=== PATIENT | male | born 1930 | race African-American/Black ===

== ENCOUNTER 2016-12-15 17:30 | Observation (INO) | payer OTHER ==
[~2016-12-15] VITALS: Ht 185.4 cm; Wt 105.0 kg
[~2016-12-15 17:30] MED LIST: ALLO100T PO; AMLO10 PO; BUFF325T PO; FURO1TAB93 PO; INDO50CA PO; LORTA5 PO; POTA20IN3 PO
[2016-12-15 17:34] VITALS: BP 139/83; PULSE 122; RESP 24; TEMP 98; O2SAT 95
--- NOTE | 2016-12-15 18:16 | PD ---
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 Worsened by rising from a sitting position. Lasting approximately 10-15 seconds before resolving spontaneously. He denies headache , fevers, chills, chest pain, palpitations, diaphoresis, nausea, vomiting, changes in bowel habits, melena, hematochezia, dysuria, back pain. Also complains of swelling of the right hand, which he attributes to a gout flare. PCP Dr. Worrell, seed collector Dr. Sibley. [facility] Past Medical History Arthritis: Yes Cardiovascular Problems: Yes High Cholesterol: Yes Congestive Heart Failure: Yes COPD: Yes Diminished Hearing: Yes ([place]) Gout: Yes Hypertension: Yes Respiratory: Yes Immunizations Current: Yes Past Surgical History Cardiac Surgery: Yes (PACEMAKER) 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) Social History Alcohol Use: Yes (2-3 BEERS DAILY) Tobacco Use: No (quit 5 years) Substance Use: No Allergies-Medications (Allergen,Severity, Reaction): Coded Allergies: No Known Allergies (Verified , 12/15/16) Reported Meds & Prescriptions Reported Meds & Active Scripts Active [place] 5-325 mg (Hydrocodone-Acetaminophen 5-325 mg) 1 Tab 1 Tab PO Q6H PRN Potassium Chloride ER 20 meq 20 Meq Tab 1 Tab PO DAILY 30 Days Lasix (Furosemide) 40 Mg Tab 40 Mg PO DAILY 30 Days Indomethacin 50 Mg Cap 50 Mg PO TID 10 Days Reported Allopurinol 100 Mg Tab 100 Mg PO DAILY@0600 Bufferin (Aspirin Buffered) 325 Mg Tab 325 Mg PO DAILY Norvasc (Amlodipine Besylate) 10 Mg Tab 10 Mg PO DAILY Review of Systems Except as stated in HPI: all other systems reviewed are Neg Physical Exam Narrative GENERAL: Well-nourished, well-developed hard of hearing white male in no acute distress. SKIN: Warm and dry. The entire right hand is edematous, warm. There is faint erythema on the dorsal aspect over the MP joints. Services Mgr strength is somewhat diminished secondary to pain. HEAD: Normocephalic. EYES: No scleral icterus. No injection or drainage. Arcus senilis bilaterally. NECK: Supple, trachea midline. No JVD or lymphadenopathy. CARDIOVASCULAR: Regular rate and rhythm without murmurs, gallops, or rubs. 2+ DP and radial pulses bilaterally. RESPIRATORY: Breath sounds clear and equal bilaterally. No accessory muscle use. GASTROINTESTINAL: Abdomen soft, non-tender, nondistended. Active bowel sounds. MUSCULOSKELETAL: No cyanosis, or edema. NEUROLOGICAL: Awake and alert. Cranial nerves II through XII intact. Motor and sensory grossly within normal limits. No pronator drift. 5/5 biceps, triceps, dorsiflexion, plantar flexion, knee and hip flexion strength bilaterally. Normal speech. BACK: Nontender without obvious deformity. No CVA tenderness. Data Data Last Documented VS Vital Signs Date Time Temp Pulse Resp B/P Pulse Ox O2 Delivery O2 Flow Rate FiO2 12/15/16 17:34 98.0 122 24 139/83 95 Room Air Orders Electrocardiogram (12/15/16 18:16) Complete Blood Count With Diff (12/15/16 18:16) Comprehensive Metabolic Panel (12/15/16 18:16) Magnesium (Mg) (12/15/16 18:16) B-Type Natriuretic Peptide (12/15/16 18:16) Ckmb (Isoenzyme) Profile (12/15/16 18:16) Troponin I (12/15/16 18:16) Act Partial Throm Time (Ptt) (12/15/16 18:16) Prothrombin Time / Inr (Pt) (12/15/16 18:16) Urinalysis - C+S If Indicated (12/15/16 18:16) Chest, Single Ap (12/15/16 18:16) Ct Brain W/O Iv Contrast(Rout) (12/15/16 18:16) Iv Access Insert/Monitor (12/15/16 18:16) Sodium Chloride 0.9% Flush (Ns Flush) (12/15/16 18:30) Orthostatic Blood Pressure (12/15/16 18:32) C-Reactive Protein (Crp) (12/15/16 19:41) W[place]gren Sedimentation Rate (12/15/16 19:41) Blood Culture (12/15/16 19:41) Hand, Complete (Ayf3ibn) (12/15/16 19:47) CKMB (12/15/16 18:54) CKMB% (12/15/16 18:54) Sodium Chlorid 0.9% 500 Ml Inj (Ns 500 M (12/15/16 20:45) Orthostatic Blood Pressure (12/15/16 20:33) Labs Laboratory Tests Test 12/15/16 18:54 White Blood Count 12.0 TH/MM3 Red Blood Count 4.10 MIL/MM3 Hemoglobin 12.8 GM/DL Hematocrit 38.7 % Mean Corpuscular Volume 94.5 FL Mean Corpuscular Hemoglobin 31.3 PG Mean Corpuscular Hemoglobin 33.1 % Concent Red Cell Distribution Width 14.4 % Platelet Count 71 TH/MM3 Mean Platelet Volume 12.7 FL Neutrophils (%) (Auto) 55.6 % Lymphocytes (%) (Auto) 7.7 % Monocytes (%) (Auto) 36.5 % Eosinophils (%) (Auto) 0.0 % Basophils (%) (Auto) 0.2 % Neutrophils # (Auto) 6.7 TH/MM3 Lymphocytes # (Auto) 0.9 TH/MM3 Monocytes # (Auto) 4.4 TH/MM3 Eosinophils # (Auto) 0.0 TH/MM3 Basophils # (Auto) 0.0 TH/MM3 CBC Comment AUTO DIFF Prothrombin Time 12.2 SEC Prothromb Time International 1.1 RATIO Ratio Activated Partial 24.1 SEC Thromboplast Time Sodium Level 133 MEQ/L Potassium Level 4.1 MEQ/L Chloride Level 98 MEQ/L Carbon Dioxide Level 22.4 MEQ/L Anion Gap 13 MEQ/L Blood Urea Nitrogen 33 MG/DL Creatinine 2.81 MG/DL Estimat Glomerular Filtration 26 ML/MIN Rate Random Glucose 109 MG/DL Calcium Level 9.1 MG/DL Magnesium Level 2.3 MG/DL Total Bilirubin 1.1 MG/DL Aspartate Amino Transf 16 U/L (AST/SGOT) Alanine Aminotransferase 13 U/L (ALT/SGPT) Alkaline Phosphatase 73 U/L Total Creatine Kinase 128 U/L Creatine Kinase MB 1.4 NG/ML Troponin I 0.03 NG/ML Total Protein 8.4 GM/DL Albumin 3.1 GM/DL MDM Medical Decision Making Medical Screen Exam Complete: Yes Emergency Medical Condition: Yes Medical Record Reviewed: Yes Differential Diagnosis Orthostatic hypertension versus UTI versus septic arthritis versus electrolyte abnormality versus dehydration versus hypoglycemia versus ACS versus ICH versus other Narrative Course 86-year-old yyhy-bkhj-zgadrgqf male with PMH of HTN, HLD, CHF, COPD, gout, implanted AICD presents to the ED for evaluation of 3 day history of intermittent dizziness. Worsened by rising from a sitting position. Lasting approximately 10-15 seconds before resolving spontaneously. He denies headache , fevers, chills, chest pain, palpitations, diaphoresis, nausea, vomiting, changes in bowel habits, melena, hematochezia, dysuria, back pain. Also complains of swelling of the right hand, which he attributes to a gout flare. PCP Dr. Worrell, seed collector Dr. Sibley. Vitals reviewed. Patient is tachypneic-rate 24, tachycardic rate- 122 on presentation. Pulse 69 after settling into the exam room. Physical exam reveals a nontoxic-appearing black male in no acute distress. No focal neural deficits. No pertain or drift. Entire right hand is edematous, warm, erythematous over the MP dorsal surface of the joints. Strength diminished secondary to pain and swelling. Chest clear to auscultation bilaterally. Abdomen soft, nontender. No lower extremity edema. Orthostatic vitals, Lab work, blood cultures, CT, x-rays, EKG ordered. Patient only moved to the medical pods. Please see oncoming provider note for disposition. Megan Ladd Dec 15, 2016 18:15
[2016-12-15] MEDS ORDERED: SODIUM CHLORIDE 0.9% FLUSH 5 ML FLUSH IVF PRN (18:30)
--- NOTE | 2016-12-15 18:52 | RADRPT ---
EXAM DATE/TIME: 12/15/2016 18:32 [facility] COMPARISON: No previous studies available for comparison. INDICATIONS : Dizziness and altered mental status. RADIATION DOSE: 56.35 CTDIvol (mGy) MEDICAL HISTORY : Cardiovascular disease. Hypertension. Chronic obstructive pulmonary disease. SURGICAL HISTORY : Pacemaker. ENCOUNTER: Initial ACUITY: 4 - 6 days PAIN SCALE: 0/10 LOCATION: cranial TECHNIQUE: Multiple contiguous axial images were obtained of the head. Using automated exposure control and adj ustment of the mA and/or kV according to patient size, radiation dose was kept as low as reasonably a chievable to obtain optimal diagnostic quality images. FINDINGS: There is no evidence for intracranial hemorrhage, mass effect, mass lesions, or edema. The visualize d bony structures appear intact. Moderate degree of brain atrophy is seen. Moderate periventricular white matter changes are seen nonspecific mostly consistent with chronic small vessel ischemic change s. There are no signs of acute infarction for technique. CONCLUSION: Chronic and small vessel ischemic changes without any evidence for acute hemorrhage o r mass effect. Reta Houhg MD on December 15, 2016 at 18:49 Board Certified Radiologist. This report was verified electronically.
--- NOTE | 2016-12-15 18:59 | RADRPT ---
EXAM DATE/TIME: 12/15/2016 18:35 [facility] COMPARISON: CHEST SINGLE AP, June 09, 2015, 15:31. INDICATIONS : Patient complains of shortness of breath, cough, and dizziness. MEDICAL HISTORY : None. SURGICAL HISTORY : Pacemaker. ENCOUNTER: Initial ACUITY: 1 day PAIN SCORE: 0/10 LOCATION: chest FINDINGS: The lungs are clear without infiltrate, nodule, or mass. There is no appreciable pleural effusion fo r technique. Heart and mediastinum are unremarkable. Left subclavian transvenous pacer wires are pre sent with tips in the right atrium and right ventricle. CONCLUSION: No acute cardiopulmonary disease. Reta Hough MD on December 15, 2016 at 18:57 Board Certified Radiologist. This report was verified electronically.
[2016-12-15 19:44] LABS: AUTOMATED NEUTROPHIL # 6.7 TH/MM3 (1.8-7.7); BASOPHIL % 0.2 % (0.0-2.0); HEMATOCRIT 38.7 % (39.0-51.0); LYMPH % 7.7 % (9.0-44.0); LYMPHOCYTE # 0.9 TH/MM3 (1.0-4.8); MEAN CELL VOLUME 94.5 FL (80.0-100.0); MEAN CORPUSCULAR HEMOGLOBIN 31.3 PG (27.0-34.0); MEAN CORPUSCULAR HGB CONC 33.1 % (32.0-36.0); MONO % 36.5 % (0.0-8.0); NEUT % 55.6 % (16.0-70.0); PLATELET COUNT 71 TH/MM3 (150-450); RED CELL DISTRIBUTION WIDTH 14.4 % (11.6-17.2)
[2016-12-15 19:50] LABS: HEMO FLAGS AUTO DIFF
[2016-12-15 19:56] LABS: APTT (PATIENT) 24.1 SEC (24.3-30.1); INTERNATIONAL NORMALIZED RATIO 1.1 RATIO; PROTHROMBIN TIME - PATIENT 12.2 SEC (9.8-11.6)
[2016-12-15 20:07] LABS: ANION GAP 13 MEQ/L (5-15); AST (GOT) 16 U/L (15-37); BICARBONATE 22.4 MEQ/L (21.0-32.0); BLOOD UREA NITROGEN 33 MG/DL (7-18); CHLORIDE 98 MEQ/L (98-107); GLOMERULAR FILTRATION RATE 26 ML/MIN (>89); MAGNESIUM 2.3 MG/DL (1.5-2.5); POTASSIUM 4.1 MEQ/L (3.5-5.1); SODIUM (NA) 133 MEQ/L (136-145)
[2016-12-15 20:12] LABS: ALKALINE PHOSPHATASE 73 U/L (45-117); ALT (GPT) 13 U/L (12-78); CREATINE KINASE 128 U/L (39-308); TOTAL BILIRUBIN ADULT 1.1 MG/DL (0.2-1.0)
[2016-12-15 20:24] LABS: CKMB 1.4 NG/ML (0.5-3.6)
[2016-12-15] MEDS ORDERED: SODIUM CHLORID 0.9% 500 ML INJ 500 ML IV ONE (20:45)
--- NOTE | 2016-12-15 20:51 | RADRPT ---
EXAM DATE/TIME: 12/15/2016 20:19 [facility] COMPARISON: No previous studies available for comparison. INDICATIONS : Swelling. MEDICAL HISTORY : Gout. SURGICAL HISTORY : None. ENCOUNTER: Initial ACUITY: 3 days PAIN SCORE: 0/10 LOCATION: Right hand. 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 There is slight deformity of the fifth PIP joint chronic in nature. A cute fracture is not seen. CONCLUSION: Chronic changes and no evidence for acute fracture. Reta Hough MD on December 15, 2016 at 20:48 Board Certified Radiologist. This report was verified electronically.
[2016-12-15 20:52] LABS: PLATELET ESTIMATE SMEAR LOW (NORMAL); PLATELET MORPHOLOGY ENLARGED (NORMAL); SCAN/DIFF AUTO DIFF CONFIRMED
[2016-12-15 20:59] LABS: BACTERIA, URINE OCC /hpf; BLOOD, URINE SMALL (NEG); COMMENT (UR) CULTURE INDICATED; CULTURE IF INDICATED CULTURE INDICATED; GLUCOSE,URINE NEG (NEG); GRANULAR CAST, URINE 13 /lpf; HYALINE CAST, URINE 4 /lpf (RARE); KETONE, URINE NEG (NEG); MUCUS URINE MOD /lpf (OCC); NITRITE,URINE NEG (NEG); PH, URINE 5.5 (5.0-8.5); SQUAMOUS EPITHELIAL CELL URINE 7 /hpf (0-5); URINE COLOR DARK-YELLOW (YELLW/STRAW)
[2016-12-15 21:10] VITALS: BP_SYST 122; BP_SYST 96; BP_SYST 99; BP_DIAS 64; RESP 16; RESP 20
[2016-12-15 21:25] VITALS: BP 141/86; PULSE 108; RESP 18; O2SAT 97
[2016-12-15] MEDS ORDERED: VANCOMYCIN INJ 1,000 MG in SODIUM CHLOR 0.9% 250 ML INJ 250 ML IV ONE (21:45)
--- NOTE | 2016-12-15 21:58 | HHI.HP ---
[facility] Service [place] [facility] Primary Care Physician Saud Worrell MD Admission Diagnosis orthostatic hypotension, dehydration, cellulitis, renal failure Diagnoses: (1) Orthostatic hypotension Diagnosis: Principal (2) Gout Diagnosis: Principal (3) Cellulitis Diagnosis: Principal (4) Renal insufficiency Diagnosis: Principal (col) Travel History International Travel<30 Days: No Contact w/Intl Traveler <30 Da: No Traveled to Known Affected Are: No History of Present Illness This is an 86-year-old male with PMH of HTN, Hyperlipidemia, CHF (Echo 02/28/12 w / EF 20-25%), s/p AICD, COPD and Gout who was brought to the ER by family secondary to dizziness and SOB x1 wk. Per pt symptoms occur when going from sitting to standing position, no dizziness or SOB at rest. Has had near syncopal episodes but no LOC. Denies chest pain, fever or cough. Of note, pt w / right hand swelling x3 days which he attributes to Gout. Per Daughter, flares usually occur in the knee and underwent steroid injection in knee recently. On arrival, BP 39/83, HR 122, O2 sat 95% on RA, Afebrile. Orthostatic Vital Signs positive, supine 122/64, HR 66, sitting 96/64, HR 123, standing 99/64, HR 138. On exam, significant swelling to right hand w/ erythema. WBC 12.0. Platelets 71, previously 99 on 06/09/15. Creatinine 2.81, previously 1.71 on 06/09/15. CRP 24. INR 1.1. UA with mild bacteriuria. S/p Blood Cultures and Vanc in ER. Review of Systems Other ROS: 14 point review of systems otherwise negative. Past Family Social History Past Medical History PMH: HTN, Hyperlipidemia, CHF (Echo 02/28/12 w/ EF 20-25%), s/p AICD, COPD and Gout Past Surgical History PAST SURGICAL HISTORY: AICD Allergies: Coded Allergies: No Known Allergies (Verified , 12/15/16) Family History PAST FAMILY HISTORY: Reviewed. No h/o DM or CAD Social History PAST SOCIAL HISTORY: Drinks 2 beers daily. Negative for tobacco or drugs. Physical Exam Vital Signs Vital Signs Date Time Temp Pulse Resp B/P Pulse Ox O2 Delivery O2 Flow Rate FiO2 12/15/16 21:10 66 16 122/64 123 20 96/64 138 20 99/64 12/15/16 17:34 98.0 122 24 139/83 95 Room Air Physical Exam PE: GENERAL: Very pleasant elderly black male in no acute distress. Family at bedside. HEENT: PERRLA, EOMI. No scleral icterus or conjunctival pallor. No lid lag or facial droop. CARDIOVASCULAR: Regular rate and rhythm. No obvious murmurs to auscultation. No chest tenderness to palpation. RESPIRATORY: No obvious rhonchi or wheezing. Clear to auscultation. Breath sounds equal bilaterally. GASTROINTESTINAL: Abdomen soft, non-tender, nondistended. BS normal. MUSCULOSKELETAL: Significant edema of right hand w/ some erythema. Pulses intact. NEUROLOGICAL: Awake, alert and oriented x4. No focal neurologic deficits. Moving both upper and lower extremities spontaneously. Laboratory Laboratory Tests Test 12/15/16 12/15/16 18:54 20:15 White Blood Count 12.0 Red Blood Count 4.10 Hemoglobin 12.8 Hematocrit 38.7 Mean Corpuscular Volume 94.5 Mean Corpuscular Hemoglobin 31.3 Mean Corpuscular Hemoglobin 33.1 Concent Red Cell Distribution Width 14.4 Platelet Count 71 Mean Platelet Volume 12.7 Neutrophils (%) (Auto) 55.6 Lymphocytes (%) (Auto) 7.7 Monocytes (%) (Auto) 36.5 Eosinophils (%) (Auto) 0.0 Basophils (%) (Auto) 0.2 Neutrophils # (Auto) 6.7 Lymphocytes # (Auto) 0.9 Monocytes # (Auto) 4.4 Eosinophils # (Auto) 0.0 Basophils # (Auto) 0.0 CBC Comment AUTO DIFF Differential Comment AUTO DIFF CONFIRMED Platelet Estimate LOW Platelet Morphology Comment ENLARGED Prothrombin Time 12.2 Prothromb Time International 1.1 Ratio Activated Partial 24.1 Thromboplast Time Sodium Level 133 Potassium Level 4.1 Chloride Level 98 Carbon Dioxide Level 22.4 Anion Gap 13 Blood Urea Nitrogen 33 Creatinine 2.81 Estimat Glomerular Filtration 26 Rate Random Glucose 109 Calcium Level 9.1 Magnesium Level 2.3 Total Bilirubin 1.1 Aspartate Amino Transf 16 (AST/SGOT) Alanine Aminotransferase 13 (ALT/SGPT) Alkaline Phosphatase 73 Total Creatine Kinase 128 Creatine Kinase MB 1.4 Troponin I 0.03 C-Reactive Protein 24.00 B-Type Natriuretic Peptide 237 Total Protein 8.4 Albumin 3.1 Urine Color DARK-YELLOW Urine Turbidity CLOUDY Urine pH 5.5 Urine Specific [place] 1.019 Urine Protein 300 Urine Glucose (UA) NEG Urine Ketones NEG Urine Occult Blood SMALL Urine Nitrite NEG Urine Bilirubin SMALL Urine Urobilinogen 2.0 Urine Leukocyte Esterase NEG Urine RBC 2 Urine WBC 11 Urine Squamous Epithelial 7 Cells Urine Bacteria OCC Urine Hyaline Casts 4 Urine Granular Casts 13 Urine Mucus MOD Microscopic Urinalysis Comment CULTURE INDICATED Date/Time Procedure Status Source Growth 12/15/16 20:15 Urine Culture Received Urine Clean Catch Pending 12/15/16 20:00 Aerobic Blood Culture Received Blood Line Pending 12/15/16 20:00 Anaerobic Blood Culture Received Blood Line Pending Result Diagram: 12/15/16 18512/15/164 Assessment and Plan Problem List: (1) Orthostatic hypotension ICD Code: I95.1 Status: Acute (2) Dehydration ICD Code: E86.0 Status: Acute (3) Renal insufficiency ICD Code: N28.9 Status: Acute (4) Cellulitis ICD Code: L03.90 Status: Acute (5) Gout ICD Code: M10.9 Status: Acute Assessment and Plan A/P: 1. Orthostatic Hypotension: ongoing dizziness/SOB and near syncope x1 wk, Orthostatic Vital Signs positive w/ significant tachycardia w/ sitting/ standing. S/p IVF in ER, will continue w/ IVF-caution w/ CHF as EF 20-25%, but no acute fluid overload. 2. Dehydration: Likely secondary to diuresis w/ Lasix and acute infection/ cellulitis. Hold Lasix for now, IVF for hydration, resume Lasix once hypovolemia corrected. 3. Renal Insufficiency: Secondary to above. Acute on Chronic. Creatinine 2.81, previously 1.71 on 06/09/15. U/a w/ mild bacteriuria, pending urine culture. IVF, repeat labs in am. 4. Cellulitis: Right Hand Cellulitis w/ swelling which pt attributes to Gout. WBC 12. S/p Blood Cultures and Vanc in ER. Follow up cultures, continue IV Vanc, add Cefepime. Repeat labs in am. 5. Gout: CRP 24, right hand swelling/erythema typical of his Gout attacks. Check Uric Acid. Colchicine x2 doses. Resume home Allopurinol once acute flare resolved. 6. DVT Prophylaxis: SCD/Teds. 7. Social work for d/c planning as needed. 8. Case discussed w/ ER physician at length. Problem Qualifiers (1) Cellulitis: Qualified Code: L03.113 - Cellulitis of right upper extremity Ester Voss MD Dec 15, 2016 21:58
--- NOTE | 2016-12-15 21:59 | PD ---
HPI Chief Complaint: Dizziness Time Seen by Provider: 20:12 Travel History International Travel<30 days: No Contact w/Intl Traveler<30days: No Traveled to known affect area: No History of Present Illness HPI 86-year-old male came to the emergency room with history of lightheadedness, dizziness and shortness of breath for past 3-4 days. He is here with his daughter and son. Patient denies any syncopal episode or following. Says that the symptoms are getting worse. He also showed his right hand which is swollen and red and has some pain. Patient has history of gout and he is getting treated for gout. He is on colchicine for that. Patient was seen earlier by the provider in triage and workup was started. By the time he came to the room the workup was back which included the CBC, CMP, CAT scan of his head and chest x-ray. This was initiated at the Triage by the Provider in Triage. I was discussing with his daughter who happens to be a nurse herself that the patient' s renal functions looked extremely suboptimal to the point where it seems like he is in acute renal failure. Trending back the results of his renal functions it seems like he has had renal insufficiency in the past but his BUN/creatinine today is worse than before. Patient is on few medications that could worsen his renal function including furosemide, colchicine and valsartan. I discussed this with the daughter as well. Also his white count was somewhat elevated. Patient denied any cough, fever or chills. PFSH Past Medical History Narrative Medical List of his past medical history as reviewed from the nursing note. Arthritis: Yes Cardiovascular Problems: Yes High Cholesterol: Yes Congestive Heart Failure: Yes COPD: Yes Diminished Hearing: Yes ([place]) Gout: Yes Hypertension: Yes Respiratory: Yes Immunizations Current: Yes Past Surgical History Cardiac Surgery: Yes (PACEMAKER) 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) Social History Alcohol Use: No Tobacco Use: No Substance Use: No Allergies-Medications (Allergen,Severity, Reaction): Coded Allergies: No Known Allergies (Verified , 12/15/16) Comments No known drug allergies. Reported Meds & Prescriptions Reported Meds & Active Scripts Active [place] 5-325 mg (Hydrocodone-Acetaminophen 5-325 mg) 1 Tab 1 Tab PO Q6H PRN Potassium Chloride inj (Potassium Chloride) 20 Meq Tab 1 Tab PO DAILY 30 Days Lasix (Furosemide) 40 Mg Tab 40 Mg PO DAILY 30 Days Indomethacin 50 Mg Cap 50 Mg PO TID 10 Days Reported Allopurinol 100 Mg Tab 100 Mg PO DAILY@0600 [id number] Mg 325 Mg Tab 325 Mg PO DAILY Norvasc (Amlodipine Besylate) 10 Mg Tab 10 Mg PO DAILY Narrative Medication List of his home medications reviewed from the nursing note. Review of Systems Except as stated in HPI: all other systems reviewed are Neg Physical Exam Narrative GENERAL: Awake, alert, elderly, no obvious distress SKIN: Warm and dry. Right hand dorsum is swollen, erythematous and some streaking proximally. HEAD: Atraumatic. Normocephalic. EYES: Pupils equal and round. No scleral icterus. No injection or drainage. Arcus senilis. ENT: No nasal bleeding or discharge. Mucous membranes pink and moist. NECK: Trachea midline. No JVD. CARDIOVASCULAR: Regular rate and rhythm. No murmur appreciated. RESPIRATORY: No accessory muscle use. Clear to auscultation. Breath sounds equal bilaterally. GASTROINTESTINAL: Abdomen soft, non-tender, nondistended. Hepatic and splenic margins not palpable. MUSCULOSKELETAL: Multiple large joint arthritis and deformity from it. 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 No clubbing. No cyanosis. No edema. NEUROLOGICAL: Awake and alert. No obvious cranial nerve deficits. Motor grossly within normal limits. Normal speech. PSYCHIATRIC: Appropriate mood and affect; insight and judgment normal. Data Data Last Documented VS Vital Signs Date Time Temp Pulse Resp B/P Pulse Ox O2 Delivery O2 Flow Rate FiO2 12/15/16 21:25 108 18 141/86 97 Room Air 12/15/16 17:34 98.0 Orders Electrocardiogram (12/15/16 18:16) Complete Blood Count With Diff (12/15/16 18:16) Comprehensive Metabolic Panel (12/15/16 18:16) Magnesium (Mg) (12/15/16 18:16) B-Type Natriuretic Peptide (12/15/16 18:16) Ckmb (Isoenzyme) Profile (12/15/16 18:16) Troponin I (12/15/16 18:16) Act Partial Throm Time (Ptt) (12/15/16 18:16) Prothrombin Time / Inr (Pt) (12/15/16 18:16) Urinalysis - C+S If Indicated (12/15/16 18:16) Chest, Single Ap (12/15/16 18:16) Ct Brain W/O Iv Contrast(Rout) (12/15/16 18:16) Iv Access Insert/Monitor (12/15/16 18:16) Sodium Chloride 0.9% Flush (Ns Flush) (12/15/16 18:30) Orthostatic Blood Pressure (12/15/16 18:32) C-Reactive Protein (Crp) (12/15/16 19:41) Westergren Sedimentation Rate (12/15/16 19:41) Blood Culture (12/15/16 19:41) Hand, Complete ([id number]) (12/15/16 19:47) CKMB (12/15/16 18:54) CKMB% (12/15/16 18:54) Sodium Chlorid 0.9% 500 Ml Inj (Ns 500 M (12/15/16 20:45) Orthostatic Blood Pressure (12/15/16 20:33) Urine Culture (12/15/16 20:15) Vancomycin Inj (Vancomycin Inj) (12/15/16 21:45) Blood Culture (12/15/16 21:40) Lactic Acid (12/15/16 21:40) Admit Order (Ed Use Only) (12/15/16 21:48) Labs Laboratory Tests Test 12/15/16 12/15/16 12/15/16 18:54 20:15 21:30 White Blood Count 12.0 TH/MM3 Red Blood Count 4.10 MIL/MM3 Hemoglobin 12.8 GM/DL Hematocrit 38.7 % Mean Corpuscular Volume 94.5 FL Mean Corpuscular Hemoglobin 31.3 PG Mean Corpuscular Hemoglobin 33.1 % Concent Red Cell Distribution Width 14.4 % Platelet Count 71 TH/MM3 Mean Platelet Volume 12.7 FL Neutrophils (%) (Auto) 55.6 % Lymphocytes (%) (Auto) 7.7 % Monocytes (%) (Auto) 36.5 % Eosinophils (%) (Auto) 0.0 % Basophils (%) (Auto) 0.2 % Neutrophils # (Auto) 6.7 TH/MM3 Lymphocytes # (Auto) 0.9 TH/MM3 Monocytes # (Auto) 4.4 TH/MM3 Eosinophils # (Auto) 0.0 TH/MM3 Basophils # (Auto) 0.0 TH/MM3 CBC Comment AUTO DIFF Differential Comment AUTO DIFF CONFIRMED Platelet Estimate LOW Platelet Morphology Comment ENLARGED Prothrombin Time 12.2 SEC Prothromb Time International 1.1 RATIO Ratio Activated Partial 24.1 SEC Thromboplast Time Sodium Level 133 MEQ/L Potassium Level 4.1 MEQ/L Chloride Level 98 MEQ/L Carbon Dioxide Level 22.4 MEQ/L Anion Gap 13 MEQ/L Blood Urea Nitrogen 33 MG/DL Creatinine 2.81 MG/DL Estimat Glomerular Filtration 26 ML/MIN Rate Random Glucose 109 MG/DL Uric Acid 8.2 MG/DL Calcium Level 9.1 MG/DL Magnesium Level 2.3 MG/DL Total Bilirubin 1.1 MG/DL Aspartate Amino Transf 16 U/L (AST/SGOT) Alanine Aminotransferase 13 U/L (ALT/SGPT) Alkaline Phosphatase 73 U/L Total Creatine Kinase 128 U/L Creatine Kinase MB 1.4 NG/ML Troponin I 0.03 NG/ML C-Reactive Protein 24.00 MG/DL B-Type Natriuretic Peptide 237 PG/ML Total Protein 8.4 GM/DL Albumin 3.1 GM/DL Urine Color DARK-YELLOW Urine Turbidity CLOUDY Urine pH 5.5 Urine Specific [place] 1.019 Urine Protein 300 mg/dL Urine Glucose (UA) NEG mg/dL Urine Ketones NEG mg/dL Urine Occult Blood SMALL Urine Nitrite NEG Urine Bilirubin SMALL Urine Urobilinogen 2.0 MG/DL Urine Leukocyte Esterase NEG Urine RBC 2 /hpf Urine WBC 11 /hpf Urine Squamous Epithelial 7 /hpf Cells Urine Bacteria OCC /hpf Urine Hyaline Casts 4 /lpf Urine Granular Casts 13 /lpf Urine Mucus MOD /lpf Microscopic Urinalysis Comment CULTURE INDICATED Erythrocyte Sedimentation Rate 67 mm/hr [facility] Medical Decision Making Medical Screen Exam Complete: Yes Emergency Medical Condition: Yes Medical Record Reviewed: Yes Interpretation(s) Twelve-lead EKG was reviewed by me. Paced rhythm, heart rate of 104 bpm. Differential Diagnosis Dehydration, cellulitis, electrolyte abnormalities, renal failure Narrative Course 9:55 PM his WBC, CRP and sedimentation rate are significantly elevated. Nurse had done the orthostatic vital signs which was remarkably positive. Please look at those values at the nursing note. Patient is getting IV fluid bolus. I have ordered IV vancomycin since the redness of the hand which is quite possibly cellulitis and the source of infection. I would prefer to admit this patient at this point. I discussed this with the patient and his son. His daughter was not in the room when I went back to discuss the plan and the rest of the results. They understand and are agreeable with that plan. The hospitalist has accepted the case. As far as the renal failure is concerned definitely his Lasix, Colchicine and valsartan should be stopped. Procedures EKG Prior to Arrival: Yes Diagnosis Primary Impression: Orthostatic hypotension Additional Impressions: Cellulitis Qualified Code: L03.113 - Cellulitis of right upper extremity Renal failure Dehydration Admitting Information Admitting Physician Requests: Observation Lual Mora MD Dec 15, 2016 21:59
[2016-12-15] MEDS ORDERED: SODIUM CHLORIDE 0.9% FLUSH 5 ML FLUSH FLUSH PRN (22:00)
[2016-12-15] MEDS ORDERED: ACETAMINOPHEN/HYDROcodone 325 MG/10 MG TAB PO PRN (22:00)
[2016-12-15] MEDS ORDERED: Vancomycin Consult Pharmacy 1 EA OTHER SCH (22:00)
[2016-12-15] MEDS ORDERED: ACETAMINOPHEN 325 MG TAB PO PRN (22:00)
[2016-12-15] MEDS ORDERED: BISACODYL 10 MG SUPP PR PRN (22:00)
[2016-12-15] MEDS ORDERED: ONDANSETRON HCL 4 MG/2 ML VIAL IVP PRN (22:00)
[2016-12-15] MEDS ORDERED: COLCHICINE 0.6 MG TAB PO ONE (22:30)
[2016-12-15 23:00] VITALS: BP 137/78; PULSE 94; RESP 18; O2SAT 96
[2016-12-15] MEDS: SODIUM CHLOR 0.9% 1000 ML INJ 1,000 ML IV SCH (23:35)
[2016-12-15] MEDS: CEFEPIME INJ 1,000 MG in SODIUM CHLORIDE 0.9% INJ 100 ML IV SCH (23:36)
[2016-12-16] VITALS (11 sets, daily range): BP systolic 113–148; BP diastolic 66–94; PULSE 77–112; RESP 18–20; TEMP 97.5–98.8; O2SAT 93–97
[2016-12-16] MEDS ORDERED: COLCHICINE 0.6 MG TAB PO ONE (00:30)
[2016-12-16 05:41] LABS: AUTOMATED NEUTROPHIL # 5.3 TH/MM3 (1.8-7.7); BASOPHIL % 0.4 % (0.0-2.0); EOSINOPHIL % 0.1 % (0.0-4.0); HEMATOCRIT 34.4 % (39.0-51.0); LYMPH % 13.7 % (9.0-44.0); LYMPHOCYTE # 1.3 TH/MM3 (1.0-4.8); MEAN CELL VOLUME 93.8 FL (80.0-100.0); MEAN CORPUSCULAR HEMOGLOBIN 31.4 PG (27.0-34.0); MEAN CORPUSCULAR HGB CONC 33.5 % (32.0-36.0); NEUT % 55.8 % (16.0-70.0); PLATELET COUNT 59 TH/MM3 (150-450); RED BLOOD COUNT 3.67 MIL/MM3 (4.50-5.90); RED CELL DISTRIBUTION WIDTH 14.5 % (11.6-17.2); WHITE BLOOD COUNT 9.5 TH/MM3 (4.0-11.0)
[2016-12-16 05:45] LABS: HEMO FLAGS AUTO DIFF
[2016-12-16 06:11] LABS: ANION GAP 10 MEQ/L (5-15); AST (GOT) 15 U/L (15-37); BLOOD UREA NITROGEN 35 MG/DL (7-18); CHLORIDE 101 MEQ/L (98-107); GLOMERULAR FILTRATION RATE 32 ML/MIN (>89); POTASSIUM 4.3 MEQ/L (3.5-5.1); SODIUM (NA) 133 MEQ/L (136-145)
[2016-12-16 06:16] LABS: ALKALINE PHOSPHATASE 57 U/L (45-117); ALT (GPT) 11 U/L (12-78)
[2016-12-16] MEDS ORDERED: VANCOMYCIN 1,000 MG/NS 250 ML IV ONE ×2 (08:30)
[2016-12-16] MEDS: SODIUM CHLORIDE 0.9% FLUSH 5 ML FLUSH FLUSH SCH ×2 (08:33→21:24)
[2016-12-16] MEDS: ACETAMINOPHEN/HYDROcodone 325 MG/5 MG TAB PO PRN ×3 (08:33→18:16)
[2016-12-16] MEDS: SODIUM CHLOR 0.9% 1000 ML INJ 1,000 ML IV SCH ×2 (08:34→23:28)
--- NOTE | 2016-12-16 08:57 | HHI.PR ---
Subjective Remarks Follow-up for right hand infection. The patient continues to report swelling of his right hand. States it's difficult to move his fingers. He states the swelling comes and goes. No pain currently. He states that since his hand is been bothering him, he hasn't been feeling well for the past week or so, hasn't been eating or drinking much. He denies any nausea, vomiting. He had one episode of loose stools this morning. He denies any fevers or chills. He states she's been able to ambulate today with no difficulties. Denies any dizziness. Objective Vitals Vital Signs Date Time Temp Pulse Resp B/P Pulse Ox O2 Delivery O2 Flow Rate FiO2 12/16/16 08:38 97.6 112 20 130/94 95 12/16/16 05:09 81 12/16/16 04:11 97.8 99 20 133/66 97 12/16/16 01:00 95 18 139/81 95 Room Air 12/15/16 23:00 94 18 137/78 96 Room Air 12/15/16 21:25 108 18 141/86 97 Room Air 12/15/16 21:10 66 16 122/64 123 20 96/64 138 20 99/64 12/15/16 17:34 98.0 122 24 139/83 95 Room Air I/O 12/15/16 12/15/16 12/15/16 12/16/16 12/16/16 12/16/16 07:00 15:00 23:00 07:00 15:00 23:00 Intake Total 760 ml Balance 760 ml Intake Oral 360 ml IV Total 400 ml Result Diagram: 12/16/16 0506 12/16/16 0506 Imaging Last Impressions Hand X-Ray 12/15/161946 Signed Impressions: Service Date/Time: Thursday, December 15, 2016 20:19 - CONCLUSION: Chronic changes and no evidence for acute fracture. Reta Hough MD Head CT 12/15/161815 Signed Impressions: Service Date/Time: Thursday, December 15, 2016 18:32 - CONCLUSION: Chronic and small vessel ischemic changes without any evidence for acute hemorrhage or mass effect. Reta Hough MD Chest X-Ray 12/15/161815 Signed Impressions: Service Date/Time: Thursday, December 15, 2016 18:35 - CONCLUSION: No acute cardiopulmonary disease. Reta Hough MD Objective Remarks GENERAL: Well-developed well-nourished. In no acute distress. SKIN: Warm and dry. Right hand with swelling, warmth, minimal erythema. HEENT: Normocephalic. Pupils equal and round. Mucous membranes pink and moist. CARDIOVASCULAR: Regular rate and rhythm. No murmur appreciated. RESPIRATORY: No accessory muscle use. Clear to auscultation. Breath sounds equal bilaterally. GASTROINTESTINAL: Abdomen soft, non-tender, nondistended. Bowel sounds x4. MUSCULOSKELETAL: Right hand as above. Unable to actively flex and extend fingers of right hand. No clubbing or cyanosis. No edema. NEUROLOGICAL: Awake and alert. No focal neurological deficits. Moves upper and lower extremities spontaneously. Normal speech. PSYCHIATRIC: Appropriate mood and affect; insight and judgment normal. A/P Problem List: (1) Orthostatic hypotension ICD Code: I95.1 Status: Acute (2) Dehydration ICD Code: E86.0 Status: Acute (3) Renal insufficiency ICD Code: N28.9 Status: Acute (4) Cellulitis ICD Code: L03.90 Status: Acute (5) Gout ICD Code: M10.9 Status: Acute Assessment and Plan 86-year-old male with PMH of HTN, Hyperlipidemia, CHF (Echo 02/28/12 w/ EF 20-25% ), s/p AICD, COPD and Gout who was brought to the ED by family secondary to dizziness Orthostatic Hypotension: ongoing dizziness/SOB and near syncope x1 wk, Orthostatic Vital Signs positive w/ significant tachycardia w/ sitting/ standing. Likely secondary to dehydration and infection as below. Improving with IVF. Monitor orthostatics. PT eval. Acute kidney injury on chronic kidney disease: Creatinine 2.81, previously 1.71 on 06/09/15. Likely secondary to dehydration from diuresis w/ Lasix and acute infection/cellulitis. Hold Lasix for now, IVF for hydration, resume Lasix once hypovolemia corrected. Monitor BMP. Cautious volume resuscitation with CHF. Cellulitis: Right Hand Cellulitis w/ swelling which pt attributes to Gout. Hand x-ray with chronic changes and no acute fracture. Continue antibiotics( with Lactinex) and monitor for improvement. Sepsis: Secondary to right hand cellulitis as above. Presented with WBC 12k, tachycardia. Blood cultures pending. Received IV vancomycin in the ED. Continue on IV cefepime. Gout: Right hand swelling/erythema typical of his Gout attacks. Elevated ESR, CRP, uric acid. Colchicine x2 doses. Resume home Allopurinol once acute flare resolved. Abnormal UA: UA with evidence of contaminant versus UTI. Continue antibiotics as above. Follow-up urine culture. Reconcile and resume home medications, discussed with RN. DVT Prophylaxis: SCD/Teds. Plan of care discussed with Dr. Colón. Discharge Planning Disposition pending clinical course. Problem Qualifiers (1) Cellulitis: Qualified Code: L03.113 - Cellulitis of right upper extremity Tani Henderson Dec 16, 2016 08:57 Srinivasa Castañeda MD Dec 17, 2016 10:37
[2016-12-16 10:03] LABS: PLATELET ESTIMATE SMEAR LOW (NORMAL); PLATELET MORPHOLOGY ENLARGED (NORMAL); SCAN/DIFF AUTO DIFF CONFIRMED
[2016-12-16] MEDS: LACTOBACILLUS ACIDOPHILUS TAB PO SCH ×2 (11:25→21:24)
[2016-12-16] MEDS ORDERED: AMLO10TA2 PO (13:28)
[2016-12-16] MEDS ORDERED: TRAM50TA PO (13:44)
[2016-12-16] MEDS ORDERED: ATEN50TA PO (13:45)
[2016-12-16] MEDS ORDERED: POTA-163 PO (13:45)
[2016-12-16] MEDS ORDERED: VITA400T14 PO (13:48)
[2016-12-16] MEDS: CEFEPIME INJ 1,000 MG in SODIUM CHLORIDE 0.9% INJ 100 ML IV SCH (23:27)
[2016-12-17] MEDS: ACETAMINOPHEN/HYDROcodone 325 MG/5 MG TAB PO PRN ×3 (03:58→16:50)
[2016-12-17 06:28] VITALS: BP 126/75; PULSE 80; RESP 18; TEMP 97.5; O2SAT 95
[2016-12-17] MEDS: LACTOBACILLUS ACIDOPHILUS TAB PO SCH ×2 (08:45→20:51)
[2016-12-17] MEDS: SODIUM CHLORIDE 0.9% FLUSH 5 ML FLUSH FLUSH SCH ×2 (08:45→20:50)
[2016-12-17] MEDS: ATENOLOL 25 MG TAB PO SCH (08:45)
[2016-12-17] MEDS ORDERED: VANCOMYCIN 1,500 MG/NS 500 ML IV ONE ×2 (11:00)
[2016-12-17 11:54] VITALS: BP 117/76; PULSE 71; RESP 20; TEMP 98.2; O2SAT 97
--- NOTE | 2016-12-17 11:57 | HHI.PR ---
Subjective Remarks Follow-up for right hand swelling and orthostasis. Patient is reported that his hand swelling comes and goes. He states that he's been ambulating, denies any dizziness or lightheadedness. Objective Vitals Vital Signs Date Time Temp Pulse Resp B/P Pulse Ox O2 Delivery O2 Flow Rate FiO2 12/17/16 06:28 97.5 80 18 126/75 95 12/16/16 23:28 97.5 93 18 127/84 96 129/92 132/87 12/16/16 20:41 98.4 94 20 132/81 96 12/16/16 20:30 88 12/16/16 20:00 20 12/16/16 15:52 98.8 77 20 113/71 96 12/16/16 11:56 97.7 100 20 115/79 94 Result Diagram: 12/16/16 0506 12/16/16 0506 Imaging Last Impressions Hand X-Ray 12/15/161946 Signed Impressions: Service Date/Time: Thursday, December 15, 2016 20:19 - CONCLUSION: Chronic changes and no evidence for acute fracture. Reta Hough MD Head CT 12/15/161815 Signed Impressions: Service Date/Time: Thursday, December 15, 2016 18:32 - CONCLUSION: Chronic and small vessel ischemic changes without any evidence for acute hemorrhage or mass effect. Reta Hough MD Chest X-Ray 12/15/161815 Signed Impressions: Service Date/Time: Thursday, December 15, 2016 18:35 - CONCLUSION: No acute cardiopulmonary disease. Reta Hough MD Objective Remarks GENERAL: Well-developed well-nourished. In no acute distress. SKIN: Warm and dry. Right hand with swelling, and slight TTP, improving erythema. HEENT: Normocephalic. Pupils equal and round. Mucous membranes pink and moist. CARDIOVASCULAR: Regular rate and rhythm. No murmur appreciated. RESPIRATORY: No accessory muscle use. Clear to auscultation. Breath sounds equal bilaterally. GASTROINTESTINAL: Abdomen soft, non-tender, nondistended. Bowel sounds x4. MUSCULOSKELETAL: Right hand as above. Able to better flex and extend fingers of right hand today, but still limited. No clubbing or cyanosis. No edema. NEUROLOGICAL: Awake and alert. No focal neurological deficits. Moves upper and lower extremities spontaneously. Normal speech. PSYCHIATRIC: Appropriate mood and affect; insight and judgment normal. A/P Problem List: (1) Orthostatic hypotension ICD Code: I95.1 Status: Acute (2) Dehydration ICD Code: E86.0 Status: Acute (3) Renal insufficiency ICD Code: N28.9 Status: Acute (4) Cellulitis ICD Code: L03.90 Status: Acute (5) Gout ICD Code: M10.9 Status: Acute Assessment and Plan 86-year-old male with PMH of HTN, Hyperlipidemia, CHF (Echo 02/28/12 w/ EF 20-25% ), s/p AICD, COPD and Gout who was brought to the ED by family secondary to dizziness Orthostatic Hypotension: ongoing dizziness/SOB and near syncope x1 wk, Orthostatic Vital Signs positive w/ significant tachycardia w/ sitting/ standing. Likely secondary to dehydration and infection as below. Improved with IVF. Monitor orthostatics. PT eval. Acute kidney injury on chronic kidney disease: Creatinine 2.81, previously 1.71 on 06/09/15. Likely secondary to dehydration from diuresis w/ Lasix and acute infection/cellulitis. Hold Lasix for now. S/P IVF for hydration. Resume Lasix once hypovolemia corrected. Monitor BMP. Cautious volume resuscitation with CHF. Cellulitis: Right Hand Cellulitis w/ swelling which pt attributes to Gout. Hand x-ray with chronic changes and no acute fracture. Continue antibiotics( with Lactinex) and monitor for continued improvement. Sepsis: Secondary to right hand cellulitis vs UTI. Presented with WBC 12k, tachycardia. Blood cultures with NGTD. Received IV vancomycin and cefepime. Clinically improved and leukocytosis resolved. Afebrile. Stop vancomycin and continue cefepime for now. Gout: Right hand swelling/erythema typical of his Gout attacks. Elevated ESR, CRP, uric acid. Colchicine x2 doses. Resume home Allopurinol once acute flare resolved. Abnormal UA: UA with evidence of contaminant versus UTI. Continue antibiotics as above. Urine culture pending. HTN/CHF: Chronic. BP soft. Holding Lasix and amlodipine. Decrease atenolol dose with hold parameters with borderline BP. DVT Prophylaxis: SCD/Teds. Written by Tani Henderson, acting as scribe for Dr. Colón on 12/17/16 at 11:55. Discharge Planning Possible discharge home with home health care on oral antibiotics later today versus tomorrow a.m. if cultures remain negative. Attending Statement The documentation accurately reflects the work performed [id number] by me on at 11:55. Problem Qualifiers (1) Cellulitis: Qualified Code: L03.113 - Cellulitis of right upper extremity Tani Henderson Dec 17, 2016 11:57 Srinivasa Castañeda MD Dec 24, 2016 09:04
--- NOTE | 2016-12-17 12:33 | HHI.FF ---
Face to Face Verification Diagnosis: (1) Orthostatic hypotension (2) Gout (3) Cellulitis (4) Renal failure (5) Dehydration Physical Therapy Order: Evaluate and Treat, Improve ambulation, Strength and gait training Home Health Nursing Order: Medical education Signs/symptoms of disease process Medication education-adverse effect Nursing assessment with vital signs I have seen patient Dom Abrams on 12/17/16. My clinical findings support the need for the requested home health care services because: Ltd mobility - disease progression Deconditioned w/ increased weakness High risk of falls Infection w/ risk of complications I certify that my clinical findings support that this patient is homebound because: Unsteady gait/balance Poor cardiac reserve Tani Henderson Dec 17, 2016 12:33
[2016-12-17 12:50] LABS: AUTOMATED NEUTROPHIL # 3.1 TH/MM3 (1.8-7.7); BASOPHIL % 0.4 % (0.0-2.0); EOSINOPHIL % 0.1 % (0.0-4.0); HEMATOCRIT 32.3 % (39.0-51.0); LYMPH % 20.2 % (9.0-44.0); LYMPHOCYTE # 1.2 TH/MM3 (1.0-4.8); MEAN CELL VOLUME 94.2 FL (80.0-100.0); MEAN CORPUSCULAR HEMOGLOBIN 30.9 PG (27.0-34.0); MEAN CORPUSCULAR HGB CONC 32.8 % (32.0-36.0); MONO % 25.6 % (0.0-8.0); NEUT % 53.7 % (16.0-70.0); PLATELET COUNT 91 TH/MM3 (150-450); RED BLOOD COUNT 3.43 MIL/MM3 (4.50-5.90); RED CELL DISTRIBUTION WIDTH 14.4 % (11.6-17.2); WHITE BLOOD COUNT 5.9 TH/MM3 (4.0-11.0)
[2016-12-17 12:56] LABS: HEMO FLAGS AUTO DIFF
[2016-12-17 13:08] LABS: BICARBONATE 23.7 MEQ/L (21.0-32.0); POTASSIUM 3.6 MEQ/L (3.5-5.1)
[2016-12-17 13:38] LABS: PLATELET ESTIMATE SMEAR LOW (NORMAL); PLATELET MORPHOLOGY NORMAL (NORMAL); SCAN/DIFF AUTO DIFF CONFIRMED
--- NOTE | 2016-12-17 15:05 | EKG ---
Date Performed: 12/15/2016 Time Performed: 19:08:16 PTAGE: 86 years EKG: ELECTRONIC VENTRICULAR PACEMAKER When compared to previous tracing, there is now evedence o f Increased heart rate, with significant atrial synchronous and Ventricular pacing. There are also ne gative beats noted witch are appropriately Senced. There is also evidence of some psudofussion. ABNOR MAL RHYTHM ECG PREVIOUS TRACING : 06/09/2015 15.16 DOCTOR: Berenice Ojeda Interpretating Date/Time 12/17/2016 15:03:05
[2016-12-17 15:58] VITALS: BP 116/77; PULSE 71; RESP 20; TEMP 97.8; O2SAT 97
[2016-12-17 20:00] VITALS: PULSE 74
[2016-12-17 21:01] VITALS: BP_SYST 154; BP_SYST 157; BP_SYST 172; BP_DIAS 91; BP_DIAS 94; BP_DIAS 96; PULSE 84; RESP 20; TEMP 98.4; O2SAT 95
[2016-12-17] MEDS: CEFEPIME INJ 1,000 MG in SODIUM CHLORIDE 0.9% INJ 100 ML IV SCH (22:56)
[2016-12-18] VITALS (7 sets, daily range): BP systolic 124–166; BP diastolic 76–101; PULSE 65–81; RESP 18; TEMP 96.8–98.2; O2SAT 92–99
[2016-12-18] MEDS: ATENOLOL 25 MG TAB PO SCH (08:16)
[2016-12-18] MEDS: LACTOBACILLUS ACIDOPHILUS TAB PO SCH ×2 (08:16→21:56)
[2016-12-18] MEDS: SODIUM CHLORIDE 0.9% FLUSH 5 ML FLUSH FLUSH SCH ×2 (08:17→21:00)
[2016-12-18] MEDS: ACETAMINOPHEN/HYDROcodone 325 MG/5 MG TAB PO PRN (08:20)
--- NOTE | 2016-12-18 09:31 | HHI.PR ---
Subjective Remarks Follow up for right hand cellulitis/gout, dizziness, with orthostatic hypotension. The patient reports feeling better today. His right hand swelling has improved however still unable to fully extend the right wrist. Last night he had a 10 beat run of NSVT. He denies any chest pain or shortness of breath but does get lightheaded at times, he is not sure if it was associated with the episode of NSVT. He does have an AICD. His russian teacher is Dr. Sibley. Objective Vitals Vital Signs Date Time Temp Pulse Resp B/P Pulse Ox O2 Delivery O2 Flow Rate FiO2 12/18/16 05:54 98.2 74 18 138/86 92 12/18/16 01:33 98.2 72 18 166/87 93 12/17/16 21:01 98.4 84 20 172/94 95 157/96 154/91 12/17/16 20:00 74 12/17/16 15:58 97.8 71 20 116/77 97 12/17/16 11:54 98.2 71 20 117/76 97 I/O 12/17/16 12/17/16 12/17/16 12/18/16 12/18/16 12/18/16 07:00 15:00 23:00 07:00 15:00 23:00 Intake Total 1350 ml Output Total 1200 ml Balance 150 ml Intake Oral 750 ml IV Total 600 ml Output Urine Total 1200 ml Result Diagram: 12/17/16 1217 12/17/16 1217 Imaging Last Impressions Hand X-Ray 12/15/161946 Signed Impressions: Service Date/Time: Thursday, December 15, 2016 20:19 - CONCLUSION: Chronic changes and no evidence for acute fracture. Reta Hough MD Head CT 12/15/161815 Signed Impressions: Service Date/Time: Thursday, December 15, 2016 18:32 - CONCLUSION: Chronic and small vessel ischemic changes without any evidence for acute hemorrhage or mass effect. Reta Hough MD Chest X-Ray 12/15/161815 Signed Impressions: Service Date/Time: Thursday, December 15, 2016 18:35 - CONCLUSION: No acute cardiopulmonary disease. Reta Hough MD Objective Remarks GENERAL: Well-nourished, well-developed pleasant elderly male patient in [place]. SKIN: Warm and dry. No rash. HEAD: Normocephalic. Atraumatic. NECK: Supple. Trachea midline. CARDIOVASCULAR: Regular rate and rhythm. S1, S2 noted. No murmur appreciated. RESPIRATORY: No accessory muscle use. Clear to auscultation. Breath sounds equal bilaterally. GASTROINTESTINAL: Abdomen soft, non-tender, nondistended. Normoactive bowel sounds x4. MUSCULOSKELETAL: No obvious deformities. Right dorsal hand with edema, minimal erythema, mild TTP, able to flex/extend fingers however difficulty with extension of the right wrist. NEUROLOGICAL: Awake and alert. No obvious cranial nerve deficits. Motor grossly within normal limits. Normal speech. PSYCHIATRIC: Appropriate mood and affect; insight and judgment normal. Medications and IVs Current Medications Medications (Trade) Dose Ordered Sig/Moses Route Start Time Stop Time Status Last Admin (NS Flush) 2 ml UNSCH PRN FLUSH 12/15/16 22:00 (NS Flush) 2 ml BID FLUSH 12/16/16 09:00 12/18/16 08:17 (Zofran Inj) 4 mg Q6H PRN IVP 12/15/16 22:00 (Dulcolax Supp) 10 mg DAILY PRN [place] 12/15/16 22:00 (Tylenol) 650 mg Q6H PRN PO 12/15/16 22:00 ([place] 5-325 Mg) 1 tab Q4H PRN PO 12/15/16 22:00 12/18/16 08:20 ([place] 10-325 Mg) 1 tab Q4H PRN PO 12/15/16 22:00 (Lactinex) 1 tab Q12HR PO 12/16/16 09:00 12/18/16 08:16 Atenolol 25 mg 25 mg DAILY PO 12/17/16 09:00 12/18/16 08:16 (Maxipime Inj/NS Inj) 100 ml @ 200 mls/hr Q24H IV 12/18/16 23:00 (Deltasone) 20 mg BID PO 12/18/16 21:00 Urinary Catheter: No Vascular Central Line Catheter: No A/P Problem List: (1) Orthostatic hypotension ICD Code: I95.1 Status: Acute (2) Dehydration ICD Code: E86.0 Status: Acute (3) Renal insufficiency ICD Code: N28.9 Status: Acute (4) Cellulitis ICD Code: L03.90 Status: Acute (5) Gout ICD Code: M10.9 Status: Acute Assessment and Plan 86-year-old male with PMH of HTN, Hyperlipidemia, CHF (Echo 02/28/12 w/ EF 20-25% ), s/p AICD, COPD and Gout who was brought to the ED by family secondary to dizziness Orthostatic Hypotension: ongoing dizziness/SOB and near syncope x1 wk, Orthostatic Vital Signs positive w/ significant tachycardia w/ sitting/ standing. Likely secondary to dehydration and infection as below. Improved with IVF. Monitor orthostatics. PT eval. NSVT: patient with 10beat run of NSVT last night 12/17. Has AICD. On atenolol. With lightheadedness and near syncope as above, Consult patient's russian teacher Dr. Sibley. Acute kidney injury on chronic kidney disease: Creatinine 2.81, previously 1.71 on 06/09/15. Likely secondary to dehydration from diuresis w/ Lasix and acute infection/cellulitis. Hold Lasix for now. S/P IVF for hydration. Resume Lasix once hypovolemia corrected. Monitor BMP. Cautious volume resuscitation with CHF. Slowly improving, Cr 2.06 today. Cellulitis and Gout Flare: Right Hand Cellulitis w/ swelling, typical of gout flares, does have elevated uric acid, ESR, CRP. S/p colchicine x2. Hand x-ray with chronic changes and no acute fracture. Continue IV Cefepime (with Lactinex ), also added prednisone 20mg bid. Monitor for continued improvement. Resume home Allopurinol once acute flare resolved. Sepsis: Secondary to right hand cellulitis vs UTI. Presented with WBC 12k, tachycardia. Blood cultures with NGTD. Received IV vancomycin and cefepime. Clinically improved and leukocytosis resolved. Afebrile. Stop vancomycin and continue cefepime for now. Abnormal UA: UA with evidence of contaminant versus UTI. On antibiotics for cellulitis as above however urine culture with mixed gram positive, likely contaminants. HTN/CHF: Chronic. BP soft. Holding Lasix and amlodipine. Decrease atenolol dose with hold parameters with borderline BP. DVT Prophylaxis: SCD/Teds. Written by Jolene Sánchez, acting as scribe for Dr. Mendez on 2/6/17 at 09:30. The documentation accurately reflects the work performed [id number] by me Dr. Mendez on 12/18/16 at 09:30. Problem Qualifiers (1) Cellulitis: Qualified Code: L03.113 - Cellulitis of right upper extremity Jolene Sánchez PA-C Dec 18, 2016 09:31 Rochelle Mendez MD Dec 18, 2016 18:46
[2016-12-18] MEDS ORDERED: predniSONE 20 MG TAB PO ONE (09:45)
[2016-12-18] MEDS ORDERED: predniSONE 20 MG TAB PO SCH (09:45)
--- NOTE | 2016-12-18 11:50 | MB ---
cc: NATA CHAPMAN MD DATE OF CONSULTATION 12/18/2016 REASON FOR CONSULTATION NSVT. HISTORY OF PRESENT ILLNESS Mr. Abrams is a pleasant 86-year-old patient of mine. He does have a known history of a nonischemic dilated cardiomyopathy with normal coronaries by catheterization in 2011. His EF initially was 20% and has increased to 35% by echo in July of 2015. The patient remains asymptomatic from a cardiovascular perspective. He was admitted for right upper extremity cellulitis and during his hospitalization has had some NSVT. Cardiology was subsequently consulted. PAST MEDICAL HISTORY: Significant for - 1. Hypertension. 2. Hyperlipidemia. 3. Nonischemic cardiomyopathy with a Biotronik ICD. 4. CHF. 5. Gout. 6. Obesity. 7. Chronic renal insufficiency. REVIEW OF SYSTEMS Except as mentioned in the HPI, all 12 systems are negative. FAMILY HISTORY Noncontributory. ALLERGIES No known drug allergies. CURRENT MEDICATIONS: As per the record include - 1. Atenolol 25 mg a day. 2. Prednisone. 3. Cefepime. PHYSICAL EXAMINATION VITAL SIGNS: 96.8, 81, 18, 135/101. GENERAL: He is an overweight man who is in no apparent distress. NECK: Free from JVD. LUNGS: Clear auscultation. CARDIOVASCULAR EXAMINATION: He has a normal S1 and S2. I do not appreciate any murmurs, rubs or gallops. ABDOMEN: Soft. EXTREMITIES: Free from edema. TELEMETRY - Does show multiple runs of NSVT. ASSESSMENT AND PLAN NSVT - This patient does have a history of nonischemic cardiomyopathy and NSVT. His device does appear to be functioning normally and would not expect any intervention for these short runs. He does have a history of the same. Thus at this point I would simply continue him on his atenolol and observe. Cardiomyopathy - The patient does have moderate LV impaired. He is on a beta-bartolome. SANNA inhibitors felt relatively contraindicated with his renal insufficiency and a creatinine of over 2. History of CHF - The patient is a bit dehydrated on this admission thus holding his diuretics is reasonable at this point. The primary team can continue to monitor and manage his fluid balance. I would, however, likely restart his Lasix once he is euvolemic and prior to discharge. History of ICD - The patient notes he is due for recheck this week. We can simply put this off until after his discharge. Sincerely, Mando Milian/LAYO /10:27 AM /11:38 AM
[2016-12-18] MEDS: predniSONE 20 MG TAB PO SCH (21:56)
[2016-12-18] MEDS ORDERED: CEFEPIME 2000 MG/NS 100 ML IV SCH ×2 (23:00)
[2016-12-19] VITALS (7 sets, daily range): BP systolic 127–142; BP diastolic 73–88; PULSE 59–75; RESP 18–20; TEMP 97.6–98.2; O2SAT 60–97
[2016-12-19] MEDS: LACTOBACILLUS ACIDOPHILUS TAB PO SCH (08:41)
[2016-12-19] MEDS: ATENOLOL 25 MG TAB PO SCH (08:41)
[2016-12-19] MEDS: SODIUM CHLORIDE 0.9% FLUSH 5 ML FLUSH FLUSH SCH (08:42)
[2016-12-19] MEDS: predniSONE 20 MG TAB PO SCH (08:42)
--- NOTE | 2016-12-19 14:11 | HHI.PR ---
Subjective Remarks Follow up for gout exacerbation/cellulitis. He reports much improvement of the edema/erythema of the right hand. He is able to flex/extend the right wrist. He denies any fevers or chills. He has no other medical complaints. No further runs of NSVT. He wants to go home. Objective Vitals Vital Signs Date Time Temp Pulse Resp B/P Pulse Ox O2 Delivery O2 Flow Rate FiO2 12/19/16 11:38 97.6 68 20 127/81 97 12/19/16 10:55 75 12/19/16 08:43 72 12/19/16 07:32 97.6 59 20 142/73 94 12/19/16 06:09 98.2 66 18 139/81 60 12/19/16 00:24 98.2 62 20 136/88 93 12/18/16 21:48 98.1 72 18 132/78 94 12/18/16 20:00 65 12/18/16 16:00 96.9 69 18 129/76 99 I/O 12/18/16 12/18/16 12/18/16 12/19/16 12/19/16 12/19/16 07:00 15:00 23:00 07:00 15:00 23:00 Intake Total 900 ml Balance 900 ml Intake Oral 800 ml IV Total 100 ml # Voids 3 Result Diagram: 12/17/16 1217 12/17/16 1217 Imaging Last Impressions Hand X-Ray 12/15/161946 Signed Impressions: Service Date/Time: Thursday, December 15, 2016 20:19 - CONCLUSION: Chronic changes and no evidence for acute fracture. Reta Hough MD Head CT 12/15/161815 Signed Impressions: Service Date/Time: Thursday, December 15, 2016 18:32 - CONCLUSION: Chronic and small vessel ischemic changes without any evidence for acute hemorrhage or mass effect. Reta Hough MD Chest X-Ray 12/15/161815 Signed Impressions: Service Date/Time: Thursday, December 15, 2016 18:35 - CONCLUSION: No acute cardiopulmonary disease. Reta Hough MD Objective Remarks GENERAL: Well-nourished, well-developed pleasant elderly male patient in [facility]. SKIN: Warm and dry. No rash. HEAD: Normocephalic. Atraumatic. NECK: Supple. Trachea midline. CARDIOVASCULAR: Regular rate and rhythm. S1, S2 noted. No murmur appreciated. RESPIRATORY: No accessory muscle use. Clear to auscultation. Breath sounds equal bilaterally. GASTROINTESTINAL: Abdomen soft, non-tender, nondistended. Normoactive bowel sounds x4. MUSCULOSKELETAL: No obvious deformities. Right dorsal hand with minimal edema , no erythema, nontender, able to flex/extend fingers/wrist of right hand, much improved. NEUROLOGICAL: Awake and alert. No obvious cranial nerve deficits. Motor grossly within normal limits. Normal speech. PSYCHIATRIC: Appropriate mood and affect; insight and judgment normal. Medications and IVs Current Medications Medications (Trade) Dose Ordered Sig/Moses Route Start Time Stop Time Status Last Admin (NS Flush) 2 ml UNSCH PRN FLUSH 12/15/16 22:00 (NS Flush) 2 ml BID FLUSH 12/16/16 09:00 12/19/16 08:42 (Zofran Inj) 4 mg Q6H PRN IVP 12/15/16 22:00 (Dulcolax Supp) 10 mg DAILY PRN [place] 12/15/16 22:00 (Tylenol) 650 mg Q6H PRN PO 12/15/16 22:00 ([place] 5-325 Mg) 1 tab Q4H PRN PO 12/15/16 22:00 12/18/16 08:20 ([place] 10-325 Mg) 1 tab Q4H PRN PO 12/15/16 22:00 12/18/16 21:56 (Lactinex) 1 tab Q12HR PO 12/16/16 09:00 12/19/16 08:41 Atenolol 25 mg 25 mg DAILY PO 12/17/16 09:00 12/19/16 08:41 (Maxipime Inj/NS Inj) 100 ml @ 200 mls/hr Q24H IV 12/18/16 23:00 12/18/16 21:56 (Deltasone) 20 mg BID PO 12/18/16 21:00 12/19/16 08:42 Urinary Catheter: No Vascular Central Line Catheter: No A/P Problem List: (1) Orthostatic hypotension ICD Code: I95.1 Status: Acute (2) Dehydration ICD Code: E86.0 Status: Acute (3) Renal insufficiency ICD Code: N28.9 Status: Acute (4) Cellulitis ICD Code: L03.90 Status: Acute (5) Gout ICD Code: M10.9 Status: Acute Assessment and Plan 86-year-old male with PMH of HTN, Hyperlipidemia, CHF (Echo 02/28/12 w/ EF 20-25% ), s/p AICD, COPD and Gout who was brought to the ED by family secondary to dizziness Orthostatic Hypotension: ongoing dizziness/SOB and near syncope x1 wk, Orthostatic Vital Signs positive w/ significant tachycardia w/ sitting/ standing. Likely secondary to dehydration and infection as below. Improved with IVF. Monitor orthostatics. PT eval, recommends HHC, case management arranged. NSVT: patient with 10beat run of NSVT on 12/17. Has AICD. On atenolol. With lightheadedness and near syncope as above, Consult patient's educational technology specialist Dr. Sibley who recommended continuing medical management, plan for AICD check as scheduled next week, and cleared for discharge. Acute kidney injury on chronic kidney disease: Creatinine 2.81, previously 1.71 on 06/09/15. Likely secondary to dehydration from diuresis w/ Lasix and acute infection/cellulitis. Hold Lasix for now. S/P IVF for hydration. Monitor BMP. Cautious volume resuscitation with CHF. Slowly improving, Cr 2.06 today. Continued to hold lasix at discharge, f/up as outpatient. Cellulitis and Gout Flare: Right Hand Cellulitis w/ swelling, typical of gout flares, does have elevated uric acid, ESR, CRP. S/p colchicine x2. Hand x-ray with chronic changes and no acute fracture. Continue IV Cefepime (with Lactinex ), also added prednisone 20mg bid. Monitor for continued improvement. Resume home Allopurinol once acute flare resolved. Much improved today. Will discharge on po Keflex, prednisone. Unable to prescribe NSAIDs with renal function. Sepsis: Secondary to right hand cellulitis vs UTI. Presented with WBC 12k, tachycardia. Blood cultures with NGTD. Received IV vancomycin and cefepime. Clinically improved and leukocytosis resolved. Afebrile. Stop vancomycin, given IV Cefepime, transition to po Keflex at discharge. Abnormal Blood Cultures: contaminant, only 1/4 positive for pleomorphic gram positive rods on day 4. Leukocytosis resolved. No fevers. Patient overall appears clinically well. Abnormal UA: UA with evidence of contaminant versus UTI. On antibiotics for cellulitis as above however urine culture with mixed gram positive, likely contaminants. HTN/CHF: Chronic. BP soft. Holding Lasix and amlodipine. Decreased atenolol dose with hold parameters with borderline BP. Much improved. DVT Prophylaxis: SCD/Teds. Written by Jolene Sánchez, acting as scribe for Dr. Mendez on 12/19/16 at 14:08. The documentation accurately reflects the work performed [id number] by md Dr. Mendez on 12/19/16 at 14:08. Discharge Planning See discharge summary. Problem Qualifiers (1) Cellulitis: Qualified Code: L03.113 - Cellulitis of right upper extremity Jolene Sánchez PA-C Dec 19, 2016 14:11 Rochelle Mendez MD Dec 19, 2016 17:11
[2016-12-19] MEDS ORDERED: PRED20 PO (15:30)
[2016-12-19] MEDS ORDERED: CEPH-460 PO (15:30)
[2016-12-19] MEDS ORDERED: ATEN25TA PO (15:30)
[2016-12-19] MEDS ORDERED: NORC5TAB PO (15:51)
--- NOTE | 2016-12-19 16:42 | HHI.DS ---
Discharge Summary Admission Date Dec 17, 2016 at 11:44 Discharge Date: Dec 19, 2016 Admitting Diagnosis orthostatic hypotension, dehydration, cellulitis, renal failure (1) Orthostatic hypotension ICD Code: I95.1 Diagnosis: Principal (2) Dehydration ICD Code: E86.0 Diagnosis: Secondary (3) Renal insufficiency ICD Code: N28.9 Diagnosis: Secondary (4) Cellulitis ICD Code: L03.90 Diagnosis: Principal (5) Gout ICD Code: M10.9 Diagnosis: Principal Procedures None. Brief History - From Admission This is an 86-year-old male with PMH of HTN, Hyperlipidemia, CHF (Echo 02/28/12 w / EF 20-25%), s/p AICD, COPD and Gout who was brought to the ER by family secondary to dizziness and SOB x1 wk. Per pt symptoms occur when going from sitting to standing position, no dizziness or SOB at rest. Has had near syncopal episodes but no LOC. Denies chest pain, fever or cough. Of note, pt w / right hand swelling x3 days which he attributes to Gout. Per Daughter, flares usually occur in the knee and underwent steroid injection in knee recently. On arrival, BP 39/83, HR 122, O2 sat 95% on RA, Afebrile. Orthostatic Vital Signs positive, supine 122/64, HR 66, sitting 96/64, HR 123, standing 99/64, HR 138. On exam, significant swelling to right hand w/ erythema. WBC 12.0. Platelets 71, previously 99 on 06/09/15. Creatinine 2.81, previously 1.71 on 06/09/15. CRP 24. INR 1.1. UA with mild bacteriuria. S/p Blood Cultures and Vanc in ER. CBC/BMP: 12/17/16 1217 12/17/16 1217 Significant Findings Laboratory Tests Test 12/17/16 12:17 Red Blood Count 3.43 MIL/MM3 (4.50-5.90) Hemoglobin 10.6 GM/DL (13.0-17.0) Hematocrit 32.3 % (39.0-51.0) Platelet Count 91 TH/MM3 (150-450) Monocytes (%) (Auto) 25.6 % (0.0-8.0) Monocytes # (Auto) 1.5 TH/MM3 (0-0.9) Platelet Estimate LOW (NORMAL) Sodium Level 135 MEQ/L (136-145) Blood Urea Nitrogen 40 MG/DL (7-18) Creatinine 2.06 MG/DL (0.60-1.30) Estimat Glomerular Filtration 37 ML/MIN (>89) Rate Calcium Level 7.9 MG/DL (8.5-10.1) Imaging Last Impressions Hand X-Ray 12/15/161946 Signed Impressions: Service Date/Time: Thursday, December 15, 2016 20:19 - CONCLUSION: Chronic changes and no evidence for acute fracture. Reta Hough MD Head CT 12/15/161815 Signed Impressions: Service Date/Time: Thursday, December 15, 2016 18:32 - CONCLUSION: Chronic and small vessel ischemic changes without any evidence for acute hemorrhage or mass effect. Reta Hough MD Chest X-Ray 12/15/161815 Signed Impressions: Service Date/Time: Thursday, December 15, 2016 18:35 - CONCLUSION: No acute cardiopulmonary disease. Reta Hough MD PE at Discharge GENERAL: Well-nourished, well-developed pleasant elderly male patient in [facility]. SKIN: Warm and dry. No rash. HEAD: Normocephalic. Atraumatic. NECK: Supple. Trachea midline. CARDIOVASCULAR: Regular rate and rhythm. S1, S2 noted. No murmur appreciated. RESPIRATORY: No accessory muscle use. Clear to auscultation. Breath sounds equal bilaterally. GASTROINTESTINAL: Abdomen soft, non-tender, nondistended. Normoactive bowel sounds x4. MUSCULOSKELETAL: No obvious deformities. Right dorsal hand with minimal edema , no erythema, nontender, able to flex/extend fingers/wrist of right hand, much improved. NEUROLOGICAL: Awake and alert. No obvious cranial nerve deficits. Motor grossly within normal limits. Normal speech. PSYCHIATRIC: Appropriate mood and affect; insight and judgment normal. Hospital Course 86-year-old male with PMH of HTN, Hyperlipidemia, CHF (Echo 02/28/12 w/ EF 20-25% ), s/p AICD, COPD and Gout who was brought to the ED by family secondary to dizziness Orthostatic Hypotension: ongoing dizziness/SOB and near syncope x1 wk, Orthostatic Vital Signs positive w/ significant tachycardia w/ sitting/ standing. Likely secondary to dehydration and infection as below. Improved with IVF. Monitor orthostatics. PT eval, recommends HHC, case management arranged. NSVT: patient with 10beat run of NSVT on 12/17. Has AICD. On atenolol. With lightheadedness and near syncope as above, Consult patient's tripper Dr. Sibley who recommended continuing medical management, plan for AICD check as scheduled next week, and cleared for discharge. Acute kidney injury on chronic kidney disease: Creatinine 2.81, previously 1.71 on 06/09/15. Likely secondary to dehydration from diuresis w/ Lasix and acute infection/cellulitis. Hold Lasix for now. S/P IVF for hydration. Monitor BMP. Cautious volume resuscitation with CHF. Slowly improving, Cr 2.06 today. Continued to hold lasix at discharge, f/up as outpatient. Cellulitis and Gout Flare: Right Hand Cellulitis w/ swelling, typical of gout flares, does have elevated uric acid, ESR, CRP. S/p colchicine x2. Hand x-ray with chronic changes and no acute fracture. Continue IV Cefepime (with Lactinex ), also added prednisone 20mg bid. Monitor for continued improvement. Resume home Allopurinol once acute flare resolved. Much improved today. Will discharge on po Keflex, prednisone. Unable to prescribe NSAIDs with renal function. Sepsis: Secondary to right hand cellulitis vs UTI. Presented with WBC 12k, tachycardia. Blood cultures with NGTD. Received IV vancomycin and cefepime. Clinically improved and leukocytosis resolved. Afebrile. Stop vancomycin, given IV Cefepime, transition to po Keflex at discharge. Abnormal Blood Cultures: contaminant, only 1/4 positive for pleomorphic gram positive rods on day 4. Leukocytosis resolved. No fevers. Patient overall appears clinically well. Abnormal UA: UA with evidence of contaminant versus UTI. On antibiotics for cellulitis as above however urine culture with mixed gram positive, likely contaminants. HTN/CHF: Chronic. BP soft. Holding Lasix and amlodipine. Decreased atenolol dose with hold parameters with borderline BP. Much improved. DVT Prophylaxis: SCD/Teds. Written by Jolene Sánchez, acting as scribe for Dr. Mendez on 12/19/16 at 14:08. The documentation accurately reflects the work performed [id number] by me Dr. Mendez on 12/19/16 at 14:08. Pt Condition on Discharge: Stable Discharge Disposition: Disch w/ Home Health Serv Discharge Time: > 30 minutes Discharge Instructions DIET: Follow Instructions for: Heart Healthy Diet Activities you can perform: Regular-No Restrictions Follow up Referrals: PCP Follow-up - 2-3 Days with Saud Worrell MD Rheumatology - 1 Week with Christoph Rosario MD New Medications: Cephalexin (Keflex) 500 Mg Cap 500 MG PO Q8H Infection #21 Ref 0 CAP Hydrocodone-Acetaminophen (Acc[place]) 5-325 mg Tab 1 TAB PO Q4H PRN PAIN #20 Ref 0 TAB Atenolol (Atenolol) 25 Mg Tab 25 MG PO DAILY Regulate Heart Beat #30 TAB Prednisone (Prednisone) 20 Mg Tab 20 MG PO BID Inflammation #6 TAB Continued Medications: Allopurinol (Allopurinol) 100 Mg Tab 100 MG PO DAILY@0600 () 325 Mg Tab 325 MG PO DAILY Ref 0 Ergocalciferol (Vitamin D2) 400 Unit Tab 86838 UNITS PO DAILY Nutritional Supplement Ref 0 TAB Hydrocodone-Acetaminophen 5-325 mg (Accident 5-325 mg) 1 Tab 1 TAB PO Q6H PRN PAIN SCALE 1 TO 10 #20 Ref 0 TAB Discontinued Medications: Amlodipine (Amlodipine) 10 Mg Tab 10 MG PO DAILY Blood Pressure Management #30 Ref 0 TAB Amlodipine Besylate (Norvasc) 10 Mg Tab 10 MG PO DAILY Ref 0 Atenolol (Atenolol) 50 Mg Tab 50 MG PO DAILY Blood Pressure Management #30 Ref 0 TAB Furosemide (Lasix) 40 Mg Tab 40 MG PO DAILY Days 30 TAB Indomethacin (Indomethacin) 50 Mg Cap 50 MG PO TID Days 10 Potassium Chloride ER (Potassium Chloride ER) 20 Meq Tab 20 MEQ PO DAILY Electrolyte Replacement #30 Ref 0 TAB Potassium Chloride inj (Potassium Chloride inj) 20 Meq Tab 1 TAB PO DAILY Days 30 TAB Tramadol (Tramadol) 50 Mg Tab 50 MG PO DAILY PRN PAIN Ref 0 TAB Jolene Sánchez PA-C Dec 19, 2016 16:42 Rochelle Mendez MD Dec 19, 2016 17:12
== END 2016-12-19 17:13 | disposition home health service (06) ==
LOC: NEPC 17:30 → NEDA 21:49 → UNDOADMOB 21:54 → NEDH 12-16 01:33 → NEDA 12-16 01:33 → NEDH 12-16 02:58 → NEPGCP 12-16 02:58 → INTOOBSV 12-17 11:44 → OBSVTOIN 12-17 11:44 → UNDODISOB 12-19 17:13
PROVIDERS: ADMIT Hospitalist; ATTEND Hospitalist
DX: I47.2 Ventricular tachycardia (principal); N17.9 Acute kidney failure, unspecified; I42.0 Dilated cardiomyopathy; L03.113 Cellulitis of right upper limb; I95.1 Orthostatic hypotension; I50.9 Heart failure, unspecified; J44.9 Chronic obstructive pulmonary disease, unspecified; E86.0 Dehydration; M10.9 Gout, unspecified; H91.90 Unspecified hearing loss, unspecified ear; E78.00 Pure hypercholesterolemia, unspecified; M19.90 Unspecified osteoarthritis, unspecified site; I12.9 Hypertensive chronic kidney disease with stage 1 through stage 4 chronic kidney disease, or unspecified chronic kidney disease; N18.9 Chronic kidney disease, unspecified; Z95.810 Presence of automatic (implantable) cardiac defibrillator; Z87.891 Personal history of nicotine dependence; E78.5 Hyperlipidemia, unspecified; E66.9 Obesity, unspecified
CPT/HCPCS: 70450; 71010; 73130; 80048; 80053; 80202; 81001; 82550; 82552; 83605; 83735; 83880; 84484; 84550; 85025; 85610; 85652; 85730; 86140; 87040; 87077; 87086; 87205; 93005; 96360; 97110; 97116; 97162; 99285; G0378; G8987; G8988; J0692; J3370; J7030; J7040; J7050; J7512

== ENCOUNTER 2016-12-27 06:19 | Emergency (ER) | payer OTHER ==
[~2016-12-27] VITALS: Ht 185.4 cm; Wt 104.0 kg
[~2016-12-27 06:19] MED LIST changes: -AMLO10 PO; +ATEN25TA PO; +CEPH-460 PO; -FURO1TAB93 PO; -INDO50CA PO; +NORC5TAB PO; -POTA20IN3 PO; +PRED20 PO; +VITA400T14 PO
[2016-12-27 06:23] VITALS: BP 183/102; PULSE 81; RESP 20; TEMP 97.6; O2SAT 94
[2016-12-27 12:43] VITALS: BP 185/103; PULSE 70; RESP 20; O2SAT 96
[2016-12-27 12:59] VITALS: O2SAT 97
[2016-12-27] MEDS ORDERED: SODIUM CHLORIDE 0.9% FLUSH 5 ML FLUSH IVF PRN (13:00)
[2016-12-27] MEDS ORDERED: TRAM50TA PO (13:01)
[2016-12-27] MEDS ORDERED: ATEN50TA PO (13:01)
[2016-12-27] MEDS ORDERED: ALLO100T PO (13:01)
--- NOTE | 2016-12-27 13:01 | PD ---
HPI Chief Complaint: Respiratory Symptoms Time Seen by Provider: 12:47 Travel History International Travel<30 days: No Contact w/Intl Traveler<30days: No Traveled to known affect area: No History of Present Illness HPI This is an 86-year-old male who presents to the emergency department reporting that he had an episode of shortness of breath that started last evening and has persisted through this morning, constant, moderate severity described as difficulty breathing. His visits so going on. He denies any chest pain. Patient reports this is very similar to his symptoms when he presented 2 weeks ago to the emergency department. At that time he was having some shortness of breath and dizziness. He was found to have orthostatic hypotension, acute kidney injury and some over diuresis in the setting of his Lasix. He also was septic at that time. He says he's been doing well since discharge until yesterday. He also during a hospital admission had a episode of nonsustained ventricular tachycardia. The patient has an AICD. Dr. Sibley recommended rechecking the AICD as an outpatient. PFSH Past Medical History Arthritis: Yes Blood Disorders: No Heart Rhythm Problems: Yes Cancer: No Cardiovascular Problems: Yes (PACEMAKER, CHF) High Cholesterol: No Chest Pain: Yes Congestive Heart Failure: Yes COPD: Yes Diminished Hearing: Yes ([place]) Endocrine: No Gout: Yes Genitourinary: No Hypertension: Yes Immune Disorder: No Implanted Vascular Access Dvce: Yes Musculoskeletal: Yes (Left knee, Gout) Neurologic: No Psychiatric: No Respiratory: Yes Immunizations Current: Yes Past Surgical History Body Medical Devices: Pacemaker, Left knee - pins Cardiac Surgery: Yes (PACEMAKER) 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) Social History Alcohol Use: No (ON WEEKENDS) Tobacco Use: No Substance Use: No Allergies-Medications (Allergen,Severity, Reaction): Coded Allergies: No Known Allergies (Verified , 12/27/16) Reported Meds & Prescriptions Reported Meds & Active Scripts Active Nebo (Hydrocodone-Acetaminophen) 5-325 mg Tab 1 Tab PO Q4H PRN Keflex (Cephalexin) 500 Mg Cap 500 Mg PO Q8H Prednisone 20 Mg Tab 20 Mg PO BID Reported Atenolol 50 Mg Tab 50 Mg PO DAILY Allopurinol 100 Mg Tab 100 Mg PO DAILY Tramadol (Tramadol HCl) 50 Mg Tab 50 Mg PO Q8H PRN Vitamin D2 (Ergocalciferol) 400 Unit Tab 50,000 Units PO DAILY Review of Systems Except as stated in HPI: all other systems reviewed are Neg Physical Exam Narrative GENERAL:Well appearing, no acute distress SKIN: Warm and dry. HEAD: Atraumatic. Normocephalic. EYES: Pupils equal and round. No injection or drainage. ENT: Moist mucous membranes NECK: Trachea midline. CARDIOVASCULAR: Regular rate and rhythm. No murmur appreciated. RESPIRATORY: Clear to auscultation. Breath sounds equal bilaterally. GASTROINTESTINAL: Abdomen soft, non-tender, nondistended. MUSCULOSKELETAL: No obvious deformities. NEUROLOGICAL: Awake and alert. No obvious cranial nerve deficits. Moving all extremities. PSYCHIATRIC: Appropriate mood and affect; insight and judgment normal. Data Data Last Documented VS Vital Signs Date Time Temp Pulse Resp B/P Pulse Ox O2 Delivery O2 Flow Rate FiO2 12/27/16 14:20 64 18 176/89 93 Room Air 12/27/16 06:23 97.6 Orders Electrocardiogram (12/27/16 ) Complete Blood Count With Diff (12/27/16 12:51) Comprehensive Metabolic Panel (12/27/16 12:51) B-Type Natriuretic Peptide (12/27/16 12:51) Act Partial Throm Time (Ptt) (12/27/16 12:51) Prothrombin Time / Inr (Pt) (12/27/16 12:51) Troponin I (12/27/16 12:51) Urinalysis - C+S If Indicated (12/27/16 12:51) Iv Access Insert/Monitor (12/27/16 12:51) Ecg Monitoring (12/27/16 12:51) Oximetry (12/27/16 12:51) Oxygen Administration (12/27/16 12:51) Chest, Single Ap (12/27/16 12:51) Sodium Chloride 0.9% Flush (Ns Flush) (12/27/16 13:00) Labetalol Inj (Trandate Inj) (12/27/16 13:15) Labs Laboratory Tests Test 12/27/16 12/27/16 13:00 13:09 White Blood Count 13.5 TH/MM3 Red Blood Count 3.58 MIL/MM3 Hemoglobin 11.0 GM/DL Hematocrit 33.7 % Mean Corpuscular Volume 94.0 FL Mean Corpuscular Hemoglobin 30.6 PG Mean Corpuscular Hemoglobin 32.6 % Concent Red Cell Distribution Width 15.0 % Platelet Count 194 TH/MM3 Mean Platelet Volume 9.9 FL Neutrophils (%) (Auto) 66.0 % Lymphocytes (%) (Auto) 7.7 % Monocytes (%) (Auto) 25.5 % Eosinophils (%) (Auto) 0.4 % Basophils (%) (Auto) 0.4 % Neutrophils # (Auto) 8.9 TH/MM3 Lymphocytes # (Auto) 1.0 TH/MM3 Monocytes # (Auto) 3.4 TH/MM3 Eosinophils # (Auto) 0.1 TH/MM3 Basophils # (Auto) 0.1 TH/MM3 CBC Comment AUTO DIFF Differential Total Cells 100 Counted Neutrophils % (Manual) 63 % Band Neutrophils % 2 % Lymphocytes % 16 % Monocytes % 16 % Neutrophils # (Manual) 9.2 TH/MM3 Myelocytes 3 % Differential Comment FINAL DIFF MANUAL Platelet Estimate NORMAL Platelet Morphology Comment NORMAL Prothrombin Time 11.2 SEC Prothromb Time International 1.0 RATIO Ratio Activated Partial 27.3 SEC Thromboplast Time Sodium Level 133 MEQ/L Potassium Level 4.3 MEQ/L Chloride Level 100 MEQ/L Carbon Dioxide Level 23.2 MEQ/L Anion Gap 10 MEQ/L Blood Urea Nitrogen 15 MG/DL Creatinine 1.64 MG/DL Estimat Glomerular Filtration 49 ML/MIN Rate Random Glucose 91 MG/DL Calcium Level 8.2 MG/DL Total Bilirubin 0.9 MG/DL Aspartate Amino Transf 30 U/L (AST/SGOT) Alanine Aminotransferase 23 U/L (ALT/SGPT) Alkaline Phosphatase 72 U/L Troponin I 0.04 NG/ML B-Type Natriuretic Peptide 1775 PG/ML Total Protein 7.8 GM/DL Albumin 3.2 GM/DL Urine Color LIGHT-YELLOW Urine Turbidity CLEAR Urine pH 7.5 Urine Specific [place] 1.009 Urine Protein 30 mg/dL Urine Glucose (UA) NEG mg/dL Urine Ketones NEG mg/dL Urine Occult Blood NEG Urine Nitrite NEG Urine Bilirubin NEG Urine Urobilinogen LESS THAN 2.0 MG/DL Urine Leukocyte Esterase NEG Urine RBC LESS THAN 1 /hpf Urine Squamous Epithelial <1 /hpf Cells Urine Hyaline Casts 1 /lpf Microscopic Urinalysis Comment CULT NOT INDICATED MDM Medical Decision Making Medical Screen Exam Complete: Yes Emergency Medical Condition: Yes Interpretation(s) Afebrile, hypertensive, 94% on room air Leukocytosis with monocytic shift BNP is 1775 increased from prior Creatinine is 1.6 at baseline Chest x-ray: No acute process EKG: Ventricular paced Differential Diagnosis Acute coronary syndrome, congestive heart failure, pulmonary embolism, pneumonia , COPD exacerbation Narrative Course This is an 86-year-old male who has a history of congestive heart failure who was recently admitted in the setting of acute kidney injury and over diuresis. His Lasix was stopped at that time and he was never restarted when he was discharged. He also had an episode of nonsustained ventricular tachycardia at that time. He is supposed to follow up with cardiology and have his AICD interrogated as an outpatient. He was placed in a monitor and an IV was established. Chest x-rays reassuring. BNP is higher than normal. I suspect he has congestive heart failure which is causing his symptoms. His defibrillator was interrogated and he's had no events. I think it's reasonable to restart him on 20 mg a day of Lasix until he follows up with Dr. Sibley. Diagnosis Primary Impression: Congestive heart failure Qualified Code: I50.9 - Acute congestive heart failure, unspecified congestive heart failure type Patient Instructions: General Instructions Additional Instructions: If you develop severe chest pain, shortness of breath, sweating, lightheadedness , dizziness or difficulty breathing return to the emergency department immediately. Followup with your primary care physician in 2-3 days if your symptoms are not resolved. Med/Other Pt SpecificInfo: Prescription(s) given Scripts Furosemide (Lasix)20 Mg Tab20 Mg PO DAILY #30 TAB Ref 0 Prov:Elvie Adam MD 12/27/16 Disposition: 01 DISCHARGE HOME Condition: Stable Elvie Adam MD Dec 27, 2016 13:01
[2016-12-27 13:10] VITALS: BP 163/94; PULSE 86; RESP 18; O2SAT 97
[2016-12-27] MEDS ORDERED: LABETALOL HCL 100 MG/20 ML VIAL IV PUSH ONE (13:15)
[2016-12-27 13:25] LABS: AUTOMATED NEUTROPHIL # 8.9 TH/MM3 (1.8-7.7); BASOPHIL # 0.1 TH/MM3 (0-0.2); BASOPHIL % 0.4 % (0.0-2.0); EOSINOPHIL # 0.1 TH/MM3 (0-0.4); EOSINOPHIL % 0.4 % (0.0-4.0); HEMATOCRIT 33.7 % (39.0-51.0); LYMPH % 7.7 % (9.0-44.0); MEAN CORPUSCULAR HEMOGLOBIN 30.6 PG (27.0-34.0); MEAN CORPUSCULAR HGB CONC 32.6 % (32.0-36.0); MONO % 25.5 % (0.0-8.0); PLATELET COUNT 194 TH/MM3 (150-450); RED BLOOD COUNT 3.58 MIL/MM3 (4.50-5.90); WHITE BLOOD COUNT 13.5 TH/MM3 (4.0-11.0)
[2016-12-27 13:28] LABS: BLOOD, URINE NEG (NEG); GLUCOSE,URINE NEG (NEG); HYALINE CAST, URINE 1 /lpf (RARE); KETONE, URINE NEG (NEG); NITRITE,URINE NEG (NEG); PH, URINE 7.5 (5.0-8.5); SQUAMOUS EPITHELIAL CELL URINE <1 /hpf (0-5); URINE COLOR LIGHT-YELLOW (YELLW/STRAW)
[2016-12-27 13:29] LABS: COMMENT (UR) CULT NOT INDICATED; CULTURE IF INDICATED CULT NOT INDICATED
[2016-12-27 13:29] LABS: HEMO FLAGS AUTO DIFF
[2016-12-27 13:33] LABS: APTT (PATIENT) 27.3 SEC (24.3-30.1); PROTHROMBIN TIME - PATIENT 11.2 SEC (9.8-11.6)
--- NOTE | 2016-12-27 13:33 | RADRPT ---
EXAM DATE/TIME: 12/27/2016 12:49 [facility] COMPARISON: HAND RIGHT COMPLETE ([id number]), December 15, 2016, 20:19. INDICATIONS : Short of breath. MEDICAL HISTORY : None. SURGICAL HISTORY : Pacemaker. ENCOUNTER: Initial ACUITY: 1 day PAIN SCORE: 0/10 LOCATION: Bilateral chest FINDINGS: The heart is at the upper limits of normal in size. There is a transvenous pacer in place. The lungs are clear. The bony structures are intact. CONCLUSION: 1. No acute cardiopulmonary findings. Luis Prasad MD on December 27, 2016 at 13:31 Board Certified Radiologist. This report was verified electronically.
[2016-12-27 13:42] LABS: ANION GAP 10 MEQ/L (5-15); AST (GOT) 30 U/L (15-37); BICARBONATE 23.2 MEQ/L (21.0-32.0); BLOOD UREA NITROGEN 15 MG/DL (7-18); CHLORIDE 100 MEQ/L (98-107); GLOMERULAR FILTRATION RATE 49 ML/MIN (>89); POTASSIUM 4.3 MEQ/L (3.5-5.1); SODIUM (NA) 133 MEQ/L (136-145)
[2016-12-27 13:48] LABS: ALKALINE PHOSPHATASE 72 U/L (45-117); ALT (GPT) 23 U/L (12-78); TOTAL BILIRUBIN ADULT 0.9 MG/DL (0.2-1.0)
[2016-12-27 14:07] LABS: BANDS 2 % (0-6); MYELOCYTES 3 % (0-0); NEUTROPHIL # MANUAL DIFF 9.2 TH/MM3 (1.8-7.7); POLYS (SEG NEUTROPHILS) 63 % (16-70); WBC DIFF SAMPLE 100
[2016-12-27 14:08] LABS: PLATELET ESTIMATE SMEAR NORMAL (NORMAL); PLATELET MORPHOLOGY NORMAL (NORMAL); SCAN/DIFF FINAL DIFF MANUAL
[2016-12-27 14:20] VITALS: BP 176/89; PULSE 64; RESP 18; O2SAT 93
[2016-12-27] MEDS ORDERED: FURO1TAB62 PO (14:53)
[2016-12-27] MEDS ORDERED: FUROSEMIDE 20 MG/2 ML VIAL IV PUSH ONE (15:00)
--- NOTE | 2016-12-28 11:23 | EKG ---
Date Performed: 12/27/2016 Time Performed: 12:41:50 PTAGE: 86 years EKG: ELECTRONIC VENTRICULAR PACEMAKER ABNORMAL RHYTHM ECG PREVIOUS TRACING : 12/15/2016 19.08 DOCTOR: Oumar Lieberman Interpretating Date/Time 12/28/2016 11:22:36
== END 2016-12-27 15:37 | disposition home or self-care (01) ==
LOC: NEPE 06:19
DX: I50.9 Heart failure, unspecified (principal); I10 Essential (primary) hypertension; J44.9 Chronic obstructive pulmonary disease, unspecified; M10.9 Gout, unspecified
CPT/HCPCS: 71010; 80053; 81001; 83880; 84484; 85007; 85027; 85610; 85730; 93005; 96374; 99285; J1940

== ENCOUNTER 2017-01-15 00:22 | Observation (INO) | payer OTHER ==
[2017-01-15] VITALS (9 sets, daily range): BP systolic 126–191; BP diastolic 78–106; PULSE 70–87; RESP 18–22; TEMP 98–98.7; O2SAT 93–98
[~2017-01-15] VITALS: Ht 185.4 cm; Wt 100.0 kg
[~2017-01-15 00:22] MED LIST changes: -ATEN25TA PO; +ATEN50TA PO; -BUFF325T PO; +FURO1TAB62 PO; -LORTA5 PO; +TRAM50TA PO
[2017-01-15] MEDS ORDERED: SODIUM CHLORIDE 0.9% FLUSH 5 ML FLUSH IVF PRN (00:30)
--- NOTE | 2017-01-15 00:31 | PD ---
HPI Chief Complaint: shortness of breath. Time Seen by Provider: 00:27 Travel History International Travel<30 days: No Contact w/Intl Traveler<30days: No Traveled to known affect area: No History of Present Illness HPI This is an 86-year-old gentleman with history of CHF, renal insufficiency/ failure, gouty arthritis, who presents today with complaints of shortness of breath and dyspnea on exertion. The patient states that's been present for the last few days. The patient reports that the last time he was in the hospital, they took him off all of his medications. The patient denies any productive cough. He denies any fevers, chills. The patient denies any chest pain or chest pressure. There are no other complaints time my examination. PFSH Past Medical History Arthritis: Yes Blood Disorders: No Heart Rhythm Problems: Yes Cancer: No Cardiovascular Problems: Yes (PACEMAKER, CHF) High Cholesterol: No Chest Pain: Yes Congestive Heart Failure: Yes COPD: Yes Diminished Hearing: Yes ([place]) Endocrine: No Gout: Yes Genitourinary: No Hypertension: Yes Immune Disorder: No Implanted Vascular Access Dvce: Yes Musculoskeletal: Yes (Left knee, Gout) Neurologic: No Psychiatric: No Respiratory: Yes Immunizations Current: Yes Past Surgical History Body Medical Devices: Pacemaker, Left knee - pins Cardiac Surgery: Yes (PACEMAKER) 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) Social History Alcohol Use: No (ON WEEKENDS) Tobacco Use: No Substance Use: No Allergies-Medications (Allergen,Severity, Reaction): Coded Allergies: No Known Allergies (Verified , 01/15/17) Reported Meds & Prescriptions Reported Meds & Active Scripts Active Reported Atenolol 50 Mg Tab 50 Mg PO DAILY Allopurinol 100 Mg Tab 100 Mg PO DAILY Tramadol (Tramadol HCl) 50 Mg Tab 50 Mg PO Q8H PRN Review of Systems Except as stated in HPI: all other systems reviewed are Neg General / Constitutional: No: Fever, Chills HENT: No: Headaches, Lightheadedness Cardiovascular: No: Chest Pain or Discomfort, Palpitations Respiratory: Positive: Shortness of Breath, No: Cough, Wheezing Gastrointestinal: No: Nausea, Vomiting Genitourinary: No: Dysuria, Decreased Urinary Output Musculoskeletal: Positive: Weakness Neurologic: Positive: Weakness (generalized), No: Change in Mentation Physical Exam Narrative GENERAL: Well-developed well-nourished gentleman in mild respiratory discomfort. SKIN: Warm and dry. HEAD: Atraumatic. Normocephalic. EYES: No scleral icterus. No injection or drainage. ENT: No nasal bleeding or discharge. Mucous membranes pink and moist. NECK: Trachea midline. No JVD. Supple CARDIOVASCULAR: Regular rate and rhythm. No murmur appreciated. RESPIRATORY: No accessory muscle use. Decreased respiratory effort. There appeared to be fine Rales heard at the bilateral bases. GASTROINTESTINAL: Abdomen soft, non-tender, nondistended. MUSCULOSKELETAL: Chronic deformities of his hands which is consistent with his gout history. Trace edema pretibial bilaterally. NEUROLOGICAL: Awake and alert. No obvious cranial nerve deficits. Motor grossly within normal limits. Normal speech. Data Data Last Documented VS Vital Signs Date Time Temp Pulse Resp B/P Pulse Ox O2 Delivery O2 Flow Rate FiO2 01/15/17 00:37 Nasal Cannula 2 01/15/17 00:27 80 22 191/106 93 Orders Complete Blood Count With Diff (01/15/17:) Comprehensive Metabolic Panel (01/15/17:) B-Type Natriuretic Peptide (01/15/17:27) Magnesium (Mg) (01/15/17 00:27) Ckmb (Isoenzyme) Profile (01/15/17:27) Troponin I (01/15/17:) Urinalysis - C+S If Indicated (01/15/17:27) Iv Access Insert/Monitor (01/15/17 00:27) Electrocardiogram (01/15/17:27) Ecg Monitoring (01/15/17:) Oximetry (01/15/17:27) Oxygen Administration (01/15/17:27) Chest, Single Ap (01/15/17:27) Sodium Chloride 0.9% Flush (Ns Flush) (01/15/17 00:30) CKMB (01/15/17 00:45) CKMB% (01/15/17 00:45) Furosemide Inj (Lasix Inj) (01/15/17 01:45) Furosemide (Lasix) (01/15/17 09:00) Place In Observation (01/15/17 ) Vital Signs (Adult) Q4H (01/15/17 01:44) Activity Oob With Assistance (01/15/17 01:44) Heating Equipment Installer / Telemetry .CONTINUOUS (01/15/17 01:44) Intake + Output LEANDRO.QSHIFT (01/15/17 01:44) Diet Heart Healthy (01/15/17 Breakfast) Sodium Chloride 0.9% Flush (Ns Flush) (01/15/17 01:45) Sodium Chloride 0.9% Flush (Ns Flush) (01/15/17 09:00) Ondansetron Inj (Zofran Inj) (01/15/17 01:45) Bisacodyl Supp (Dulcolax Supp) (01/15/17 01:45) Comprehensive Metabolic Panel (01/16/17 06:00) Complete Blood Count With Diff (01/16/17 06:00) Troponin I (01/15/17 07:00) Troponin I (01/15/17 13:00) Scd Bilateral/Knee High LEANDRO.BID (01/15/17 01:44) Francis Bilateral/Knee High LEANDRO.QSHIFT (01/15/17 01:44) Acetaminophen (Tylenol) (01/15/17 01:45) Acetamin-Hydrocod 325-5 Mg ([place] 5-325 (01/15/17 01:45) Acetamin-Hydrocod 325-10 Mg ([place] 10-32 (01/15/17 01:45) Admit Order (Ed Use Only) (01/15/17 01:46) Labs Laboratory Tests Test 01/15/17 00:45 White Blood Count 7.1 TH/MM3 Red Blood Count 2.90 MIL/MM3 Hemoglobin 9.1 GM/DL Hematocrit 27.3 % Mean Corpuscular Volume 94.3 FL Mean Corpuscular Hemoglobin 31.3 PG Mean Corpuscular Hemoglobin 33.2 % Concent Red Cell Distribution Width 16.4 % Platelet Count 82 TH/MM3 Mean Platelet Volume 10.3 FL Neutrophils (%) (Auto) % Lymphocytes (%) (Auto) % Monocytes (%) (Auto) % Eosinophils (%) (Auto) % Basophils (%) (Auto) % Neutrophils # (Auto) TH/MM3 Lymphocytes # (Auto) TH/MM3 Monocytes # (Auto) TH/MM3 Eosinophils # (Auto) TH/MM3 Basophils # (Auto) TH/MM3 CBC Comment AUTO DIFF Differential Total Cells 100 Counted Neutrophils % (Manual) 53 % Lymphocytes % 17 % Monocytes % 30 % Neutrophils # (Manual) 3.8 TH/MM3 Differential Comment FINAL DIFF MANUAL Platelet Estimate LOW Platelet Morphology Comment NORMAL Red Cell Morphology Comment NORMAL Sodium Level 137 MEQ/L Potassium Level 3.6 MEQ/L Chloride Level 101 MEQ/L Carbon Dioxide Level 24.5 MEQ/L Anion Gap 12 MEQ/L Blood Urea Nitrogen 25 MG/DL Creatinine 1.64 MG/DL Estimat Glomerular Filtration 49 ML/MIN Rate Random Glucose 103 MG/DL Calcium Level 8.2 MG/DL Magnesium Level 2.1 MG/DL Total Bilirubin 0.8 MG/DL Aspartate Amino Transf 27 U/L (AST/SGOT) Alanine Aminotransferase 24 U/L (ALT/SGPT) Alkaline Phosphatase 67 U/L Total Creatine Kinase 128 U/L Creatine Kinase MB 1.0 NG/ML Troponin I 0.08 NG/ML B-Type Natriuretic Peptide 2462 PG/ML Total Protein 7.2 GM/DL Albumin 2.9 GM/DL [facility] Medical Decision Making Medical Screen Exam Complete: Yes Emergency Medical Condition: Yes Medical Record Reviewed: Yes Differential Diagnosis CHF versus acute coronary syndrome versus pneumonia Narrative Course 46-year-old gentleman with a history of CHF, chronic kidney disease, who presents today with complaints of shortness of breath. Patient states it's worse when he lies flat and when he exerts himself. He denies any chest pain, chest pressure. EKG does not show any acute ST elevation or depression. His BNP is greater than 2500. Chest x-ray shows mild to moderate failure. Troponin is elevated at 0.08 which is indeterminate at this point. The patient recently had several of his medications discontinued on his last admission. This included his Lasix. He's been given 40 mg of Lasix I V times one dose. I discussed the case with Dr. Ester Watson, hospitalist, who agreed to place him on her service. Diagnosis Primary Impression: Acute exacerbation of CHF (congestive heart failure) Additional Impressions: Elevated troponin Chronic kidney disease Keegan Olmos MD Jan 15, 2017 00:31 Chronic kidney disease Keegan Olmos MD Jan 15, 2017 00:31
--- NOTE | 2017-01-15 00:49 | RADRPT ---
EXAM DATE/TIME: 01/15/2017 00:41 [facility] COMPARISON: CHEST SINGLE AP, December 27, 2016, 12:49. INDICATIONS : Shortness of breath. MEDICAL HISTORY : None. SURGICAL HISTORY : Pacemaker. ENCOUNTER: Initial ACUITY: 1 day PAIN SCORE: 0/10 LOCATION: Bilateral chest FINDINGS: A single view of the chest demonstrates interval development of bibasilar areas of consolidation with possible associated effusions. Heart size is upper limits of normal. Left subclavian bipolar pacer r emains radiographically intact. Degenerative spurring of the dorsal spine. CONCLUSION: Interval development of bibasilar airspace disease with possible associated small effusions. Maynor Sutton MD on January 15, 2017 at 0:45 Board Certified Radiologist. This report was verified electronically.
[2017-01-15 00:58] LABS: HEMATOCRIT 27.3 % (39.0-51.0); MEAN CELL VOLUME 94.3 FL (80.0-100.0); MEAN CORPUSCULAR HEMOGLOBIN 31.3 PG (27.0-34.0); MEAN CORPUSCULAR HGB CONC 33.2 % (32.0-36.0); PLATELET COUNT 82 TH/MM3 (150-450); RED CELL DISTRIBUTION WIDTH 16.4 % (11.6-17.2); WHITE BLOOD COUNT 7.1 TH/MM3 (4.0-11.0)
[2017-01-15 01:06] LABS: HEMO FLAGS AUTO DIFF
[2017-01-15 01:14] LABS: ALT (GPT) 24 U/L (12-78); ANION GAP 12 MEQ/L (5-15); AST (GOT) 27 U/L (15-37); BICARBONATE 24.5 MEQ/L (21.0-32.0); BLOOD UREA NITROGEN 25 MG/DL (7-18); CHLORIDE 101 MEQ/L (98-107); GLOMERULAR FILTRATION RATE 49 ML/MIN (>89); MAGNESIUM 2.1 MG/DL (1.5-2.5); POTASSIUM 3.6 MEQ/L (3.5-5.1); SODIUM (NA) 137 MEQ/L (136-145)
[2017-01-15 01:18] LABS: ALKALINE PHOSPHATASE 67 U/L (45-117); CREATINE KINASE 128 U/L (39-308); TOTAL BILIRUBIN ADULT 0.8 MG/DL (0.2-1.0)
[2017-01-15 01:37] LABS: NEUTROPHIL # MANUAL DIFF 3.8 TH/MM3 (1.8-7.7); POLYS (SEG NEUTROPHILS) 53 % (16-70); WBC DIFF SAMPLE 100
[2017-01-15 01:38] LABS: PLATELET ESTIMATE SMEAR LOW (NORMAL); PLATELET MORPHOLOGY NORMAL (NORMAL); SCAN/DIFF FINAL DIFF MANUAL
[2017-01-15] MEDS ORDERED: FUROSEMIDE 40 MG/4 ML VIAL IV PUSH ONE (01:45)
[2017-01-15] MEDS ORDERED: ACETAMINOPHEN/HYDROcodone 325 MG/5 MG TAB PO PRN (01:45)
[2017-01-15] MEDS ORDERED: ACETAMINOPHEN/HYDROcodone 325 MG/10 MG TAB PO PRN (01:45)
[2017-01-15] MEDS ORDERED: SODIUM CHLORIDE 0.9% FLUSH 5 ML FLUSH FLUSH PRN (01:45)
[2017-01-15] MEDS ORDERED: BISACODYL 10 MG SUPP PR PRN (01:45)
[2017-01-15] MEDS ORDERED: ACETAMINOPHEN 325 MG TAB PO PRN (01:45)
[2017-01-15] MEDS ORDERED: ONDANSETRON HCL 4 MG/2 ML VIAL IVP PRN (01:45)
[2017-01-15 02:23] LABS: BLOOD, URINE TRACE (NEG); GLUCOSE,URINE NEG (NEG); KETONE, URINE NEG (NEG); NITRITE,URINE NEG (NEG); PH, URINE 7.5 (5.0-8.5); SQUAMOUS EPITHELIAL CELL URINE <1 /hpf (0-5); URINE COLOR YELLOW (YELLW/STRAW)
[2017-01-15 02:29] LABS: COMMENT (UR) CULT NOT INDICATED; CULTURE IF INDICATED CULT NOT INDICATED
--- NOTE | 2017-01-15 03:16 | HHI.HP ---
[facility] Saud Worrell MD Admission Diagnosis Chf exacerbation, elevated troponin, chronic kidney disease, Diagnoses: (1) CHF (congestive heart failure) Diagnosis: Principal (2) Elevated troponin Diagnosis: Principal (3) Renal insufficiency Diagnosis: Principal Travel History International Travel<30 Days: No Contact w/Intl Traveler <30 Da: No Traveled to Known Affected Are: No History of Present Illness This is an 86-year-old male with PMH of HTN, Hyperlipidemia, CHF (Echo 02/28/12 w / EF 20-25%), s/p AICD, COPD and Gout who presented to the ER with complaints of SOB with exertion x2-3 days. Denies fever, chills, cough or chest pain. Recent admit 12/17-12/19/16 secondary to Sepsis from UTI, PATRICE, Orthostatic Hypotension and Cellulitis, Lasix d/c'd at time of discharge. Reports compliance w/ home medications. On arrival, BP 191/106, HR 80, O2 sat 93% on RA , Afebrile. Hgb 9.1, previously 11.0 on 12/17/16. Platelets 82, previously 91 on 12/17/16, 59 on 12/16/16. BNP 2462. Troponin 0.08. EKG with no acute ischemia. UA negative. CXR with bibasilar airspace disease and likely small effusions. S/p Lasix 40mg IV in ER. Follows w/ Dr. Sibley as outpatient. Review of Systems Except as stated in HPI: all other systems reviewed are Neg ROS: 14 point review of systems otherwise negative. Past Family Social History Past Medical History PMH: HTN, Hyperlipidemia, CHF (Echo 02/28/12 w/ EF 20-25%), s/p AICD, COPD and Gout Past Surgical History PAST SURGICAL HISTORY: AICD Allergies: Coded Allergies: No Known Allergies (Verified , 01/15/17) Family History PAST FAMILY HISTORY: Reviewed. No h/o DM or CAD Social History PAST SOCIAL HISTORY: Drinks 2 beers daily. Negative for tobacco or drugs. Physical Exam Vital Signs Vital Signs Date Time Temp Pulse Resp B/P Pulse Ox O2 Delivery O2 Flow Rate FiO2 01/15/17 00:37 Nasal Cannula 2 01/15/17 00:27 80 22 191/106 93 Physical Exam PE: GENERAL: Pleasant elderly black male in no acute distress. HEENT: PERRLA, EOMI. No scleral icterus or conjunctival pallor. No lid lag or facial droop. CARDIOVASCULAR: Regular rate and rhythm. No obvious murmurs to auscultation. No chest tenderness to palpation. RESPIRATORY: No obvious rhonchi or wheezing. Clear to auscultation. Breath sounds equal bilaterally. GASTROINTESTINAL: Abdomen soft, non-tender, nondistended. BS normal. MUSCULOSKELETAL: Extremities without clubbing, cyanosis, or edema. No obvious deformities. +gouty arthritis NEUROLOGICAL: Awake, alert and oriented x4. No focal neurologic deficits. Moving both upper and lower extremities spontaneously. Laboratory Laboratory Tests Test 01/15/17 01/15/17 00:45 02:00 White Blood Count 7.1 Red Blood Count 2.90 Hemoglobin 9.1 Hematocrit 27.3 Mean Corpuscular Volume 94.3 Mean Corpuscular Hemoglobin 31.3 Mean Corpuscular Hemoglobin 33.2 Concent Red Cell Distribution Width 16.4 Platelet Count 82 Mean Platelet Volume 10.3 Neutrophils (%) (Auto) Lymphocytes (%) (Auto) Monocytes (%) (Auto) Eosinophils (%) (Auto) Basophils (%) (Auto) Neutrophils # (Auto) Lymphocytes # (Auto) Monocytes # (Auto) Eosinophils # (Auto) Basophils # (Auto) CBC Comment AUTO DIFF Differential Total Cells 100 Counted Neutrophils % (Manual) 53 Lymphocytes % 17 Monocytes % 30 Neutrophils # (Manual) 3.8 Differential Comment FINAL DIFF MANUAL Platelet Estimate LOW Platelet Morphology Comment NORMAL Red Cell Morphology Comment NORMAL Sodium Level 137 Potassium Level 3.6 Chloride Level 101 Carbon Dioxide Level 24.5 Anion Gap 12 Blood Urea Nitrogen 25 Creatinine 1.64 Estimat Glomerular Filtration 49 Rate Random Glucose 103 Calcium Level 8.2 Magnesium Level 2.1 Total Bilirubin 0.8 Aspartate Amino Transf 27 (AST/SGOT) Alanine Aminotransferase 24 (ALT/SGPT) Alkaline Phosphatase 67 Total Creatine Kinase 128 Creatine Kinase MB 1.0 Troponin I 0.08 B-Type Natriuretic Peptide 2462 Total Protein 7.2 Albumin 2.9 Urine Color YELLOW Urine Turbidity CLEAR Urine pH 7.5 Urine Specific [place] 1.013 Urine Protein 100 Urine Glucose (UA) NEG Urine Ketones NEG Urine Occult Blood TRACE Urine Nitrite NEG Urine Bilirubin NEG Urine Urobilinogen 2.0 Urine Leukocyte Esterase NEG Urine WBC 1 Urine Squamous Epithelial <1 Cells Microscopic Urinalysis Comment CULT NOT INDICATED Result Diagram: 01/15/174401/15/1744 Assessment and Plan Problem List: (1) CHF (congestive heart failure) ICD Code: I50.9 Status: Acute (2) Elevated troponin ICD Code: R74.8 Status: Acute (3) Renal insufficiency ICD Code: N28.9 Status: Acute Assessment and Plan A/P: 1. CHF: Acute on Chronic. Systolic. Echo 02/28/12 w/ EF 20-25% s/p AICD, recent admit 12/17-12/19/16 for Sepsis and PATRICE, Lasix discontinued during admission secondary to renal insufficiency, now w/ CHF Exacerbation. BNP 2462, CXR w/ mild pleural effusions, images reviewed by me. S/p Lasix 40mg IV in ER, will resume prior Lasix 40mg po qd, monitor renal function. Follows w/ Dr. Sibley as outpatient, will consult as needed. 2. Elevated Trop: Trop 0.08, EKG w/ no acute ischemia, likely related to CHF/ Uncontrolled HTN. Telemetry, check serial cardiac enzymes, resume home medications. No c/o chest pain. 3. Renal Insufficiency: Creatinine 1.64, previously 1.64 on 12/27/16, will repeat labs in am, caution w/ diuresis. 4. HTN: BP 190's on arrival, resume home Atenolol, monitor BP. 5. DVT Prophylaxis: SCD/Teds. 6. Social work for d/c planning as needed. 7. Case discussed w/ ER physician at length. Ester Voss MD Jan 15, 2017 03:16
[2017-01-15] MEDS: FUROSEMIDE 20 MG TAB PO SCH ×2 (07:50→17:41)
[2017-01-15] MEDS: ALLOPURINOL 100 MG TAB PO SCH (07:50)
[2017-01-15] MEDS: ATENOLOL 50 MG TAB PO SCH (07:51)
[2017-01-15] MEDS: SODIUM CHLORIDE 0.9% FLUSH 5 ML FLUSH FLUSH SCH ×2 (07:51→21:00)
[2017-01-15] MEDS ORDERED: FUROSEMIDE 40 MG TAB PO SCH (09:00)
--- NOTE | 2017-01-15 10:22 | EKG ---
Date Performed: 01/15/2017 Time Performed: 00:28:24 PTAGE: 86 years EKG: ELECTRONIC VENTRICULAR PACEMAKER ABNORMAL RHYTHM ECG Compared to prior tracing no significa nt change PREVIOUS TRACING : 12/27/2016 12.41 DOCTOR: Dayron Owen Interpretating Date/Time 01/15/2017 10:19:50
--- NOTE | 2017-01-15 11:13 | HHI.PR ---
Subjective Remarks Follow-up for CHF exacerbation. The patient was taken off of Lasix due to PATIRCE during hospitalization last month. It was recommended by his senior materials analyst, Dr. Sibley, and a previous admission that after he stabilized, he would need to be restarted on Lasix. The patient has a prescription with him from an ED visit 2 weeks ago, for Lasix 20 mg daily, which he did not fill. He did not understand fully what the prescription was for. He tried to get up to walk here today, felt a little dizzy, and sat back down. No shortness of breath at rest. He states normally he walks with a cane about a block when he's at home. No lower extremity swelling. Objective Vitals Vital Signs Date Time Temp Pulse Resp B/P Pulse Ox O2 Delivery O2 Flow Rate FiO2 01/15/17 07:15 70 01/15/17 07:10 98.7 78 19 177/99 98 01/15/17 07:06 82 01/15/17 04:44 98.3 86 21 166/95 97 01/15/17 04:34 76 18 139/93 96 Nasal Cannula 2 01/15/17 00:37 Nasal Cannula 2 01/15/17 00:27 80 22 191/106 93 I/O 01/14/17 01/14/17 01/14/17 01/15/17 01/15/17 01/15/17 07:00 15:00 23:00 07:00 15:00 23:00 Intake Total 250 ml Output Total 1000 ml Balance -1000 ml 250 ml Intake Oral 250 ml Output Urine Total 1000 ml # Voids 3 Result Diagram: 01/15/17 0045 01/15/17 0045 Imaging Last Impressions Chest X-Ray 01/15/17 0027 Signed Impressions: Service Date/Time: Sunday, January 15, 2017 00:41 - CONCLUSION: Interval development of bibasilar airspace disease with possible associated small effusions. Maynor Sutton MD Objective Remarks GENERAL: Well-developed well-nourished. In no acute distress. SKIN: Warm and dry. No lesions noted. HEENT: Normocephalic. Pupils equal and round. Mucous membranes pink and moist. CARDIOVASCULAR: Regular rate and rhythm. No murmur appreciated. RESPIRATORY: No accessory muscle use. Clear to auscultation. Breath sounds equal bilaterally. Occasional crackles. GASTROINTESTINAL: Abdomen soft, non-tender, nondistended. Bowel sounds x4. MUSCULOSKELETAL: No obvious deformities. No clubbing or cyanosis. No edema. NEUROLOGICAL: Awake and alert. No focal neurological deficits. Moves upper and lower extremities spontaneously. Normal speech. PSYCHIATRIC: Appropriate mood and affect; insight and judgment normal. A/P Problem List: (1) CHF (congestive heart failure) ICD Code: I50.9 Status: Acute (2) Elevated troponin ICD Code: R74.8 Status: Chronic (3) Renal insufficiency ICD Code: N28.9 Status: Chronic Assessment and Plan 86-year-old male with PMH of HTN, Hyperlipidemia, CHF (Echo 02/28/12 w/ EF 20-25% ), s/p AICD, COPD and Gout who presented with complaints of SOB with exertion x2 -3 days Acute exacerbation of chronic systolic CHF: Lasix 40 mg recently held due to PATRICE , was to resume Lasix, however the patient was confused with prescriptions. Echo 02/28/12 w/ EF 20-25% s/p AICD. BNP 2462, 1775 on 12/27, and 237 on 12/15. CXR w/ mild pleural effusions. S/p Lasix 40mg IV in ER, will continue diuresis with oral Lasix 20 mg twice daily. Monitor renal function and I's and O's. Elevated Trop: Trop 0.08 x2, likely secondary to volume overload from CHF as above +/-uncontrolled hypertension. EKG w/ no acute ischemic changes. Telemetry, check serial cardiac enzymes, resume home medications. No c/o chest pain. CKD stage III: Chronic, stable. Creatinine 1.64, previously 1.64 on 12/27/16, will repeat labs in am, caution w/ diuresis. HTN: Accelerated. Resume home Atenolol, monitor BP. PT eval. Chronic pain: Continue tramadol as needed DVT Prophylaxis: SCD/Teds. Discharge Planning Continue cautious diuresis with CHF and renal disease. Hopefully discharge in 1 2 days if patient continues to improve. Problem Qualifiers (1) CHF (congestive heart failure): Qualified Code: I50.23 - Acute on chronic systolic congestive heart failure Tani Henderson Jan 15, 2017 11:13
[2017-01-15] MEDS: traMADol HCL 50 MG TAB PO PRN ×2 (12:25→23:52)
[2017-01-16] VITALS (10 sets, daily range): BP systolic 119–166; BP diastolic 74–94; PULSE 70–84; RESP 17–18; TEMP 97.7–98.5; O2SAT 97–100
[2017-01-16 05:42] LABS: AUTOMATED NEUTROPHIL # 4.6 TH/MM3 (1.8-7.7); BASOPHIL % 0.3 % (0.0-2.0); EOSINOPHIL % 0.1 % (0.0-4.0); HEMATOCRIT 26.9 % (39.0-51.0); LYMPHOCYTE # 0.6 TH/MM3 (1.0-4.8); MEAN CELL VOLUME 93.6 FL (80.0-100.0); MEAN CORPUSCULAR HEMOGLOBIN 30.5 PG (27.0-34.0); MEAN CORPUSCULAR HGB CONC 32.6 % (32.0-36.0); MONO % 36.1 % (0.0-8.0); NEUT % 56.5 % (16.0-70.0); PLATELET COUNT 101 TH/MM3 (150-450); RED BLOOD COUNT 2.88 MIL/MM3 (4.50-5.90); RED CELL DISTRIBUTION WIDTH 16.5 % (11.6-17.2); WHITE BLOOD COUNT 8.1 TH/MM3 (4.0-11.0)
[2017-01-16 05:50] LABS: HEMO FLAGS AUTO DIFF
[2017-01-16] MEDS ORDERED: MORPHINE SULFATE 4 MG/ML INJ IV PUSH PRN (06:00)
[2017-01-16] MEDS ORDERED: predniSONE 50 MG TAB PO ONE (06:00)
[2017-01-16 06:19] LABS: ALKALINE PHOSPHATASE 64 U/L (45-117); ALT (GPT) 20 U/L (12-78); ANION GAP 10 MEQ/L (5-15); AST (GOT) 21 U/L (15-37); BICARBONATE 28.9 MEQ/L (21.0-32.0); BLOOD UREA NITROGEN 26 MG/DL (7-18); CHLORIDE 96 MEQ/L (98-107); GLOMERULAR FILTRATION RATE 46 ML/MIN (>89); MAGNESIUM 2.2 MG/DL (1.5-2.5); POTASSIUM 3.8 MEQ/L (3.5-5.1); SODIUM (NA) 135 MEQ/L (136-145); TOTAL BILIRUBIN ADULT 0.9 MG/DL (0.2-1.0)
[2017-01-16 07:17] LABS: PLATELET ESTIMATE SMEAR LOW (NORMAL); PLATELET MORPHOLOGY ENLARGED (NORMAL); SCAN/DIFF AUTO DIFF CONFIRMED
[2017-01-16] MEDS ORDERED: COLCHICINE 0.6 MG TAB PO ONE (08:45)
--- NOTE | 2017-01-16 08:49 | HHI.PR ---
Subjective Remarks Follow up for CHF exacerbation, dyspnea. The patient believes his breathing has slightly improved, however still requiring 2L NC O2. He complains of left hand/ wrist pain/swelling/redness consistent with previous gout flare ups. He states he's had the swelling for awhile now however started noticing symptoms worsening 2 days ago. Denies fevers/chills. Discussed with patient's family member who works at [employer]. Patient lives alone, likely needs C. Objective Vitals Vital Signs Date Time Temp Pulse Resp B/P Pulse Ox O2 Delivery O2 Flow Rate FiO2 01/16/17 07:32 97.7 82 18 152/94 99 01/16/17 05:44 70 01/16/17 04:25 98.1 76 18 166/89 100 01/16/17 00:13 98.0 79 18 140/87 98 01/15/17 19:32 98.1 79 18 126/78 95 01/15/17 15:22 98.0 87 18 146/88 98 01/15/17 13:25 16 01/15/17 12:10 98.6 76 18 143/85 98 I/O 01/15/17 01/15/17 01/15/17 01/16/17 01/16/17 01/16/17 07:00 15:00 23:00 07:00 15:00 23:00 Intake Total 250 ml Output Total 1000 ml Balance -1000 ml 250 ml Intake Oral 250 ml Output Urine Total 1000 ml # Voids 3 Result Diagram: 01/16/17 0519 01/16/17 0519 Imaging Last Impressions Chest X-Ray 01/15/17 0027 Signed Impressions: Service Date/Time: Sunday, January 15, 2017 00:41 - CONCLUSION: Interval development of bibasilar airspace disease with possible associated small effusions. Maynor Sutton MD Objective Remarks GENERAL: Well-developed, well-nourished male patient in [facility]. SKIN: Warm and dry. HEENT: Atraumatic. Normocephalic. Pupils equal and round. No scleral icterus. No injection or drainage. Mucous membranes pink and moist. NECK: Trachea midline. CARDIOVASCULAR: Regular rate and rhythm. No murmur appreciated. RESPIRATORY: No accessory muscle use. Clear to auscultation. Breath sounds equal bilaterally. GASTROINTESTINAL: Abdomen soft, non-tender, nondistended. Hepatic and splenic margins not palpable. MUSCULOSKELETAL: Extremities without clubbing, cyanosis, or edema. Left hand and wrist with diffuse edema, warmth, mild erythema, TTP, with limited ROM of wrist. Entire LUE larger than the RUE however pain only limited to the wrist. NEUROLOGICAL: Awake and alert. No obvious cranial nerve deficits. Motor grossly within normal limits. Normal speech. PSYCHIATRIC: Appropriate mood and affect; insight and judgment normal. Medications and IVs Current Medications Medications (Trade) Dose Ordered Sig/Moses Route Start Time Stop Time Status Last Admin (NS Flush) 2 ml UNSCH PRN FLUSH 01/15/17 01:45 01/15/17 01:54 (NS Flush) 2 ml BID FLUSH 01/15/17 09:00 01/15/17 21:00 (Zofran Inj) 4 mg Q6H PRN IVP 01/15/17 01:45 (Dulcolax Supp) 10 mg DAILY PRN [place] 01/15/17 01:45 (Tylenol) 650 mg Q6H PRN PO 01/15/17 01:45 (Zyloprim) 100 mg DAILY PO 01/15/17 09:00 01/15/17 07:50 (Tenormin) 50 mg DAILY PO 01/15/17 09:00 01/15/17 07:51 (Lasix) 20 mg BID@09,18 PO 01/15/17 09:00 01/15/17 17:41 (Ultram) 50 mg Q8H PRN PO 01/15/17 11:15 01/15/17 23:52 (Morphine Inj) 2 mg Q6HR PRN IV PUSH 01/16/17 06:00 01/16/17 06:03 (Protonix) 40 mg DAILY PO 01/16/17 09:00 A/P Problem List: (1) CHF (congestive heart failure) ICD Code: I50.9 Status: Acute (2) Elevated troponin ICD Code: R74.8 Status: Chronic (3) Renal insufficiency ICD Code: N28.9 Status: Chronic Assessment and Plan 86-year-old male with PMH of HTN, Hyperlipidemia, CHF (Echo 02/28/12 w/ EF 20-25% ), s/p AICD, COPD and Gout who presented with complaints of SOB with exertion x2 -3 days Acute exacerbation of chronic systolic CHF: Lasix 40 mg recently held due to PATRICE , was to resume Lasix, however the patient was confused with prescriptions. Echo 02/28/12 w/ EF 20-25% s/p AICD. BNP 2462, 1775 on 12/27, and 237 on 12/15. CXR w/ mild pleural effusions. S/p Lasix 40mg IV in ER, will continue diuresis with oral Lasix 20 mg bid. Monitor renal function and I's and O's. Patient failed home O2 walk test, 88% with exertion, consult case management for home oxygen arrangements. Elevated Trop: Trop 0.08 x2, likely secondary to volume overload from CHF as above +/-uncontrolled hypertension. EKG w/ no acute ischemic changes. Telemetry, check serial cardiac enzymes, resume home medications. No c/o chest pain. Gout Exacerbation: Left hand/wrist. Check xrays of left hand and wrist. Give Colchicine 1.2mg x1 now and start 0.6mg bid. Start on prednisone 40mg daily. Elevate LUE. Tramadol prn pain. CKD stage III: Chronic, stable. Creatinine 1.64, previously 1.64 on 12/27/16, will repeat labs today stable, caution w/ diuresis. HTN: Accelerated. Resume home Atenolol, monitor BP. PT eval, will arrange HHC PT. Chronic pain: Continue tramadol as needed DVT Prophylaxis: SCD/Teds. Written by Jolene Sánchez, acting as scribe for Dr. Cotto on 01/16/17 at 08:48. All or portions of this note were transcribed by scribe []. I, Dr. Andreas Cotto personally performed the history, physical exam, and medical decision making; and confirmed the accuracy of the information in the transcribed note. Authenticated by Dr. Andreas Cotto on 01/16/17 at 18:34. Discharge Planning Possible discharge tomorrow. Discussed with patient's family. Case management consult to arrange HHC and home O2. Problem Qualifiers (1) CHF (congestive heart failure): Qualified Code: I50.23 - Acute on chronic systolic congestive heart failure Jolene Sánchez PA-C Jan 16, 2017 08:49 Andreas Cotto MD Jan 16, 2017 18:35
[2017-01-16] MEDS: PANTOPRAZOLE SOD 40 MG DELAYED RELEASE TAB PO SCH (09:15)
[2017-01-16] MEDS: ALLOPURINOL 100 MG TAB PO SCH (09:16)
[2017-01-16] MEDS: ATENOLOL 50 MG TAB PO SCH (09:16)
[2017-01-16] MEDS: SODIUM CHLORIDE 0.9% FLUSH 5 ML FLUSH FLUSH SCH ×2 (09:16→20:46)
[2017-01-16] MEDS: FUROSEMIDE 20 MG TAB PO SCH ×2 (09:16→18:12)
--- NOTE | 2017-01-16 10:26 | RADRPT ---
EXAM DATE/TIME: 01/16/2017 09:29 [facility] COMPARISON: No previous studies available for comparison. INDICATIONS : Inflamamtion. Painful and swelling. MEDICAL HISTORY : None. SURGICAL HISTORY : Pacemaker. ENCOUNTER: Initial ACUITY: 2 days PAIN SCORE: 5/10 LOCATION: Left Hand. FINDINGS: Three view examination of the left hand demonstrates diffuse soft tissue swelling. Extensive arthriti c changes along the interphalangeal joints and first carpometacarpal joint and first metacarpal phala ngeal joint. Arthritic changes throughout the carpus. There may be subluxation of the second metacarp al phalangeal joint and there appears to be an old fracture. No acute fracture seen. CONCLUSION: 1. Old fracture at the second metacarpal phalangeal joint where there appears to be partial subluxati on. 2. Scattered prominent arthritic changes. 3. Diffuse soft tissue swelling without acute bony abnormality. Brooks Quijano MD on January 16, 2017 at 10:21 Board Certified Radiologist. This report was verified electronically.
--- NOTE | 2017-01-16 10:27 | RADRPT ---
EXAM DATE/TIME: 01/16/2017 09:34 [facility] COMPARISON: No previous studies available for comparison. INDICATIONS : Inflamation. MEDICAL HISTORY : None. SURGICAL HISTORY : Pacemaker. ENCOUNTER: Initial ACUITY: 2 days PAIN SCORE: 5/10 LOCATION: Left Wrist. FINDINGS: Two view examination of the left wrist demonstrates soft tissue swelling without acute fracture. Arth ritic changes are seen throughout the carpus. No periosteal reaction. CONCLUSION: Soft tissue swelling with diffuse arthritic changes. Brooks Quijano MD on January 16, 2017 at 10:25 Board Certified Radiologist. This report was verified electronically.
[2017-01-16] MEDS ORDERED: OXYGENTANK NAS.CANULA (11:28)
--- NOTE | 2017-01-16 11:30 | HHI.FF ---
Face to Face Verification Diagnosis: (1) Congestive heart failure (2) Gout (3) Arthritis (4) Renal insufficiency (5) Chronic kidney disease Physical Therapy Order: Evaluate and Treat, Improve ambulation, Strength and gait training Home Health Nursing Order: Medical education Signs/symptoms of disease process CHF education Oxygen administration education Nursing assessment with vital signs I have seen patient Dom Abrams on 01/16/17. My clinical findings support the need for the requested home health care services because: Ltd mobility - disease progression Patient has SOB Deconditioned w/ increased weakness Med compliance is questionable Limited ability to care for self Impaired cognition/judgement I certify that my clinical findings support that this patient is homebound because: Impaired cognitive ability/safety Unsteady gait/balance Unsafe to leave home unassisted Jolene Sánchez PA-C Jan 16, 2017 11:29 Andreas Cotto MD Jan 16, 2017 17:55
[2017-01-16] MEDS: traMADol HCL 50 MG TAB PO PRN (18:18)
[2017-01-16] MEDS: COLCHICINE 0.6 MG TAB PO SCH (20:45)
[2017-01-17 00:11] VITALS: BP 117/75; PULSE 72; RESP 18; TEMP 98.1; O2SAT 95
[2017-01-17 06:04] VITALS: BP 125/85; PULSE 71; RESP 18; TEMP 98.1; O2SAT 99
[2017-01-17 08:06] VITALS: BP 127/79; PULSE 72; RESP 20; TEMP 98.2; O2SAT 99
--- NOTE | 2017-01-17 08:39 | HHI.PR ---
Subjective Remarks Follow up for CHF and Gout exacerbation. The patient reports his breathing is much improved, denies any shortness of breath or cough. He also believes his left hand swelling has improved overnight however still warm and edematous. No fevers/chills. He feels ready to go home. Awaiting arrangements of home oxygen. Objective Vitals Vital Signs Date Time Temp Pulse Resp B/P Pulse Ox O2 Delivery O2 Flow Rate FiO2 01/17/17 08:06 98.2 72 20 127/79 99 01/17/17 06:04 98.1 71 18 125/85 99 01/17/17 00:11 98.1 72 18 117/75 95 01/16/17 19:55 98.1 74 18 119/74 98 01/16/17 19:26 16 01/16/17 19:20 77 01/16/17 15:29 98.1 79 17 134/80 99 01/16/17 12:05 98.5 77 17 141/91 98 01/16/17 08:52 97 01/16/17 08:50 2.00 01/16/17 08:45 84 Result Diagram: 01/16/17 0519 01/16/17 0519 Imaging Last Impressions Wrist X-Ray 01/16/17 0000 Signed Impressions: Service Date/Time: Monday, January 16, 2017 09:34 - CONCLUSION: Soft tissue swelling with diffuse arthritic changes. Brooks Quijano MD Hand X-Ray 01/16/17 0000 Signed Impressions: Service Date/Time: Monday, January 16, 2017 09:29 - CONCLUSION: 1. Old fracture at the second metacarpal phalangeal joint where there appears to be partial subluxation. 2. Scattered prominent arthritic changes. 3. Diffuse soft tissue swelling without acute bony abnormality. Brooks Quijano MD Chest X-Ray 01/15/17 0027 Signed Impressions: Service Date/Time: Sunday, January 15, 2017 00:41 - CONCLUSION: Interval development of bibasilar airspace disease with possible associated small effusions. Maynor Sutton MD Objective Remarks GENERAL: Well-developed, well-nourished pleasant elderly male male patient in [facility]. SKIN: Warm and dry. HEENT: Atraumatic. Normocephalic. Pupils equal and round. No scleral icterus. No injection or drainage. Mucous membranes pink and moist. NECK: Trachea midline. CARDIOVASCULAR: Regular rate and rhythm. No murmur appreciated. RESPIRATORY: No accessory muscle use. Clear to auscultation. Breath sounds equal bilaterally. GASTROINTESTINAL: Abdomen soft, non-tender, nondistended. Hepatic and splenic margins not palpable. MUSCULOSKELETAL: Extremities without clubbing, cyanosis, or edema. Left hand and wrist with diffuse edema, warmth, mild erythema, TTP, with limited ROM of wrist, overall improved today. Entire LUE larger than the RUE however pain only limited to the hand/wrist. NEUROLOGICAL: Awake and alert. No obvious cranial nerve deficits. Motor grossly within normal limits. Normal speech. PSYCHIATRIC: Appropriate mood and affect; insight and judgment normal. Medications and IVs Current Medications Medications (Trade) Dose Ordered Sig/Moses Route Start Time Stop Time Status Last Admin (NS Flush) 2 ml UNSCH PRN FLUSH 01/15/17 01:45 01/15/17 01:54 (NS Flush) 2 ml BID FLUSH 01/15/17 09:00 01/17/17 10:16 (Zofran Inj) 4 mg Q6H PRN IVP 01/15/17 01:45 (Dulcolax Supp) 10 mg DAILY PRN [place] 01/15/17 01:45 (Tylenol) 650 mg Q6H PRN PO 01/15/17 01:45 (Zyloprim) 100 mg DAILY PO 01/15/17 09:00 01/17/17 10:16 (Tenormin) 50 mg DAILY PO 01/15/17 09:00 01/17/17 10:16 (Lasix) 20 mg BID@,18 PO 01/15/17 09:00 01/17/17 10:16 (Ultram) 50 mg Q8H PRN PO 01/15/17 11:15 01/16/17 18:18 (Morphine Inj) 2 mg Q6HR PRN IV PUSH 01/16/17 06:00 01/16/17 06:03 (Protonix) 40 mg DAILY PO 01/16/17 09:00 01/17/17 10:16 (Colchicine) 0.6 mg BID PO 01/16/17 21:00 01/17/17 10:15 (Deltasone) 40 mg DAILY PO 01/17/17 09:00 01/17/17 10:15 Urinary Catheter: No Vascular Central Line Catheter: No A/P Problem List: (1) CHF (congestive heart failure) ICD Code: I50.9 Status: Acute (2) Elevated troponin ICD Code: R74.8 Status: Chronic (3) Renal insufficiency ICD Code: N28.9 Status: Chronic Assessment and Plan 86-year-old male with PMH of HTN, Hyperlipidemia, CHF (Echo 02/28/12 w/ EF 20-25% ), s/p AICD, COPD and Gout who presented with complaints of SOB with exertion x2 -3 days Acute exacerbation of chronic systolic CHF: Lasix 40 mg recently held due to PATRICE , was to resume Lasix, however the patient was confused with prescriptions. Echo 02/28/12 w/ EF 20-25% s/p AICD. BNP 2462, 1775 on 12/27, and 237 on 12/15. CXR w/ mild pleural effusions. S/p Lasix 40mg IV in ER, will continue diuresis with oral Lasix 20 mg bid. Monitor renal function, I's & O's. Patient failed home O2 walk test, 88% with exertion, consult case management, home oxygen arranged Elevated Trop: Trop 0.08, 0.08, 0.07, secondary to volume overload from CHF as above. EKGs w/ no acute ischemic changes. Telemetry unremarkable. Resume home medications. No c/o chest pain. Gout Exacerbation: Xrays of left hand and wrist shows diffuse soft tissue swelling. Given Colchicine 1.2mg x1 and started 0.6mg bid. Start on prednisone 40mg daily. Elevate LUE. Tramadol prn pain. Improving. CKD stage III: Chronic, stable. Creatinine 1.64, previously 1.64 on 12/27/16, repeat labs stable. Caution w/ diuresis. HTN: Accelerated. Resumed home Atenolol, monitor BP. Much improved. Generalized weakness: PT eval, arranged [facility] PT. Chronic pain: Continue tramadol as needed DVT Prophylaxis: SCD/Teds. Written by Jolene Sánchez, acting as scribe for Dr. Cotto on 01/17/17 at 08:38. All or portions of this note were transcribed by scribe []. I, Dr. Andreas Cotto personally performed the history, physical exam, and medical decision making; and confirmed the accuracy of the information in the transcribed note. Authenticated by Dr. Andreas Cotto on 01/17/17 at 16:19. Discharge Planning See discharge summary. Problem Qualifiers (1) CHF (congestive heart failure): Qualified Code: I50.23 - Acute on chronic systolic congestive heart failure Jolene Sánchez PA-C Jan 17, 2017 08:39 Andreas Cotto MD Jan 17, 2017 16:19
[2017-01-17] MEDS ORDERED: predniSONE 20 MG TAB PO SCH (09:00)
[2017-01-17] MEDS: COLCHICINE 0.6 MG TAB PO SCH (10:15)
[2017-01-17] MEDS: PANTOPRAZOLE SOD 40 MG DELAYED RELEASE TAB PO SCH (10:16)
[2017-01-17] MEDS: SODIUM CHLORIDE 0.9% FLUSH 5 ML FLUSH FLUSH SCH (10:16)
[2017-01-17] MEDS: ALLOPURINOL 100 MG TAB PO SCH (10:16)
[2017-01-17] MEDS: FUROSEMIDE 20 MG TAB PO SCH (10:16)
[2017-01-17] MEDS: ATENOLOL 50 MG TAB PO SCH (10:16)
[2017-01-17] MEDS ORDERED: PRED20 PO (10:53)
[2017-01-17] MEDS ORDERED: PANT40TA3 PO (10:53)
[2017-01-17] MEDS ORDERED: FURO20TA PO (10:53)
--- NOTE | 2017-01-17 10:55 | HHI.DCPOC ---
Discharge Care Plan Diagnosis: (1) Acute exacerbation of CHF (congestive heart failure) (2) Gout (3) Chronic kidney disease (4) Arthritis Goals to Promote Your Health * To prevent worsening of your condition and complications * To maintain your health at the optimal level Directions to Meet Your Goals Take your medications as prescribed Follow your dietary instruction Follow activity as directed Keep your appointments as scheduled Take your immunizations and boosters as scheduled If your symptoms worsen call your PCP, if no PCP go to Urgent Care Center or Emergency Room Smoking is Dangerous to Your Health. Avoid second hand smoke Call the 24-hour hour crisis hotline for domestic abuse at Jolene Sánchez PA-C Jan 17, 2017 10:55 am
--- NOTE | 2017-01-17 10:59 | HHI.DS ---
Discharge Summary Admission Date Jan 15, 2017 at 1:49 am Discharge Date: Jan 17, 2017 Admitting Diagnosis Chf exacerbation, elevated troponin, chronic kidney disease, (1) Acute exacerbation of CHF (congestive heart failure) ICD Code: I50.9 Diagnosis: Principal (2) Elevated troponin ICD Code: R74.8 Diagnosis: Secondary (3) Gout ICD Code: M10.9 Diagnosis: Principal (4) Chronic kidney disease ICD Code: N18.9 Diagnosis: Secondary Procedures None. Brief History - From Admission This is an 86-year-old male with PMH of HTN, Hyperlipidemia, CHF (Echo 02/28/12 w / EF 20-25%), s/p AICD, COPD and Gout who presented to the ER with complaints of SOB with exertion x2-3 days. Denies fever, chills, cough or chest pain. Recent admit 12/17-12/19/16 secondary to Sepsis from UTI, PATRICE, Orthostatic Hypotension and Cellulitis, Lasix d/c'd at time of discharge. Reports compliance w/ home medications. On arrival, BP 191/106, HR 80, O2 sat 93% on RA , Afebrile. Hgb 9.1, previously 11.0 on 12/17/16. Platelets 82, previously 91 on 12/17/16, 59 on 12/16/16. BNP 2462. Troponin 0.08. EKG with no acute ischemia. UA negative. CXR with bibasilar airspace disease and likely small effusions. S/p Lasix 40mg IV in ER. Follows w/ Dr. Sibley as outpatient. CBC/BMP: 01/16/17 0519 01/16/17 0519 Significant Findings Laboratory Tests Test 01/15/17 01/15/17 01/15/17 01/15/17 00:45 02:00 06:36 14:53 Red Blood Count 2.90 MIL/MM3 (4.50-5.90) Hemoglobin 9.1 GM/DL (13.0-17.0) Hematocrit 27.3 % (39.0-51.0) Platelet Count 82 TH/MM3 (150-450) Monocytes % 30 % (0-8) Platelet Estimate LOW (NORMAL) Blood Urea Nitrogen 25 MG/DL (7-18) Creatinine 1.64 MG/DL (0.60-1.30) Estimat Glomerular Filtration 49 ML/MIN (>89) Rate Calcium Level 8.2 MG/DL (8.5-10.1) Troponin I 0.08 NG/ML 0.08 NG/ML 0.07 NG/ML (0.02-0.05) (0.02-0.05) (0.02-0.05) B-Type Natriuretic Peptide 2462 PG/ML (0-100) Albumin 2.9 GM/DL (3.4-5.0) Urine Protein 100 mg/dL (NEG-TRACE) Urine Occult Blood TRACE (NEG) Test 01/16/17 01/16/17 05:19 11:19 Red Blood Count 2.88 MIL/MM3 (4.50-5.90) Hemoglobin 8.8 GM/DL (13.0-17.0) Hematocrit 26.9 % (39.0-51.0) Platelet Count 101 TH/MM3 (150-450) Lymphocytes (%) (Auto) 7.0 % (9.0-44.0) Monocytes (%) (Auto) 36.1 % (0.0-8.0) Lymphocytes # (Auto) 0.6 TH/MM3 (1.0-4.8) Monocytes # (Auto) 2.9 TH/MM3 (0-0.9) Platelet Estimate LOW (NORMAL) Platelet Morphology Comment ENLARGED (NORMAL) Sodium Level 135 MEQ/L (136-145) Chloride Level 96 MEQ/L (98-107) Blood Urea Nitrogen 26 MG/DL (7-18) Creatinine 1.74 MG/DL (0.60-1.30) Estimat Glomerular Filtration 46 ML/MIN (>89) Rate Calcium Level 8.0 MG/DL (8.5-10.1) Albumin 2.6 GM/DL (3.4-5.0) B-Type Natriuretic Peptide 1887 PG/ML (0-100) Imaging Last Impressions Wrist X-Ray 01/16/17 0000 Signed Impressions: Service Date/Time: Monday, January 16, 2017 09:34 - CONCLUSION: Soft tissue swelling with diffuse arthritic changes. Brooks Quijano MD Hand X-Ray 01/16/17 0000 Signed Impressions: Service Date/Time: Monday, January 16, 2017 09:29 - CONCLUSION: 1. Old fracture at the second metacarpal phalangeal joint where there appears to be partial subluxation. 2. Scattered prominent arthritic changes. 3. Diffuse soft tissue swelling without acute bony abnormality. Brooks Quijano MD Chest X-Ray 01/15/17 0027 Signed Impressions: Service Date/Time: Sunday, January 15, 2017 00:41 - CONCLUSION: Interval development of bibasilar airspace disease with possible associated small effusions. Maynor Sutton MD PE at Discharge GENERAL: Well-developed, well-nourished pleasant elderly male male patient in [facility]. SKIN: Warm and dry. HEENT: Atraumatic. Normocephalic. Pupils equal and round. No scleral icterus. No injection or drainage. Mucous membranes pink and moist. NECK: Trachea midline. CARDIOVASCULAR: Regular rate and rhythm. No murmur appreciated. RESPIRATORY: No accessory muscle use. Clear to auscultation. Breath sounds equal bilaterally. GASTROINTESTINAL: Abdomen soft, non-tender, nondistended. Hepatic and splenic margins not palpable. MUSCULOSKELETAL: Extremities without clubbing, cyanosis, or edema. Left hand and wrist with diffuse edema, warmth, mild erythema, TTP, with limited ROM of wrist, overall improved today. Entire LUE larger than the RUE however pain only limited to the hand/wrist. NEUROLOGICAL: Awake and alert. No obvious cranial nerve deficits. Motor grossly within normal limits. Normal speech. PSYCHIATRIC: Appropriate mood and affect; insight and judgment normal. Hospital Course 86-year-old male with PMH of HTN, Hyperlipidemia, CHF (Echo 02/28/12 w/ EF 20-25% ), s/p AICD, COPD and Gout who presented with complaints of SOB with exertion x2 -3 days Acute exacerbation of chronic systolic CHF: Lasix 40 mg recently held due to PATRICE , was to resume Lasix, however the patient was confused with prescriptions. Echo 02/28/12 w/ EF 20-25% s/p AICD. BNP 2462, 1775 on 12/27, and 237 on 12/15. CXR w/ mild pleural effusions. S/p Lasix 40mg IV in ER, will continue diuresis with oral Lasix 20 mg bid. Monitor renal function, I's & O's. Patient initally failed home O2 walk test, 88% with exertion, however repeat home O2 walk test done on the day of discharge and patient's O2 sat only dropped to 94% with exertion. Elevated Trop: Trop 0.08, 0.08, 0.07, secondary to volume overload from CHF as above. EKGs w/ no acute ischemic changes. Telemetry unremarkable. Resume home medications. No c/o chest pain. Gout Exacerbation: Xrays of left hand and wrist shows diffuse soft tissue swelling. Given Colchicine 1.2mg x1 and started 0.6mg bid (total 3 doses of colchicine). Start on prednisone 40mg daily. Elevate LUE with sling. Tramadol prn pain. Improving. CKD stage III: Chronic, stable. Creatinine 1.64, previously 1.64 on 12/27/16, repeat labs stable. Caution w/ diuresis. HTN: Accelerated. Resumed home Atenolol, monitor BP. Much improved. Generalized weakness: PT eval, arranged [facility] PT. Chronic pain: Continue tramadol as needed DVT Prophylaxis: SCD/Teds. Written by Jolene Sánchez, acting as scribe for Dr. Cotto on 01/17/17 at 08:38. All or portions of this note were transcribed by scribe []. I, Dr. Andreas Cotto personally performed the history, physical exam, and medical decision making; and confirmed the accuracy of the information in the transcribed note. Authenticated by Dr. Andreas Cotto on 01/17/17 at 16:19. Pt Condition on Discharge: Stable Discharge Disposition: Disch w/ Home Health Serv Discharge Time: > 30 minutes Discharge Instructions DIET: Follow Instructions for: Heart Healthy Diet Activities you can perform: Regular-No Restrictions Follow up Referrals: Cardiology - 1 Week PCP Follow-up - 2-3 Days with Saud Worrell MD Rheumatology - 1 Week New Medications: Furosemide (Furosemide) 20 Mg Tab 20 MG PO BID@,18 CHF #60 TAB Pantoprazole (Pantoprazole) 40 Mg Tab 40 MG PO DAILY acid reflux #30 TAB Prednisone (Prednisone) 20 Mg Tab 40 MG PO DAILY GOUT #4 TAB Continued Medications: Allopurinol (Allopurinol) 100 Mg Tab 100 MG PO DAILY Gout #30 Ref 0 TAB Atenolol (Atenolol) 50 Mg Tab 50 MG PO DAILY Blood Pressure Management #30 Ref 0 TAB Tramadol (Tramadol) 50 Mg Tab 50 MG PO Q8H PRN PAIN Ref 0 TAB Jolene Sánchez PA-C Jan 17, 2017 10:58 Andreas Cotto MD Jan 17, 2017 16:20
[2017-01-17 11:47] VITALS: BP 129/83; PULSE 70; RESP 20; TEMP 98.3; O2SAT 99
== END 2017-01-17 16:01 | disposition home or self-care (01) ==
LOC: NEPE 00:22 → NEDA 01:49 → NEPGCP 04:39
PROVIDERS: ADMIT Internal Medicine; ATTEND Internal Medicine
DX: I13.0 Hypertensive heart and chronic kidney disease with heart failure and stage 1 through stage 4 chronic kidney disease, or unspecified chronic kidney disease (principal); I50.23 Acute on chronic systolic (congestive) heart failure; N18.3 Chronic kidney disease, stage 3 (moderate); G89.29 Other chronic pain; R74.8 Abnormal levels of other serum enzymes; M10.9 Gout, unspecified; E78.5 Hyperlipidemia, unspecified; J44.9 Chronic obstructive pulmonary disease, unspecified; Z95.810 Presence of automatic (implantable) cardiac defibrillator; M19.90 Unspecified osteoarthritis, unspecified site; R53.1 Weakness
CPT/HCPCS: 71010; 73100; 73130; 80053; 81001; 82550; 82552; 83735; 83880; 84484; 85007; 85025; 85027; 93005; 94620; 97110; 97116; 97162; 97530; 99285; G0378; G8987; G8988; J1940; J2270; J7512

== ENCOUNTER 2017-02-21 18:58 | Emergency (ER) | payer OTHER ==
[~2017-02-21] VITALS: Ht 185.4 cm; Wt 103.0 kg
[~2017-02-21 18:58] MED LIST changes: -CEPH-460 PO; -FURO1TAB62 PO; +FURO20TA PO; -NORC5TAB PO; +PANT40TA3 PO; -VITA400T14 PO
[2017-02-21 19:02] VITALS: BP 140/91; PULSE 84; RESP 18; TEMP 97.9; O2SAT 98
--- NOTE | 2017-02-21 20:12 | PD ---
HPI Chief Complaint: Respiratory Distress Time Seen by Provider: 19:22 Travel History International Travel<30 days: No Contact w/Intl Traveler<30days: No Traveled to known affect area: No History of Present Illness HPI Patient is an 86-year-old male with history of CHF, (EF 20-25% from echo 02/27/17 ) hypertension, hyperlipidemia, COPD, gout, AICD, who presents to emergency room with complaints of shortness of breath. Patient reports that for the past 3 months, he has been having episodes of shortness of breath. Patient reports that he is having shortness of breath on exertion, reports that shortness of breath resolves if he rests. Patient reports that his symptoms began sometime this morning, denies any chest pain with his symptoms. Patient denies any cough or congestion, denies any fevers or chills. Patient reports that he also was having some chest pain, reports that he can't really describe his chest pain and can't remember when he last had chest pain. Patient denies any chest pain at this time. PFSH Past Medical History Arthritis: Yes Blood Disorders: No Heart Rhythm Problems: Yes Cancer: No Cardiovascular Problems: Yes (PACEMAKER, CHF) High Cholesterol: No Chest Pain: Yes Congestive Heart Failure: Yes COPD: Yes Diminished Hearing: Yes ([place]) Endocrine: No Gout: Yes Genitourinary: No Hypertension: Yes Immune Disorder: No Implanted Vascular Access Dvce: Yes Musculoskeletal: Yes (Left knee, Gout) Neurologic: No Psychiatric: No Respiratory: Yes Immunizations Current: Yes Past Surgical History Body Medical Devices: Pacemaker, Left knee - pins Cardiac Surgery: Yes (PACEMAKER) 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) Other Surgery: Yes (Pacer, Left knee) Social History Alcohol Use: No (ON WEEKENDS) Tobacco Use: No Substance Use: No Allergies-Medications (Allergen,Severity, Reaction): Coded Allergies: No Known Allergies (Verified , 02/21/17) Reported Meds & Prescriptions Reported Meds & Active Scripts Active Pantoprazole (Pantoprazole Sodium) 40 Mg Tab 40 Mg PO DAILY Furosemide 20 Mg Tab 20 Mg PO BID@ Reported Atenolol 50 Mg Tab 50 Mg PO DAILY Allopurinol 100 Mg Tab 100 Mg PO DAILY Tramadol (Tramadol HCl) 50 Mg Tab 50 Mg PO Q8H PRN Review of Systems General / Constitutional: No: Fever Eyes: No: Visual changes HENT: No: Headaches Cardiovascular: No: Chest Pain or Discomfort Respiratory: Positive: Shortness of Breath Gastrointestinal: No: Abdominal Pain Genitourinary: No: Dysuria Musculoskeletal: No: Pain Skin: No Rash Neurologic: No: Weakness Psychiatric: No: Depression Endocrine: No: Polydipsia Hematologic/Lymphatic: No: Easy Bruising Physical Exam Narrative GENERAL: No acute distress, nontoxic SKIN: Focused skin assessment warm/dry. HEAD: Atraumatic. Normocephalic. EYES: Pupils equal and round. No scleral icterus. No injection or drainage. ENT: No nasal bleeding or discharge. Mucous membranes pink and moist. NECK: Trachea midline. No JVD. CARDIOVASCULAR: Regular rate and rhythm. No murmur appreciated. RESPIRATORY: No accessory muscle use. Clear to auscultation. Breath sounds equal bilaterally. GASTROINTESTINAL: Abdomen soft, non-tender, nondistended. Hepatic and splenic margins not palpable. MUSCULOSKELETAL: No obvious deformities. No clubbing. No cyanosis. No edema. NEUROLOGICAL: Awake and alert. . Normal speech. Patient is alert and oriented 3 PSYCHIATRIC: Appropriate mood and affect; insight and judgment normal. Data Data Last Documented VS Vital Signs Date Time Temp Pulse Resp B/P Pulse Ox O2 Delivery O2 Flow Rate FiO2 02/21/17 23:00 74 20 143/96 97 Room Air 02/21/17 19:02 97.9 Orders Electrocardiogram (02/21/17 19:19) B-Type Natriuretic Peptide (02/21/17 19:19) Ckmb (Isoenzyme) Profile (02/21/17 19:19) Complete Blood Count With Diff (02/21/17 19:19) Comprehensive Metabolic Panel (02/21/17 19:19) Magnesium (Mg) (02/21/17 19:19) Prothrombin Time / Inr (Pt) (02/21/17 19:19) Act Partial Throm Time (Ptt) (02/21/17 19:19) Troponin I (02/21/17 19:19) Chest, Single Ap (02/21/17 19:19) Ecg Monitoring (02/21/17 19:19) Iv Access Insert/Monitor (02/21/17 19:19) Oximetry (02/21/17 19:19) CKMB (02/21/17 19:45) CKMB% (02/21/17 19:45) Furosemide Inj (Lasix Inj) (02/21/17 23:00) Labs Laboratory Tests Test 02/21/17 19:45 White Blood Count 7.3 TH/MM3 Red Blood Count 3.15 MIL/MM3 Hemoglobin 9.7 GM/DL Hematocrit 29.2 % Mean Corpuscular Volume 92.5 FL Mean Corpuscular Hemoglobin 30.7 PG Mean Corpuscular Hemoglobin 33.2 % Concent Red Cell Distribution Width 17.6 % Platelet Count 179 TH/MM3 Mean Platelet Volume 10.7 FL Neutrophils (%) (Auto) 55.1 % Lymphocytes (%) (Auto) 17.5 % Monocytes (%) (Auto) 26.4 % Eosinophils (%) (Auto) 0.3 % Basophils (%) (Auto) 0.7 % Neutrophils # (Auto) 4.0 TH/MM3 Lymphocytes # (Auto) 1.3 TH/MM3 Monocytes # (Auto) 1.9 TH/MM3 Eosinophils # (Auto) 0.0 TH/MM3 Basophils # (Auto) 0.1 TH/MM3 CBC Comment AUTO DIFF Differential Comment AUTO DIFF CONFIRMED Platelet Estimate NORMAL Platelet Morphology Comment NORMAL Target Cells 1+ Keratocytes OCC Prothrombin Time 11.2 SEC Prothromb Time International 1.0 RATIO Ratio Activated Partial 27.6 SEC Thromboplast Time Sodium Level 136 MEQ/L Potassium Level 5.6 MEQ/L Chloride Level 102 MEQ/L Carbon Dioxide Level 25.7 MEQ/L Anion Gap 8 MEQ/L Blood Urea Nitrogen 15 MG/DL Creatinine 1.71 MG/DL Estimat Glomerular Filtration 46 ML/MIN Rate Random Glucose 100 MG/DL Calcium Level 8.4 MG/DL Magnesium Level 2.2 MG/DL Total Bilirubin 0.4 MG/DL Aspartate Amino Transf 53 U/L (AST/SGOT) Alanine Aminotransferase 17 U/L (ALT/SGPT) Alkaline Phosphatase 71 U/L Total Creatine Kinase 197 U/L Creatine Kinase MB LESS THAN 0.5 NG/ML Troponin I 0.03 NG/ML B-Type Natriuretic Peptide 1143 PG/ML Total Protein 7.6 GM/DL Albumin 3.1 GM/DL MDM Medical Decision Making Medical Screen Exam Complete: Yes Emergency Medical Condition: Yes Interpretation(s) EKG at 1931: Ventricular paced at 82 beats for minute Vital Signs Date Time Temp Pulse Resp B/P Pulse Ox O2 Delivery O2 Flow Rate FiO2 02/21/17 19:02 97.9 84 18 140/91 98 Room Air Differential Diagnosis ACS, CHF, COPD exacerbation, pneumonia, PE Narrative Course Patient is an 86-year-old male who presents most room with complaints of shortness of breath. Patient reports that once a month, he has an episode of shortness of breath on exertion. Patient reports that today, he was feeling short of breath with walking short distances. Patient initially complained of chest pain, reports acute chest and today but is unable to describe his pain. Patient reports that he is feeling better while in the emergency room. Patient denies chest pain or shortness breath at this time. Patient reports that he feels comfortable. Patient was placed on a groundwater monitoring technician, he was also placed on a continuous pulse oximeter. X-ray of the chest ordered, EKG ordered, labs ordered, will observe patient. Last Impressions Chest X-Ray 02/21/171918 Signed Impressions: Service Date/Time: Sunday, February 21, 2017 19:41 - CONCLUSION: Mild bibasilar consolidation and small effusions. Alexsander Chopra MD X-ray of the chest shows mild bibasilar consolidation and small effusions, patient denies fevers or chills, denies cough or congestion this time. wbc 7.3 with no shift, x-ray of the chest was comparable to his previous x-rays on . It is very unlikely for patient to have pneumonia at this time, we'll not treat for pneumonia. Patient with most likely small effusions to lung bases. Patient reports that he is feeling better while in the ER, denies sob at this time. Laboratory Tests Test 02/21/17 19:45 White Blood Count 7.3 TH/MM3 (4.0-11.0) Red Blood Count 3.15 MIL/MM3 (4.50-5.90) Hemoglobin 9.7 GM/DL (13.0-17.0) Hematocrit 29.2 % (39.0-51.0) Mean Corpuscular Volume 92.5 FL (80.0-100.0) Mean Corpuscular Hemoglobin 30.7 PG (27.0-34.0) Mean Corpuscular Hemoglobin 33.2 % Concent (32.0-36.0) Red Cell Distribution Width 17.6 % (11.6-17.2) Platelet Count 179 TH/MM3 (150-450) Mean Platelet Volume 10.7 FL (7.0-11.0) Neutrophils (%) (Auto) 55.1 % (16.0-70.0) Lymphocytes (%) (Auto) 17.5 % (9.0-44.0) Monocytes (%) (Auto) 26.4 % (0.0-8.0) Eosinophils (%) (Auto) 0.3 % (0.0-4.0) Basophils (%) (Auto) 0.7 % (0.0-2.0) Neutrophils # (Auto) 4.0 TH/MM3 (1.8-7.7) Lymphocytes # (Auto) 1.3 TH/MM3 (1.0-4.8) Monocytes # (Auto) 1.9 TH/MM3 (0-0.9) Eosinophils # (Auto) 0.0 TH/MM3 (0-0.4) Basophils # (Auto) 0.1 TH/MM3 (0-0.2) CBC Comment AUTO DIFF Differential Comment AUTO DIFF CONFIRMED Platelet Estimate NORMAL (NORMAL) Platelet Morphology Comment NORMAL (NORMAL) Target Cells 1+ (NORMAL) Keratocytes OCC (NORMAL) Prothrombin Time 11.2 SEC (9.8-11.6) Prothromb Time International 1.0 RATIO Ratio Activated Partial 27.6 SEC Thromboplast Time (24.3-30.1) Sodium Level 136 MEQ/L (136-145) Potassium Level 5.6 MEQ/L (3.5-5.1) Chloride Level 102 MEQ/L (98-107) Carbon Dioxide Level 25.7 MEQ/L (21.0-32.0) Anion Gap 8 MEQ/L (5-15) Blood Urea Nitrogen 15 MG/DL (7-18) Creatinine 1.71 MG/DL (0.60-1.30) Estimat Glomerular Filtration 46 ML/MIN (>89) Rate Random Glucose 100 MG/DL (74-106) Calcium Level 8.4 MG/DL (8.5-10.1) Magnesium Level 2.2 MG/DL (1.5-2.5) Total Bilirubin 0.4 MG/DL (0.2-1.0) Aspartate Amino Transf 53 U/L (15-37) (AST/SGOT) Alanine Aminotransferase 17 U/L (12-78) (ALT/SGPT) Alkaline Phosphatase 71 U/L (45-117) Total Creatine Kinase 197 U/L (39-308) Creatine Kinase MB LESS THAN 0.5 NG/ML (0.5-3.6) Troponin I 0.03 NG/ML (0.02-0.05) B-Type Natriuretic Peptide 1143 PG/ML (0-100) Total Protein 7.6 GM/DL (6.4-8.2) Albumin 3.1 GM/DL (3.4-5.0) Patient reevaluated, patient was given 40 mg of IV Lasix, patient is diuresing at this time. I do feel that patient's shortness of breath is secondary to his CHF and he is asymptomatic after his Lasix. Patient reports that he feels much better, reports that he does not feel short of breath at this time. Plan to discharge patient home with outpatient follow-up with his outpatient services director, patient understands signs and symptoms of when to return to the emergency room. Diagnosis Primary Impression: Congestive heart failure Qualified Code: I50.9 - Acute on chronic congestive heart failure, unspecified congestive heart failure type Additional Impression: Anemia Patient Instructions: General Instructions Additional Instructions: Please follow-up with your primary care doctor Please follow up with your outpatient services director tomorrow Return to ER as needed or if symptoms return Disposition: 01 DISCHARGE HOME Condition: Stable Cecile Pink DO Feb 21, 2017 20:12
[2017-02-21 20:20] LABS: BASOPHIL # 0.1 TH/MM3 (0-0.2); BASOPHIL % 0.7 % (0.0-2.0); EOSINOPHIL % 0.3 % (0.0-4.0); HEMATOCRIT 29.2 % (39.0-51.0); LYMPH % 17.5 % (9.0-44.0); LYMPHOCYTE # 1.3 TH/MM3 (1.0-4.8); MEAN CELL VOLUME 92.5 FL (80.0-100.0); MEAN CORPUSCULAR HEMOGLOBIN 30.7 PG (27.0-34.0); MEAN CORPUSCULAR HGB CONC 33.2 % (32.0-36.0); MONO % 26.4 % (0.0-8.0); NEUT % 55.1 % (16.0-70.0); PLATELET COUNT 179 TH/MM3 (150-450); RED BLOOD COUNT 3.15 MIL/MM3 (4.50-5.90); RED CELL DISTRIBUTION WIDTH 17.6 % (11.6-17.2); WHITE BLOOD COUNT 7.3 TH/MM3 (4.0-11.0)
[2017-02-21 20:21] LABS: HEMO FLAGS AUTO DIFF
--- NOTE | 2017-02-21 20:25 | RADRPT ---
EXAM DATE/TIME: 02/21/2017 19:41 [facility] COMPARISON: CHEST SINGLE AP, January 15, 2017, 0:41. INDICATIONS : Chest pain. MEDICAL HISTORY : None. SURGICAL HISTORY : Pacemaker. ENCOUNTER: Initial ACUITY: 1 day PAIN SCORE: 5/10 LOCATION: chest FINDINGS: Mild bibasilar consolidation with probable small, bilateral pleural effusions. No pneumothorax. Heart size stable, upper limits of normal. Cardiac pacer/defibrillator again noted. CONCLUSION: Mild bibasilar consolidation and small effusions. Alexsander Chopra MD on February 21, 2017 at 20:23 Board Certified Radiologist. This report was verified electronically.
[2017-02-21 20:43] LABS: APTT (PATIENT) 27.6 SEC (24.3-30.1); PROTHROMBIN TIME - PATIENT 11.2 SEC (9.8-11.6)
[2017-02-21 21:00] LABS: KERATOCYTES OCC (NORMAL); PLATELET ESTIMATE SMEAR NORMAL (NORMAL); PLATELET MORPHOLOGY NORMAL (NORMAL); SCAN/DIFF AUTO DIFF CONFIRMED; TARGET CELLS 1+ (NORMAL)
[2017-02-21 21:35] LABS: ALKALINE PHOSPHATASE 71 U/L (45-117); ALT (GPT) 17 U/L (12-78); ANION GAP 8 MEQ/L (5-15); AST (GOT) 53 U/L (15-37); BICARBONATE 25.7 MEQ/L (21.0-32.0); BLOOD UREA NITROGEN 15 MG/DL (7-18); CHLORIDE 102 MEQ/L (98-107); CREATINE KINASE 197 U/L (39-308); GLOMERULAR FILTRATION RATE 46 ML/MIN (>89); MAGNESIUM 2.2 MG/DL (1.5-2.5); SODIUM (NA) 136 MEQ/L (136-145); TOTAL BILIRUBIN ADULT 0.4 MG/DL (0.2-1.0)
[2017-02-21 21:36] LABS: POTASSIUM 5.6 MEQ/L (3.5-5.1)
[2017-02-21 21:56] LABS: CKMB LESS THAN 0.5 NG/ML (0.5-3.6)
[2017-02-21 23:00] VITALS: BP 143/96; PULSE 74; RESP 20; O2SAT 97
[2017-02-21] MEDS ORDERED: FUROSEMIDE 40 MG/4 ML VIAL IV PUSH ONE (23:00)
--- NOTE | 2017-02-22 21:01 | EKG ---
Date Performed: 02/21/2017 Time Performed: 19:31:22 PTAGE: 86 years EKG: ELECTRONIC VENTRICULAR PACEMAKER ABNORMAL RHYTHM ECG PREVIOUS TRACING : 01/15/2017 00.28 Compared to prior tracing no significant change DOCTOR: Devan Marquez Interpretating Date/Time 02/22/2017 21:00:24
== END 2017-02-22 00:28 | disposition home or self-care (01) ==
LOC: NEPE 18:58
DX: I50.9 Heart failure, unspecified (principal); D64.9 Anemia, unspecified; Z79.899 Other long term (current) drug therapy
CPT/HCPCS: 71010; 80053; 82550; 82552; 83735; 83880; 84484; 85025; 85610; 85730; 93005; 96374; 99285; J1940

== ENCOUNTER 2017-04-09 15:12 | Emergency (ER) | payer OTHER ==
[~2017-04-09] VITALS: Ht 177.8 cm; Wt 103.0 kg
[~2017-04-09 15:12] MED LIST changes: -PRED20 PO
[2017-04-09 15:20] VITALS: BP 122/77; PULSE 84; RESP 20; TEMP 97.8; O2SAT 98
--- NOTE | 2017-04-09 15:46 | PD ---
HPI . gout flare Chief Complaint: Pain: Acute or Chronic Time Seen by Provider: 15:46 Travel History International Travel<30 days: No Contact w/Intl Traveler<30days: No Traveled to known affect area: No History of Present Illness HPI 86-year-old male with history of hypertension, gout, osteoarthritis here with complaints of gout flare of his right foot since of this week. Patient tells me the week before he had a flare on his left foot and went to his primary care doctor and was given steroids with immediate improvement. He is now here with complaints of right great toe pain since . He rates it as 08/21. He was able to walk from his house here to the emergency department. He denies any recent injury or trauma to the area. He has no other complaints. PFSH Past Medical History Arthritis: Yes Blood Disorders: No Heart Rhythm Problems: Yes Cancer: No Cardiovascular Problems: Yes (PACEMAKER, CHF) High Cholesterol: No Chest Pain: Yes Congestive Heart Failure: Yes COPD: Yes Diminished Hearing: Yes ([place]) Endocrine: No Gout: Yes Genitourinary: No Hypertension: Yes Immune Disorder: No Implanted Vascular Access Dvce: Yes Musculoskeletal: Yes (Left knee, Gout) Neurologic: No Psychiatric: No Respiratory: Yes Immunizations Current: Yes Past Surgical History Body Medical Devices: Pacemaker, Left knee - pins Cardiac Surgery: Yes (PACEMAKER) 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) Other Surgery: Yes (Pacer, Left knee) Social History Alcohol Use: No (ON WEEKENDS) Tobacco Use: No Substance Use: No Allergies-Medications (Allergen,Severity, Reaction): Coded Allergies: No Known Allergies (Verified , 04/09/17) Reported Meds & Prescriptions Reported Meds & Active Scripts Active Prednisone 50 Mg Tab 50 Mg PO DAILY Furosemide 20 Mg Tab 20 Mg PO BID@ Reported Atenolol 50 Mg Tab 50 Mg PO DAILY Allopurinol 100 Mg Tab 100 Mg PO DAILY Tramadol (Tramadol HCl) 50 Mg Tab 50 Mg PO Q8H PRN Review of Systems General / Constitutional: No: Fever Eyes: No: Visual changes HENT: No: Headaches Cardiovascular: No: Chest Pain or Discomfort Respiratory: No: Shortness of Breath Gastrointestinal: No: Abdominal Pain Genitourinary: No: Dysuria Musculoskeletal: Positive: Pain (right great toe) Skin: No Rash Neurologic: No: Weakness Psychiatric: No: Depression Endocrine: No: Polydipsia Hematologic/Lymphatic: No: Easy Bruising Physical Exam Narrative GENERAL: AAO x 3, no acute distress, Well-nourished, well-developed patient. SKIN: Warm and dry. No visible rashes or bruising. mild erythema right great toe HEAD: Normocephalic and atraumatic. EYES: No scleral icterus. No injection or drainage. ENT: No nasal drainage noted. Mucous membranes pink. Airway patent. NECK: Supple, trachea midline. No JVD. CARDIOVASCULAR: Regular rate and rhythm without murmurs, gallops, or rubs. RESPIRATORY: Breath sounds equal bilaterally. No accessory muscle use. No rhonchi or rales. GASTROINTESTINAL: Abdomen soft, non-tender, nondistended. EXTREMITIES: No cyanosis or edema. right great toe tender to touch with some localized erythema, very minimal warmth compared to surrounding tissues, no evidence of cellulitis, pedal pulse normal b/l feet, all digits of feet move normally BACK: Nontender without obvious deformity. No CVA tenderness. PSYCH: AAO x 3, normal affect. Data Data Last Documented VS Vital Signs Date Time Temp Pulse Resp B/P Pulse Ox O2 Delivery O2 Flow Rate FiO2 04/09/17 15:20 97.8 84 20 122/77 98 Room Air Orders Methylprednisolone So Succ Inj (Solumedr (04/09/17 16:00) MDM Medical Decision Making Medical Screen Exam Complete: Yes Emergency Medical Condition: Yes Medical Record Reviewed: Yes Differential Diagnosis gout flare, less likely fracture, less likely cellulitis Narrative Course 86 yr old male here with reports of a gout flare. He tells me he has had this in the past, most recent last week. He is requesting steroids. He denies any injury. Exam was done and this appears to be a case of gout. Solumedrol in ED. Prednisone at home. We discussed dietary changes to reduce flares. Advised f/u with PCP. Patient verbalized understanding of instructions, questions were answered, and thanked me for their care. I advised them if their condition worsens, please return to the nearest emergency room for further care. 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 Follow up with your primary care provider. Take medications as prescribed. Refrain from eating the foods that we discussed. Med/Other Pt SpecificInfo: Prescription(s) given Scripts Prednisone 50 Mg Tab50 Mg PO DAILY #5 TAB Prov:Vasquez Temple MD 04/09/17 Disposition: 01 DISCHARGE HOME Condition: Stable Daisy Solis April 09, 2017 15:46
[2017-04-09] MEDS ORDERED: PRED50 PO (15:55)
[2017-04-09] MEDS ORDERED: methylPREDNISolone SOD SUCC 125 MG/2 ML VIAL IM ONE (16:00)
== END 2017-04-09 16:22 | disposition home or self-care (01) ==
LOC: NEPD 15:12
DX: M1A.9XX0 Chronic gout, unspecified, without tophus (tophi) (principal); I10 Essential (primary) hypertension
CPT/HCPCS: 96372; 99284; J2930

== ENCOUNTER 2017-05-19 18:25 | Inpatient (IN) | payer OTHER, MEDICARE ==
[~2017-05-19] VITALS: Ht 185.4 cm; Wt 96.5 kg
[~2017-05-19 18:25] MED LIST changes: -PANT40TA3 PO; +PRED50 PO
[2017-05-19 18:26] VITALS: BP 175/105; PULSE 85; RESP 17; TEMP 98.3; O2SAT 98
[2017-05-19] MEDS ORDERED: FUROSEMIDE 100 MG/10 ML VIAL IV PUSH ONE (18:45)
[2017-05-19] MEDS ORDERED: SODIUM CHLORIDE 0.9% FLUSH 10 ML FLUSH IVF PRN (18:45)
[2017-05-19] MEDS ORDERED: ASPIRIN 81 MG CHEW TAB CHEW ONE (18:45)
[2017-05-19] MEDS ORDERED: NITROGLYCERIN 2% OINT 1 GM PACKET TOPICAL ONE (18:45)
--- NOTE | 2017-05-19 18:53 | PD ---
HPI . SOB Chief Complaint: Respiratory Symptoms Time Seen by Provider: 18:37 Travel History International Travel<30 days: No Contact w/Intl Traveler<30days: No Traveled to known affect area: No History of Present Illness HPI Patient presents with a chief complaint of shortness of breath. Onset was today. Dyspnea is exacerbated by exertion. Dyspnea is relieved by rest. There is no associated chest pain. He has not had a cough or fever. Dyspnea is mild. Patient reports a positive previous similar history related to congestive heart failure. The patient reports that he has been compliant with his diuretic. PFSH Past Medical History Arthritis: Yes Blood Disorders: No Heart Rhythm Problems: Yes Cancer: No Cardiovascular Problems: Yes High Cholesterol: No Chest Pain: Yes Congestive Heart Failure: Yes COPD: Yes Diminished Hearing: Yes ([place]) Endocrine: No Gout: Yes Genitourinary: No Hypertension: Yes Immune Disorder: No Implanted Vascular Access Dvce: Yes Musculoskeletal: Yes (Left knee, Gout) Neurologic: No Psychiatric: No Respiratory: Yes Immunizations Current: Yes Past Surgical History Body Medical Devices: Pacemaker, Left knee - pins Cardiac Surgery: Yes (PACEMAKER) 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) Other Surgery: Yes (Pacer, Left knee) Social History Alcohol Use: No Tobacco Use: No Substance Use: No Allergies-Medications (Allergen,Severity, Reaction): Coded Allergies: No Known Allergies (Verified , 04/09/17) Reported Meds & Prescriptions Reported Meds & Active Scripts Active Prednisone 50 Mg Tab 50 Mg PO DAILY Furosemide 20 Mg Tab 20 Mg PO BID@09,18 Reported Atenolol 50 Mg Tab 50 Mg PO DAILY Allopurinol 100 Mg Tab 100 Mg PO DAILY Tramadol (Tramadol HCl) 50 Mg Tab 50 Mg PO Q8H PRN Review of Systems Except as stated in HPI: all other systems reviewed are Neg General / Constitutional: No: Fever, Chills Cardiovascular: No: Chest Pain or Discomfort Respiratory: Positive: Shortness of Breath Musculoskeletal: No: Edema Physical Exam Narrative GENERAL: Pleasant, elderly man who is in no acute distress. He is not on oxygen and is able to speak to me in complete sentences. SKIN: Warm and dry. HEAD: Atraumatic. Normocephalic. EYES: Pupils equal and round. ENT: No nasal bleeding or discharge. Mucous membranes pink and moist. NECK: Trachea midline. Positive JVD. CARDIOVASCULAR: Regular rate and rhythm. Heart sounds normal. RESPIRATORY: No accessory muscle use. Mild basilar rales. GASTROINTESTINAL: Abdomen soft, non-tender, nondistended. MUSCULOSKELETAL: No obvious deformities. Trace edema. NEUROLOGICAL: Awake and alert. No obvious cranial nerve deficits. Motor grossly within normal limits. Normal speech. PSYCHIATRIC: Appropriate mood and affect; insight and judgment normal. Data Data Last Documented VS Vital Signs Date Time Temp Pulse Resp B/P Pulse Ox O2 Delivery O2 Flow Rate FiO2 05/19/17 18:26 98.3 85 17 175/105 98 Orders Complete Blood Count With Diff (05/19/17 18:37) Basic Metabolic Panel (Bmp) (05/19/17 18:37) B-Type Natriuretic Peptide (05/19/17 18:37) Ckmb (Isoenzyme) Profile (05/19/17 18:37) Troponin I (05/19/17 18:37) Iv Access Insert/Monitor (05/19/17 18:37) Electrocardiogram (05/19/17 18:37) Ecg Monitoring (05/19/17 18:37) Oximetry (05/19/17 18:37) Oxygen Administration (05/19/17 18:37) Chest, Single Ap (05/19/17 18:37) Sodium Chloride 0.9% Flush (Ns Flush) (05/19/17 18:45) Furosemide Inj (Lasix Inj) (05/19/17 18:45) Nitroglycerin 2% Oint (Nitroglycerin 2% (05/19/17 18:45) Aspirin Chew (Aspirin Chew) (05/19/17 18:45) MDM Medical Decision Making Medical Screen Exam Complete: Yes Emergency Medical Condition: Yes Medical Record Reviewed: Yes (patient was seen here on February 21 with very similar symptoms. He was treated with a single dose of Lasix will grams IV and was subsequently discharged home. His BNP at that time was 1143. His last echo in our system was in 2011 and showed an ejection fraction of 20-25%. Other medical problems include hypertension, hyperlipidemia, COPD and gout. He does have an AICD.) Differential Diagnosis Differential diagnosis of dyspnea includes but is not limited to congestive heart failure, pneumonia, wheezing, pneumothorax, pulmonary embolism Narrative Course Patient presents complaining with dyspnea. He states that it feels like previous episodes of CHF. I have ordered Lasix, 80 mg IV, Nitropaste, 1 inch and aspirin. I do not see aspirin on his medication list. Workup is pending. His care is being turned over to Dr. Davis at this time. Diagnosis Primary Impression: Dyspnea Condition: Stable Heike Sheffield MD May 19, 2017 18:53
--- NOTE | 2017-05-19 19:07 | PD ---
Physical Exam Date Seen by Provider: May 19, 2017 Narrative GENERAL: SKIN: Warm and dry. HEAD: Atraumatic. Normocephalic. EYES: Pupils equal and round. No scleral icterus. No injection or drainage. ENT: No nasal bleeding or discharge. Mucous membranes pink and moist. NECK: Trachea midline. JVD PRESENT CARDIOVASCULAR: Regular rate and rhythm. RESPIRATORY: CRACKLES BILATERALLY, TACHYPNEIC GASTROINTESTINAL: Abdomen soft, non-tender, nondistended. Hepatic and splenic margins not palpable. MUSCULOSKELETAL: Extremities without clubbing, cyanosis, or edema. No obvious deformities. NEUROLOGICAL: Awake and alert. No obvious cranial nerve deficits. Motor grossly within normal limits. Five out of 5 muscle strength in the arms and legs. Normal speech. PSYCHIATRIC: Appropriate mood and affect; insight and judgment normal. Data Data Last Documented VS Vital Signs Date Time Temp Pulse Resp B/P Pulse Ox O2 Delivery O2 Flow Rate FiO2 05/19/17 19:04 97 05/19/17 18:26 98.3 85 17 175/105 Orders Complete Blood Count With Diff (05/19/17 18:37) Basic Metabolic Panel (Bmp) (05/19/17 18:37) B-Type Natriuretic Peptide (05/19/17 18:37) Ckmb (Isoenzyme) Profile (05/19/17 18:37) Troponin I (05/19/17 18:37) Iv Access Insert/Monitor (05/19/17 18:37) Electrocardiogram (05/19/17 18:37) Ecg Monitoring (05/19/17 18:37) Oximetry (05/19/17 18:37) Oxygen Administration (05/19/17 18:37) Chest, Single Ap (05/19/17 18:37) Sodium Chloride 0.9% Flush (Ns Flush) (05/19/17 18:45) Furosemide Inj (Lasix Inj) (05/19/17 18:45) Nitroglycerin 2% Oint (Nitroglycerin 2% (05/19/17 18:45) Aspirin Chew (Aspirin Chew) (05/19/17 18:45) Labs Laboratory Tests Test 05/19/17 19:20 White Blood Count 4.7 TH/MM3 Red Blood Count 3.15 MIL/MM3 Hemoglobin 9.5 GM/DL Hematocrit 29.8 % Mean Corpuscular Volume 94.7 FL Mean Corpuscular Hemoglobin 30.0 PG Mean Corpuscular Hemoglobin 31.7 % Concent Red Cell Distribution Width 16.7 % Platelet Count 119 TH/MM3 Mean Platelet Volume 10.9 FL Neutrophils (%) (Auto) 37.8 % Lymphocytes (%) (Auto) 30.3 % Monocytes (%) (Auto) 30.1 % Eosinophils (%) (Auto) 0.8 % Basophils (%) (Auto) 1.0 % Neutrophils # (Auto) 1.8 TH/MM3 Lymphocytes # (Auto) 1.4 TH/MM3 Monocytes # (Auto) 1.4 TH/MM3 Eosinophils # (Auto) 0.0 TH/MM3 Basophils # (Auto) 0.0 TH/MM3 CBC Comment DIFF FINAL Differential Comment Sodium Level 141 MEQ/L Potassium Level 3.6 MEQ/L Chloride Level 108 MEQ/L Carbon Dioxide Level 24.2 MEQ/L Anion Gap 9 MEQ/L Blood Urea Nitrogen 16 MG/DL Creatinine 1.87 MG/DL Estimat Glomerular Filtration 42 ML/MIN Rate Random Glucose 79 MG/DL Calcium Level 8.8 MG/DL Total Creatine Kinase 90 U/L Troponin I 0.05 NG/ML B-Type Natriuretic Peptide 1839 PG/ML [facility] Medical Record Reviewed: Yes Supervised Visit with WILDER: No Interpretation(s) ekg: paced rhythm noted, without concordance (pt did not have cp at time either ) Differential Diagnosis chf v copd v pulm edema v pna v atypical nonstemi Narrative Course PATIENT HAS URINATED ABOUT 1.25LITERS OF URINE SINCE GIVEN ASA/NTG/LASIX AT BEDSIDE, PT IS STABLE, NOT IN RESP DISTRESS, NL PULSE OX, BUT BECOMES DECOMPENSATED WITH JUST STANDING AND WALKING AROUND ROOM. Diagnosis Primary Impression: Dyspnea Qualified Code: R06.09 - Dyspnea on exertion Additional Impression: ACUTE CHF EXACERBATION Admitting Information Admitting Physician Requests: Observation Condition: Stable Kike Davis MD May 19, 2017 19:07
--- NOTE | 2017-05-19 19:10 | RADRPT ---
EXAM DATE/TIME: 05/19/2017 18:34 [place] COMPARISON: CHEST SINGLE AP, February 21, 2017, 19:41. INDICATIONS : Shortness of breath. MEDICAL HISTORY : Cardiovascular disease. Hypertension. Chronic obstructive pulmonary SURGICAL HISTORY : Pacemaker. ENCOUNTER: Initial ACUITY: 1 day PAIN SCORE: 0/10 LOCATION: Bilateral chest FINDINGS: A single AP erect portable view of the chest was obtained and demonstrates the left subclavian transv enous pacer in place. Mild patchy opacity remains at the lung bases with no new confluent infiltrates . There is mild blunting of the right costophrenic angle. The left costophrenic is cut off the exam. The heart size remains at the upper limits of normal. CONCLUSION: 1. Patchy opacity again noted in both of the lung bases which may represent scarring. 2. Mild blunting of the right costophrenic angle is again noted. 3. The left costophrenic angle tip was cut off the exam. Christoph Weinstein MD on May 19, 2017 at 19:07 Board Certified Radiologist. This report was verified electronically.
[2017-05-19 20:06] LABS: AUTOMATED NEUTROPHIL # 1.8 TH/MM3 (1.8-7.7); EOSINOPHIL % 0.8 % (0.0-4.0); HEMATOCRIT 29.8 % (39.0-51.0); HEMO FLAGS DIFF FINAL; LYMPH % 30.3 % (9.0-44.0); LYMPHOCYTE # 1.4 TH/MM3 (1.0-4.8); MEAN CELL VOLUME 94.7 FL (80.0-100.0); MEAN CORPUSCULAR HGB CONC 31.7 % (32.0-36.0); MONO % 30.1 % (0.0-8.0); NEUT % 37.8 % (16.0-70.0); PLATELET COUNT 119 TH/MM3 (150-450); RED BLOOD COUNT 3.15 MIL/MM3 (4.50-5.90); RED CELL DISTRIBUTION WIDTH 16.7 % (11.6-17.2); WHITE BLOOD COUNT 4.7 TH/MM3 (4.0-11.0)
[2017-05-19 20:25] LABS: BICARBONATE 24.2 MEQ/L (21.0-32.0); POTASSIUM 3.6 MEQ/L (3.5-5.1)
[2017-05-19] MEDS ORDERED: SODIUM CHLORIDE 0.9% FLUSH 10 ML FLUSH IV FLUSH PRN (21:30)
--- NOTE | 2017-05-19 21:43 | EKG ---
Date Performed: 05/19/2017 Time Performed: 19:02:37 PTAGE: 86 years EKG: ELECTRONIC VENTRICULAR PACEMAKER ABNORMAL RHYTHM ECG PREVIOUS TRACING : 02/21/2017 19.31 Compared to prior tracing no significant change DOCTOR: Demetrio Marin Interpretating Date/Time 05/19/2017 21:42:03
--- NOTE | 2017-05-19 22:00 | HHI.HP ---
[facility] Saud Worrell MD Admission Diagnosis ACUTE DECOMPENSATED CHF EXACERBATION Diagnoses: Chief Complaint: dyspnea Travel History International Travel<30 Days: No Contact w/Intl Traveler <30 Da: No Traveled to Known Affected Are: No History of Present Illness Written by LEV Cummings acting as scribe for Dr. Polanco] on 05/19/17 at 21:58. 86 y/o male with a history of htn, and chf presented to the ED with complaints of shortness of breath. He states the sob has been getting worse over the last few months, and much worse today. Denies any chest pain, fever or chills. Denies any nausea or vomiting. He is currently resting comfortably in bed. Review of Systems Constitutional: DENIES: Fever, Chills Respiratory: COMPLAINS OF: Shortness of breath, DENIES: Cough, Sputum production Cardiovascular: COMPLAINS OF: Lower Extremity Edema, DENIES: Chest pain Gastrointestinal: DENIES: Nausea, Vomiting Genitourinary: DENIES: Hematuria, Dysuria Musculoskeletal: DENIES: Back pain, Neck pain Integumentary: DENIES: Rash Hematologic/lymphatic: DENIES: Lymphadenopathy Immunologic/allergic: DENIES: Urticaria Neurologic: DENIES: Headache Past Family Social History Past Medical History HTN CHF NM Past Surgical History Pacemaker Left Knee replacement Reported Medications Reported Meds & Active Scripts Active Prednisone 50 Mg Tab 50 Mg PO DAILY Furosemide 20 Mg Tab 20 Mg PO BID@ Reported Atenolol 50 Mg Tab 50 Mg PO DAILY Allopurinol 100 Mg Tab 100 Mg PO DAILY Tramadol (Tramadol HCl) 50 Mg Tab 50 Mg PO Q8H PRN Allergies: Coded Allergies: No Known Allergies (Verified , 04/09/17) Active Ordered Medications Current Medications Medications (Trade) Dose Ordered Sig/Moses Route Start Time Stop Time Status Last Admin (NS Flush) 2 ml UNSCH PRN IV FLUSH 05/19/17 21:30 (NS Flush) 2 ml BID IV FLUSH 05/20/17 09:00 (Lasix Inj) 40 mg BID@ IVP 05/20/17 09:00 (KCl) 20 meq BID PO 05/20/17 09:00 (Heparin Inj) 5,000 units Q12H SQ 05/19/17 21:30 Family History Family history significant for heart disease and DM Social History Tobacco use: Quit years ago Alcohol use: rarely Illicit drug use: denies Physical Exam Vital Signs Vital Signs Date Time Temp Pulse Resp B/P Pulse Ox O2 Delivery O2 Flow Rate FiO2 05/19/17 19:04 97 05/19/17 18:26 98.3 85 17 175/105 98 Physical Exam GENERAL: This is a well-nourished, well-developed patient, in no apparent distress. SKIN: No rashes, ecchymoses or lesions. Cool and dry. HEAD: Atraumatic. Normocephalic. No temporal or scalp tenderness. EYES: Pupils equal round and reactive. Extraocular motions intact. No scleral icterus. No injection or drainage. ENT: Nose without bleeding, purulent drainage or septal hematoma. Throat without erythema, tonsillar hypertrophy or exudate. Uvula midline. Airway patent. NECK: Trachea midline. No JVD or lymphadenopathy. Supple, nontender, no meningeal signs. CARDIOVASCULAR: Regular rate and rhythm without murmurs, gallops, or rubs. RESPIRATORY: Decreased bilateral bases. No wheezes, rales, or rhonchi. GASTROINTESTINAL: Abdomen soft, non-tender, nondistended. No hepato-splenomegaly , or palpable masses. No guarding. MUSCULOSKELETAL: +2 pedal edema No calf tenderness. Negative Homans sign bilaterally. NEUROLOGICAL: Awake and alert. Motor and sensory grossly within normal limits. Normal speech. Laboratory Laboratory Tests Test 05/19/17 19:20 White Blood Count 4.7 Red Blood Count 3.15 Hemoglobin 9.5 Hematocrit 29.8 Mean Corpuscular Volume 94.7 Mean Corpuscular Hemoglobin 30.0 Mean Corpuscular Hemoglobin 31.7 Concent Red Cell Distribution Width 16.7 Platelet Count 119 Mean Platelet Volume 10.9 Neutrophils (%) (Auto) 37.8 Lymphocytes (%) (Auto) 30.3 Monocytes (%) (Auto) 30.1 Eosinophils (%) (Auto) 0.8 Basophils (%) (Auto) 1.0 Neutrophils # (Auto) 1.8 Lymphocytes # (Auto) 1.4 Monocytes # (Auto) 1.4 Eosinophils # (Auto) 0.0 Basophils # (Auto) 0.0 CBC Comment DIFF FINAL Differential Comment Sodium Level 141 Potassium Level 3.6 Chloride Level 108 Carbon Dioxide Level 24.2 Anion Gap 9 Blood Urea Nitrogen 16 Creatinine 1.87 Estimat Glomerular Filtration 42 Rate Random Glucose 79 Calcium Level 8.8 Total Creatine Kinase 90 Troponin I 0.05 B-Type Natriuretic Peptide 1838 Result Diagram: 05/19/17191905/19/171919 Imaging Last Impressions Chest X-Ray 05/19/171836 Signed Impressions: Service Date/Time: Friday, May 19, 2017 18:34 - CONCLUSION: 1. Patchy opacity again noted in both of the lung bases which may represent scarring. 2. Mild blunting of the right costophrenic angle is again noted. 3. The left costophrenic angle tip was cut off the exam. Christoph Weinstein MD Assessment and Plan Problem List: (1) Acute exacerbation of CHF (congestive heart failure) ICD Code: I50.9 Status: Acute (2) Gout ICD Code: M10.9 Status: Chronic (3) HTN (hypertension) ICD Code: I10 Status: Chronic Assessment and Plan 86 y/o male with a history of htn, and chf presented to the ED with complaints of shortness of breath. Acute exacerbation of CHF Chest xray reviewed and shows Patchy opacity again noted in both of the lung bases which may represent scarring. Mild blunting of the right costophrenic angle is again noted. EKG shows paced rhythm -Lasix 80mg given in ED, Cont 40mg IV BID -Serial troponin and EKGs -Fluid restriction <1500ml -2D echo ordered HTN, chronic, currently stable -Restart home medication Atenolol Gout, chronic -Cont home medication allopurinol CKD stage 3 with acute worsening -Monitor labs DVT prophylaxis: Heparin This note was transcribed by alaina Samuel. I, Dr. Morris Aceves personally performed the history, physical exam, and medical decision making; and confirmed the accuracy of the information in the transcribed note. Authenticated by Dr. Morris Aceves on 05/19/17 at 22:59. Discussed Condition With Patient Nanette Samuel May 19, 2017 22:00 Morris Aceves MD May 19, 2017 23:00
[2017-05-19] MEDS ORDERED: traMADol HCL 50 MG TAB PO PRN (22:15)
[2017-05-19 22:21] VITALS: BP 135/96; PULSE 65; RESP 16; O2SAT 98
[2017-05-19] MEDS: HEPARIN SODIUM - SQ 10,000 UNITS/ML VIAL SQ SCH (22:21)
[2017-05-19 23:31] VITALS: BP 162/92; PULSE 62; RESP 20; TEMP 98; O2SAT 97
[2017-05-19 23:50] VITALS: PULSE 60
[2017-05-20] VITALS (9 sets, daily range): BP systolic 130–138; BP diastolic 80–85; PULSE 66–78; RESP 16–18; TEMP 97.7–98.6; O2SAT 96–100
[2017-05-20 08:18] LABS: AUTOMATED NEUTROPHIL # 1.5 TH/MM3 (1.8-7.7); BASOPHIL % 0.7 % (0.0-2.0); EOSINOPHIL % 0.7 % (0.0-4.0); HEMATOCRIT 31.9 % (39.0-51.0); HEMO FLAGS DIFF FINAL; LYMPH % 33.9 % (9.0-44.0); LYMPHOCYTE # 1.4 TH/MM3 (1.0-4.8); MEAN CELL VOLUME 92.8 FL (80.0-100.0); MEAN CORPUSCULAR HEMOGLOBIN 30.5 PG (27.0-34.0); MEAN CORPUSCULAR HGB CONC 32.9 % (32.0-36.0); MONO % 30.6 % (0.0-8.0); NEUT % 34.1 % (16.0-70.0); PLATELET COUNT 129 TH/MM3 (150-450); RED BLOOD COUNT 3.44 MIL/MM3 (4.50-5.90); RED CELL DISTRIBUTION WIDTH 16.1 % (11.6-17.2); WHITE BLOOD COUNT 4.3 TH/MM3 (4.0-11.0)
[2017-05-20] MEDS: FUROSEMIDE 40 MG/4 ML VIAL IVP SCH ×2 (08:19→17:57)
[2017-05-20] MEDS: POTASSIUM CHLORIDE 20 MEQ CONTROLLED RELEASE TAB PO SCH ×2 (08:20→22:11)
[2017-05-20] MEDS: predniSONE 50 MG TAB PO SCH (08:20)
[2017-05-20] MEDS: HEPARIN SODIUM - SQ 10,000 UNITS/ML VIAL SQ SCH ×2 (08:20→22:11)
[2017-05-20] MEDS: ALLOPURINOL 100 MG TAB PO SCH (08:20)
[2017-05-20] MEDS: SODIUM CHLORIDE 0.9% FLUSH 10 ML FLUSH IV FLUSH SCH ×2 (08:21→22:12)
[2017-05-20 08:43] LABS: BICARBONATE 27.2 MEQ/L (21.0-32.0); MAGNESIUM 2.1 MG/DL (1.5-2.5); POTASSIUM 3.4 MEQ/L (3.5-5.1)
[2017-05-20] MEDS ORDERED: ATENOLOL 50 MG TAB PO SCH (09:00)
--- NOTE | 2017-05-20 10:40 | HHI.PR ---
Subjective Remarks Follow up for CHF exacerbation. The patient reports slight improvement of his shortness of breath overnight. He has not yet attempted ambulation this morning. Denies any cough or chest pains. Denies any significant leg edema although was recently treated for a gout flare of bilateral ankles within the past 2 weeks. Currently O2 sat stable at 97% on room air. Objective Vitals Vital Signs Date Time Temp Pulse Resp B/P Pulse Ox O2 Delivery O2 Flow Rate FiO2 05/20/17 07:19 98.0 78 16 138/85 97 05/20/17 04:49 98.1 68 16 130/85 96 05/20/17 04:00 66 05/19/17 23:50 60 05/19/17 23:31 98.0 62 20 162/92 97 05/19/17 22:21 65 16 135/96 98 Room Air 05/19/17 19:04 97 05/19/17 18:26 98.3 85 17 175/105 98 I/O 05/19/17 05/19/17 05/19/17 05/20/17 05/20/17 05/20/17 07:00 15:00 23:00 07:00 15:00 23:00 Intake Total 221 ml Output Total 1900 ml 1800 ml Balance -1679 ml -1800 ml Intake Oral 221 ml Output Urine Total 1900 ml 1800 ml Result Diagram: 05/20/17 0731 05/20/17 0731 Imaging Last Impressions Chest X-Ray 05/19/171836 Signed Impressions: Service Date/Time: Friday, May 19, 2017 18:34 - CONCLUSION: 1. Patchy opacity again noted in both of the lung bases which may represent scarring. 2. Mild blunting of the right costophrenic angle is again noted. 3. The left costophrenic angle tip was cut off the exam. Christoph Weinstein MD Objective Remarks GENERAL: Well-nourished, well-developed elderly male patient in [facility]. SKIN: Warm and dry. No rash. HEENT: Normocephalic. Atraumatic.Pupils equal and round. Mucous membranes pink and moist. NECK: Supple. Trachea midline. CARDIOVASCULAR: Regular rate and rhythm. S1, S2 noted. No murmur appreciated. RESPIRATORY: No accessory muscle use. Crackles at left base, otherwise clear to auscultation. Breath sounds equal bilaterally. GASTROINTESTINAL: Abdomen soft, non-tender, nondistended. Normoactive bowel sounds x4. MUSCULOSKELETAL: No obvious deformities. Trace bilateral lower extremity ankle edema. NEUROLOGICAL: Awake and alert. No obvious cranial nerve deficits. Motor grossly within normal limits. Normal speech. PSYCHIATRIC: Appropriate mood and affect; insight and judgment normal. Medications and IVs Last Impressions Chest X-Ray 05/19/17 1837 Signed Impressions: Service Date/Time: Sunday, May 19, 2017 18:34 - CONCLUSION: 1. Patchy opacity again noted in both of the lung bases which may represent scarring. 2. Mild blunting of the right costophrenic angle is again noted. 3. The left costophrenic angle tip was cut off the exam. Christoph Weinstein MD A/P Problem List: (1) Acute exacerbation of CHF (congestive heart failure) ICD Code: I50.9 Status: Acute (2) Gout ICD Code: M10.9 Status: Chronic (3) HTN (hypertension) ICD Code: I10 Status: Chronic Assessment and Plan 86 y/o male with a history of htn, and chf presented to the ED with complaints of shortness of breath. Acute exacerbation of chronic systolic CHF: presented with worsening SOB/HUBBARD. BNP elevated at 1839. CXR images reviewed, shows patchy opacity again noted in both of the lung bases which may represent scarring; Mild blunting of the right costophrenic angle is again noted. EKG shows paced rhythm, no acute ischemic changes. No chest pains. -S/p Lasix 80mg given in ED, will continue with Lasix 40mg IV BID -Serial troponin and EKGs, minimal elevation of troponins 0.05, 0.04 likely secondary to CHF -Continue fluid restrictions, monitor strict Is&Os -2D echo ordered, last echo 2011 showed EF 20-25%, patient already has AICD -of note, patient sees Dr. Sibley (has appt in Jul), discussed with Dr. Marquez, Dr. Sibley will not be available all week but recommends to consult cardiology if no improvement on IV lasix overnight and unable to discharge HTN, chronic, currently stable -Restart home medication Atenolol Gout, chronic -Cont home medication allopurinol CKD stage 3 with acute worsening -Monitor labs DVT prophylaxis: Heparin Discharge Planning Pending further clinical improvement. Likely able to discharge tomorrow. Jolene Sánchez PA-C May 20, 2017 10:40 am
[2017-05-21] VITALS (9 sets, daily range): BP systolic 121–149; BP diastolic 74–85; PULSE 63–98; RESP 16–18; TEMP 97.8–98; O2SAT 96–99
--- NOTE | 2017-05-21 08:32 | HHI.PR ---
Subjective Remarks Follow-up for CHF exacerbation and an AICD fire. The patient had a firing of his AICD last night. He states he's had the device for 4 years and has never had a fire before. [employer] has interrogated his device and states that the patient had multiple episodes of V. tach and one was successfully terminated with AICD fire. The patient denies any chest pain or shortness of breath. Lower extremity swelling has improved. Objective Vitals Vital Signs Date Time Temp Pulse Resp B/P Pulse Ox O2 Delivery O2 Flow Rate FiO2 05/21/17 07:45 98.0 68 16 149/83 99 05/21/17 04:32 65 05/21/17 02:40 63 05/21/17 00:10 97.9 67 16 136/85 99 05/20/17 20:41 97.8 73 17 132/85 96 05/20/17 19:32 70 05/20/17 18:33 72 05/20/17 15:51 98.6 71 16 130/80 100 05/20/17 11:32 97.7 76 18 131/84 97 05/20/17 08:30 71 I/O 05/20/17 05/20/17 05/20/17 05/21/17 05/21/17 05/21/17 07:00 15:00 23:00 07:00 15:00 23:00 Intake Total 221 ml 1080 ml Output Total 1900 ml 1800 ml 725 ml 400 ml Balance -1679 ml -1800 ml 355 ml -400 ml Intake Oral 221 ml 1080 ml Output Urine Total 1900 ml 1800 ml 725 ml 400 ml # Voids 1 Result Diagram: 05/20/17 0731 05/20/17 0731 Imaging Last Impressions Chest X-Ray 05/19/17 1837 Signed Impressions: Service Date/Time: Friday, May 19, 2017 18:34 - CONCLUSION: 1. Patchy opacity again noted in both of the lung bases which may represent scarring. 2. Mild blunting of the right costophrenic angle is again noted. 3. The left costophrenic angle tip was cut off the exam. Christoph Weinstein MD Objective Remarks GENERAL: Well-developed well-nourished. In no acute distress. SKIN: Warm and dry. No lesions noted. HEENT: Normocephalic. Pupils equal and round. Mucous membranes pink and moist. CARDIOVASCULAR: Regular rate and rhythm. No murmur appreciated. RESPIRATORY: No accessory muscle use. Clear to auscultation. Breath sounds equal bilaterally. GASTROINTESTINAL: Abdomen soft, non-tender, nondistended. Bowel sounds x4. MUSCULOSKELETAL: No obvious deformities. No clubbing or cyanosis. No edema. NEUROLOGICAL: Awake and alert. No focal neurological deficits. Moves upper and lower extremities spontaneously. Normal speech. PSYCHIATRIC: Appropriate mood and affect; insight and judgment normal. A/P Problem List: (1) Acute exacerbation of CHF (congestive heart failure) ICD Code: I50.9 Status: Acute (2) Gout ICD Code: M10.9 Status: Chronic (3) HTN (hypertension) ICD Code: I10 Status: Chronic Assessment and Plan 86 y/o male with a history of htn, and chf presented to the ED with complaints of shortness of breath. Acute exacerbation of chronic systolic CHF: presented with worsening SOB/HUBBARD. BNP elevated at 1839. CXR showed patchy opacity again noted in both of the lung bases which may represent scarring; Mild blunting of the right costophrenic angle is again noted. EKG shows paced rhythm, no acute ischemic changes. No chest pains. Troponin 0.05, 0.04, 0.03. -Improved with Lasix 40mg IV BID, changed to oral -Continue fluid restrictions, monitor strict Is&Os -2D echo ordered, last echo 2011 showed EF 20-25%, patient already has AICD -Clinically improved AICD fire: Device interrogated, appropriate response. Secondary to multiple short episodes of V. tach, telemetry reviewed. -Cardiology was consulted -Follow-up electrolytes today -Continue atenolol HTN, chronic, currently stable -Restart home medication Atenolol Gout, chronic -Cont home medication allopurinol CKD stage 3 with mild worsening, likely cardiorenal: Presented with creatinine 1.87, previously 1.71 on 02/21/17. Creatinine improved to 1.74 with diuresis. -Monitor labs DVT prophylaxis: Heparin Discharge Planning CHF is clinically improved. Follow up cardiology recommendations regarding AICD fire. Problem Qualifiers (1) Acute exacerbation of CHF (congestive heart failure): Qualified Code: I50.23 - Acute on chronic systolic congestive heart failure Tani Henderson May 21, 2017 08:32
[2017-05-21 08:49] LABS: BICARBONATE 30.8 MEQ/L (21.0-32.0); MAGNESIUM 2.2 MG/DL (1.5-2.5); POTASSIUM 3.9 MEQ/L (3.5-5.1)
[2017-05-21] MEDS ORDERED: FUROSEMIDE 40 MG TAB PO SCH (09:00)
[2017-05-21] MEDS: SACUBITRIL/VALSARTAN 24 MG-26 MG TAB PO SCH ×2 (09:00→20:32)
--- NOTE | 2017-05-21 09:16 | MB ---
cc: FREYA SALEH M.D. DATE OF CONSULTATION 05/21/2017 REASON FOR CONSULTATION Evaluation of V-tach. HISTORY OF PRESENT ILLNESS Dom Abrams is an 86-year-old man with a known chronic nonischemic cardiomyopathy. He had a cardiac catheterization on March 01, 2012, showing an ejection fraction of 20% with normal coronary arteries. He has been on an SANNA and an ARB in the past, not in years that I can tell and it is not clear to me that he did not tolerate those. He does have renal insufficiency, although he would be formally listed as Stage III. He has been on atenolol 25 mg for his cardiomyopathy. He is not on any other loading type medications. He has also been on diuretic, furosemide 20 b.i.d. He came in with shortness of breath. Apparently he did have 9 episodes of V-tach, most which converted with ATP but he did receive one shock. The patient is not aware of having gotten a shock from his defibrillator. PAST MEDICAL HISTORY The patient has had medical history of - 1. Hypertension. 2. CHF. PAST SURGICAL HISTORY 1. Biotronik biventricular defibrillator. 2. Left knee replacement. MEDICATIONS 1. They have him on prednisone 50 mg daily. I cannot verify if he actually has been on that; it seems like an extraordinarily high dose. 2. He has also been on atenolol. 3. Allopurinol. 4. Tramadol. ALLERGIES None known. FAMILY HISTORY Positive for heart disease. SOCIAL HISTORY He is a former smoker, quit many years ago. Denies alcohol. PHYSICAL EXAM GENERAL: Physical exam reveals a well-developed, well-nourished white male who does not appear to be in acute distress. VITAL SIGNS: Vital signs are charted. He was hypertensive when he first came in. HEENT: Exam unremarkable. NECK: No JVD, no bruits. CHEST: Diminished breath sounds. A few basilar rhonchi. CARDIAC EXAM: S1-S2. Regular rate and rhythm. A 1/6 systolic murmur. ABDOMEN: Soft. EXTREMITIES: No peripheral edema. Apparently was edematous when he came in. LABORATORIES Charted. CHEST X-RAY Charted. The chest x-ray is read as patchy opacity noted in both bases, may represent scarring. LABORATORY His troponins are negative. Creatinine is 1.74. GFR is 46. Hematocrit is 31.9. Potassium is 3.4 this morning. Potassium was 3.6 on admission. IMPRESSION An 86-year-old male with a nonischemic cardiomyopathy and severely impaired LV function. He comes in. He e has had multiple runs of V-tach on his defibrillator check. His medicines are not optimized. He came in hypertensive. RECOMMENDATIONS 1. Optimize his meds. 2. If he has further VT we may need to add amiodarone. 3. I am going to start with metoprolol [address]d. in place of the atenolol. 4. I am also going to add Entresto 24-26 b.i.d. and monitor his renal function and hemodynamics carefully. 5. Further therapy to be determined. Freya Saleh MD VEW/SSB /8:49 AM /9:11 AM
[2017-05-21] MEDS: METOPROLOL TARTRATE 50 MG TAB PO SCH ×2 (09:50→20:32)
[2017-05-21] MEDS: ALLOPURINOL 100 MG TAB PO SCH (09:50)
[2017-05-21] MEDS: POTASSIUM CHLORIDE 20 MEQ CONTROLLED RELEASE TAB PO SCH ×2 (09:50→20:32)
[2017-05-21] MEDS: predniSONE 50 MG TAB PO SCH (09:50)
[2017-05-21] MEDS: SODIUM CHLORIDE 0.9% FLUSH 10 ML FLUSH IV FLUSH SCH ×2 (09:50→20:36)
[2017-05-21] MEDS: HEPARIN SODIUM - SQ 10,000 UNITS/ML VIAL SQ SCH ×2 (09:51→20:32)
--- NOTE | 2017-05-21 12:22 | ECHRPT ---
Indication: Heart failure, unspecified CONCLUSIONS Moderately dilated left ventricle. Wall thickness is normal. The left ventricular systolic function is severely reduced with an estimated ejection fraction in th e range of 20-25%. There is global left ventricular dysfunction. A pacemaker wire is noted. The left atrial size is upper limits of normal. Moderately dilated proximal ascending aorta at 4.04 CM Mitral annular calcification is present. Trace mitral valve regurgitation. There is trace tricuspid valve regurgitation. The estimated pulmonary arterial pressure is 32 mmHg. The pulmonary valve is not well visualized. BP: 138 / 85 HR: 78 Rhythm: Other MEASUREMENTS (Male / Female) Normal Values Technical Quality:Fair 2D ECHO LV Diastolic Diameter PLAX 6.4 cm 4.2 - 5.9 / 3.9 - 5.3 cm LV Systolic Diameter PLAX 5.8 cm IVS Diastolic Thickness 1.0 cm 0.6 - 1.0 / 0.6 - 0.9 cm LVPW Diastolic Thickness 0.9 cm 0.6 - 1.0 / 0.6 - 0.9 cm LV Relative Wall Thickness 0.3 RV Internal Dim ED PLAX 1.9 cm LA Systolic Diameter LX 4.2 cm 3.0 - 4.0 / 2.7 - 3.8 cm DOPPLER Mitral E Point Velocity 85.9 cm/s Mitral A Point Velocity 92.8 cm/s Mitral E to A Ratio 0.9 LV E' Lateral Velocity 7.0 cm/s Mitral E to LV E' Lateral Ratio 12.2 LV E' Septal Velocity 6.1 cm/s Mitral E to LV E' Septal Ratio 14.0 TR Peak Velocity 282.0 cm/s TR Peak Gradient 31.8 mmHg FINDINGS LEFT VENTRICLE Moderately dilated left ventricle. Wall thickness is normal. The left ventricular systolic function is severely reduced with an estimated ejection fraction in th e range of 20-25%. There is global left ventricular dysfunction. RIGHT VENTRICLE Normal right ventricular size and systolic function. A pacemaker wire is noted. LEFT ATRIUM The left atrial size is upper limits of normal. RIGHT ATRIUM The right atrial size is normal. ATRIAL SEPTUM Normal atrial septal thickness without atrial level shunting by limited color doppler interrogation. AORTA Moderately dilated proximal ascending aorta at 4.04 CM MITRAL VALVE Mitral annular calcification is present. Trace mitral valve regurgitation. AORTIC VALVE Trileaflet aortic valve. No aortic valve stenosis or regurgitation. TRICUSPID VALVE There is trace tricuspid valve regurgitation. The estimated pulmonary arterial pressure is 32 mmHg. PULMONARY VALVE The pulmonary valve is not well visualized. VESSELS The inferior vena cava is normal in size. PERICARDIUM No pericardial effusion. Nikunj Billings MD (Electronically Signed) Final Date:21 May 2017 12:21
[2017-05-21] MEDS: FUROSEMIDE 20 MG TAB PO SCH (18:09)
[2017-05-22] VITALS (8 sets, daily range): BP systolic 107–149; BP diastolic 74–90; PULSE 60–76; RESP 16–20; TEMP 96–98; O2SAT 98–99
[2017-05-22] MEDS: FUROSEMIDE 20 MG TAB PO SCH ×2 (08:47→18:44)
[2017-05-22] MEDS: ALLOPURINOL 100 MG TAB PO SCH (08:47)
[2017-05-22] MEDS: POTASSIUM CHLORIDE 20 MEQ CONTROLLED RELEASE TAB PO SCH ×2 (08:47→21:12)
[2017-05-22] MEDS: SACUBITRIL/VALSARTAN 24 MG-26 MG TAB PO SCH ×2 (08:47→21:11)
[2017-05-22] MEDS: METOPROLOL TARTRATE 50 MG TAB PO SCH ×2 (08:48→21:11)
[2017-05-22] MEDS: HEPARIN SODIUM - SQ 10,000 UNITS/ML VIAL SQ SCH ×2 (08:48→21:11)
[2017-05-22] MEDS: predniSONE 50 MG TAB PO SCH (08:48)
[2017-05-22] MEDS: SODIUM CHLORIDE 0.9% FLUSH 10 ML FLUSH IV FLUSH SCH ×2 (08:49→21:12)
--- NOTE | 2017-05-22 09:28 | HHI.PR ---
Subjective Remarks Follow-up for CHF. Patient is doing well today. No acute events overnight. He denies any chest pain, shortness breath, palpitations, AICD fire. Telemetry was unremarkable overnight. Objective Vitals Vital Signs Date Time Temp Pulse Resp B/P Pulse Ox O2 Delivery O2 Flow Rate FiO2 05/22/17 07:18 96.0 60 20 136/86 98 05/22/17 07:00 76 05/22/17 05:07 97.6 64 18 134/85 98 05/22/17 00:21 98.0 66 16 135/90 99 05/21/17 20:30 67 05/21/17 19:41 97.9 98 18 121/78 97 05/21/17 15:51 97.9 72 17 140/80 97 05/21/17 11:28 97.8 74 16 126/74 96 I/O 05/21/17 05/21/17 05/21/17 05/22/17 05/22/17 05/22/17 07:00 15:00 23:00 07:00 15:00 23:00 Intake Total 720 ml 240 ml 120 ml Output Total 400 ml 780 ml 200 ml Balance -400 ml -60 ml 240 ml -80 ml Intake Oral 720 ml 240 ml 120 ml Output Urine Total 400 ml 780 ml 200 ml # Voids 1 Result Diagram: 05/20/17 0731 05/21/17 0754 Imaging Last Impressions Chest X-Ray 05/19/17 1837 Signed Impressions: Service Date/Time: Friday, May 19, 2017 18:34 - CONCLUSION: 1. Patchy opacity again noted in both of the lung bases which may represent scarring. 2. Mild blunting of the right costophrenic angle is again noted. 3. The left costophrenic angle tip was cut off the exam. Christoph Weinstein MD Objective Remarks GENERAL: Well-developed well-nourished. In no acute distress. SKIN: Warm and dry. No lesions noted. HEENT: Normocephalic. Pupils equal and round. Mucous membranes pink and moist. CARDIOVASCULAR: Regular rate and rhythm. No murmur appreciated. RESPIRATORY: No accessory muscle use. Clear to auscultation. Breath sounds equal bilaterally. GASTROINTESTINAL: Abdomen soft, non-tender, nondistended. Bowel sounds x4. MUSCULOSKELETAL: No obvious deformities. No clubbing or cyanosis. No edema. NEUROLOGICAL: Awake and alert. No focal neurological deficits. Moves upper and lower extremities spontaneously. Normal speech. PSYCHIATRIC: Appropriate mood and affect; insight and judgment normal. A/P Problem List: (1) Acute exacerbation of CHF (congestive heart failure) ICD Code: I50.9 Status: Acute (2) Gout ICD Code: M10.9 Status: Chronic (3) HTN (hypertension) ICD Code: I10 Status: Chronic Assessment and Plan 86 y/o male with a history of htn, and chf presented to the ED with complaints of shortness of breath. Acute exacerbation of chronic systolic CHF: presented with worsening SOB/HUBBARD. BNP elevated at 1839, improved to 1007. CXR showed patchy opacity again noted in both of the lung bases which may represent scarring; Mild blunting of the right costophrenic angle is again noted. EKG shows paced rhythm, no acute ischemic changes. No chest pains. Troponin 0.05, 0.04, 0.03. Echocardiogram with global left ventricular dysfunction, EF 5 %. -Improved with Lasix 40mg IV BID, changed back to home dose 20 mg twice daily -Continue fluid restrictions, monitor strict Is&Os -Clinically improved -Started on Entresto -Follow-up labs AICD fire: Device interrogated, appropriate response. Secondary to multiple short episodes of V. tach, telemetry reviewed. -Cardiology was consulted, medications adjusted -Follow-up electrolytes today -Atenolol changed to metoprolol HTN, chronic, currently stable -Continue metoprolol Gout, chronic -Cont home medication allopurinol CKD stage 3: PATRICE due to overdiuresis. Creatinine initially improved to 1.74 with diuresis. Increased to 2.07. Diuretics were decreased. -Monitor labs DVT prophylaxis: Heparin Discharge Planning Follow-up am labs today. Follow up cardiology recommendations Problem Qualifiers (1) Acute exacerbation of CHF (congestive heart failure): Qualified Code: I50.23 - Acute on chronic systolic congestive heart failure Tani Henderson May 22, 2017 09:28 Tani Henderson May 22, 2017 09:28
--- NOTE | 2017-05-22 10:08 | PD.CARD.PN ---
Subjective Subjective Remarks SOB is better Objective Medications Current Medications Medications (Trade) Dose Ordered Sig/Moses Route Start Time Stop Time Status Last Admin (NS Flush) 2 ml UNSCH PRN IV FLUSH 05/19/17 21:30 (NS Flush) 2 ml BID IV FLUSH 05/20/17 09:00 05/22/17 08:49 (KCl) 20 meq BID PO 05/20/17 09:00 05/22/17 08:47 (Heparin Inj) 5,000 units Q12H SQ 05/19/17 21:30 05/22/17 08:48 (Zyloprim) 100 mg DAILY PO 05/20/17 09:00 05/22/17 08:47 (Deltasone) 50 mg DAILY PO 05/20/17 09:00 05/22/17 08:48 (Ultram) 50 mg Q8H PRN PO 05/19/17 22:15 (Lopressor) 50 mg Q12HR PO 05/21/17 09:00 05/22/17 08:48 (Entresto 24-26 Mg) 1 tab BID PO 05/21/17 09:00 05/22/17 08:47 (Lasix) 20 mg BID@09,18 PO 05/21/17 18:00 05/22/17 08:47 Vital Signs / I&O Vital Signs Date Time Temp Pulse Resp B/P Pulse Ox O2 Delivery O2 Flow Rate FiO2 05/22/17 07:18 96.0 60 20 136/86 98 05/22/17 07:00 76 05/22/17 05:07 97.6 64 18 134/85 98 05/22/17 00:21 98.0 66 16 135/90 99 05/21/17 20:30 67 05/21/17 19:41 97.9 98 18 121/78 97 05/21/17 15:51 97.9 72 17 140/80 97 05/21/17 11:28 97.8 74 16 126/74 96 I/O 05/21/17 05/21/17 05/21/17 05/22/17 05/22/17 05/22/17 07:00 15:00 23:00 07:00 15:00 23:00 Intake Total 720 ml 240 ml 120 ml Output Total 400 ml 780 ml 200 ml Balance -400 ml -60 ml 240 ml -80 ml Intake Oral 720 ml 240 ml 120 ml Output Urine Total 400 ml 780 ml 200 ml # Voids 1 Physical Exam GENERAL: Well developed, well nourished. No acute distress. HEENT: Jugular venous pressure is normal. CHEST: Lungs clear to auscultation bilaterally. Unlabored respiratory effort. CARDIAC: S1S2 RRR ABDOMEN: Soft, nontender, no hepatosplenomegaly. Bowel sounds present. EXTREMITIES: No clubbing, cyanosis, or edema. Assessment and Plan Problem List: (1) Acute on chronic systolic CHF (congestive heart failure) Assessment and Plan: improved (2) AICD discharge Assessment and Plan: T wave oversensing - reprogrammed. Only 1% battery left. Does not F/U well. Consult Dr. Roberts for changeout (3) Chronic kidney disease Assessment and Plan: not sure he can handle Entresto. Check BMP in AM. Advice hydralazine/isordil as alternative if needed Nikunj Billings MD May 22, 2017 10:08
[2017-05-22 10:24] LABS: BICARBONATE 31.5 MEQ/L (21.0-32.0); MAGNESIUM 2.4 MG/DL (1.5-2.5); POTASSIUM 3.9 MEQ/L (3.5-5.1)
[2017-05-23] VITALS (7 sets, daily range): BP systolic 123–160; BP diastolic 73–96; PULSE 60–77; RESP 16–20; TEMP 95.9–98; O2SAT 96–100
[2017-05-23 07:16] LABS: BICARBONATE 28.7 MEQ/L (21.0-32.0); POTASSIUM 4.6 MEQ/L (3.5-5.1)
[2017-05-23] MEDS ORDERED: POVIDONE IODINE 5% (ANTISEPSIS KIT) 4 APPLICATIONS EACH NARE SCH (08:00)
[2017-05-23] MEDS ORDERED: CHLORHEXIDINE GLUCONATE 2 % 1 PACK (2 CLOTHS) TOP SCH (08:00)
[2017-05-23] MEDS ORDERED: MUPIROCIN 2% OINT 1 APPLIC/GM SYR NASAL SCH (08:00)
[2017-05-23] MEDS: predniSONE 50 MG TAB PO SCH (08:19)
[2017-05-23] MEDS: ALLOPURINOL 100 MG TAB PO SCH (08:20)
[2017-05-23] MEDS: SODIUM CHLORIDE 0.9% FLUSH 10 ML FLUSH IV FLUSH SCH ×2 (08:20→23:20)
[2017-05-23] MEDS: FUROSEMIDE 20 MG TAB PO SCH ×2 (08:20→20:34)
[2017-05-23] MEDS: HEPARIN SODIUM - SQ 10,000 UNITS/ML VIAL SQ SCH ×2 (08:20→23:20)
[2017-05-23] MEDS: METOPROLOL TARTRATE 50 MG TAB PO SCH ×2 (08:20→19:50)
[2017-05-23] MEDS: POTASSIUM CHLORIDE 20 MEQ CONTROLLED RELEASE TAB PO SCH ×2 (08:20→20:34)
--- NOTE | 2017-05-23 08:20 | MB ---
cc: MALLORY TADEO M.D. DATE OF CONSULTATION 05/23/2017 REASON FOR CONSULTATION Mr. Abrams is a 86-year-old gentleman with congestive heart failure, cardiomyopathy who was on optimal medical treatment for years. The patient was switched to Entresto by Dr. Billings. He has an ejection fraction of around 20%. He has a biventricular pacer defibrillator that currently is at end of life. I was consulted for evaluation for generator replacement. The chart was reviewed. The patient was evaluated. ALLERGIES None reported. SOCIAL HISTORY Negative for smoking and drinking. FAMILY HISTORY Noncontributory to his current medical condition. MEDICATIONS The gentleman is currently on: 1. Lasix 20 mg twice a day. 2. Metoprolol 50 mg q.12 h 3. Entresto 4. Allopurinol 5. Prednisone REVIEW OF SYSTEMS Currently the patient refers no chest pain or chest discomfort. He had some shortness of breath, but no fever. PHYSICAL EXAMINATION Alert fully oriented. VITAL SIGNS: His blood pressure this morning 132/91, pulse 66, respiratory 18. LUNGS: Ventilated. CARDIOVASCULAR: S1-S2, no gallop or murmur. ABDOMEN: Soft. No mass. No bruit. EXTREMITIES: No edema. Electrocardiogram, AV sequential pacing. LABORATORY DATA Potassium 4.6, creatinine 1.97, INR not available. ASSESSMENT AND RECOMMENDATIONS Mr. Abrams is currently stable. His heart failure improved. His medications have been optimized. His generator is at end of life. He has a defibrillatory shock and also recurrent episode of tachycardia pacing. His last echo was on May 21, 2017. The ejection fraction is 25%. The gentleman will need biventricular pacer defibrillator replacement for sudden secondary prevention and heart failure management. The risks, the nature and the benefit of the procedure are clearly stated to him. The risks include pneumothorax, cardiac perforation, stroke and even . He understood and agreed to proceed. I will keep the patient n.p.o. after breakfast and procedure will be performed today. MD LULY Castro/CODEY /8:06 AM /8:17 AM
[2017-05-23] MEDS: SACUBITRIL/VALSARTAN 49 MG-51 MG TAB PO SCH ×2 (09:00→23:20)
[2017-05-23 10:25] LABS: APTT (PATIENT) 26.4 SEC (24.3-30.1)
--- NOTE | 2017-05-23 11:41 | HHI.PR ---
Subjective Remarks Follow up for CHF exacerbation, defibrillator dysfunction. The patient reports his shortness of breath and dyspnea on exertion have mostly resolved. Denies any chest pains. Denies any defibrillator firings overnight. He has no other medical complaints. Going for pacer/AICD replacement today. Objective Vitals Vital Signs Date Time Temp Pulse Resp B/P Pulse Ox O2 Delivery O2 Flow Rate FiO2 05/23/17 08:00 96.1 62 20 128/76 99 05/23/17 07:00 64 05/23/17 03:16 96.5 66 16 133/91 100 05/23/17 00:49 98.0 77 18 160/96 98 05/22/17 20:00 73 05/22/17 19:40 97.8 69 18 149/79 99 05/22/17 15:17 96.5 72 18 107/74 98 I/O 05/22/17 05/22/17 05/22/17 05/23/17 05/23/17 05/23/17 07:00 15:00 23:00 07:00 15:00 23:00 Intake Total 120 ml 890 ml 1200 ml 360 ml Output Total 200 ml 460 ml 400 ml 910 ml Balance -80 ml 430 ml 800 ml -550 ml Intake Oral 120 ml 890 ml 1200 ml 360 ml Output Urine Total 200 ml 460 ml 400 ml 910 ml # Bowel Movements 2 1 Result Diagram: 05/20/17 0731 05/23/17 0546 Imaging Last Impressions Chest X-Ray 05/19/17 1837 Signed Impressions: Service Date/Time: Friday, May 19, 2017 18:34 - CONCLUSION: 1. Patchy opacity again noted in both of the lung bases which may represent scarring. 2. Mild blunting of the right costophrenic angle is again noted. 3. The left costophrenic angle tip was cut off the exam. Christoph Weinstein MD Objective Remarks GENERAL: Well-nourished, well-developed elderly male patient in [facility]. SKIN: Warm and dry. No rash. HEENT: Normocephalic. Atraumatic.Pupils equal and round. Mucous membranes pink and moist. NECK: Supple. Trachea midline. CARDIOVASCULAR: Regular rate and rhythm. S1, S2 noted. No murmur appreciated. RESPIRATORY: No accessory muscle use. Lungs clear to auscultation. Breath sounds equal bilaterally. GASTROINTESTINAL: Abdomen soft, non-tender, nondistended. Normoactive bowel sounds x4. MUSCULOSKELETAL: No obvious deformities. No lower extremity edema. NEUROLOGICAL: Awake and alert. No obvious cranial nerve deficits. Motor grossly within normal limits. Normal speech. PSYCHIATRIC: Appropriate mood and affect; insight and judgment normal. Medications and IVs Current Medications Medications (Trade) Dose Ordered Sig/Moses Route Start Time Stop Time Status Last Admin (NS Flush) 2 ml UNSCH PRN IV FLUSH 05/19/17 21:30 (NS Flush) 2 ml BID IV FLUSH 05/20/17 09:00 05/23/17 08:20 (KCl) 20 meq BID PO 05/20/17 09:00 05/23/17 08:20 (Heparin Inj) 5,000 units Q12H SQ 05/19/17 21:30 05/22/17 21:11 (Zyloprim) 100 mg DAILY PO 05/20/17 09:00 05/23/17 08:20 (Deltasone) 50 mg DAILY PO 05/20/17 09:00 05/23/17 08:19 (Ultram) 50 mg Q8H PRN PO 05/19/17 22:15 (Lopressor) 50 mg Q12HR PO 05/21/17 09:00 05/23/17 08:20 (Lasix) 20 mg BID@09,18 PO 05/21/17 18:00 05/23/17 08:20 (Entresto 49-51 Mg) 1 tab BID PO 05/23/17 09:00 05/23/17 09:00 A/P Problem List: (1) Acute exacerbation of CHF (congestive heart failure) ICD Code: I50.9 Status: Acute (2) Gout ICD Code: M10.9 Status: Chronic (3) HTN (hypertension) ICD Code: I10 Status: Chronic Assessment and Plan 86 y/o male with a history of htn, and chf presented to the ED with complaints of shortness of breath. Acute exacerbation of chronic systolic CHF: presented with worsening SOB/HUBBARD. BNP elevated at 1839, improved to 1007. CXR showed patchy opacity again noted in both of the lung bases which may represent scarring; Mild blunting of the right costophrenic angle is again noted. EKG shows paced rhythm, no acute ischemic changes. No chest pains. Troponin 0.05, 0.04, 0.03. Echocardiogram with global left ventricular dysfunction, EF 5 %. -Improved with Lasix 40mg IV BID, changed back to home dose 20 mg twice daily -Continue fluid restrictions, monitor strict Is&Os -Clinically improved -Started on Entresto -Follow-up labs AICD Fire: Device interrogated, appropriate response, secondary to multiple short episodes of V. tach, telemetry reviewed. However AICD with 1% battery remaining. -Cardiology was consulted, medications adjusted -Electrolytes wnl -Atenolol changed to metoprolol -Dr. Roberts consulted for AICD replacement, planned for today HTN, chronic, currently stable -Continue metoprolol Gout, chronic -Cont home medication allopurinol CKD stage 3: PATRICE due to overdiuresis. Creatinine initially improved to 1.74 with diuresis. Increased to 2.07. Diuretics were decreased. -Monitor labs, stable, Cr 1.97 DVT prophylaxis: Heparin Discharge Planning Plan for AICD replacement today. Will discharge when cleared by cardiology. 1800hrs: Plan to keep in hospital overnight. Per DOCU NEY Sidhu, Brake Assembler Dr. Roberts requesting CIC bed overnight. Also the patient's daughter is in [facility] and will not be available until tomorrow. Can likely discharge in the morning if ok with cardiology. Discharge prepared and prescriptions have been sent to patient's pharmacy [facility] on [address] Problem Qualifiers (1) Acute exacerbation of CHF (congestive heart failure): Qualified Code: I50.23 - Acute on chronic systolic congestive heart failure Jolene Sánchez PA-C May 23, 2017 11:41
[2017-05-23] MEDS ORDERED: PROPOFOL 200 MG/20 ML AMP IV ONE (15:10)
[2017-05-23] MEDS ORDERED: KETAMINE HCL 500 MG/5 ML VIAL ONE (17:23)
[2017-05-23] MEDS ORDERED: MIDAZOLAM HCL 2 MG/2 ML VIAL ONE (17:35)
[2017-05-23] MEDS ORDERED: ceFAZolin INJ 1,000 MG VIAL ONE (17:55)
[2017-05-23] MEDS ORDERED: VANCOMYCIN 500 MG VIAL ONE (17:55)
[2017-05-23] MEDS ORDERED: LIDOCAINE HCL 2% 50 ML VIAL ONE (17:55)
[2017-05-23] MEDS ORDERED: VANCOMYCIN HCL 1000 MG VIAL ONE (17:55)
[2017-05-23] MEDS ORDERED: METO-309 PO (17:56)
[2017-05-23] MEDS ORDERED: SACU1TAB7 PO (17:56)
[2017-05-23] MEDS ORDERED: FURO20TA PO (17:56)
--- NOTE | 2017-05-23 17:56 | HHI.DCPOC ---
Discharge Care Plan Diagnosis: (1) Acute on chronic systolic CHF (congestive heart failure) (2) AICD discharge Goals to Promote Your Health * To prevent worsening of your condition and complications * To maintain your health at the optimal level Directions to Meet Your Goals Take your medications as prescribed Follow your dietary instruction Follow activity as directed Keep your appointments as scheduled Take your immunizations and boosters as scheduled If your symptoms worsen call your PCP, if no PCP go to Urgent Care Center or Emergency Room Smoking is Dangerous to Your Health. Avoid second hand smoke Call the 24-hour hour crisis hotline for domestic abuse at Jolene Sánchez PA-C May 23, 2017 17:56
--- NOTE | 2017-05-23 18:58 | CATHPROC ---
[facility] HIS Report Study Information Study Number Admission Scheduled Start Study Start [id number] May 22 2017 12:44PM 05/23/2017 May 23 2017 5:29PM [place] Service Cardiac Pacer/ICD Admit Source Facility Department Emergency department [facility] Lab Physician and Clinical Staff Initial Poonam Davis Match Up Worker Mike Stone,RT(R) Other Anesthesia, JUNIOR ACCOUNT MANAGER Recorder Gisella Acevedo,RN Scrub Angela Peralta,RT(R) TECH2 Equipment Time Hobbing Machine Operator Description Size Mfg Part Number Used/Scraped 18:11 BIOTRONIK DEFIBRILLATOR, ITREVIA 7 HF-T [id number] Used DERMABOND, ADHESIVE SKIN [id number] 18:11 CORDIS/PACER * Used GLUE MINI *[id number] 18:11 MEDLINE IND[employer] SUTURE, STRIP PLUS 1/2" * Used *[id number] 18:11 MEDLINE PACER VILLATORO, LIMB * 2530 *[id number] Used [id number] 18:11 MEDLINE PACER PACK, PACER CUSTOM * Used *[id number] 18:15 Needle Sponge Count 1 1 Used 18:15 Needle Sponge Count 1 111 Used 18:15 Needle Sponge Count 20 200 Used 18:15 Needle Sponge Count 20 20 Used SUTURE, 0 ETHIBOND [CT1] ([id number]), 8pk SUTURE, 2-0 VICRYL [CT1] ([id number]) SUTURE, 2-0 VICRYL [CT1] ([id number]) [id number] 18:11 [place] [employer],WARM AIR CCL * Used *[id number] [facility] PAD, ELECTROSURGICAL 18:11 * [id number] *[id number] Used SURGICAL GROUNDING ORANGE [id number] 18:11 [employer] MED[employer] JADEN. ELECTRODE, PRO-PADZ BIPHASIC * Used *[id number] Equipment Model, Serial, Lot Number and Expiration Data Description Model Number Serial Number Lot Number Expiration Date DEFIBRILLATOR, ITREVIA 7 HF-T [id number] 06-11-2018 Medication Medication Total Dose (Bolus/Oral) Medication Total Dosage/Unit 2% XYLOCAINE 50 mL Medications (Bolus/Oral) Medication Time Given Dosage/Unit Administered By Reason 2% XYLOCAINE 05/23/2017 6:24:47 PM 50 mL Poonam Roberts 50 mL 2% XYLOCAINE given in lab by Poonam Roberts in Left shoulder via Subcutaneous. Ordered by Poonam Roberts. left upper chest Initial Case Assessment Cardiovascular HR Rhythm NIBP Chest Pain 61 sr 124/84 0 Edema Present Skin color Skin None Normal Warm Dry Circulatory - Right Pulses Dorsalis Pedis 1 Scale (0,1,2,3,4,d) Circulatory - Left Pulses Dorsalis Pedis 1 Scale (0,1,2,3,4,d) Neurological State Oriented to time-place- Alert Moves all extremities person Respiration - General Respiration Rate SpO2 (%) O2 (lpm) (B/min) 18 100 2 Final Case Assessment Cardiovascular HR Rhythm NIBP Chest Pain 80 v paced 146/89 0 Edema Present Skin color Skin None Normal Warm Dry Circulatory - Right Pulses Dorsalis Pedis 1 Scale (0,1,2,3,4,d) Circulatory - Left Pulses Dorsalis Pedis 1 Scale (0,1,2,3,4,d) Neurological State Oriented to time-place- Alert Moves all extremities person Respiration - General Respiration Rate SpO2 (%) O2 (lpm) (B/min) 18 100 2 Chronological Log Time Study Chronological Log 17:50:00 Patient arrived via Bed. 17:50:15 Patient Name, D.O.B, / Armband Verified By R.N. 18:07:05 Verbal Stimulation=2 Physical Stimulation=2 Airway=2 Respiration=2 TOTAL=8. (0=absent, 1=li mited, 2=present) 18:12:53 Patient has been NPO for More than 6Hrs. 18:12:56 Skin Breakdown- none per patient 18:13:04 Patient Warmer Placed on the Table. 18:13:04 Disposable Defibrillator Pads Placed On Patient. 18:13:05 [place] Prominences Protected 18:13:08 A # 20 IV was noted in the Forearm (right). Grade = 0 18:13:17 A # 20 IV was noted in the Antecubital (left). Grade = 0 18:13:26 History and physical on the chart or being dictated. Assessment: Initial Case, HR=61 BPM, Rhythm=sr, GPRX=971/84 mmhg, Chest Pain=0, Edema=None, Col or=Normal, Skin = Warm, Dry Right Pulses: Ponce Ped=1 18:13:27 Left Pulses: Ponce Ped=1 Neurological: State=Alert, Ox3, ROBLES Respiration: Resp=18 B/min, VjY8=447 %, O2=2 lpm 18:14:12 Table restraints applied according to hospital policy 18:14:17 Left Upper Chest Prepped Times Two. 18:14:24 Bovie ground pad applied to: right thigh 18:14:36 2% CHLORHEXIDINE GLUCONATE WASH AND NASAL SWIPE DONE PRIOR TO PROCEDURE. First Sponge And Instrument Count Done by Angela Peralta, RT(R) TECH2. 18:14:56 Hypo's: 1, Sponges: 20, Bovie/scratch: 1 Sutures: 2, Blades: 1, Instruments: 26, Syveck Patches: ~SYVECK PATCH~ 18:18:46 Reference ECG taken Time Out. Correct patient, procedure, procedure equipment, site and side verified with physicia n present. Time 18:23:10 concurred by MD, individual staff and JUNIOR ACCOUNT MANAGER. Time Out #2 - Consents verified, patient in correct position, all results are labled and displa yed, safety precautions 18:23:50 taken, antibiotics administered. Time out concurred by MD, individual staff and JUNIOR ACCOUNT MANAGER in procedu re 18:24:35 Case Start 50 mL 2% XYLOCAINE given in lab by Poonam Roberts in Left shoulder via Subcutaneous. Ordered by Poonam Roberts. left 18:24:47 upper chest 18:28:42 Surgical Incision Made. 18:29:09 A pocket was created at the L Upper Chest. 18:29:42 A device was explanted. 18:32:18 Pocket flushed with antibiotic solution 18:33:20 A DEFIBRILLATOR, ITREVIA 7 HF-T VVE-DDDRV was connected and placed in the pocket. Second Sponge And Instrument Count Done by Angela Peralta, RT(R) TECH2. 18:46:47 Hypo's: 1, Sponges: 20, Bovie/scratch: 1 Sutures: 2, Blades: 1, Instruments: 26, Syveck Patches: ~SYVECK PATCH~ 18:47:03 The pocket was closed. 18:50:10 Case End 18:51:35 Steri-strips and a sterile dressing applied to site. Assessment: Final Case, HR=80 BPM, Rhythm=v paced, LGZE=875/89 mmhg, Chest Pain=0, Edema=None, Color=Normal, Skin = Warm, Dry Right Pulses: Ponce Ped=1 18:56:13 Left Pulses: Ponce Ped=1 Neurological: State=Alert, Ox3, ROBLES Respiration: Resp=18 B/min, MtD9=016 %, O2=2 lpm 18:56:14 Sterile dressing applied to site 18:56:15 No case complications noted. 18:56:16 Cine recording checked. 18:56:17 Bedside Report will be given. 18:56:20 Implantable Device card placed in patient's chart. 18:56:21 docu called. Spoke to Margie 18:56:29 Defibrillator and ground pads removed. Skin intact. 18:58:00 Patient moved to stretcher 18:58:07 Implant Procedure was performed. 18:58:12 A Bivent ICD Implant . (Dual) gen change End Study - Contrast Media Used In Study Contrast Total Opened (mL) Total Used (mL) Total Wasted (mL) Unspecified 0 0 0 End Study - Radiation Exposure Fluoro Time (minutes) 0.0 End Study - Patient Disposition Complications Transferred To Interventional Outcome No Telemetry Bed successful
[2017-05-23] MEDS ORDERED: ACETAMINOPHEN/CODEINE 300 MG/30 MG TAB PO PRN ×2 (19:00)
[2017-05-23] MEDS ORDERED: ONDANSETRON HCL 4 MG/2 ML VIAL IV PRN (19:00)
[2017-05-24] VITALS (15 sets, daily range): BP systolic 111–132; BP diastolic 71–87; PULSE 60–77; RESP 16–20; TEMP 97.5–97.7; O2SAT 96–100
[2017-05-24] MEDS: ceFAZolin 2 GM PREMIX 50 ML IV SCH ×2 (03:04→10:50)
[2017-05-24] MEDS: POTASSIUM CHLORIDE 20 MEQ CONTROLLED RELEASE TAB PO SCH (08:45)
[2017-05-24] MEDS: SACUBITRIL/VALSARTAN 49 MG-51 MG TAB PO SCH (08:45)
[2017-05-24] MEDS: ALLOPURINOL 100 MG TAB PO SCH (08:46)
[2017-05-24] MEDS: METOPROLOL TARTRATE 50 MG TAB PO SCH (08:46)
[2017-05-24] MEDS: FUROSEMIDE 20 MG TAB PO SCH (08:46)
[2017-05-24] MEDS: predniSONE 50 MG TAB PO SCH (08:46)
[2017-05-24] MEDS: HEPARIN SODIUM - SQ 10,000 UNITS/ML VIAL SQ SCH (08:46)
[2017-05-24] MEDS: SODIUM CHLORIDE 0.9% FLUSH 10 ML FLUSH IV FLUSH SCH (08:46)
--- NOTE | 2017-05-24 13:11 | HHI.PR ---
Subjective Remarks Follow up for CHF exacerbation, AICD fire/dysfunction. The patient denies any chest pain, palpitations, or shortness of breath. Leg swelling resolved. He wants to go home. He has no other medical complaints at this time. Objective Vitals Vital Signs Date Time Temp Pulse Resp B/P Pulse Ox O2 Delivery O2 Flow Rate FiO2 05/24/17 10:00 70 05/24/17 09:00 70 05/24/17 08:00 72 05/24/17 07:30 97.5 77 19 125/84 98 05/24/17 07:00 69 05/24/17 06:00 64 05/24/17 05:00 60 05/24/17 04:00 97.7 63 16 132/87 100 05/24/17 04:00 64 05/24/17 03:00 62 05/24/17 02:00 64 05/24/17 01:00 60 05/24/17 00:00 64 05/23/17 23:00 97.5 72 16 141/87 100 05/23/17 23:00 60 05/23/17 19:09 99 Room Air 05/23/17 16:02 97.5 65 16 147/93 96 I/O 05/23/17 05/23/17 05/23/17 05/24/17 05/24/17 05/24/17 07:00 15:00 23:00 07:00 15:00 23:00 Intake Total 360 ml 320 ml 290 ml Output Total 910 ml 660 ml 550 ml Balance -550 ml -340 ml -260 ml Intake Oral 360 ml 320 ml 240 ml IV Total 50 ml Output Urine Total 910 ml 660 ml 550 ml # Bowel Movements 1 0 0 Result Diagram: 05/20/17 0731 05/23/17 0546 Imaging Last Impressions Chest X-Ray 05/19/17 1837 Signed Impressions: Service Date/Time: Friday, May 19, 2017 18:34 - CONCLUSION: 1. Patchy opacity again noted in both of the lung bases which may represent scarring. 2. Mild blunting of the right costophrenic angle is again noted. 3. The left costophrenic angle tip was cut off the exam. Christoph Weinstein MD Objective Remarks GENERAL: Well-nourished, well-developed elderly male patient in NAD. SKIN: Warm and dry. No rash. HEENT: Normocephalic. Atraumatic.Pupils equal and round. Mucous membranes pink and moist. NECK: Supple. Trachea midline. CARDIOVASCULAR: Regular rate and rhythm. S1, S2 noted. No murmur appreciated. Left anterior chest pacer site clean with surgical dressing in place, CDI. RESPIRATORY: No accessory muscle use. Lungs clear to auscultation. Breath sounds equal bilaterally. GASTROINTESTINAL: Abdomen soft, non-tender, nondistended. Normoactive bowel sounds x4. MUSCULOSKELETAL: No obvious deformities. No lower extremity edema. NEUROLOGICAL: Awake and alert. No obvious cranial nerve deficits. Motor grossly within normal limits. Normal speech. PSYCHIATRIC: Appropriate mood and affect; insight and judgment normal. Procedures 05/23/17 - Pacer/AICD replacement by Dr. Roberts. Medications and IVs Current Medications Medications (Trade) Dose Ordered Sig/Moses Route Start Time Stop Time Status Last Admin (NS Flush) 2 ml UNSCH PRN IV FLUSH 05/19/17 21:30 (NS Flush) 2 ml BID IV FLUSH 05/20/17 09:00 05/24/17 08:46 (KCl) 20 meq BID PO 05/20/17 09:00 05/24/17 08:45 (Heparin Inj) 5,000 units Q12H SQ 05/19/17 21:30 05/24/17 08:46 (Zyloprim) 100 mg DAILY PO 05/20/17 09:00 05/24/17 08:46 (Deltasone) 50 mg DAILY PO 05/20/17 09:00 05/24/17 08:46 (Lopressor) 50 mg Q12HR PO 05/21/17 09:00 05/24/17 08:46 (Lasix) 20 mg BID@,18 PO 05/21/17 18:00 05/24/17 08:46 (Entresto 49-51 Mg) 1 tab BID PO 05/23/17 09:00 05/24/17 08:45 (Zofran Inj) 4 mg Q4H PRN IV 05/23/17 19:00 (Tylenol-Codeine #3) 1 tab Q4H PRN PO 05/23/17 19:00 05/24/17 08:44 (Tylenol-Codeine #3) 2 tab Q4H PRN PO 05/23/17 19:00 A/P Problem List: (1) Acute exacerbation of CHF (congestive heart failure) ICD Code: I50.9 Status: Acute (2) Gout ICD Code: M10.9 Status: Chronic (3) HTN (hypertension) ICD Code: I10 Status: Chronic Assessment and Plan 86 y/o male with a history of htn, and chf presented to the ED with complaints of shortness of breath. Acute exacerbation of chronic systolic CHF: presented with worsening SOB/HUBBARD. BNP elevated at 1839, improved to 1007. CXR showed patchy opacity again noted in both of the lung bases which may represent scarring; Mild blunting of the right costophrenic angle is again noted. EKG shows paced rhythm, no acute ischemic changes. No chest pains. Troponin 0.05, 0.04, 0.03. Echocardiogram with global left ventricular dysfunction, EF 2025 %. -Improved with Lasix 40mg IV BID, changed back to home dose 20 mg twice daily -Continue fluid restrictions, monitor strict Is&Os -Clinically much improved -Started on Entresto -Follow-up labs AICD Fire: Device interrogated, appropriate response, secondary to multiple short episodes of V. tach, telemetry reviewed. However AICD with 1% battery remaining. -Cardiology was consulted, medications adjusted -Electrolytes wnl -Atenolol changed to metoprolol -Dr. Roberts consulted, replaced AICD on 05/23 HTN, chronic, currently stable -Continue metoprolol Gout, chronic -Cont home medication allopurinol CKD stage 3: PATRICE due to overdiuresis. Creatinine initially improved to 1.74 with diuresis. Increased to 2.07. Diuretics were decreased. -Monitor labs, stable, Cr 1.97 DVT prophylaxis: Heparin Discharge Planning 1230hrs: Likely discharge today if cleared by cardiology. Discharge prepared and prescriptions have been sent to patient's pharmacy [facility] [address] Problem Qualifiers (1) Acute exacerbation of CHF (congestive heart failure): Qualified Code: I50.23 - Acute on chronic systolic congestive heart failure Jolene Sánchez PA-C May 24, 2017 13:11
--- NOTE | 2017-05-24 13:44 | HHI.DS ---
cc: Edel Sibley MD; Poonam Roberts MD Discharge Summary Admission Date May 19, 2017 Discharge Date: May 24, 2017 Admitting Diagnosis ACUTE DECOMPENSATED CHF EXACERBATION (1) Acute on chronic systolic CHF (congestive heart failure) ICD Code: I50.23 Diagnosis: Principal (2) AICD discharge ICD Code: Z45.02 Diagnosis: Secondary (3) PATRICE (acute kidney injury) ICD Code: N17.9 Diagnosis: Secondary (4) Elective replacement indicated for implantable cardioverter-defibrillator ( ICD) ICD Code: Z45.02 Diagnosis: Secondary (5) Gout ICD Code: M10.9 Diagnosis: Secondary (6) HTN (hypertension) ICD Code: I10 Diagnosis: Secondary Procedures 05/23/17 - Pacer/AICD replacement by Dr. Roberts. Brief History - From Admission 86 y/o male with a history of htn, and chf presented to the ED with complaints of shortness of breath. He states the sob has been getting worse over the last few months, and much worse today. Denies any chest pain, fever or chills. Denies any nausea or vomiting. He is currently resting comfortably in bed. CBC/BMP: 05/20/17 0731 05/23/17 0546 Significant Findings Laboratory Tests Test 05/22/17 05/23/17 09:35 05:46 Blood Urea Nitrogen 30 MG/DL (7-18) 36 MG/DL (7-18) Creatinine 1.97 MG/DL 1.97 MG/DL (0.60-1.30) (0.60-1.30) Estimat Glomerular Filtration 39 ML/MIN (>89) 39 ML/MIN (>89) Rate Imaging Last Impressions Chest X-Ray 05/19/17 1347 Signed Impressions: Service Date/Time: Sunday, May 19, 2017 18:34 - CONCLUSION: 1. Patchy opacity again noted in both of the lung bases which may represent scarring. 2. Mild blunting of the right costophrenic angle is again noted. 3. The left costophrenic angle tip was cut off the exam. Christoph Weinstein MD PE at Discharge GENERAL: Well-nourished, well-developed elderly male patient in NAD. SKIN: Warm and dry. No rash. HEENT: Normocephalic. Atraumatic.Pupils equal and round. Mucous membranes pink and moist. NECK: Supple. Trachea midline. CARDIOVASCULAR: Regular rate and rhythm. S1, S2 noted. No murmur appreciated. Left anterior chest pacer site clean with surgical dressing in place, CDI. RESPIRATORY: No accessory muscle use. Lungs clear to auscultation. Breath sounds equal bilaterally. GASTROINTESTINAL: Abdomen soft, non-tender, nondistended. Normoactive bowel sounds x4. MUSCULOSKELETAL: No obvious deformities. No lower extremity edema. NEUROLOGICAL: Awake and alert. No obvious cranial nerve deficits. Motor grossly within normal limits. Normal speech. PSYCHIATRIC: Appropriate mood and affect; insight and judgment normal. Hospital Course 86 y/o male with a history of htn, and chf presented to the ED with complaints of shortness of breath. The patient was initially admitted for acute exacerbation of chronic systolic CHF. Presented with worsening SOB/HUBBARD. BNP elevated at 1839, improved to 1007. CXR showed patchy opacity again noted in both of the lung bases which may represent scarring; Mild blunting of the right costophrenic angle is again noted. EKG shows paced rhythm, no acute ischemic changes. No chest pains. Troponins flat 0.05, 0.04, 0.03. Echocardiogram 05/21 with global left ventricular dysfunction, EF 2025 %. Patient improved with Lasix 40mg IV BID, however developed PATRICE after patient diuresed over 4L output, Cardiology was consulted, Started on Entresto, changed atenolol to metoprolol, and changed back to home dose 20 mg twice daily. Clinically much improved. The night prior to expected discharge, the patient's AICD fired. His device was interrogated, AICD fire appropriate response secondary to multiple short episodes of V. tach, telemetry reviewed. However AICD with 1% battery remaining. Dr. Roberts was consulted and replaced his AICD on 05/23. He was observed overnight after AICD exchange, and cleared for discharge today by Dr. Roberts, recommend f/up in 3 weeks. Pt Condition on Discharge: Stable Discharge Disposition: Discharge Home Discharge Time: > 30 minutes Discharge Instructions DIET: Follow Instructions for: Heart Healthy Diet Additional Diet Instructions: Fluid restrictions less than 1500ml per day. Activities you can perform: Regular-No Restrictions Follow up Referrals: Cardiology - 10 Days with Edel Sibley MD Cardiology - 3 Weeks with Poonam Roberts MD PCP Follow-up - 2-3 Days with Saud Worrell MD New Medications: Metoprolol Tartrate (Lopressor) 50 Mg Tab 50 MG PO Q12HR CHF #60 TAB Sacubitril-Valsartan (Entresto) 49-51 Mg Tab 1 TAB PO BID CHF #60 TAB Continued Medications: Allopurinol (Allopurinol) 100 Mg Tab 100 MG PO DAILY Gout #30 Ref 0 TAB Furosemide (Furosemide) 20 Mg Tab 20 MG PO BID@,18 CHF #60 TAB (This prescription has been renewed) Prednisone (Prednisone) 50 Mg Tab 50 MG PO DAILY #5 TAB Tramadol (Tramadol) 50 Mg Tab 50 MG PO Q8H PRN PAIN Ref 0 TAB Discontinued Medications: Atenolol (Atenolol) 50 Mg Tab 50 MG PO DAILY Blood Pressure Management #30 Ref 0 TAB Jolene Sánchez PA-C May 24, 2017 13:44
[2017-05-24] MEDS ORDERED: HYDR-3366 PO (14:53)
[2017-05-24] MEDS ORDERED: CEPH-460 PO (14:53)
[2017-05-24] MEDS ORDERED: SODIUM CHLORID 0.9% 500 ML BAG IV ONE (15:10)
--- NOTE | 2017-05-24 17:08 | MP ---
cc: MALLORY TADEO MD DATE OF SURGERY 05/24/17 PROCEDURE Biventricular pacer defibrillator removal, biventricular pacer defibrillator replacement, pocket revision. Mr. Abrams is an 86-year-old gentleman with congestive heart failure, cardiomyopathy, ejection fraction 20%. This is ischemic cardiomyopathy, biventricular pacer defibrillator end of life will undergo generator replacement. This is a primary prevention. The risks, the nature and the benefit of the procedure are clearly stated to him. Risks include pneumothorax, cardiac perforation, stroke and even . The patient understood and agreed to proceed. This is nonischemic cardiomyopathy and echocardiogram was performed on May 21, 2017. PROCEDURE IN DETAIL After written informed consent was obtained, the patient was brought to the EP lab where he was prepped and draped in the usual sterile fashion. Conscious sedation was initiated and throughout the procedure by anesthesiologist. Once sedation was verified, the left infraclavicular area was anesthetized with 2% Xylocaine. Using a #11 scalpel, a 3-cm incision was made over the existing generator. Dissection was then taken down to deep fascial layer using Bovie cautery and blunt dissection. Once exposed generator was removed from the pocket, scar tissue was removed from around the lead. Pocket was expanded. Pocket revision was performed. Then the lead was disconnected from the generator and tested. After adequate pacing and sensing threshold were obtained, the leads were connected to the new generator and placed into the pocket. Previous to that, the pocket was copiously irrigated with antibiotic solution. At this point, I decided to proceed with wound closure. The deep fascial layer was approximated using 2-0 Vicryl suture in a continuous fashion. The subcutaneous layer was approximated using 2-0 Vicryl suture in a continuous fashion. The subcuticular layer was approximated using 2-0 Vicryl suture in a continuous fashion. Dermabond adhesive was applied to the wound followed by a sterile pressure dressing. There was no complication. The patient tolerated procedure. Blood loss minimal. EXPLANTED HARDWARE The explanted biventricular pacer defibrillator generator is a [employer] model number [id number]. IMPLANTED HARDWARE The implanted biventricular pacer defibrillator is a [employer] model number [id number]. Serial number [id number]. Threshold The right atrial pacing threshold in bipolar mode was 0.5 volts at 0.4 milliseconds, lead impedance 450 ohm about 5 mV. The right ventricular pacing threshold in bipolar mode was 0.5 volt at 0.4 milliseconds, impedance 520 ohms, R-wave at 12.4 mV. The left ventricular pacing threshold bipolar mode was 2.8 volts at 0.5 milliseconds. Lead impedance 110 ohm. SETTING The device set at DDD 60 upper limit 120 beats per minute. AV delay paced at 160 and set at 140 40 milliseconds, defibrillatory portion for two zones was ventricular tachycardia between 160-240 beats per minute. Initial therapy consists of one burst of ATP one ramp 81%, 10 pulse segmental followed by 20 then 30 and all subsequent shocks at 40 defibrillatory shock. Second zone for ventricular fibrillation above 240 beats per minute. First therapy at 30 and all subsequent shocks at 40 joule defibrillatory shock. CONCLUSION Successful biventricular pacer defibrillator removal, biventricular pacer defibrillator replacement. COMMENT/RECOMMENDATIONS The patient is going to be transferred to the unit. Will be observed, when stable can be discharged home. MD LULY Castro/ /1:23 PM /5:00 PM
== END 2017-05-24 15:11 | disposition home or self-care (01) | DRG 245 ==
LOC: NEPC 18:25 → NEDA 21:13 → NEPHCDU 23:18 → OBSVTOIN 05-22 12:44 → HCIS 05-23 18:08
PROVIDERS: ADMIT Hospitalist; ATTEND Hospitalist
PROC: 0JPT0PZ Removal of Cardiac Rhythm Related Device from Trunk Subcutaneous Tissue and Fascia, Open Approach (ICD-10-PCS; 2017-05-23)
PROC: 0JH609Z Insertion of Cardiac Resynchronization Defibrillator Pulse Generator into Chest Subcutaneous Tissue and Fascia, Open Approach (ICD-10-PCS; principal; 2017-05-23 13:15)
DX: I13.0 Hypertensive heart and chronic kidney disease with heart failure and stage 1 through stage 4 chronic kidney disease, or unspecified chronic kidney disease (principal); I47.2 Ventricular tachycardia; N17.9 Acute kidney failure, unspecified; I50.23 Acute on chronic systolic (congestive) heart failure; N18.3 Chronic kidney disease, stage 3 (moderate); Z96.652 Presence of left artificial knee joint; I25.5 Ischemic cardiomyopathy; M10.9 Gout, unspecified; M19.90 Unspecified osteoarthritis, unspecified site; H91.90 Unspecified hearing loss, unspecified ear; I25.2 Old myocardial infarction; Z87.891 Personal history of nicotine dependence; T50.2X5A Adverse effect of carbonic-anhydrase inhibitors, benzothiadiazides and other diuretics, initial encounter
CPT/HCPCS: 33264; 71010; 76937; 80048; 82550; 83735; 83880; 84484; 85025; 85610; 85730; 93005; 93306; 96374; C1882; G0378; J0690; J1644; J1940; J2250; J3010; J3370; J7040; J7512

== ENCOUNTER 2017-07-19 14:38 | Observation (INO) | payer OTHER, MEDICAID ==
[~2017-07-19] VITALS: Ht 188 cm; Wt 96.0 kg
[~2017-07-19 14:38] MED LIST changes: -ATEN50TA PO; +CEPH-460 PO; +HYDR-3366 PO; +METO-309 PO; +SACU1TAB7 PO
[2017-07-19 14:40] VITALS: BP 169/99; PULSE 99; RESP 18; TEMP 98; O2SAT 98
[2017-07-19 15:10] VITALS: BP 160/84; PULSE 91; O2SAT 97
[2017-07-19] MEDS ORDERED: ULOR80TA2 (15:12)
[2017-07-19] MEDS ORDERED: NITR1SUB3 SL (15:15)
[2017-07-19] MEDS ORDERED: FURO20TA PO (15:15)
--- NOTE | 2017-07-19 15:42 | RADRPT ---
EXAM DATE/TIME: 07/19/2017 11:04 [facility] COMPARISON: CHEST SINGLE AP, May 19, 2017, 18:34. INDICATIONS : Short of breath MEDICAL HISTORY : Cardiovascular disease. Hypertension. Chronic obstructive pulmonary SURGICAL HISTORY : Pacemaker. ENCOUNTER: Initial ACUITY: 2 days PAIN SCORE: 0/10 LOCATION: chest FINDINGS: Pacemaker device is noted with control pack over the left chest. Lungs are focally clear. No signific ant effusion is suspected. Cardiac contours are satisfactory. CONCLUSION: No acute disease Alexsanedr Ramos MD on July 19, 2017 at 15:39 Board Certified Radiologist. This report was verified electronically.
--- NOTE | 2017-07-19 15:50 | PD ---
HPI Chief Complaint: Chest Pain Time Seen by Provider: 14:52 Travel History International Travel<30 days: No Contact w/Intl Traveler<30days: No Traveled to known affect area: No History of Present Illness HPI 86-year-old male that presents to the ED for evaluation of chest pain and shortness of breath. He's had this for today. History CHF with pacemaker. Per patient he falls with Dr. Sibley. Per patient she's been having the chest discomfort and off since today. Gets worse with exertion. Per patient he has no history of heart attack. He does state that he has a chronic history CHF and this feels similar to his previous. Per patient he was admitted 2 months ago for same. He states compliance with his medications which include Lasix. He does take blood thinners. He denies any nausea or vomiting. He also has a history of And states that his been noticing some swelling to his right elbow. Per patient he swelling and red and has some discomfort with is able to move it fully. He has no allergies to medication. Per patient his chest discomfort is 4 out of 10. He did took nitroglycerin which did relieve it. PFSH Past Medical History Arthritis: Yes Blood Disorders: No Heart Rhythm Problems: Yes Cancer: No Cardiovascular Problems: Yes (pacemaker/chf) High Cholesterol: No Chemotherapy: No Chest Pain: Yes Congestive Heart Failure: Yes COPD: Yes Diminished Hearing: Yes ([place]) Endocrine: No Gastrointestinal Disorders: No Gout: Yes Genitourinary: No Hypertension: Yes Immune Disorder: No Implanted Vascular Access Dvce: Yes Musculoskeletal: Yes (Left knee, Gout) Neurologic: No Psychiatric: No Respiratory: Yes Immunizations Current: Yes Radiation Therapy: No Past Surgical History Body Medical Devices: Pacemaker, Left knee - pins Cardiac Surgery: Yes (PACEMAKER) 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) Other Surgery: Yes (Pacer, Left knee) Social History Alcohol Use: No Tobacco Use: No Substance Use: No Allergies-Medications (Allergen,Severity, Reaction): Coded Allergies: No Known Allergies (Verified , 04/09/17) Reported Meds & Prescriptions Reported Meds & Active Scripts Active Lopressor (Metoprolol Tartrate) 50 Mg Tab 50 Mg PO Q12HR Reported Furosemide 20 Mg Tab 20 Mg PO DAILY Nitroglycerin SL (Nitroglycerin) 0.4 Mg Subl 0.4 Mg SL DIRECTED PRN ONE TABLET UNDER THE TONGUE NEEDED FOR CHEST PAIN, MAY REPEAT EVERY FIVE MINUTES FOR A TOTAL OF 3 DOSES OR CALL 911 IF NO RELIEF Uloric (Febuxostat) 80 Mg Tab 1 DAILY Review of Systems Except as stated in HPI: all other systems reviewed are Neg Physical Exam Narrative GENERAL: SKIN: Warm and dry. HEAD: Atraumatic. Normocephalic. EYES: Pupils equal and round. No scleral icterus. No injection or drainage. ENT: No nasal bleeding or discharge. Mucous membranes pink and moist. Tongue is midline. No uvula deviation. NECK: Trachea midline. No JVD. CARDIOVASCULAR: Regular rate and rhythm. No murmurs, S3, S4. RESPIRATORY: No accessory muscle use. Clear to auscultation. Breath sounds equal bilaterally. GASTROINTESTINAL: Abdomen soft, non-tender, nondistended. Hepatic and splenic margins not palpable. MUSCULOSKELETAL: Extremities without clubbing, cyanosis, or edema. No obvious deformities. Full range of motion of the right or left upper extremities. Patient does have soft tissue swelling which is tender on the right elbow. Slightly painful. Mild erythema noted. Able to move the elbow fully. 2+ pulses bilaterally. NEUROLOGICAL: Awake and alert. No obvious cranial nerve deficits. Motor grossly within normal limits. Five out of 5 muscle strength in the arms and legs. Normal speech. PSYCHIATRIC: Appropriate mood and affect; insight and judgment normal. Data Data Last Documented VS Vital Signs Date Time Temp Pulse Resp B/P (MAP) Pulse Ox O2 Delivery O2 Flow Rate FiO2 07/19/17 17:36 100.1 87 137/75 (95) 98 Room Air 07/19/17 14:40 18 Orders Orders Electrocardiogram (07/19/17 14:56) Complete Blood Count With Diff (07/19/17 14:56) Comprehensive Metabolic Panel (07/19/17 14:56) Ckmb (Isoenzyme) Profile (07/19/17 14:56) Troponin I (07/19/17 14:56) B-Type Natriuretic Peptide (07/19/17 14:56) Prothrombin Time / Inr (Pt) (07/19/17 14:56) Act Partial Throm Time (Ptt) (07/19/17 14:56) Blood Culture (07/19/17 14:56) C-Reactive Protein (Crp) (07/19/17 14:56) Lipase (07/19/17 14:56) Urinalysis - C+S If Indicated (07/19/17 14:56) Magnesium (Mg) (07/19/17 14:56) Chest, Single Ap (07/19/17 14:56) Iv Access Insert/Monitor (07/19/17 14:56) Ecg Monitoring (07/19/17 14:56) Oximetry (07/19/17 14:56) Elbow, Complete (4 Vws) (07/19/17 ) Furosemide Inj (Lasix Inj) (07/19/17 17:00) Potassium Chloride (Kcl) (07/19/17 17:00) Clindamycin Inj (Cleocin Inj) (07/19/17 17:15) Admit Order (Ed Use Only) (07/19/17 18:21) Labs Laboratory Tests Test 07/19/17 15:20 White Blood Count 11.9 TH/MM3 Red Blood Count 3.55 MIL/MM3 Hemoglobin 11.0 GM/DL Hematocrit 33.4 % Mean Corpuscular Volume 94.1 FL Mean Corpuscular Hemoglobin 30.9 PG Mean Corpuscular Hemoglobin Concent 32.8 % Red Cell Distribution Width 16.3 % Platelet Count 118 TH/MM3 Mean Platelet Volume 10.3 FL Neutrophils (%) (Auto) 52.2 % Lymphocytes (%) (Auto) 7.2 % Monocytes (%) (Auto) 40.3 % Eosinophils (%) (Auto) 0.1 % Basophils (%) (Auto) 0.2 % Neutrophils # (Auto) 6.2 TH/MM3 Lymphocytes # (Auto) 0.9 TH/MM3 Monocytes # (Auto) 4.8 TH/MM3 Eosinophils # (Auto) 0.0 TH/MM3 Basophils # (Auto) 0.0 TH/MM3 CBC Comment AUTO DIFF Differential Total Cells Counted 100 Neutrophils % (Manual) 67 % Lymphocytes % 5 % Monocytes % 28 % Neutrophils # (Manual) 8.0 TH/MM3 Differential Comment FINAL DIFF MANUAL Platelet Estimate LOW Platelet Morphology Comment NORMAL Prothrombin Time 11.4 SEC Prothromb Time International Ratio 1.0 RATIO Activated Partial Thromboplast Time 28.9 SEC Blood Urea Nitrogen 19 MG/DL Creatinine 1.67 MG/DL Random Glucose 139 MG/DL Total Protein 7.9 GM/DL Albumin 3.3 GM/DL Calcium Level 8.5 MG/DL Magnesium Level 2.2 MG/DL Alkaline Phosphatase 69 U/L Aspartate Amino Transf (AST/SGOT) 7 U/L Alanine Aminotransferase (ALT/SGPT) 11 U/L Total Bilirubin 0.9 MG/DL Sodium Level 134 MEQ/L Potassium Level 3.2 MEQ/L Chloride Level 103 MEQ/L Carbon Dioxide Level 21.2 MEQ/L Anion Gap 10 MEQ/L Estimat Glomerular Filtration Rate 48 ML/MIN Total Creatine Kinase 49 U/L Troponin I 0.04 NG/ML C-Reactive Protein 13.30 MG/DL B-Type Natriuretic Peptide 1571 PG/ML Lipase 161 U/L [facility] Medical Decision Making Medical Screen Exam Complete: Yes Emergency Medical Condition: Yes Medical Record Reviewed: Yes Interpretation(s) EKG showed ventricular paced rhythm otherwise no sign of acute disease. Read by me and attending. CBC & BMP Diagram 07/19/17 15:20 Total Protein 7.9, Albumin 3.3 L, Calcium Level 8.5, Magnesium Level 2.2, Alkaline Phosphatase 69, Aspartate Amino Transf (AST/SGOT) 7 L, Alanine Aminotransferase (ALT/SGPT) 11 L, Total Bilirubin 0.9 BNP in the 1000s troponin and CKMB negative Last Impressions Chest X-Ray 07/19/17 1456 Signed Impressions: Service Date/Time: July 11:04 - CONCLUSION: No acute disease Alexsander Ramos MD Elbow X-Ray 07/19/17 0000 Signed Impressions: Service Date/Time: July 15:45 - CONCLUSION: Extensive soft tissue swelling may represent electron bursitis. Reta Hough MD Differential Diagnosis CHF versus chest pain versus ACS versus kidney disease versus gout versus cellulitis Narrative Course 86-year-old male that presents to the ED for evaluation of chest pain and shortness of breath. Patient was properly examined and was found to have signs and symptoms consistent with appears to be likely CHF exacerbation. Labs and imaging were ordered. In regards to the patient's pain in his right elbow with swelling anything this is likely more gout than infectious. He does have a long history of gout and has no obvious sign of septic joint. Labs and imaging showed CHF exacerbation. CRP highly elevated but likely from gout, he does have a WBC. Because of this clindamycin was started to cover for cellulitis although this to me appears to be less likely. Case discussed with Dr. Aguirre who was made aware of all findings and recommends admission as his BNP has been increasing from previous evaluations. Patient is in agreement with this plan. Case was discussed with [facility] Dr Cason who agrees to obs admission. Procedures EKG Prior to Arrival: No Diagnosis Primary Impression: CHF (congestive heart failure) Qualified Codes: I50.9 - Heart failure, unspecified Additional Impressions: Cellulitis Qualified Codes: L03.113 - Cellulitis of right upper limb Gout Qualified Codes: M10.9 - Gout, unspecified Admitting Information Admitting Physician Requests: Aldo Parikh Jul 19, 2017 15:50
[2017-07-19 15:54] LABS: AUTOMATED NEUTROPHIL # 6.2 TH/MM3 (1.8-7.7); BASOPHIL % 0.2 % (0.0-2.0); EOSINOPHIL % 0.1 % (0.0-4.0); HEMATOCRIT 33.4 % (39.0-51.0); LYMPH % 7.2 % (9.0-44.0); LYMPHOCYTE # 0.9 TH/MM3 (1.0-4.8); MEAN CELL VOLUME 94.1 FL (80.0-100.0); MEAN CORPUSCULAR HEMOGLOBIN 30.9 PG (27.0-34.0); MEAN CORPUSCULAR HGB CONC 32.8 % (32.0-36.0); MONO % 40.3 % (0.0-8.0); NEUT % 52.2 % (16.0-70.0); PLATELET COUNT 118 TH/MM3 (150-450); RED BLOOD COUNT 3.55 MIL/MM3 (4.50-5.90); RED CELL DISTRIBUTION WIDTH 16.3 % (11.6-17.2); WHITE BLOOD COUNT 11.9 TH/MM3 (4.0-11.0)
[2017-07-19 16:02] LABS: APTT (PATIENT) 28.9 SEC (24.3-30.1); PROTHROMBIN TIME - PATIENT 11.4 SEC (9.8-11.6)
--- NOTE | 2017-07-19 16:05 | RADRPT ---
EXAM DATE/TIME: 07/19/2017 15:45 [place] COMPARISON: No previous studies available for comparison. INDICATIONS : Left elbow pain, denies injury MEDICAL HISTORY : Cardiovascular disease. Hypertension. Chronic obstructive pulmonary SURGICAL HISTORY : Pacemaker. ENCOUNTER: Initial ACUITY: 2 days PAIN SCORE: 3/10 LOCATION: Right Elbow FINDINGS: No definite fractures, dislocations, lytic, or sclerotic lesions are seen. There is extensive soft ti ssue swelling behind the olecranon with minimal osteophyte formation at the attachment site of the tr iceps tendon. CONCLUSION: Extensive soft tissue swelling may represent electron bursitis. Reta Hough MD on July 19, 2017 at 16:03 Board Certified Radiologist. This report was verified electronically.
[2017-07-19 16:09] LABS: ANION GAP 10 MEQ/L (5-15); AST (GOT) 7 U/L (15-37); BICARBONATE 21.2 MEQ/L (21.0-32.0); BLOOD UREA NITROGEN 19 MG/DL (7-18); CHLORIDE 103 MEQ/L (98-107); GLOMERULAR FILTRATION RATE 48 ML/MIN (>89); MAGNESIUM 2.2 MG/DL (1.5-2.5); POTASSIUM 3.2 MEQ/L (3.5-5.1); SODIUM (NA) 134 MEQ/L (136-145)
[2017-07-19 16:13] LABS: ALKALINE PHOSPHATASE 69 U/L (45-117); ALT (GPT) 11 U/L (12-78); TOTAL BILIRUBIN ADULT 0.9 MG/DL (0.2-1.0)
[2017-07-19 16:14] LABS: CREATINE KINASE 49 U/L (39-308)
[2017-07-19 16:31] LABS: POLYS (SEG NEUTROPHILS) 67 % (16-70); WBC DIFF SAMPLE 100
[2017-07-19 16:32] LABS: PLATELET ESTIMATE SMEAR LOW (NORMAL); PLATELET MORPHOLOGY NORMAL (NORMAL); SCAN/DIFF FINAL DIFF MANUAL
[2017-07-19 16:34] LABS: HEMO FLAGS AUTO DIFF
[2017-07-19] MEDS ORDERED: FUROSEMIDE 40 MG/4 ML VIAL IV PUSH ONE (17:00)
[2017-07-19] MEDS ORDERED: POTASSIUM CHLORIDE 20 MEQ CONTROLLED RELEASE TAB PO ONE (17:00)
[2017-07-19] MEDS ORDERED: CLINDAMYCIN INJ 600 MG in SODIUM CHLORIDE 0.9% INJ 100 ML IV ONE (17:15)
[2017-07-19 17:36] VITALS: BP 137/75; PULSE 87; TEMP 100.1; O2SAT 98
[2017-07-19] MEDS ORDERED: SODIUM CHLORIDE 0.9% FLUSH 10 ML FLUSH IV FLUSH PRN (18:30)
[2017-07-19 18:34] VITALS: O2SAT 98
[2017-07-19 20:22] VITALS: O2SAT 97
[2017-07-19 21:04] LABS: BACTERIA, URINE RARE /hpf; BLOOD, URINE NEG (NEG); COMMENT (UR) CULT NOT INDICATED; CULTURE IF INDICATED CULT NOT INDICATED; GLUCOSE,URINE NEG (NEG); KETONE, URINE NEG (NEG); NITRITE,URINE NEG (NEG); PH, URINE 5.5 (5.0-8.5); URINE COLOR YELLOW (YELLW/STRAW)
[2017-07-19 21:26] VITALS: BP 142/81; PULSE 90; RESP 18; TEMP 99.2; O2SAT 97
[2017-07-19] MEDS: SODIUM CHLORIDE 0.9% FLUSH 10 ML FLUSH IV FLUSH SCH (22:12)
--- NOTE | 2017-07-19 23:37 | HHI.HP ---
[facility] Service [facility] Primary Care Physician Saud Worrell MD Admission Diagnosis acute CHF exacerbation, right elbow gout flare Diagnoses: (1) CHF (congestive heart failure) Chief Complaint: Difficutly breathing Travel History International Travel<30 Days: No Contact w/Intl Traveler <30 Da: No Traveled to Known Affected Are: No History of Present Illness Written by Leonor Reece, acting as scribe for Dr. Mo on 07/19/17 at 23:37. The patient states he came to the hospital because it's "hard to breath". He says symptoms occur about every month. He denies orthopnea. He denies any cough or fevers. He reports occasional chest pain and dizziness though today he has just been short of breath. Denies any nausea, vomiting, blood in stool, dark stool, or bloody nose. Review of Systems Except as stated in HPI: all other systems reviewed are Neg Past Family Social History Past Medical History COPD CHF Cardiomyopathy with EF 20 - 25% Gout Denies liver problems, kidney problems, DVT, PE, CVA, seizures, thyroid problems , or cancers. . Past Surgical History AICD placement AICD replacement in May 2017 left knee surgery . Reported Medications . Reported Meds & Active Scripts Active Lopressor (Metoprolol Tartrate) 50 Mg Tab 50 Mg PO Q12HR Reported Furosemide 20 Mg Tab 20 Mg PO DAILY Nitroglycerin SL (Nitroglycerin) 0.4 Mg Subl 0.4 Mg SL DIRECTED PRN ONE TABLET UNDER THE TONGUE NEEDED FOR CHEST PAIN, MAY REPEAT EVERY FIVE MINUTES FOR A TOTAL OF 3 DOSES OR CALL 911 IF NO RELIEF Uloric (Febuxostat) 80 Mg Tab 1 DAILY Allergies: Coded Allergies: No Known Allergies (Verified , 04/09/17) Active Ordered Medications Current Medications Furosemide (Lasix Inj) 40 mg ONCE ONCE IV PUSH Last administered on 07/19/17 17:37; Start 07/19/17 at 17:00; Stop 07/19/17 at 17:01; Status DC Potassium Chloride (KCl) 20 meq ONCE ONCE PO Last administered on 07/19/17 17: 38; Start 07/19/17 at 17:00; Stop 07/19/17 at 17:01; Status DC Clindamycin Phosphate 600 mg/ Sodium Chloride 104 ml @ 208 mls/hr ONCE ONCE IV Last administered on 07/19/17 17:37; Start 07/19/17 at 17:15; Stop 07/19/17 at 17:44; Status DC Sodium Chloride (NS Flush) 2 ml UNSCH PRN IV FLUSH FLUSH AFTER USING IV ACCESS ; Start 07/19/17 at 18:30 Sodium Chloride (NS Flush) 2 ml BID IV FLUSH Last administered on 07/19/17 22: 12; Start 07/19/17 at 21:00 Furosemide (Lasix Inj) 40 mg BID@09,18 IV PUSH ; Start 07/20/17 at 09:00 . Family History Hypertension in family members . Social History Tobacco: quit smoking > 10 - 12 years ago Alcohol: beer, 2 beers on occasion Illicit Drugs: denies . Physical Exam Vital Signs Vital Signs Date Time Temp Pulse Resp B/P (MAP) Pulse Ox O2 Delivery O2 Flow Rate FiO2 07/19/17 21:26 99.2 90 18 142/81 (101) 97 07/19/17 20:48 07/19/17 20:22 97 07/19/17 18:34 98 21 07/19/17 17:36 100.1 87 137/75 (95) 98 Room Air 07/19/17 15:18 98 Room Air 07/19/17 15:10 91 160/84 (109) 97 07/19/17 14:40 98.0 99 18 169/99 (122) 98 Room Air Physical Exam GENERAL: This is a patient, in no apparent distress. SKIN: No rashes, ecchymoses or lesions. Dry. Skin warm to touch. HEAD: Atraumatic. Normocephalic. No temporal or scalp tenderness. EYES: No scleral icterus. No injection or drainage. ENT: Nose without bleeding, purulent drainage or septal hematoma. NECK: Trachea midline. No JVD. CARDIOVASCULAR: Regular rate and rhythm without murmurs, gallops, or rubs. RESPIRATORY: Right basilar crepitations. No wheezes, rales, or rhonchi. GASTROINTESTINAL: Abdomen soft, non-tender, nondistended. MUSCULOSKELETAL: Extremities without clubbing, cyanosis, or edema. No calf tenderness. NEUROLOGICAL: Awake and alert. Motor and sensory grossly within normal limits. Normal speech. Laboratory Laboratory Tests Test 07/19/17 15:20 07/19/17 20:45 White Blood Count 11.9 Red Blood Count 3.55 Hemoglobin 11.0 Hematocrit 33.4 Mean Corpuscular Volume 94.1 Mean Corpuscular Hemoglobin 30.9 Mean Corpuscular Hemoglobin Concent 32.8 Red Cell Distribution Width 16.3 Platelet Count 118 Mean Platelet Volume 10.3 Neutrophils (%) (Auto) 52.2 Lymphocytes (%) (Auto) 7.2 Monocytes (%) (Auto) 40.3 Eosinophils (%) (Auto) 0.1 Basophils (%) (Auto) 0.2 Neutrophils # (Auto) 6.2 Lymphocytes # (Auto) 0.9 Monocytes # (Auto) 4.8 Eosinophils # (Auto) 0.0 Basophils # (Auto) 0.0 CBC Comment AUTO DIFF Differential Total Cells Counted 100 Neutrophils % (Manual) 67 Lymphocytes % 5 Monocytes % 28 Neutrophils # (Manual) 8.0 Differential Comment FINAL DIFF MANUAL Platelet Estimate LOW Platelet Morphology Comment NORMAL Prothrombin Time 11.4 Prothromb Time International Ratio 1.0 Activated Partial Thromboplast Time 28.9 Blood Urea Nitrogen 19 Creatinine 1.67 Random Glucose 139 Total Protein 7.9 Albumin 3.3 Calcium Level 8.5 Magnesium Level 2.2 Alkaline Phosphatase 69 Aspartate Amino Transf (AST/SGOT) 7 Alanine Aminotransferase (ALT/SGPT) 11 Total Bilirubin 0.9 Sodium Level 134 Potassium Level 3.2 Chloride Level 103 Carbon Dioxide Level 21.2 Anion Gap 10 Estimat Glomerular Filtration Rate 48 Total Creatine Kinase 49 Troponin I 0.04 C-Reactive Protein 13.30 B-Type Natriuretic Peptide 1571 Lipase 161 Urine Color YELLOW Urine Turbidity CLEAR Urine pH 5.5 Urine Specific [place] 1.008 Urine Protein 30 Urine Glucose (UA) NEG Urine Ketones NEG Urine Occult Blood NEG Urine Nitrite NEG Urine Bilirubin NEG Urine Urobilinogen LESS THAN 2.0 Urine Leukocyte Esterase NEG Urine WBC LESS THAN 1 Urine Bacteria RARE Microscopic Urinalysis Comment CULT NOT INDICATED Date/Time Source Procedure Growth Status 07/19/17 15:25 Blood Peripheral Aerobic Blood Culture Pending Received 07/19/17 15:25 Blood Peripheral Anaerobic Blood Culture Pending Received Result Diagram: 07/19/17 1520 07/19/17 1520 Imaging Last Impressions Chest X-Ray 07/19/17 1456 Signed Impressions: Service Date/Time: July 11:04 - CONCLUSION: No acute disease Alexsander Ramos MD Elbow X-Ray 07/19/17 0000 Signed Impressions: Service Date/Time: , July 19, 2017 15:45 - CONCLUSION: Extensive soft tissue swelling may represent electron bursitis. Reta Hough MD . Caprini VTE Risk Assessment Caprini VTE Risk Assessment: Mod/High Risk (score >= 2) Caprini Risk Assessment Model Point Value = 1 Point Value = 2 Point Value = 3 Point Value = 5 Age 41-60 Minor surgery BMI > 25 kg/m2 Swollen legs Varicose veins or History of unexplained or recurrent spontaneous Oral contraceptives or hormone replacement Sepsis (< 1 month) Serious lung disease, including pneumonia (< 1 month) Abnormal pulmonary function Acute myocardial infarction Congestive heart failure (< 1 month) History of inflammatory bowel disease Medical patient at bed rest Age 61-74 Arthroscopic surgery Major open surgery (> 45 min) Laparoscopic surgery (> 45 min) Malignancy Confined to bed (> 72 hours) Immobilizing plaster cast Central venous access Age >= 75 History of VTE Family history of VTE Factor V Leiden Prothrombin [id number] Lupus anticoagulant Anticardiolipin antibodies Elevated serum homocysteine Heparin-induced thrombocytopenia Other congenital or acquired thrombophilia Stroke (< 1 month) Elective arthroplasty Hip, pelvis, or leg fracture Acute spinal cord injury (< 1 month) Prophylaxis Regimen Total Risk Factor Score Risk Level Prophylaxis Regimen 0-1 Low Early ambulation 2 Moderate Order ONE of the following: *Sequential Compression Device (SCD) *Heparin 5000 units SQ BID 3-4 Higher Order ONE of the following medications: *Heparin 5000 units SQ TID *Enoxaparin/Lovenox 40 mg SQ daily (WT < 150 kg, CrCl > 30 mL/min) *Enoxaparin/Lovenox 30 mg SQ daily (WT < 150 kg, CrCl > 10-29 mL/min) *Enoxaparin/Lovenox 30 mg SQ BID (WT < 150 kg, CrCl > 30 mL/min) AND/OR *Sequential Compression Device (SCD) 5 or more Highest Order ONE of the following medications: *Heparin 5000 units SQ TID (Preferred with Epidurals) *Enoxaparin/Lovenox 40 mg SQ daily (WT < 150 kg, CrCl > 30 mL/min) *Enoxaparin/Lovenox 30 mg SQ daily (WT < 150 kg, CrCl > 10-29 mL/min) *Enoxaparin/Lovenox 30 mg SQ BID (WT < 150 kg, CrCl > 30 mL/min) AND *Sequential Compression Device (SCD) Assessment and Plan Problem List: (1) CHF (congestive heart failure) ICD Code: I50.9 - Heart failure, unspecified Status: Acute (2) Chronic renal disease ICD Code: N18.9 - Chronic kidney disease, unspecified (3) Olecranon bursitis ICD Code: M70.20 - Olecranon bursitis, unspecified elbow (4) Hypokalemia ICD Code: E87.6 - Hypokalemia (5) Gout ICD Code: M10.9 - Gout, unspecified Status: Chronic (6) Thrombocytopenia ICD Code: D69.6 - Thrombocytopenia, unspecified Status: Chronic Assessment and Plan 86 y/o male who presented to ED for evaluation of difficulty breathing CHF - EF 20 - 25% - Lasix 20 mg IV BID - [place] is Dr. Oliver - strict I and Os - continuous cardiac telemetry to monitor for cardiac arrhythmias - serial cardiac enzymes to r/o ACS - nursing to perform CHF teaching Right elbow; olecranon bursitis - likely secondary to gout - not complaining of pain at time of visit - continue home gout medications - monitor for improvement Hypokalemia - K+ 3.2 - replace potassium - bmp in a.m. - follow results in potassium and replace if needed Chronic renal disease - BUN 19, creatinine - 1.67, eGFR 48 - labs appear stable when compared to priors - monitor bmp - follow trends in renal indices - avoid nephrotoxins Thrombocytopenia - Platelet 118,000 - appears chronic and stable compared to prior labs - monitor CBC and follow trends in platelets DVT prophylaxis SCDs/TEDs . This note was transcribed by alaina [Leonor Reece]. I, Dr. Willard Mo personally performed the history, physical exam, and medical decision making; and confirmed the accuracy of the information in the transcribed note. Authenticated by Dr. Willard Mo on 07/19/17 at 23:37. Discussed Condition With ER physician and patient Problem Qualifiers (1) CHF (congestive heart failure): Qualified Codes: I50.9 - Heart failure, unspecified (2) Gout: Qualified Codes: M10.9 - Gout, unspecified Leonor Reece Jul 19, 2017 23:37 Willard Mo MD Jul 22, 2017 23:44
[2017-07-19] MEDS ORDERED: NITROGLYCERIN 0.4 MG SL 25 TABS/BTL SL PRN (23:45)
[2017-07-20] VITALS (13 sets, daily range): BP systolic 129–145; BP diastolic 79–83; PULSE 73–92; RESP 16–18; TEMP 98.3–99.3; O2SAT 97–99
[2017-07-20] MEDS: HEPARIN SODIUM - SQ 10,000 UNITS/ML VIAL SQ SCH ×3 (05:37→20:45)
[2017-07-20] MEDS: SODIUM CHLORIDE 0.9% FLUSH 10 ML FLUSH IV FLUSH SCH ×2 (08:38→20:45)
[2017-07-20] MEDS: METOPROLOL TARTRATE 50 MG TAB PO SCH ×2 (08:38→20:40)
[2017-07-20] MEDS: FUROSEMIDE 40 MG/4 ML VIAL IV PUSH SCH ×2 (08:38→17:35)
[2017-07-20] MEDS ORDERED: FUROSEMIDE 40 MG/4 ML VIAL IV PUSH SCH (09:00)
--- NOTE | 2017-07-20 11:50 | EKG ---
Date Performed: 07/19/2017 Time Performed: 14:50:46 PTAGE: 86 years EKG: ELECTRONIC VENTRICULAR PACEMAKER ABNORMAL RHYTHM ECG NO PREVIOUS TRACING DOCTOR: Fito Nichols Interpretating Date/Time 07/20/2017 11:48:30
[2017-07-20 13:30] LABS: BICARBONATE 24.8 MEQ/L (21.0-32.0)
--- NOTE | 2017-07-20 15:10 | HHI.PR ---
Subjective Remarks Follow up for CHF exacerbation. The patient reports feeling slightly better today however still very short of breath, worse with any exertion. He reports an occasional nonproductive. Denies any fevers/chills. Denies any chest pain or tightness. Extensively educated on fluid and sodium restrictions. Also recommended to monitor weight daily and contact physician if gaining more than 3 lbs in few days. He follows with prosthetist Dr. Sibley and has an upcoming appt in 2 weeks. His O2 sat is stable at 97% on room air. Objective Vitals Vital Signs Date Time Temp Pulse Resp B/P (MAP) Pulse Ox O2 Delivery O2 Flow Rate FiO2 07/20/17 13:24 99 07/20/17 12:12 98.3 85 16 137/81 (99) 98 07/20/17 08:52 98.6 81 16 145/83 (103) 97 07/20/17 08:00 73 07/20/17 04:04 99.3 79 18 129/79 (96) 97 07/20/17 03:50 86 07/20/17 00:57 81 07/20/17 00:15 80 07/19/17 21:26 99.2 90 18 142/81 (101) 97 07/19/17 20:48 07/19/17 20:22 97 07/19/17 18:34 98 21 07/19/17 17:36 100.1 87 137/75 (95) 98 Room Air 07/19/17 15:18 98 Room Air 07/19/17 15:10 91 160/84 (109) 97 I/O 07/19/17 07/19/17 07/19/17 07/20/17 07/20/17 07/20/17 07:00 15:00 23:00 07:00 15:00 23:00 Intake Total 100 ml 250 ml Output Total 400 ml Balance 100 ml -150 ml Intake Oral 250 ml IV Total 100 ml Output Urine Total 400 ml Result Diagram: 07/19/17 1520 07/20/17 1243 Imaging Last Impressions Chest X-Ray 07/19/17 1456 Signed Impressions: Service Date/Time: July 11:04 - CONCLUSION: No acute disease Alexsander Ramos MD Elbow X-Ray 07/19/17 0000 Signed Impressions: Service Date/Time: July 15:45 - CONCLUSION: Extensive soft tissue swelling may represent electron bursitis. Reta Hough MD Objective Remarks GENERAL: Well-nourished, well-developed pleasant elderly male patient in [facility]. SKIN: Warm and dry. No rash. HEENT: Normocephalic. Atraumatic.Pupils equal and round. Mucous membranes pink and moist. NECK: Supple. Trachea midline. CARDIOVASCULAR: Regular rate and rhythm. S1, S2 noted. No murmur appreciated. RESPIRATORY: No accessory muscle use. Breath sounds slightly diminished at bilateral bases, otherwise clear to auscultation. Breath sounds equal bilaterally. GASTROINTESTINAL: Abdomen soft, non-tender, nondistended. Normoactive bowel sounds x4. MUSCULOSKELETAL: No obvious deformities. Trace BLE edema. NEUROLOGICAL: Awake and alert. No obvious cranial nerve deficits. Motor grossly within normal limits. Normal speech. PSYCHIATRIC: Appropriate mood and affect; insight and judgment normal. Medications and IVs Current Medications Medications (Trade) Dose Ordered Sig/Moses Route Start Time Stop Time Status Last Admin (NS Flush) 2 ml UNSCH PRN IV FLUSH 07/19/17 18:30 (NS Flush) 2 ml BID IV FLUSH 07/19/17 21:00 07/20/17 08:38 (Lasix Inj) 20 mg BID@,18 IV PUSH 07/20/17 09:00 07/20/17 08:38 (Lopressor) 50 mg Q12HR PO 07/20/17 09:00 07/20/17 08:38 (Nitrostat Sl) 0.4 mg Q5M PRN SL 07/19/17 23:45 (Heparin Inj) 5,000 units Q8HR SQ 07/20/17 06:00 07/20/17 05:37 A/P Problem List: (1) CHF (congestive heart failure) ICD Code: I50.9 - Heart failure, unspecified Status: Acute (2) Chronic renal disease ICD Code: N18.9 - Chronic kidney disease, unspecified (3) Olecranon bursitis ICD Code: M70.20 - Olecranon bursitis, unspecified elbow (4) Hypokalemia ICD Code: E87.6 - Hypokalemia (5) Gout ICD Code: M10.9 - Gout, unspecified Status: Chronic (6) Thrombocytopenia ICD Code: D69.6 - Thrombocytopenia, unspecified Status: Chronic Assessment and Plan 86 y/o male who presented to ED for evaluation of difficulty breathing Acute Exacerbation of Chronic Systolic CHF: EMR reviewed, Echo 05/21/17 with EF 20-25%. BNP elevated at 1571. CXR images reviewed, no acute findings. - Continue diuresis with Lasix 20 mg IV BID (patient is only on lasix 20mg once daily at home) - Clinical Athletic Instructor is Dr. Sibley, will consult if needed - monitor strict I and Os - continuous cardiac telemetry to monitor for cardiac arrhythmias - ACS ruled out with negative serial cardiac enzymes and EKG without acute ischemic changes - extensively counseled on fluid/sodium restrictions, weight monitoring, etc; and ordered nursing to perform CHF teaching as well Right elbow; olecranon bursitis - likely secondary to gout - not complaining of pain at time of visit - continue home gout medications - monitor for improvement Hypokalemia: K+ 3.2 - replaced potassium - repeat BMP shows improvement, K 4.0, resolved Chronic renal disease: BUN 19, creatinine - 1.67, eGFR 48 - labs appear stable when compared to priors - monitor bmp - follow trends in renal indices - avoid nephrotoxins Thrombocytopenia: Platelet 118,000 - appears chronic and stable compared to prior labs - monitor CBC and follow trends in platelets DVT prophylaxis: SCDs/TEDs Discharge Planning Discharge pending further clinical improvement. Will likely discharge tomorrow morning. Problem Qualifiers (1) CHF (congestive heart failure): Qualified Codes: I50.9 - Heart failure, unspecified (2) Gout: Qualified Codes: M10.9 - Gout, unspecified Jolene Sánchez PA-C Jul 20, 2017 3:10 pm
[2017-07-21 00:13] VITALS: BP 143/86; PULSE 77; RESP 17; TEMP 98.6; O2SAT 97
[2017-07-21 03:42] VITALS: BP 130/85; PULSE 76; RESP 18; TEMP 98.5; O2SAT 97
[2017-07-21 03:53] VITALS: PULSE 80
[2017-07-21] MEDS: HEPARIN SODIUM - SQ 10,000 UNITS/ML VIAL SQ SCH (05:44)
[2017-07-21] MEDS ORDERED: FURO20TA PO (07:54)
--- NOTE | 2017-07-21 07:54 | HHI.DCPOC ---
Discharge Care Plan Diagnosis: (1) CHF (congestive heart failure) Goals to Promote Your Health * To prevent worsening of your condition and complications * To maintain your health at the optimal level Directions to Meet Your Goals Take your medications as prescribed Follow your dietary instruction Follow activity as directed Keep your appointments as scheduled Take your immunizations and boosters as scheduled If your symptoms worsen call your PCP, if no PCP go to Urgent Care Center or Emergency Room Smoking is Dangerous to Your Health. Avoid second hand smoke Call the 24-hour hour crisis hotline for domestic abuse at Jolene Sánchez PA-C Jul 21, 2017 7:54 am
[2017-07-21 07:59] VITALS: BP 138/86; PULSE 87; RESP 17; TEMP 98.7; O2SAT 97
[2017-07-21] MEDS: SODIUM CHLORIDE 0.9% FLUSH 10 ML FLUSH IV FLUSH SCH (08:25)
[2017-07-21] MEDS: METOPROLOL TARTRATE 50 MG TAB PO SCH (08:25)
[2017-07-21] MEDS: FUROSEMIDE 40 MG/4 ML VIAL IV PUSH SCH (08:25)
--- NOTE | 2017-07-21 09:20 | HHI.PR ---
Subjective Remarks Follow up for CHF exacerbation. The patient is sleeping upon my arrival, lying flat in bed, easily awakens. He complains of some mild shortness of breath, worse with exertion; overall much improved. His O2 sat is still stable on room air at 97%. Denies any cough or chest pains. Denies any other medical complaints at this time. Objective Vitals Vital Signs Date Time Temp Pulse Resp B/P (MAP) Pulse Ox O2 Delivery O2 Flow Rate FiO2 07/21/17 07:59 98.7 87 17 138/86 (103) 97 07/21/17 03:53 80 07/21/17 03:42 98.5 76 18 130/85 (100) 97 07/21/17 00:13 98.6 77 17 143/86 (105) 97 07/20/17 23:00 74 07/20/17 20:10 83 07/20/17 19:29 99.1 83 17 143/81 (101) 98 07/20/17 15:31 99.1 82 16 139/79 (99) 99 07/20/17 15:00 92 07/20/17 13:24 99 07/20/17 12:12 98.3 85 16 137/81 (99) 98 I/O 07/20/17 07/20/17 07/20/17 07/21/17 07/21/17 07/21/17 06:59 14:59 22:59 06:59 14:59 22:59 Intake Total 500 ml 240 ml Output Total 200 ml 400 ml 850 ml Balance -200 ml 100 ml -610 ml Intake Oral 500 ml 240 ml Output Urine Total 200 ml 400 ml 850 ml Result Diagram: 07/19/17 1520 07/20/17 1243 Imaging Last Impressions Chest X-Ray 07/19/17 1456 Signed Impressions: Service Date/Time: July 11:04 - CONCLUSION: No acute disease Alexsander Ramos MD Elbow X-Ray 07/19/17 0000 Signed Impressions: Service Date/Time: July 15:45 - CONCLUSION: Extensive soft tissue swelling may represent electron bursitis. Reta Hough MD Objective Remarks GENERAL: Well-nourished, well-developed pleasant elderly male patient in [facility]. SKIN: Warm and dry. No rash. HEENT: Normocephalic. Atraumatic.Pupils equal and round. Mucous membranes pink and moist. NECK: Supple. Trachea midline. CARDIOVASCULAR: Regular rate and rhythm. S1, S2 noted. No murmur appreciated. RESPIRATORY: No accessory muscle use. Clear to auscultation. Breath sounds equal bilaterally. GASTROINTESTINAL: Abdomen soft, non-tender, nondistended. Normoactive bowel sounds x4. MUSCULOSKELETAL: No obvious deformities. No lower extremity edema. NEUROLOGICAL: Awake and alert. No obvious cranial nerve deficits. Motor grossly within normal limits. Normal speech. PSYCHIATRIC: Appropriate mood and affect; insight and judgment normal. Medications and IVs Current Medications Medications (Trade) Dose Ordered Sig/Moses Route Start Time Stop Time Status Last Admin (NS Flush) 2 ml UNSCH PRN IV FLUSH 07/19/17 18:30 (NS Flush) 2 ml BID IV FLUSH 07/19/17 21:00 07/21/17 08:25 (Lasix Inj) 20 mg BID@,18 IV PUSH 07/20/17 09:00 07/21/17 08:25 (Lopressor) 50 mg Q12HR PO 07/20/17 09:00 07/21/17 08:25 (Nitrostat Sl) 0.4 mg Q5M PRN SL 07/19/17 23:45 (Heparin Inj) 5,000 units Q8HR SQ 07/20/17 06:00 07/21/17 05:44 A/P Problem List: (1) CHF (congestive heart failure) ICD Code: I50.9 - Heart failure, unspecified Status: Acute (2) Chronic renal disease ICD Code: N18.9 - Chronic kidney disease, unspecified (3) Olecranon bursitis ICD Code: M70.20 - Olecranon bursitis, unspecified elbow (4) Hypokalemia ICD Code: E87.6 - Hypokalemia (5) Gout ICD Code: M10.9 - Gout, unspecified Status: Chronic (6) Thrombocytopenia ICD Code: D69.6 - Thrombocytopenia, unspecified Status: Chronic Assessment and Plan 86 y/o male who presented to ED for evaluation of difficulty breathing Acute Exacerbation of Chronic Systolic CHF: EMR reviewed, Echo 05/21/17 with EF 20-25%. BNP elevated at 1571. CXR images reviewed, no acute findings. - Continue diuresis with Lasix 20 mg IV BID (patient is only on lasix 20mg once daily at home) - Rag Production Worker is Dr. Sibley, continue outpatient follow up - monitor strict I and Os - continuous cardiac telemetry to monitor for cardiac arrhythmias - ACS ruled out with negative serial cardiac enzymes and EKG without acute ischemic changes - extensively counseled on fluid/sodium restrictions, weight monitoring, etc; and ordered nursing to perform CHF teaching as well - symptoms much improved, O2 sat stable on room air Right elbow; olecranon bursitis - likely secondary to gout - not complaining of pain at time of visit - continue home gout medications - monitor for improvement Hypokalemia: K+ 3.2 - replaced potassium - repeat BMP shows improvement, K 4.0, resolved Chronic renal disease: BUN 19, creatinine - 1.67, eGFR 48 - labs appear stable when compared to priors - monitor bmp - follow trends in renal indices - avoid nephrotoxins Thrombocytopenia: Platelet 118,000 - appears chronic and stable compared to prior labs - monitor CBC and follow trends in platelets DVT prophylaxis: SCDs/TEDs Discharge Planning Likely discharge today if labs are stable. Discussed with case management. Discharge patient to home Condition on discharge: Improved Heart Healthy, low sodium diet as tolerated; fluid restrictions Ad Ilda activity Rx written: Lasix 20mg bid Follow-up with primary care physician and prevocational/rehabilitation counselor Dr. Sibley Problem Qualifiers (1) CHF (congestive heart failure): Qualified Codes: I50.9 - Heart failure, unspecified (2) Gout: Qualified Codes: M10.9 - Gout, unspecified Jolene Sánchez PA-C Jul 21, 2017 9:20 am
[2017-07-21 11:26] VITALS: BP 120/76; PULSE 79; RESP 18; TEMP 98.3; O2SAT 98
[2017-07-21 11:53] LABS: BASOPHIL % 0.3 % (0.0-2.0); EOSINOPHIL % 0.3 % (0.0-4.0); HEMATOCRIT 36.5 % (39.0-51.0); LYMPH % 10.7 % (9.0-44.0); MEAN CELL VOLUME 92.7 FL (80.0-100.0); MEAN CORPUSCULAR HEMOGLOBIN 30.1 PG (27.0-34.0); MEAN CORPUSCULAR HGB CONC 32.4 % (32.0-36.0); MONO % 46.5 % (0.0-8.0); NEUT % 42.2 % (16.0-70.0); PLATELET COUNT 101 TH/MM3 (150-450); RED BLOOD COUNT 3.93 MIL/MM3 (4.50-5.90); RED CELL DISTRIBUTION WIDTH 16.2 % (11.6-17.2); WHITE BLOOD COUNT 9.5 TH/MM3 (4.0-11.0)
[2017-07-21 11:57] LABS: HEMO FLAGS AUTO DIFF
[2017-07-21 12:08] LABS: BICARBONATE 25.7 MEQ/L (21.0-32.0); POTASSIUM 3.3 MEQ/L (3.5-5.1)
[2017-07-21] MEDS ORDERED: POTA10TA2 PO (12:19)
[2017-07-21] MEDS ORDERED: POTASSIUM CHLORIDE 20 MEQ CONTROLLED RELEASE TAB PO ONE (12:30)
[2017-07-21 12:41] LABS: NEUTROPHIL # MANUAL DIFF 5.6 TH/MM3 (1.8-7.7); POLYS (SEG NEUTROPHILS) 59 % (16-70); WBC DIFF SAMPLE 100
[2017-07-21 12:45] LABS: PLATELET ESTIMATE SMEAR LOW (NORMAL); PLATELET MORPHOLOGY NORMAL (NORMAL); SCAN/DIFF FINAL DIFF MANUAL
[2017-07-21 12:47] VITALS: PULSE 76
== END 2017-07-21 13:18 | disposition home or self-care (01) ==
LOC: NEPE 14:38 → NEDA 18:23 → NEPGCP 21:12
PROVIDERS: ADMIT Hospitalist; ATTEND Hospitalist
DX: I50.9 Heart failure, unspecified (principal); L03.113 Cellulitis of right upper limb; M10.9 Gout, unspecified; M70.21 Olecranon bursitis, right elbow; I13.0 Hypertensive heart and chronic kidney disease with heart failure and stage 1 through stage 4 chronic kidney disease, or unspecified chronic kidney disease; N18.9 Chronic kidney disease, unspecified; E87.6 Hypokalemia; Z87.891 Personal history of nicotine dependence; Z95.810 Presence of automatic (implantable) cardiac defibrillator
CPT/HCPCS: 71010; 73080; 80048; 80053; 81001; 82550; 83690; 83735; 83880; 84484; 85007; 85027; 85610; 85730; 86140; 87040; 93005; 94620; 96365; 96366; 96372; 96375; 96376; 99285; G0378; J1644; J1940

== ENCOUNTER 2017-11-24 12:01 | Inpatient (IN) | payer OTHER, MEDICAID, MEDICARE ==
[~2017-11-24] VITALS: Ht 185.4 cm; Wt 92.9 kg
[~2017-11-24 12:01] MED LIST changes: -ALLO100T PO; -CEPH-460 PO; -HYDR-3366 PO; +NITR1SUB3 SL; +POTA10TA2 PO; -PRED50 PO; -SACU1TAB7 PO; -TRAM50TA PO; +ULOR80TA2
[2017-11-24 12:03] VITALS: BP 135/88; PULSE 87; RESP 16; TEMP 98.5; O2SAT 98
--- NOTE | 2017-11-24 13:23 | PD ---
HPI Chief Complaint: Respiratory Symptoms Time Seen by Provider: 13:18 Travel History International Travel<30 days: No Contact w/Intl Traveler<30days: No Traveled to known affect area: No History of Present Illness HPI 87yo M presented to the ED with SOB. Pt states that he started becoming SOB last night with chest pain upon exertion; he is not experiencing any chest pain currently. He reports the pain is localized to his chest with the occasional radiation down his L arm. Pt describes the pain as dull, but occasionally becomes sharp. Pt states that he cannot walk more than 10ft without becoming short of breath and that he feels more comfortable while sitting upright compared to laying down. He has not noticed any swelling of his legs recently. He previously had these symptoms in July and was admitted to [facility]. Pt does have a significant medical history of CHF, treated with Lasix and metoprolol. Pt has been prescribed nitroglycerin for chest pain, but has not had it filled in over a month. Pt denies palpitations, headaches, lightheadness, nausea, or vomiting. Modifying Factors: None Associated Signs & Symptoms: Chest discomfort, shortness of breath, dyspnea on exertion Risk Factors: COPD and CHF PFSH Past Medical History Arthritis: Yes Blood Disorders: No Heart Rhythm Problems: Yes Cancer: No Cardiovascular Problems: Yes (pacer) High Cholesterol: No Chemotherapy: No Chest Pain: Yes Congestive Heart Failure: Yes COPD: Yes Diabetes: No Diminished Hearing: Yes ([place]) Endocrine: No Gastrointestinal Disorders: No Gout: Yes Genitourinary: No Hypertension: Yes Immune Disorder: No Implanted Vascular Access Dvce: Yes Musculoskeletal: Yes (lt knee gout) Neurologic: No Psychiatric: No Reproductive: No Respiratory: Yes (copd) Immunizations Current: Yes Radiation Therapy: No Thyroid Disease: No Past Surgical History Body Medical Devices: pins lt knee Cardiac Surgery: Yes (PACEMAKER) 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) Other Surgery: Yes (Pacer, Left knee) Social History Alcohol Use: No Tobacco Use: No Substance Use: No Allergies-Medications (Allergen,Severity, Reaction): Coded Allergies: No Known Allergies (Verified Adverse Reaction, Unknown, 11/24/17) Reported Meds & Prescriptions Reported Meds & Active Scripts Active Potassium Chloride ER (Potassium Chloride) 10 Meq Tab 10 Meq PO BID Lopressor (Metoprolol Tartrate) 50 Mg Tab 50 Mg PO Q12HR Reported Nitroglycerin SL (Nitroglycerin) 0.4 Mg Subl 0.4 Mg SL DIRECTED PRN ONE TABLET UNDER THE TONGUE NEEDED FOR CHEST PAIN, MAY REPEAT EVERY FIVE MINUTES FOR A TOTAL OF 3 DOSES OR CALL 911 IF NO RELIEF Uloric (Febuxostat) 80 Mg Tab 1 DAILY Review of Systems Except as stated in HPI: all other systems reviewed are Neg Cardiovascular: Positive: Chest Pain or Discomfort, Dyspnea on exertion Respiratory: Positive: Shortness of Breath, Orthopnea Physical Exam Narrative GENERAL: 87yo M who is well-developed and well-nourished in mild distress. Alert and oriented x3. SKIN: Warm and dry. HEAD: Atraumatic. Normocephalic. NECK: Trachea midline. Positive JVD. CARDIOVASCULAR: Regular rate and rhythm. RESPIRATORY: No accessory muscle use. Clear to auscultation. Diminished bibasilar breath sounds. GASTROINTESTINAL: Abdomen soft, non-tender, nondistended. Hepatic and splenic margins not palpable. MUSCULOSKELETAL: Extremities without clubbing, cyanosis, or edema. No obvious deformities. NEUROLOGICAL: Awake and alert. No obvious cranial nerve deficits. Motor grossly within normal limits. Normal speech. PSYCHIATRIC: Appropriate mood and affect; insight and judgment normal. Data Data Last Documented VS Vital Signs Date Time Temp Pulse Resp B/P (MAP) Pulse Ox O2 Delivery O2 Flow Rate FiO2 11/24/17 14:52 78 18 133/85 (101) 99 Room Air 11/24/17 13:27 1.00 11/24/17 12:03 98.5 Orders Orders Complete Blood Count With Diff (11/24/17 13:18) Comprehensive Metabolic Panel (11/24/17 13:18) B-Type Natriuretic Peptide (11/24/17 13:18) Ckmb (Isoenzyme) Profile (11/24/17 13:18) Troponin I (11/24/17 13:18) Iv Access Insert/Monitor (11/24/17 13:18) Electrocardiogram (11/24/17 13:18) Ecg Monitoring (11/24/17 13:18) Oximetry (11/24/17 13:18) Oxygen Administration (11/24/17 13:18) Chest, Single Ap (11/24/17 13:18) Sodium Chloride 0.9% Flush (Ns Flush) (11/24/17 13:30) Furosemide Inj (Lasix Inj) (11/24/17 14:30) Admit Order (Ed Use Only) (11/24/17 15:02) Labs Laboratory Tests Test 11/24/17 13:20 White Blood Count 4.7 TH/MM3 Red Blood Count 3.34 MIL/MM3 Hemoglobin 10.0 GM/DL Hematocrit 31.1 % Mean Corpuscular Volume 93.3 FL Mean Corpuscular Hemoglobin 30.1 PG Mean Corpuscular Hemoglobin Concent 32.3 % Red Cell Distribution Width 15.9 % Platelet Count 109 TH/MM3 Mean Platelet Volume 10.7 FL Neutrophils (%) (Auto) 64.3 % Lymphocytes (%) (Auto) 18.6 % Monocytes (%) (Auto) 15.8 % Eosinophils (%) (Auto) 0.7 % Basophils (%) (Auto) 0.6 % Neutrophils # (Auto) 3.0 TH/MM3 Lymphocytes # (Auto) 0.9 TH/MM3 Monocytes # (Auto) 0.7 TH/MM3 Eosinophils # (Auto) 0.0 TH/MM3 Basophils # (Auto) 0.0 TH/MM3 CBC Comment DIFF FINAL Differential Comment Blood Urea Nitrogen 20 MG/DL Creatinine 1.97 MG/DL Random Glucose 86 MG/DL Total Protein 8.1 GM/DL Albumin 3.6 GM/DL Calcium Level 8.4 MG/DL Alkaline Phosphatase 60 U/L Aspartate Amino Transf (AST/SGOT) 16 U/L Alanine Aminotransferase (ALT/SGPT) 16 U/L Total Bilirubin 0.6 MG/DL Sodium Level 138 MEQ/L Potassium Level 4.0 MEQ/L Chloride Level 105 MEQ/L Carbon Dioxide Level 25.7 MEQ/L Anion Gap 7 MEQ/L Estimat Glomerular Filtration Rate 39 ML/MIN Total Creatine Kinase 91 U/L Troponin I 0.04 NG/ML B-Type Natriuretic Peptide 1370 PG/ML MDM Medical Decision Making Medical Screen Exam Complete: Yes Emergency Medical Condition: Yes Medical Record Reviewed: Yes Interpretation(s) EKG shows paced rhythm at a rate of 74 bpm Laboratory Tests Test 11/24/17 13:20 Red Blood Count 3.34 MIL/MM3 (4.50-5.90) Hemoglobin 10.0 GM/DL (13.0-17.0) Hematocrit 31.1 % (39.0-51.0) Platelet Count 109 TH/MM3 (150-450) Monocytes (%) (Auto) 15.8 % (0.0-8.0) Lymphocytes # (Auto) 0.9 TH/MM3 (1.0-4.8) Blood Urea Nitrogen 20 MG/DL (7-18) Creatinine 1.97 MG/DL (0.60-1.30) Calcium Level 8.4 MG/DL (8.5-10.1) Estimat Glomerular Filtration Rate 39 ML/MIN (>89) B-Type Natriuretic Peptide 1370 PG/ML (0-100) Last 24 hours Impressions Chest X-Ray 11/24/17 1318 Signed Impressions: Service Date/Time: Friday, November 24, 2017 13:29 - CONCLUSION: Mild hazy opacity is now noted at the right lung base. The left lung base is obscured. Christoph Weinstein MD Differential Diagnosis COPD exacerbation versus CHF versus pneumonia Narrative Course Chest x-ray and lab work as well as symptoms would indicate underlying CHF. Patient was given Lasix in the ER. He has been taking by mouth Lasix at home and appears to be doing poorly and my plan at this point would be to admit him for further evaluation and treatment of CHF exacerbation. He is not having significant wheezing, I do not think that there is a significant COPD involvement this case. Case was discussed with Dr. Etienne for admission. Diagnosis Primary Impression: CHF (congestive heart failure) Admitting Information Admitting Physician Requests: Admit Anthony England MD Nov 24, 2017 13:23
[2017-11-24 13:27] VITALS: O2SAT 96
[2017-11-24] MEDS ORDERED: SODIUM CHLORIDE 0.9% FLUSH 10 ML FLUSH IVF PRN (13:30)
--- NOTE | 2017-11-24 13:48 | RADRPT ---
EXAM DATE/TIME: 11/24/2017 13:29 [facility] COMPARISON: CHEST SINGLE AP, July 19, 2017, 11:04. INDICATIONS : Shortness of breath. MEDICAL HISTORY : Cardiovascular disease. Hypertension. Chronic obstructive pulmonary disease. SURGICAL HISTORY : Pacemaker. ENCOUNTER: Initial ACUITY: 1 day PAIN SCORE: 0/10 LOCATION: Bilateral chest FINDINGS: A single AP erect portable view of the chest was obtained and again demonstrates a left subclavian tr ansvenous pacer in place. The heart size remains at the upper limits of normal with no perihilar adela a. There is mild patchy opacity now noted the right lung base with mild blunting of the right costoph renic angle. The left lung base is obscured by the transvenous pacer. The bony thorax remains intact. CONCLUSION: Mild hazy opacity is now noted at the right lung base. The left lung base is obscured . Christoph Weinstein MD on November 24, 2017 at 13:45 Board Certified Radiologist. This report was verified electronically.
[2017-11-24 13:51] LABS: BASOPHIL % 0.6 % (0.0-2.0); EOSINOPHIL % 0.7 % (0.0-4.0); HEMATOCRIT 31.1 % (39.0-51.0); LYMPH % 18.6 % (9.0-44.0); LYMPHOCYTE # 0.9 TH/MM3 (1.0-4.8); MEAN CELL VOLUME 93.3 FL (80.0-100.0); MEAN CORPUSCULAR HEMOGLOBIN 30.1 PG (27.0-34.0); MEAN CORPUSCULAR HGB CONC 32.3 % (32.0-36.0); MEAN PLATELET VOLUME 10.7 FL (7.0-11.0); MONO % 15.8 % (0.0-8.0); MONOCYTE # 0.7 TH/MM3 (0-0.9); NEUT % 64.3 % (16.0-70.0); PLATELET COUNT 109 TH/MM3 (150-450); RED BLOOD COUNT 3.34 MIL/MM3 (4.50-5.90); RED CELL DISTRIBUTION WIDTH 15.9 % (11.6-17.2); WHITE BLOOD COUNT 4.7 TH/MM3 (4.0-11.0)
[2017-11-24 14:08] LABS: ALBUMIN 3.6 GM/DL (3.4-5.0); ALT (GPT) 16 U/L (12-78); AST (GOT) 16 U/L (15-37); BICARBONATE 25.7 MEQ/L (21.0-32.0); BLOOD UREA NITROGEN 20 MG/DL (7-18); CALCIUM 8.4 MG/DL (8.5-10.1); CHLORIDE 105 MEQ/L (98-107); CREATININE 1.97 MG/DL (0.60-1.30); GLOMERULAR FILTRATION RATE 39 ML/MIN (>89); GLUCOSE,RANDOM 86 MG/DL (74-106); SODIUM (NA) 138 MEQ/L (136-145)
[2017-11-24 14:12] LABS: ALKALINE PHOSPHATASE 60 U/L (45-117); TOTAL BILIRUBIN ADULT 0.6 MG/DL (0.2-1.0); TOTAL PROTEIN 8.1 GM/DL (6.4-8.2); TROPONIN I 0.04 NG/ML (0.02-0.05)
[2017-11-24] MEDS ORDERED: FUROSEMIDE 40 MG/4 ML VIAL IV PUSH ONE (14:30)
[2017-11-24 14:52] VITALS: BP 133/85; PULSE 78; RESP 18; O2SAT 99
[2017-11-24 15:29] VITALS: O2SAT 96
[2017-11-24] MEDS ORDERED: NALOXONE HCL 0.4 MG/ML AMP IV PUSH PRN (15:30)
[2017-11-24] MEDS ORDERED: ONDANSETRON HCL 4 MG/2 ML VIAL IVP PRN (15:30)
[2017-11-24] MEDS ORDERED: LACTULOSE SYRUP 20 GM/30 ML CUP PO PRN (15:30)
[2017-11-24] MEDS ORDERED: ACETAMINOPHEN 325 MG TAB PO PRN (15:30)
[2017-11-24] MEDS ORDERED: SODIUM CHLORIDE 0.9% FLUSH 10 ML FLUSH IV FLUSH PRN (15:30)
[2017-11-24] MEDS ORDERED: MAGNESIUM HYDROXIDE SUSP 30 ML CUP PO PRN (15:30)
[2017-11-24] MEDS ORDERED: SENNOSIDES 8.6 MG TAB PO PRN (15:30)
[2017-11-24] MEDS ORDERED: BISACODYL 10 MG SUPP RECTAL PRN (15:30)
--- NOTE | 2017-11-24 15:31 | HHI.HP ---
[facility] Saud Worrell MD Admission Diagnosis CHF exacerbation Diagnoses: Travel History International Travel<30 Days: No Contact w/Intl Traveler <30 Da: No Traveled to Known Affected Are: No History of Present Illness 87-year-old male with a past medical history significant for CHF (EF of 20-25%) , COPD, gout and chronic kidney disease presents to the emergency department with increasing shortness of breath. The patient reports his symptoms started last night. He endorses paroxysmal nocturnal dyspnea as well as this area on exertion. He states he feels as though he "is struggling to breathe" and that he has "fluid on his lungs." Chest x-ray significant for mild hazy opacity at the right lung base. BNP 1370. Patient denies any productive cough or fever/ chills. He denies congestion. He denies any associated chest pain or nausea/ vomiting. Review of Systems Denies fever or chills Denies blurry vision, otorrhea, rhinorrhea Denies sore throat and cough No chest pain, palpitations, positive shortness of breath No abdominal pain Denies constipation/diarrhea/nausea/vomiting Denies muscle pain/weakness No rashes Past Family Social History Past Medical History COPD CHF with an EF of 20 and 25% Gout Chronic kidney disease Past Surgical History AICD placement with replacement in May 2017 Left knee surgery Reported Medications Reported Meds & Active Scripts Active Potassium Chloride ER (Potassium Chloride) 10 Meq Tab 10 Meq PO BID Furosemide 20 Mg Tab 20 Mg PO BID Lopressor (Metoprolol Tartrate) 50 Mg Tab 50 Mg PO Q12HR Reported Nitroglycerin SL (Nitroglycerin) 0.4 Mg Subl 0.4 Mg SL DIRECTED PRN ONE TABLET UNDER THE TONGUE NEEDED FOR CHEST PAIN, MAY REPEAT EVERY FIVE MINUTES FOR A TOTAL OF 3 DOSES OR CALL 911 IF NO RELIEF Uloric (Febuxostat) 80 Mg Tab 1 DAILY Allergies: Coded Allergies: No Known Allergies (Verified Adverse Reaction, Unknown, 11/24/17) Family History Hypertension in multiple family members Social History Quit smoking approximately 12 years ago. Occasional alcohol. Denies illicit drugs. Physical Exam Vital Signs Vital Signs Date Time Temp Pulse Resp B/P (MAP) Pulse Ox O2 Delivery O2 Flow Rate FiO2 11/24/17 14:52 78 18 133/85 (101) 99 Room Air 11/24/17 13:27 96 Room Air 1.00 11/24/17 13:27 96 Nasal Cannula 1.00 11/24/17 13:09 100 Nasal Cannula 1.00 11/24/17 12:03 98.5 87 16 135/88 (104) 98 Room Air Physical Exam GENERAL: male lying in bed SKIN: No rashes, ecchymoses or lesions. Cool and dry. HEAD: Atraumatic. Normocephalic. No temporal or scalp tenderness. EYES: Pupils equal round and reactive. Extraocular motions intact. No scleral icterus. No injection or drainage. ENT: Nose without bleeding, purulent drainage or septal hematoma. Throat without erythema, tonsillar hypertrophy or exudate. Uvula midline. Airway patent. NECK: Trachea midline. No JVD or lymphadenopathy. Supple, nontender, no meningeal signs. CARDIOVASCULAR: Regular rate and rhythm without murmurs, gallops, or rubs. RESPIRATORY: Crackles in the right base. No wheezes, rales, or rhonchi. GASTROINTESTINAL: Abdomen soft, non-tender, nondistended. No hepato-splenomegaly , or palpable masses. No guarding. MUSCULOSKELETAL: Extremities without clubbing, cyanosis, or edema. No joint tenderness, effusion, or edema noted. No calf tenderness. NEUROLOGICAL: Awake and alert. Cranial nerves II through XII intact. Motor and sensory grossly within normal limits. Normal speech. Laboratory Laboratory Tests Test 11/24/17 13:20 White Blood Count 4.7 Red Blood Count 3.34 Hemoglobin 10.0 Hematocrit 31.1 Mean Corpuscular Volume 93.3 Mean Corpuscular Hemoglobin 30.1 Mean Corpuscular Hemoglobin Concent 32.3 Red Cell Distribution Width 15.9 Platelet Count 109 Mean Platelet Volume 10.7 Neutrophils (%) (Auto) 64.3 Lymphocytes (%) (Auto) 18.6 Monocytes (%) (Auto) 15.8 Eosinophils (%) (Auto) 0.7 Basophils (%) (Auto) 0.6 Neutrophils # (Auto) 3.0 Lymphocytes # (Auto) 0.9 Monocytes # (Auto) 0.7 Eosinophils # (Auto) 0.0 Basophils # (Auto) 0.0 CBC Comment DIFF FINAL Differential Comment Blood Urea Nitrogen 20 Creatinine 1.97 Random Glucose 86 Total Protein 8.1 Albumin 3.6 Calcium Level 8.4 Alkaline Phosphatase 60 Aspartate Amino Transf (AST/SGOT) 16 Alanine Aminotransferase (ALT/SGPT) 16 Total Bilirubin 0.6 Sodium Level 138 Potassium Level 4.0 Chloride Level 105 Carbon Dioxide Level 25.7 Anion Gap 7 Estimat Glomerular Filtration Rate 39 Total Creatine Kinase 91 Troponin I 0.04 B-Type Natriuretic Peptide 1370 Result Diagram: 11/24/17 1320 11/24/17 132 Caprini VTE Risk Assessment Caprini VTE Risk Assessment: Mod/High Risk (score >= 2) Caprini Risk Assessment Model Point Value = 1 Point Value = 2 Point Value = 3 Point Value = 5 Age 41-60 Minor surgery BMI > 25 kg/m2 Swollen legs Varicose veins or History of unexplained or recurrent spontaneous Oral contraceptives or hormone replacement Sepsis (< 1 month) Serious lung disease, including pneumonia (< 1 month) Abnormal pulmonary function Acute myocardial infarction Congestive heart failure (< 1 month) History of inflammatory bowel disease Medical patient at bed rest Age 61-74 Arthroscopic surgery Major open surgery (> 45 min) Laparoscopic surgery (> 45 min) Malignancy Confined to bed (> 72 hours) Immobilizing plaster cast Central venous access Age >= 75 History of VTE Family history of VTE Factor V Leiden Prothrombin [id number] Lupus anticoagulant Anticardiolipin antibodies Elevated serum homocysteine Heparin-induced thrombocytopenia Other congenital or acquired thrombophilia Stroke (< 1 month) Elective arthroplasty Hip, pelvis, or leg fracture Acute spinal cord injury (< 1 month) Prophylaxis Regimen Total Risk Factor Score Risk Level Prophylaxis Regimen 0-1 Low Early ambulation 2 Moderate Order ONE of the following: *Sequential Compression Device (SCD) *Heparin 5000 units SQ BID 3-4 Higher Order ONE of the following medications: *Heparin 5000 units SQ TID *Enoxaparin/Lovenox 40 mg SQ daily (WT < 150 kg, CrCl > 30 mL/min) *Enoxaparin/Lovenox 30 mg SQ daily (WT < 150 kg, CrCl > 10-29 mL/min) *Enoxaparin/Lovenox 30 mg SQ BID (WT < 150 kg, CrCl > 30 mL/min) AND/OR *Sequential Compression Device (SCD) 5 or more Highest Order ONE of the following medications: *Heparin 5000 units SQ TID (Preferred with Epidurals) *Enoxaparin/Lovenox 40 mg SQ daily (WT < 150 kg, CrCl > 30 mL/min) *Enoxaparin/Lovenox 30 mg SQ daily (WT < 150 kg, CrCl > 10-29 mL/min) *Enoxaparin/Lovenox 30 mg SQ BID (WT < 150 kg, CrCl > 30 mL/min) AND *Sequential Compression Device (SCD) Assessment and Plan Assessment and Plan Assessment/plan: 1. CHF exacerbation Chest x-ray with mild hazy opacity in the right lung base, images reviewed by me. No leukocytosis or clinical signs of pneumonia. BNP 1370 IV Lasix Supplemental oxygen prn Monitor for signs of volume overload 2. Acute on chronic renal insufficiency Creatinine 1.97, baseline 1.6 Monitor renal function 3. COPD Patient with history of COPD in the medical record however the patient denies any history of lung disease Clinically this does not appear to be a COPD exacerbation FEN Heart healthy diet Electrolytes: monitor and replete prn Heparin Cecile Etienne MD Nov 24, 2017 15:31
[2017-11-24 16:32] VITALS: BP 156/89; PULSE 90; RESP 17; O2SAT 96
[2017-11-24] MEDS: HEPARIN SODIUM - SQ 10,000 UNITS/ML VIAL SQ SCH ×2 (16:32→23:51)
[2017-11-24] MEDS: FUROSEMIDE 20 MG/2 ML VIAL IV PUSH SCH (18:09)
[2017-11-24 20:00] VITALS: BP 127/78; PULSE 86; PULSE 87; RESP 16; TEMP 97.3; O2SAT 98
[2017-11-24] MEDS: DOCUSATE SODIUM 50 MG/SENNA 8.6 MG TAB PO SCH (21:00)
[2017-11-24] MEDS: POTASSIUM CHLORIDE 10 MEQ CONTROLLED RELEASE TAB PO SCH (22:19)
[2017-11-24] MEDS: METOPROLOL TARTRATE 50 MG TAB PO SCH (22:19)
[2017-11-24] MEDS: SODIUM CHLORIDE 0.9% FLUSH 10 ML FLUSH IV FLUSH SCH (22:19)
[2017-11-25] VITALS (9 sets, daily range): BP systolic 112–142; BP diastolic 60–93; PULSE 67–85; RESP 16–20; TEMP 97.6–98.1; O2SAT 95–98
[2017-11-25 08:08] LABS: AUTOMATED NEUTROPHIL # 1.1 TH/MM3 (1.8-7.7); BASOPHIL % 1.1 % (0.0-2.0); EOSINOPHIL % 0.7 % (0.0-4.0); HEMATOCRIT 32.8 % (39.0-51.0); HEMOGLOBIN 10.5 GM/DL (13.0-17.0); LYMPH % 41.6 % (9.0-44.0); LYMPHOCYTE # 1.6 TH/MM3 (1.0-4.8); MEAN CELL VOLUME 93.4 FL (80.0-100.0); MEAN CORPUSCULAR HEMOGLOBIN 29.8 PG (27.0-34.0); MEAN CORPUSCULAR HGB CONC 31.9 % (32.0-36.0); MEAN PLATELET VOLUME 10.8 FL (7.0-11.0); MONO % 27.9 % (0.0-8.0); NEUT % 28.7 % (16.0-70.0); PLATELET COUNT 100 TH/MM3 (150-450); RED BLOOD COUNT 3.51 MIL/MM3 (4.50-5.90); RED CELL DISTRIBUTION WIDTH 16.2 % (11.6-17.2); WHITE BLOOD COUNT 3.7 TH/MM3 (4.0-11.0)
[2017-11-25 08:23] LABS: BICARBONATE 24.1 MEQ/L (21.0-32.0); CALCIUM 8.3 MG/DL (8.5-10.1); CREATININE 1.94 MG/DL (0.60-1.30)
[2017-11-25] MEDS: SODIUM CHLORIDE 0.9% FLUSH 10 ML FLUSH IV FLUSH SCH ×2 (09:00→22:47)
[2017-11-25] MEDS: POTASSIUM CHLORIDE 10 MEQ CONTROLLED RELEASE TAB PO SCH ×2 (09:51→22:47)
[2017-11-25] MEDS: DOCUSATE SODIUM 50 MG/SENNA 8.6 MG TAB PO SCH ×2 (09:52→21:00)
[2017-11-25] MEDS: METOPROLOL TARTRATE 50 MG TAB PO SCH ×2 (09:52→22:47)
[2017-11-25] MEDS: HEPARIN SODIUM - SQ 10,000 UNITS/ML VIAL SQ SCH ×2 (09:53→16:22)
[2017-11-25] MEDS: FUROSEMIDE 20 MG/2 ML VIAL IV PUSH SCH ×2 (09:53→16:25)
--- NOTE | 2017-11-25 16:45 | EKG ---
Date Performed: 11/24/2017 Time Performed: 13:12:38 PTAGE: 87 years EKG: NORMAL Sinus rhythm WITH P WAVE SYNCHRONOUS VENTRICULAR PACING ABNORMAL RHYTHM ECG NO PREVIOUS TRACING DOCTOR: Nikunj Billings Interpretating Date/Time 11/25/2017 16:44:44
--- NOTE | 2017-11-25 18:48 | HHI.PR ---
Subjective Remarks Patient states he has episodic shortness of breath. Discussed with RN who states that when the complaint of shortness of breath he satting 99% on room air. The patient denies chest pain. Objective Vitals Vital Signs Date Time Temp Pulse Resp B/P (MAP) Pulse Ox O2 Delivery O2 Flow Rate FiO2 11/25/17 16:00 97.6 80 20 134/88 (103) 95 11/25/17 12:00 98.1 78 20 112/60 (77) 97 11/25/17 08:00 97.8 85 20 142/93 (109) 98 11/25/17 04:00 97.9 75 16 133/87 (102) 96 11/25/17 04:00 Room Air 11/25/17 04:00 76 11/25/17 00:00 73 11/25/17 00:00 98.1 67 16 131/81 (98) 97 11/25/17 00:00 Room Air 11/24/17 20:00 86 11/24/17 20:00 Room Air 11/24/17 20:00 97.3 87 16 127/78 (94) 98 I/O 11/24/17 11/24/17 11/24/17 11/25/17 11/25/17 11/25/17 06:59 14:59 22:59 06:59 14:59 22:59 Intake Total 240 ml 720 ml 720 ml Output Total 750 ml 1000 ml Balance 240 ml -30 ml -280 ml Intake Oral 240 ml 720 ml 720 ml Output Urine Total 750 ml 1000 ml # Voids 0 # Bowel Movements 0 Result Diagram: 11/25/17 0610 11/25/17 0610 Imaging Last Impressions Chest X-Ray 11/24/17 1318 Signed Impressions: Service Date/Time: Friday, November 24, 2017 13:29 - CONCLUSION: Mild hazy opacity is now noted at the right lung base. The left lung base is obscured. Christoph Weinstein MD Objective Remarks GENERAL: male lying in bed SKIN: No rashes, ecchymoses or lesions. Cool and dry. HEAD: Atraumatic. Normocephalic. No temporal or scalp tenderness. EYES: Pupils equal round and reactive. Extraocular motions intact. No scleral icterus. No injection or drainage. ENT: Nose without bleeding, purulent drainage or septal hematoma. Throat without erythema, tonsillar hypertrophy or exudate. Uvula midline. Airway patent. NECK: Trachea midline. No JVD or lymphadenopathy. Supple, nontender, no meningeal signs. CARDIOVASCULAR: Regular rate and rhythm without murmurs, gallops, or rubs. RESPIRATORY: Crackles in the right base. No wheezes, rales, or rhonchi. GASTROINTESTINAL: Abdomen soft, non-tender, nondistended. No hepato-splenomegaly , or palpable masses. No guarding. MUSCULOSKELETAL: Extremities without clubbing, cyanosis, or edema. No joint tenderness, effusion, or edema noted. No calf tenderness. NEUROLOGICAL: Awake and alert. Cranial nerves II through XII intact. Motor and sensory grossly within normal limits. Normal speech. Medications and IVs Current Medications Medications (Trade) Dose Ordered Sig/Moses Route Start Time Stop Time Status Last Admin (Lopressor) 50 mg Q12HR PO 11/24/17 21:00 11/25/17 09:52 (KCl) 10 meq BID PO 11/24/17 21:00 11/25/17 09:51 (NS Flush) 2 ml UNSCH PRN IV FLUSH 11/24/17 15:30 11/25/17 09:54 (NS Flush) 2 ml BID IV FLUSH 11/24/17 21:00 11/25/17 09:00 (Tylenol) 650 mg Q4H PRN PO 11/24/17 15:30 (Zofran Inj) 4 mg Q6H PRN IVP 11/24/17 15:30 (Heparin Inj) 5,000 units Q8H SQ 11/24/17 16:00 11/25/17 16:22 (Narcan Inj) 0.4 mg UNSCH PRN IV PUSH 11/24/17 15:30 (Patricia-Colace) 1 tab BID PO 11/24/17 21:00 11/25/17 09:52 (Milk Of Magnesia Liq) 30 ml Q12H PRN PO 11/24/17 15:30 (Senokot) 17.2 mg Q12H PRN PO 11/24/17 15:30 (Dulcolax Supp) 10 mg DAILY PRN RECTAL 11/24/17 15:30 (Lactulose Liq) 30 ml DAILY PRN PO 11/24/17 15:30 (Lasix Inj) 20 mg BID@18 IV PUSH 11/24/17 18:00 11/25/17 16:25 A/P Problem List: (1) PNA (pneumonia) ICD Code: J18.9 - Pneumonia, unspecified organism Plan: Chest x-ray reviewed by me shows a mild hazy opacity noted at the right lung base. Left lung base is obscured. I will order a CT of the chest to better assess these findings. The patient currently is afebrile. I will start the patient empirically on IV Zosyn. (2) Acute on chronic systolic CHF (congestive heart failure) ICD Code: I50.23 - Acute on chronic systolic (congestive) heart failure Status: Acute Plan: Echocardiogram obtained on 05/21/17 and reviewed by me showed an EF of 20 -25% with moderately dilated left ventricle. There was global left ventricular dysfunction. Continue IV Lasix for now. (3) HTN (hypertension) ICD Code: I10 - Essential (primary) hypertension Status: Chronic Plan: Blood pressure seems stable. Continue home antihypertensive medications. (4) PATRICE (acute kidney injury) ICD Code: N17.9 - Acute kidney failure, unspecified Status: Acute Plan: Patent 1.97, baseline 1.6 as per medical records personally reviewed by me. Creatinine slightly lower, continued to trend. Continue to monitor BUN/ creatinine, monitor strict I's and O's and avoid nephrotoxins. (5) Gout ICD Code: M10.9 - Gout, unspecified Status: Chronic Plan: Seem stable. Uloric not available at this institution - will continue to hold. (6) CKD (chronic kidney disease), stage III ICD Code: N18.3 - Chronic kidney disease, stage 3 (moderate) Plan: As above. Problem Qualifiers (1) PNA (pneumonia): Qualified Codes: J18.1 - Lobar pneumonia, unspecified organism Srinivasa Castañeda MD Nov 25, 2017 18:47
--- NOTE | 2017-11-25 21:18 | RADRPT ---
EXAM DATE/TIME: 11/25/2017 21:06 [place] COMPARISON: CHEST SINGLE AP, November 24, 2017, 13:29. INDICATIONS : Shortness of breath. RADIATION DOSE: 9.3 CTDIvol (mGy) MEDICAL HISTORY : Cardiovascular disease. Hypertension. SURGICAL HISTORY : Pacemaker. ENCOUNTER: Initial ACUITY: 1 day PAIN SCALE: 0/10 LOCATION: Bilateral chest TECHNIQUE: Volumetric scanning of the chest was performed. Using automated exposure control and adjustment of t he mA and/or kV according to patient size, radiation dose was kept as low as reasonably achievable to obtain optimal diagnostic quality images. DICOM format image data is available electronically for r eview and comparison. Follow-up recommendations for detected pulmonary nodules are based at a minimum on nodule size and pa tient risk factors according to Fleischner Society Guidelines. FINDINGS: There is patchy mild parenchymal consolidation of both bases. Tiny bilateral pleural effusions also p resent. No pneumothorax. There is panchamber enlargement of the heart. Cardiac pacer present. There is coronary artery calcifi cation. No mediastinal, hilar or axillary lymphadenopathy demonstrated. Bilateral gynecomastia noted. 3 cm subcutaneous mass seen medial to the right scapula, presumably a sebaceous cyst. Please correlat e clinically. CONCLUSION: 1. Mild bibasilar consolidation differential including mild pulmonary edema and mild pneumonia. 2. Tiny bilateral pleural effusions. 3. Panchamber enlargement of the heart and coronary artery calcification. Alexsander Chopra MD on November 25, 2017 at 21:12 Board Certified Radiologist. This report was verified electronically.
[2017-11-25] MEDS: PIPERACIL-TAZO 3.375 GM PREMIX 50 ML IV SCH (22:47)
[2017-11-26] VITALS (9 sets, daily range): BP systolic 111–131; BP diastolic 71–90; PULSE 9–81; RESP 18–20; TEMP 97.2–98; O2SAT 96–100
[2017-11-26] MEDS: HEPARIN SODIUM - SQ 10,000 UNITS/ML VIAL SQ SCH ×3 (00:35→17:28)
[2017-11-26] MEDS: PIPERACIL-TAZO 3.375 GM PREMIX 50 ML IV SCH ×3 (04:57→21:55)
[2017-11-26 08:37] LABS: AUTOMATED NEUTROPHIL # 1.1 TH/MM3 (1.8-7.7); BASOPHIL % 0.9 % (0.0-2.0); EOSINOPHIL % 0.9 % (0.0-4.0); HEMATOCRIT 31.4 % (39.0-51.0); HEMOGLOBIN 10.4 GM/DL (13.0-17.0); LYMPH % 36.7 % (9.0-44.0); LYMPHOCYTE # 1.4 TH/MM3 (1.0-4.8); MEAN CELL VOLUME 92.6 FL (80.0-100.0); MEAN CORPUSCULAR HEMOGLOBIN 30.6 PG (27.0-34.0); MEAN PLATELET VOLUME 10.6 FL (7.0-11.0); MONO % 31.2 % (0.0-8.0); MONOCYTE # 1.2 TH/MM3 (0-0.9); NEUT % 30.3 % (16.0-70.0); PLATELET COUNT 120 TH/MM3 (150-450); RED BLOOD COUNT 3.39 MIL/MM3 (4.50-5.90); RED CELL DISTRIBUTION WIDTH 15.8 % (11.6-17.2); WHITE BLOOD COUNT 3.7 TH/MM3 (4.0-11.0)
[2017-11-26] MEDS: METOPROLOL TARTRATE 50 MG TAB PO SCH ×2 (08:45→21:55)
[2017-11-26] MEDS: DOCUSATE SODIUM 50 MG/SENNA 8.6 MG TAB PO SCH ×2 (08:45→21:00)
[2017-11-26] MEDS: POTASSIUM CHLORIDE 10 MEQ CONTROLLED RELEASE TAB PO SCH ×2 (08:45→21:54)
[2017-11-26] MEDS: FUROSEMIDE 20 MG/2 ML VIAL IV PUSH SCH (08:47)
[2017-11-26] MEDS: SODIUM CHLORIDE 0.9% FLUSH 10 ML FLUSH IV FLUSH SCH ×2 (08:47→21:55)
[2017-11-26 08:54] LABS: ALBUMIN 3.4 GM/DL (3.4-5.0); AST (GOT) 18 U/L (15-37); BICARBONATE 25.1 MEQ/L (21.0-32.0); BLOOD UREA NITROGEN 23 MG/DL (7-18); CALCIUM 8.6 MG/DL (8.5-10.1); CHLORIDE 101 MEQ/L (98-107); CREATININE 2.21 MG/DL (0.60-1.30); GLOMERULAR FILTRATION RATE 34 ML/MIN (>89); GLUCOSE,RANDOM 77 MG/DL (74-106); MAGNESIUM 2.3 MG/DL (1.5-2.5); SODIUM (NA) 135 MEQ/L (136-145)
[2017-11-26 08:56] LABS: ALT (GPT) 15 U/L (12-78); PHOSPHORUS 3.3 MG/DL (2.5-4.9)
[2017-11-26 08:58] LABS: ALKALINE PHOSPHATASE 61 U/L (45-117); TOTAL BILIRUBIN ADULT 0.8 MG/DL (0.2-1.0); TOTAL PROTEIN 7.7 GM/DL (6.4-8.2)
[2017-11-26] MEDS ORDERED: METOPROLOL TARTRATE 50 MG TAB PO ONE (16:30)
--- NOTE | 2017-11-26 16:42 | HHI.PR ---
Subjective Remarks Denies cp/sob better. Creatinine is trending up. Objective Vitals Vital Signs Date Time Temp Pulse Resp B/P (MAP) Pulse Ox O2 Delivery O2 Flow Rate FiO2 11/26/17 12:00 61 11/26/17 12:00 97.7 70 20 111/71 (84) 96 11/26/17 08:00 72 11/26/17 08:00 97.2 68 20 128/79 (95) 100 11/26/17 08:00 Room Air 11/26/17 04:00 97.5 9 18 131/90 (104) 98 11/26/17 04:00 70 11/26/17 00:00 98.0 71 18 120/78 (92) 97 11/26/17 00:00 81 11/25/17 21:00 83 11/25/17 21:00 Room Air 11/25/17 20:48 98 21 11/25/17 20:00 98.1 84 18 130/79 (96) 98 I/O 11/25/17 11/25/17 11/25/17 11/26/17 11/26/17 11/26/17 07:00 15:00 23:00 07:00 15:00 23:00 Intake Total 720 ml 720 ml 480 ml Output Total 750 ml 1000 ml Balance -30 ml -280 ml 480 ml Intake Oral 720 ml 720 ml 480 ml Output Urine Total 750 ml 1000 ml # Voids 7 # Bowel Movements 0 Result Diagram: 11/26/17 0747 11/26/17 0747 Imaging Last Impressions Chest CT 11/25/17 0000 Signed Impressions: Service Date/Time: Saturday, November 25, 2017 21:06 - CONCLUSION: 1. Mild bibasilar consolidation differential including mild pulmonary edema and mild pneumonia. 2. Tiny bilateral pleural effusions. 3. Panchamber enlargement of the heart and coronary artery calcification. Alexsander Chopra MD Chest X-Ray 11/24/17 1318 Signed Impressions: Service Date/Time: Friday, November 24, 2017 13:29 - CONCLUSION: Mild hazy opacity is now noted at the right lung base. The left lung base is obscured. Christoph Weinstein MD Objective Remarks GENERAL: male lying in bed SKIN: No rashes, ecchymoses or lesions. Cool and dry. HEAD: Atraumatic. Normocephalic. No temporal or scalp tenderness. EYES: Pupils equal round and reactive. Extraocular motions intact. No scleral icterus. No injection or drainage. ENT: Nose without bleeding, purulent drainage or septal hematoma. Throat without erythema, tonsillar hypertrophy or exudate. Uvula midline. Airway patent. NECK: Trachea midline. No JVD or lymphadenopathy. Supple, nontender, no meningeal signs. CARDIOVASCULAR: Regular rate and rhythm without murmurs, gallops, or rubs. RESPIRATORY: Crackles in the right base. No wheezes, rales, or rhonchi. GASTROINTESTINAL: Abdomen soft, non-tender, nondistended. No hepato-splenomegaly , or palpable masses. No guarding. MUSCULOSKELETAL: Extremities without clubbing, cyanosis, or edema. No joint tenderness, effusion, or edema noted. No calf tenderness. NEUROLOGICAL: Awake and alert. Cranial nerves II through XII intact. Motor and sensory grossly within normal limits. Normal speech. Medications and IVs Current Medications Medications (Trade) Dose Ordered Sig/Moses Route Start Time Stop Time Status Last Admin (Lopressor) 50 mg Q12HR PO 11/24/17 21:00 11/26/17 08:45 (KCl) 10 meq BID PO 11/24/17 21:00 11/26/17 08:45 (NS Flush) 2 ml UNSCH PRN IV FLUSH 11/24/17 15:30 11/25/17 09:54 (NS Flush) 2 ml BID IV FLUSH 11/24/17 21:00 11/26/17 08:47 (Tylenol) 650 mg Q4H PRN PO 11/24/17 15:30 (Zofran Inj) 4 mg Q6H PRN IVP 11/24/17 15:30 (Heparin Inj) 5,000 units Q8H SQ 11/24/17 16:00 11/26/17 08:46 (Narcan Inj) 0.4 mg UNSCH PRN IV PUSH 11/24/17 15:30 (Patricia-Colace) 1 tab BID PO 11/24/17 21:00 11/26/17 08:45 (Milk Of Magnesia Liq) 30 ml Q12H PRN PO 11/24/17 15:30 (Senokot) 17.2 mg Q12H PRN PO 11/24/17 15:30 (Dulcolax Supp) 10 mg DAILY PRN RECTAL 11/24/17 15:30 (Lactulose Liq) 30 ml DAILY PRN PO 11/24/17 15:30 (Lasix Inj) 20 mg BID@09,18 IV PUSH 11/24/17 18:00 Future Hold 11/26/17 08:47 Piperacillin Sod/ Tazobactam Sod 50 ml @ 100 mls/hr Q8H IV 11/25/17 20:00 11/26/17 14:04 A/P Problem List: (1) PNA (pneumonia) ICD Code: J18.9 - Pneumonia, unspecified organism (2) Acute on chronic systolic CHF (congestive heart failure) ICD Code: I50.23 - Acute on chronic systolic (congestive) heart failure Status: Acute (3) HTN (hypertension) ICD Code: I10 - Essential (primary) hypertension Status: Chronic (4) PATRICE (acute kidney injury) ICD Code: N17.9 - Acute kidney failure, unspecified Status: Acute (5) Gout ICD Code: M10.9 - Gout, unspecified Status: Chronic (6) CKD (chronic kidney disease), stage III ICD Code: N18.3 - Chronic kidney disease, stage 3 (moderate) Assessment and Plan 1) PNA (pneumonia) ICD Code: J18.9 - Pneumonia, unspecified organism Plan: Chest x-ray reviewed by me shows a mild hazy opacity noted at the right lung base. Left lung base is obscured. I will order a CT of the chest to better assess these findings. The patient currently is afebrile. Started on IV Zosyn. 11/[address] of the chest as described above showed mild bibasilar consolidation and tiny bilateral pleural effusions. (2) Acute on chronic systolic CHF (congestive heart failure) ICD Code: I50.23 - Acute on chronic systolic (congestive) heart failure Status: Acute Plan: Echocardiogram obtained on 05/21/17 and reviewed by me showed an EF of 20 -25% with moderately dilated left ventricle. There was global left ventricular dysfunction. Condition initially placed on IV Lasix. 11/26 creatinine trending up. I will discontinue IV Lasix for now. (3) HTN (hypertension) ICD Code: I10 - Essential (primary) hypertension Status: Chronic Plan: Blood pressure seems stable. Continue home antihypertensive medications. (4) PATRICE (acute kidney injury) ICD Code: N17.9 - Acute kidney failure, unspecified Status: Acute Plan: Patent 1.97, baseline 1.6 as per medical records personally reviewed by me. Creatinine slightly lower, continued to trend. Continue to monitor BUN/ creatinine, monitor strict I's and O's and avoid nephrotoxins. 11/26 creatinine worsening and now up to 2.21. We'll discontinue Lasix and start on gentle IV fluids. Continue to monitor BMP (5) Gout ICD Code: M10.9 - Gout, unspecified Status: Chronic Plan: Seem stable. Uloric not available at this institution - will continue to hold. (6) CKD (chronic kidney disease), stage III ICD Code: N18.3 - Chronic kidney disease, stage 3 (moderate) Plan: As above. Discharge Planning Continue to monitor in the medical floor. Pending creatinine improvement. Problem Qualifiers (1) PNA (pneumonia): Qualified Codes: J18.1 - Lobar pneumonia, unspecified organism Srinivasa Castañeda MD Nov 26, 2017 16:42
[2017-11-26] MEDS ORDERED: SODIUM CHLOR 0.9% 1000 ML INJ 1,000 ML IV SCH (17:00)
[2017-11-27] VITALS (7 sets, daily range): BP systolic 119–148; BP diastolic 71–85; PULSE 62–78; RESP 16–19; TEMP 97.2–98.2; O2SAT 96–99
[2017-11-27] MEDS ORDERED: FUROSEMIDE 40 MG/4 ML VIAL IV PUSH ONE
[2017-11-27] MEDS: HEPARIN SODIUM - SQ 10,000 UNITS/ML VIAL SQ SCH ×3 (00:21→15:43)
[2017-11-27] MEDS: PIPERACIL-TAZO 3.375 GM PREMIX 50 ML IV SCH ×2 (04:36→12:33)
[2017-11-27 04:49] LABS: BILIRUBIN, URINE NEG (NEG); BLOOD, URINE NEG (NEG); GLUCOSE,URINE NEG (NEG); KETONE, URINE NEG (NEG); NITRITE,URINE NEG (NEG); PH, URINE 6.5 (5.0-8.5); URINE COLOR LIGHT-YELLOW (YELLW/STRAW); URINE LEUKOCYTE ESTERASE NEG (NEG)
[2017-11-27 08:13] LABS: HEMATOCRIT 31.2 % (39.0-51.0); HEMOGLOBIN 10.2 GM/DL (13.0-17.0); MEAN CELL VOLUME 93.1 FL (80.0-100.0); MEAN CORPUSCULAR HEMOGLOBIN 30.4 PG (27.0-34.0); MEAN CORPUSCULAR HGB CONC 32.7 % (32.0-36.0); MEAN PLATELET VOLUME 10.9 FL (7.0-11.0); PLATELET COUNT 126 TH/MM3 (150-450); RED BLOOD COUNT 3.35 MIL/MM3 (4.50-5.90); RED CELL DISTRIBUTION WIDTH 16.3 % (11.6-17.2); WHITE BLOOD COUNT 3.5 TH/MM3 (4.0-11.0)
[2017-11-27 08:36] LABS: BICARBONATE 25.8 MEQ/L (21.0-32.0); CALCIUM 8.2 MG/DL (8.5-10.1); CREATININE 2.28 MG/DL (0.60-1.30)
[2017-11-27] MEDS: DOCUSATE SODIUM 50 MG/SENNA 8.6 MG TAB PO SCH ×2 (08:39→21:00)
[2017-11-27] MEDS: POTASSIUM CHLORIDE 10 MEQ CONTROLLED RELEASE TAB PO SCH ×2 (08:39→21:41)
[2017-11-27] MEDS: SODIUM CHLORIDE 0.9% FLUSH 10 ML FLUSH IV FLUSH SCH ×2 (08:39→21:42)
[2017-11-27] MEDS: METOPROLOL TARTRATE 50 MG TAB PO SCH ×2 (08:39→21:41)
[2017-11-27] MEDS ORDERED: SODIUM CHLOR 0.9% 1000 ML INJ 1,000 ML IV SCH (09:00)
[2017-11-27] MEDS ORDERED: POTASSIUM CHLORIDE 10 MEQ CONTROLLED RELEASE TAB PO ONE (09:00)
--- NOTE | 2017-11-27 14:02 | HHI.PR ---
Subjective Remarks per RN report - patient became sob last night on IV fluids - this were discontinued and the patient given IV lasix x1. Creatinine still elevated. Patient denies cob or chest pain at the moment. Afebrile. Objective Vitals Vital Signs Date Time Temp Pulse Resp B/P (MAP) Pulse Ox O2 Delivery O2 Flow Rate FiO2 11/27/17 12:00 Room Air 11/27/17 08:11 97.9 72 19 133/80 (97) 97 11/27/17 08:00 Room Air 11/27/17 04:00 62 11/27/17 00:00 66 11/26/17 23:55 97.3 67 20 123/84 (97) 11/26/17 20:00 97.6 70 20 131/81 (98) 100 11/26/17 20:00 Nasal Cannula 2.00 11/26/17 20:00 74 11/26/17 16:00 98.0 74 20 113/72 (86) 99 11/26/17 15:47 72 11/26/17 15:00 72 I/O 11/26/17 11/26/17 11/26/17 11/27/17 11/27/17 11/27/17 07:00 15:00 23:00 07:00 15:00 23:00 Intake Total 480 ml 50 ml 670 ml Output Total 200 ml Balance 480 ml -150 ml 670 ml Intake Oral 480 ml IV Total 50 ml 670 ml Output Urine Total 200 ml # Voids 7 Result Diagram: 11/27/17 0710 11/27/17 0710 Imaging Last Impressions Chest CT 11/25/17 0000 Signed Impressions: Service Date/Time: Saturday, November 25, 2017 21:06 - CONCLUSION: 1. Mild bibasilar consolidation differential including mild pulmonary edema and mild pneumonia. 2. Tiny bilateral pleural effusions. 3. Panchamber enlargement of the heart and coronary artery calcification. Alexsander Chopra MD Chest X-Ray 11/24/17 1318 Signed Impressions: Service Date/Time: Friday, November 24, 2017 13:29 - CONCLUSION: Mild hazy opacity is now noted at the right lung base. The left lung base is obscured. Christoph Weinstein MD Objective Remarks GENERAL: male lying in bed SKIN: No rashes, ecchymoses or lesions. Cool and dry. HEAD: Atraumatic. Normocephalic. No temporal or scalp tenderness. EYES: Pupils equal round and reactive. Extraocular motions intact. No scleral icterus. No injection or drainage. ENT: Nose without bleeding, purulent drainage or septal hematoma. Throat without erythema, tonsillar hypertrophy or exudate. Uvula midline. Airway patent. NECK: Trachea midline. No JVD or lymphadenopathy. Supple, nontender, no meningeal signs. CARDIOVASCULAR: Regular rate and rhythm without murmurs, gallops, or rubs. RESPIRATORY: Crackles in the right base. No wheezes, rales, or rhonchi. GASTROINTESTINAL: Abdomen soft, non-tender, nondistended. No hepato-splenomegaly , or palpable masses. No guarding. MUSCULOSKELETAL: Extremities without clubbing, cyanosis, or edema. No joint tenderness, effusion, or edema noted. No calf tenderness. NEUROLOGICAL: Awake and alert. Cranial nerves II through XII intact. Motor and sensory grossly within normal limits. Normal speech. Procedures None Medications and IVs Current Medications Medications (Trade) Dose Ordered Sig/Moses Route Start Time Stop Time Status Last Admin (Lopressor) 50 mg Q12HR PO 11/24/17 21:00 11/27/17 08:39 (KCl) 10 meq BID PO 11/24/17 21:00 11/27/17 08:39 (NS Flush) 2 ml UNSCH PRN IV FLUSH 11/24/17 15:30 11/25/17 09:54 (NS Flush) 2 ml BID IV FLUSH 11/24/17 21:00 11/27/17 08:39 (Tylenol) 650 mg Q4H PRN PO 11/24/17 15:30 (Zofran Inj) 4 mg Q6H PRN IVP 11/24/17 15:30 (Heparin Inj) 5,000 units Q8H SQ 11/24/17 16:00 11/27/17 08:38 (Narcan Inj) 0.4 mg UNSCH PRN IV PUSH 11/24/17 15:30 (Patricia-Colace) 1 tab BID PO 11/24/17 21:00 11/27/17 08:39 (Milk Of Magnesia Liq) 30 ml Q12H PRN PO 11/24/17 15:30 (Senokot) 17.2 mg Q12H PRN PO 11/24/17 15:30 (Dulcolax Supp) 10 mg DAILY PRN RECTAL 11/24/17 15:30 (Lactulose Liq) 30 ml DAILY PRN PO 11/24/17 15:30 (Lasix Inj) 20 mg BID@,18 IV PUSH 11/24/17 18:00 Future Hold 11/26/17 08:47 Piperacillin Sod/ Tazobactam Sod 50 ml @ 100 mls/hr Q8H IV 11/25/17 20:00 11/27/17 12:33 Sodium Chloride 1,000 ml @ 84 mls/hr [id number] IV 11/27/17 09:00 A/P Problem List: (1) PNA (pneumonia) ICD Code: J18.9 - Pneumonia, unspecified organism (2) Acute on chronic systolic CHF (congestive heart failure) ICD Code: I50.23 - Acute on chronic systolic (congestive) heart failure Status: Acute (3) HTN (hypertension) ICD Code: I10 - Essential (primary) hypertension Status: Chronic (4) PATRICE (acute kidney injury) ICD Code: N17.9 - Acute kidney failure, unspecified Status: Acute (5) Gout ICD Code: M10.9 - Gout, unspecified Status: Chronic (6) CKD (chronic kidney disease), stage III ICD Code: N18.3 - Chronic kidney disease, stage 3 (moderate) Assessment and Plan 1) PNA (pneumonia) ICD Code: J18.9 - Pneumonia, unspecified organism Plan: Chest x-ray reviewed by me shows a mild hazy opacity noted at the right lung base. Left lung base is obscured. I will order a CT of the chest to better assess these findings. The patient currently is afebrile. Started on IV Zosyn. 11/[address] of the chest as described above showed mild bibasilar consolidation and tiny bilateral pleural effusions. 11/27 Will DC IV Zosyn and start on doxycycline. (2) Acute on chronic systolic CHF (congestive heart failure) ICD Code: I50.23 - Acute on chronic systolic (congestive) heart failure Status: Acute Plan: Echocardiogram obtained on 05/21/17 and reviewed by me showed an EF of 20 -25% with moderately dilated left ventricle. There was global left ventricular dysfunction. Condition initially placed on IV Lasix. 11/26 creatinine trending up. I will discontinue IV Lasix for now. (3) HTN (hypertension) ICD Code: I10 - Essential (primary) hypertension Status: Chronic Plan: Blood pressure seems stable. Continue home antihypertensive medications. (4) PATRICE (acute kidney injury) ICD Code: N17.9 - Acute kidney failure, unspecified Status: Acute Plan: Patent 1.97, baseline 1.6 as per medical records personally reviewed by me. Creatinine slightly lower, continued to trend. Continue to monitor BUN/ creatinine, monitor strict I's and O's and avoid nephrotoxins. 11/26 creatinine worsening and now up to 2.21. We'll discontinue Lasix and start on gentle IV fluids. Continue to monitor BMP. 11/27 that the pain continues to trend up, patient started on IV fluids on 11/26 however patient became short of breath and IV fluids were stopped and the patient was given 1 dose of IV Lasix. We'll consult nephrology, obtain a bladder scan and obtain a renal ultrasound. Upon review of records the patient' s creatinine was 1.6 on July 2017. (5) Gout ICD Code: M10.9 - Gout, unspecified Status: Chronic Plan: Seem stable. Uloric not available at this institution - will continue to hold. (6) CKD (chronic kidney disease), stage III ICD Code: N18.3 - Chronic kidney disease, stage 3 (moderate) Plan: As above. Discharge Planning Continue to monitor in the medical floor. Pending creatinine improvement. Nephrology consulted. Problem Qualifiers (1) PNA (pneumonia): Qualified Codes: J18.1 - Lobar pneumonia, unspecified organism Srinivasa Castañeda MD Nov 27, 2017 14:02
--- NOTE | 2017-11-27 15:50 | PD.CONS ---
History of Present Illness Service Nephrology Consult Requested By Attending Reason for Consult PATRICE on CKD Primary Care Physician Saud Worrell MD Diagnoses: (1) PATRICE (acute kidney injury) (2) CKD (chronic kidney disease), stage III (3) HTN (hypertension) (4) Acute on chronic systolic CHF (congestive heart failure) History of Present Illness 87-year-old male with a past medical history significant for CHF (EF of 20-25%) , COPD, gout and chronic kidney disease presents to the emergency department with increasing shortness of breath. Nephrology consulted for worsening renal indices. Has CKD with baseline GFR 42 with a decreased GFR to 33. 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 (Julia Mancuso) Diagnoses: (1) PATRICE (acute kidney injury) (2) CKD (chronic kidney disease), stage III (3) HTN (hypertension) (4) Acute on chronic systolic CHF (congestive heart failure) (Donovan Kauffman MD ) Review of Systems Constitutional: COMPLAINS OF: Fatigue Respiratory: COMPLAINS OF: Cough, Shortness of breath Cardiovascular: COMPLAINS OF: Orthopnea Except as stated in HPI: all other systems reviewed are Neg (Julia Mancuso) Past Family Social History Allergies: Coded Allergies: No Known Allergies (Verified Adverse Reaction, Unknown, 11/24/17) Past Medical History COPD CHF with an EF of 20 and 25% Gout Chronic kidney disease Past Surgical History AICD placement with replacement in May 2017 Left knee surgery Active Ordered Medications Current Medications Medications (Trade) Dose Ordered Sig/Moses Route Start Time Stop Time Status Last Admin (Lopressor) 50 mg Q12HR PO 11/24/17 21:00 11/27/17 08:39 (KCl) 10 meq BID PO 11/24/17 21:00 11/27/17 08:39 (NS Flush) 2 ml UNSCH PRN IV FLUSH 11/24/17 15:30 11/25/17 09:54 (NS Flush) 2 ml BID IV FLUSH 11/24/17 21:00 11/27/17 08:39 (Tylenol) 650 mg Q4H PRN PO 11/24/17 15:30 (Zofran Inj) 4 mg Q6H PRN IVP 11/24/17 15:30 (Heparin Inj) 5,000 units Q8H SQ 11/24/17 16:00 11/27/17 08:38 (Narcan Inj) 0.4 mg UNSCH PRN IV PUSH 11/24/17 15:30 (Patricia-Colace) 1 tab BID PO 11/24/17 21:00 11/27/17 08:39 (Milk Of Magnesia Liq) 30 ml Q12H PRN PO 11/24/17 15:30 (Senokot) 17.2 mg Q12H PRN PO 11/24/17 15:30 (Dulcolax Supp) 10 mg DAILY PRN RECTAL 11/24/17 15:30 (Lactulose Liq) 30 ml DAILY PRN PO 11/24/17 15:30 (Lasix Inj) 20 mg BID@,18 IV PUSH 11/24/17 18:00 Future Hold 11/26/17 08:47 (Augmentin) 875 mg Q12HR PO 11/27/17 21:00 Social History quit smoking 6 years ago Denies alcohol use Lives alone (Julia aMncuso) Physical Exam Vital Signs Vital Signs Date Time Temp Pulse Resp B/P (MAP) Pulse Ox O2 Delivery O2 Flow Rate FiO2 11/27/17 12:11 98.0 77 19 119/71 (87) 99 11/27/17 12:00 Room Air 11/27/17 08:11 97.9 72 19 133/80 (97) 97 11/27/17 08:00 Room Air 11/27/17 04:00 62 11/27/17 00:00 66 11/26/17 23:55 97.3 67 20 123/84 (97) 11/26/17 20:00 97.6 70 20 131/81 (98) 100 11/26/17 20:00 Nasal Cannula 2.00 11/26/17 20:00 74 11/26/17 16:00 98.0 74 20 113/72 (86) 99 11/26/17 15:47 72 Physical Exam GENERAL: male lying in bed with cough present SKIN: No rashes, ecchymoses or lesions. Cool and dry. HEAD: Atraumatic. Normocephalic. No temporal or scalp tenderness. NECK: Trachea midline. No JVD or lymphadenopathy. Supple, nontender, no meningeal signs. CARDIOVASCULAR: Regular rate and rhythm without murmurs, gallops, or rubs. RESPIRATORY: No wheezes, rales, or rhonchi. GASTROINTESTINAL: Abdomen soft, non-tender, nondistended. No hepato-splenomegaly , or palpable masses. No guarding. MUSCULOSKELETAL: Extremities without clubbing, cyanosis, or edema. No joint tenderness, effusion, or edema noted. No calf tenderness. NEUROLOGICAL: Awake and alert. Cranial nerves II through XII intact. Motor and sensory grossly within normal limits. Normal speech. Laboratory Laboratory Tests Test 11/27/17 04:30 11/27/17 07:10 Urine Color LIGHT-YELLOW Urine Turbidity CLEAR Urine pH 6.5 Urine Specific [place] 1.004 Urine Protein NEG Urine Glucose (UA) NEG Urine Ketones NEG Urine Occult Blood NEG Urine Nitrite NEG Urine Bilirubin NEG Urine Urobilinogen LESS THAN 2.0 Urine Leukocyte Esterase NEG Urine RBC LESS THAN 1 Urine WBC LESS THAN 1 Microscopic Urinalysis Comment CULT NOT INDICATED White Blood Count 3.5 Red Blood Count 3.35 Hemoglobin 10.2 Hematocrit 31.2 Mean Corpuscular Volume 93.1 Mean Corpuscular Hemoglobin 30.4 Mean Corpuscular Hemoglobin Concent 32.7 Red Cell Distribution Width 16.3 Platelet Count 126 Mean Platelet Volume 10.9 Blood Urea Nitrogen 22 Creatinine 2.28 Random Glucose 71 Calcium Level 8.2 Sodium Level 138 Potassium Level 3.6 Chloride Level 104 Carbon Dioxide Level 25.8 Anion Gap 8 Estimat Glomerular Filtration Rate 33 (Julia Mancuso) Result Diagram: 11/27/17 0710 11/27/17 0710 Imaging Last Impressions Chest CT 11/25/17 0000 Signed Impressions: Service Date/Time: Saturday, November 25, 2017 21:06 - CONCLUSION: 1. Mild bibasilar consolidation differential including mild pulmonary edema and mild pneumonia. 2. Tiny bilateral pleural effusions. 3. Panchamber enlargement of the heart and coronary artery calcification. Alexsander Chopra MD Chest X-Ray 11/24/17 1318 Signed Impressions: Service Date/Time: Friday, November 24, 2017 13:29 - CONCLUSION: Mild hazy opacity is now noted at the right lung base. The left lung base is obscured. Christoph Weinstein MD (Julia Mancuso) Assessment and Plan Problem List: (1) PATRICE (acute kidney injury) ICD Codes: N17.9 - Acute kidney failure, unspecified Status: Acute Plan: PATRICE on CKD with worsening renal indices with creat of 2.28, BUN 22 and GFR 33 possible ATN related to infection. Potassium level WNL Renal US pending. IVF initiated however became SOB and lasix given. PO encouraged and strict I+O Avoid nephrotoxins (2) Acute on chronic systolic CHF (congestive heart failure) ICD Codes: I50.23 - Acute on chronic systolic (congestive) heart failure Status: Acute Plan: Patient with cough. Initially given lasix but held with worsening renal indices. (3) PNA (pneumonia) ICD Codes: J18.9 - Pneumonia, unspecified organism Plan: Continue amoxicillin (Julia Mancuso) Problem List: (1) PATRICE (acute kidney injury) ICD Codes: N17.9 - Acute kidney failure, unspecified Status: Acute Plan: PATRICE on CKD with worsening renal indices with creat of 2.28, BUN 22 and GFR 33 possible ATN related to infection. Potassium level WNL Renal US pending. IVF initiated however became SOB and lasix given. PO encouraged and strict I+O Avoid nephrotoxins. Has no Proteinuria. Most likely has chronic kidney disease due to Hypertensive or renovascular disease. Now develop also PATRICE. Possibly diuretics or cardio renal. Off Lasix, keep fluid restriction. Follow the urine out put and BMP. (2) Acute on chronic systolic CHF (congestive heart failure) ICD Codes: I50.23 - Acute on chronic systolic (congestive) heart failure Status: Acute Plan: Patient with cough. Initially given lasix but held with worsening renal indices. (3) PNA (pneumonia) ICD Codes: J18.9 - Pneumonia, unspecified organism Plan: Continue amoxicillin (Donovan Kauffman MD) Problem Qualifiers (1) HTN (hypertension): Qualified Codes: I10 - Essential (primary) hypertension (2) PNA (pneumonia): Qualified Codes: J18.1 - Lobar pneumonia, unspecified organism Julia Mancuso Nov 27, 2017 15:50 Donovan Kauffman MD Nov 27, 2017 19:43
--- NOTE | 2017-11-27 16:49 | RADRPT ---
EXAM DATE/TIME: 11/27/2017 14:52 [facility] COMPARISON: No previous studies available for comparison. INDICATIONS : Increased BUN/creatinine. MEDICAL HISTORY : Congestive heart failure. Arthritis. Chest pain. Irregular heartbeat. COPD. HTN. Gout. SURGICAL HISTORY : Pacemaker. Left knee surgery. ENCOUNTER: Initial ACUITY: 1 day PAIN SCORE: 0/10 LOCATION: Bilateral flank MEASUREMENTS: RIGHT KIDNEY: 9.0 x 4.7 x 4.7 cm LEFT KIDNEY: 10.2 x 4.0 x 4.3 cm FINDINGS: RIGHT KIDNEY: Diffuse increase in renal cortical echogenicity. No evidence of stone or hydronephrosis. Several tiny cysts. LEFT KIDNEY: Increased renal cortical echogenicity. No evidence of stone or hydronephrosis. Several tiny cysts. BLADDER: Within normal limits given the degree of distension. CONCLUSION: Small echogenic kidneys consistent with medical renal disease. No evidence of hydronephrosis. Alexsander Ramos MD on November 27, 2017 at 16:45 Board Certified Radiologist. This report was verified electronically.
[2017-11-27 17:44] LABS: BICARBONATE 25.5 MEQ/L (21.0-32.0); CALCIUM 8.4 MG/DL (8.5-10.1); CREATININE 2.56 MG/DL (0.60-1.30); MAGNESIUM 2.4 MG/DL (1.5-2.5)
[2017-11-27] MEDS: AMOXICILLIN/CLAVULANATE K 875 MG TAB PO SCH (21:41)
[2017-11-28] VITALS (10 sets, daily range): BP systolic 114–139; BP diastolic 71–82; PULSE 66–84; RESP 16–18; TEMP 97.3–97.8; O2SAT 97–99
[2017-11-28] MEDS: SODIUM CHLORIDE 0.9% FLUSH 10 ML FLUSH IV FLUSH SCH ×2 (08:45→20:59)
[2017-11-28] MEDS: HEPARIN SODIUM - SQ 10,000 UNITS/ML VIAL SQ SCH ×3 (08:45→17:22)
[2017-11-28] MEDS: AMOXICILLIN/CLAVULANATE K 875 MG TAB PO SCH ×2 (08:45→20:58)
[2017-11-28] MEDS: DOCUSATE SODIUM 50 MG/SENNA 8.6 MG TAB PO SCH ×2 (08:46→20:58)
[2017-11-28] MEDS: POTASSIUM CHLORIDE 10 MEQ CONTROLLED RELEASE TAB PO SCH ×2 (08:46→20:58)
[2017-11-28] MEDS: METOPROLOL TARTRATE 50 MG TAB PO SCH ×2 (08:46→20:58)
--- NOTE | 2017-11-28 09:38 | HHI.NPPN ---
Subjective Additional Remarks Patient resting comfortable with no complaints. Alert and oriented X 3 (Julia Mancuso) History of Present Illness 87-year-old male with a past medical history significant for CHF (EF of 20-25%) , COPD, gout and chronic kidney disease presents to the emergency department with increasing shortness of breath. Nephrology consulted for worsening renal indices. Additional Remarks Patient is alert, no SOB, not in distress. (Donovan Kauffman MD) Review of Systems Respiratory Respiratory Remarks Denies any SOB (Julia Mancuso) Cardiovascular Cardiac Remarks denies any CP (Julia Mancuso) Gastrointestinal GI Remarks Denies abdominal pain (Julia Mancuso) Genitourinary Remarks Denies any dysuria (Julia Mancuso) Objective Data Data Vital Signs Date Time Temp Pulse Resp B/P (MAP) Pulse Ox O2 Delivery O2 Flow Rate FiO2 11/28/17 08:11 97.8 79 18 132/79 (96) 99 11/28/17 04:00 97.6 75 16 139/82 (101) 97 11/28/17 04:00 81 11/28/17 00:00 97.8 72 16 115/77 (90) 97 11/28/17 00:00 66 11/27/17 20:00 97.2 78 16 148/71 (96) 98 11/27/17 20:00 Room Air 11/27/17 20:00 72 11/27/17 17:00 Room Air 11/27/17 16:11 98.2 75 18 131/85 (100) 96 11/27/17 16:00 69 11/27/17 12:11 98.0 77 19 119/71 (87) 99 11/27/17 12:00 Room Air (Julia Mancuso) -: 11/27/17 0710 11/27/17 1636 Physical Exam General Appearance: Well Developed, Well Nourished, No Acute Distress (Julia Mancuso) Eyes Eye Exam: Pupils Equal (Julia Mancuso) Pulmonary Resp Exam: Clear Bilaterally, Breath Sounds Equal, No Distress (Julia Mancuso) Cardiology CV Exam: Regular (Julia Mancuso) Gastrointestinal/Abdomen GI Exam: Soft, Non-Tender, Bowel Sounds Present (Julia Mancuso) Genitourinary Exam: Flank Non-Tender (Julia Mancuso) Integumentary Skin Exam: Clear, Warm (Julia Mancuso) Extremeties Extremities Exam: No Edema (Julia Mancuso) Neurologic Neuro Exam: Alert, Awake, Oriented (Julia Mancuso) Psychiatric Psych Exam: Appropriate Responses (Julia Mancuso) Assessment/Plan Assessment Summary: PATRICE/Acute Renal Failure Electrolyte Assessment: Hypocalcemia Problem List: (1) PATRICE (acute kidney injury) ICD Codes: N17.9 - Acute kidney failure, unspecified Status: Acute Plan: Creatinine slightly more elevated at 2.56. Strict I+O Avoid nephrotoxins. Has no Proteinuria. Most likely has chronic kidney disease due to Hypertensive or renovascular disease. Now develop also PATRICE. Possibly diuretics or cardio renal. Lasix on hold, keep fluid restriction. Follow the urine out put and BMP. (2) PNA (pneumonia) ICD Codes: J18.9 - Pneumonia, unspecified organism Plan: Continue Augmentin (3) Acute on chronic systolic CHF (congestive heart failure) ICD Codes: I50.23 - Acute on chronic systolic (congestive) heart failure Status: Acute Plan: No SOB noted. Lasix on hold. No edema noted (Julia Mancuso) Problem List: (1) PATRICE (acute kidney injury) ICD Codes: N17.9 - Acute kidney failure, unspecified Status: Acute Plan: Strict I+O Avoid nephrotoxins. Has no Proteinuria. Most likely has chronic kidney disease due to Hypertensive or renovascular disease. Now develop also PATRICE. Possibly diuretics or cardio renal. Lasix on hold, keep fluid restriction. Follow the urine out put and BMP. Now new BMP today. Urine out is better. Continue to hold Lasix for now. (2) PNA (pneumonia) ICD Codes: J18.9 - Pneumonia, unspecified organism Plan: Continue Augmentin (3) Acute on chronic systolic CHF (congestive heart failure) ICD Codes: I50.23 - Acute on chronic systolic (congestive) heart failure Status: Acute Plan: No SOB noted. Lasix on hold. No edema noted (Donovan Kauffman MD) Problem Qualifiers (1) PNA (pneumonia): Qualified Codes: J18.1 - Lobar pneumonia, unspecified organism Julia Mancuso Nov 28, 2017 09:38 Donovan Kauffman MD Nov 28, 2017 16:37
--- NOTE | 2017-11-28 14:27 | HHI.PR ---
Subjective Remarks Denies sob, cp. urinating well. Objective Vitals Vital Signs Date Time Temp Pulse Resp B/P (MAP) Pulse Ox O2 Delivery O2 Flow Rate FiO2 11/28/17 12:17 97.7 71 18 114/71 (85) 97 11/28/17 12:00 Room Air 11/28/17 08:11 97.8 79 18 132/79 (96) 99 11/28/17 08:00 Room Air 11/28/17 08:00 84 11/28/17 04:00 97.6 75 16 139/82 (101) 97 11/28/17 04:00 81 11/28/17 00:00 97.8 72 16 115/77 (90) 97 11/28/17 00:00 66 11/27/17 20:00 97.2 78 16 148/71 (96) 98 11/27/17 20:00 Room Air 11/27/17 20:00 72 11/27/17 17:00 Room Air 11/27/17 16:11 98.2 75 18 131/85 (100) 96 11/27/17 16:00 69 I/O 11/27/17 11/27/17 11/27/17 11/28/17 11/28/17 11/28/17 07:00 15:00 23:00 07:00 15:00 23:00 Intake Total 670 ml 50 ml 420 ml 950 ml Output Total 3050 ml Balance 670 ml 50 ml -2630 ml 950 ml Intake Oral 420 ml 950 ml IV Total 670 ml 50 ml Output Urine Total 3050 ml # Voids 2 # Bowel Movements 1 1 Result Diagram: 11/27/17 0710 11/27/17 1636 Imaging Last Impressions Renal Ultrasound 11/27/17 0000 Signed Impressions: Service Date/Time: Monday, November 27, 2017 14:52 - CONCLUSION: Small echogenic kidneys consistent with medical renal disease. No evidence of hydronephrosis. Alexsander Ramos MD Chest CT 11/25/17 0000 Signed Impressions: Service Date/Time: Saturday, November 25, 2017 21:06 - CONCLUSION: 1. Mild bibasilar consolidation differential including mild pulmonary edema and mild pneumonia. 2. Tiny bilateral pleural effusions. 3. Panchamber enlargement of the heart and coronary artery calcification. Alexsander Chopra MD Chest X-Ray 11/24/17 3351 Signed Impressions: Service Date/Time: Friday, November 24, 2017 13:29 - CONCLUSION: Mild hazy opacity is now noted at the right lung base. The left lung base is obscured. Christoph Weinstein MD Objective Remarks GENERAL: male lying in bed SKIN: No rashes, ecchymoses or lesions. Cool and dry. HEAD: Atraumatic. Normocephalic. No temporal or scalp tenderness. EYES: Pupils equal round and reactive. Extraocular motions intact. No scleral icterus. No injection or drainage. ENT: Nose without bleeding, purulent drainage or septal hematoma. Throat without erythema, tonsillar hypertrophy or exudate. Uvula midline. Airway patent. NECK: Trachea midline. No JVD or lymphadenopathy. Supple, nontender, no meningeal signs. CARDIOVASCULAR: Regular rate and rhythm without murmurs, gallops, or rubs. RESPIRATORY: Crackles in the right base. No wheezes, rales, or rhonchi. GASTROINTESTINAL: Abdomen soft, non-tender, nondistended. No hepato-splenomegaly , or palpable masses. No guarding. MUSCULOSKELETAL: Extremities without clubbing, cyanosis, or edema. No joint tenderness, effusion, or edema noted. No calf tenderness. NEUROLOGICAL: Awake and alert. Cranial nerves II through XII intact. Motor and sensory grossly within normal limits. Normal speech. Procedures None Medications and IVs Current Medications Medications (Trade) Dose Ordered Sig/Moses Route Start Time Stop Time Status Last Admin (Lopressor) 50 mg Q12HR PO 11/24/17 21:00 11/28/17 08:46 (KCl) 10 meq BID PO 11/24/17 21:00 11/28/17 08:46 (NS Flush) 2 ml UNSCH PRN IV FLUSH 11/24/17 15:30 11/25/17 09:54 (NS Flush) 2 ml BID IV FLUSH 11/24/17 21:00 11/28/17 08:45 (Tylenol) 650 mg Q4H PRN PO 11/24/17 15:30 (Zofran Inj) 4 mg Q6H PRN IVP 11/24/17 15:30 (Heparin Inj) 5,000 units Q8H SQ 11/24/17 16:00 11/28/17 08:45 (Narcan Inj) 0.4 mg UNSCH PRN IV PUSH 11/24/17 15:30 (Patricia-Colace) 1 tab BID PO 11/24/17 21:00 11/28/17 08:46 (Milk Of Magnesia Liq) 30 ml Q12H PRN PO 11/24/17 15:30 (Senokot) 17.2 mg Q12H PRN PO 11/24/17 15:30 (Dulcolax Supp) 10 mg DAILY PRN RECTAL 11/24/17 15:30 (Lactulose Liq) 30 ml DAILY PRN PO 11/24/17 15:30 (Lasix Inj) 20 mg BID@18 IV PUSH 11/24/17 18:00 Future Hold 11/26/17 08:47 (Augmentin) 875 mg Q12HR PO 11/27/17 21:00 11/28/17 08:45 A/P Problem List: (1) PNA (pneumonia) ICD Code: J18.9 - Pneumonia, unspecified organism (2) Acute on chronic systolic CHF (congestive heart failure) ICD Code: I50.23 - Acute on chronic systolic (congestive) heart failure Status: Acute (3) HTN (hypertension) ICD Code: I10 - Essential (primary) hypertension Status: Chronic (4) PATRICE (acute kidney injury) ICD Code: N17.9 - Acute kidney failure, unspecified Status: Acute (5) Gout ICD Code: M10.9 - Gout, unspecified Status: Chronic (6) CKD (chronic kidney disease), stage III ICD Code: N18.3 - Chronic kidney disease, stage 3 (moderate) Assessment and Plan 1) PNA (pneumonia) Chest x-ray reviewed by me shows a mild hazy opacity noted at the right lung base. Left lung base is obscured. I will order a CT of the chest to better assess these findings. The patient currently is afebrile. Started on IV Zosyn. 11/[address] of the chest as described above showed mild bibasilar consolidation and tiny bilateral pleural effusions. 11/27 Will DC IV Zosyn and start on doxycycline. 11/28 Continue Doxycycline. (2) Acute on chronic systolic CHF (congestive heart failure) Echocardiogram obtained on 05/21/17 and reviewed by me showed an EF of 20-25% with moderately dilated left ventricle. There was global left ventricular dysfunction. Condition initially placed on IV Lasix. 11/26 creatinine trending up. I will discontinue IV Lasix for now. 11/28 Patient seems stable. Sating 99% on room air. (3) HTN (hypertension) Blood pressure seems stable. Continue home antihypertensive medications. (4) PATRICE (acute kidney injury) Plan: Patent 1.97, baseline 1.6 as per medical records personally reviewed by me. Creatinine slightly lower, continued to trend. Continue to monitor BUN/ creatinine, monitor strict I's and O's and avoid nephrotoxins. 11/26 creatinine worsening and now up to 2.21. We'll discontinue Lasix and start on gentle IV fluids. Continue to monitor BMP. 11/27 that the pain continues to trend up, patient started on IV fluids on 11/26 however patient became short of breath and IV fluids were stopped and the patient was given 1 dose of IV Lasix. We'll consult nephrology, obtain a bladder scan and obtain a renal ultrasound. Upon review of records the patient' s creatinine was 1.6 on July 2017. 11/28 nephrology consulted. Appreciate recommendations. Continue strict I's and O's, with nephrotoxins. The patient has not proteinuria. Possible chronic kidney disease due to hypertensive or renal vascular disease. Now has new PATRICE. Possibly secondary to diuretics or cardiorenal. Give fluid restriction, Lasix is on hold. Continue to monitor BUN/creatinine. BMP ordered and pending. (5) Gout Seem stable. Uloric not available at this institution - will continue to hold. (6) CKD (chronic kidney disease), stage III Plan: As above. Discharge Planning Continue to monitor in the medical floor. Pending creatinine improvement. Nephrology clearance. Problem Qualifiers (1) PNA (pneumonia): Qualified Codes: J18.1 - Lobar pneumonia, unspecified organism (2) HTN (hypertension): Qualified Codes: I10 - Essential (primary) hypertension Srinivasa Castañeda MD Nov 28, 2017 14:27
[2017-11-29] VITALS (10 sets, daily range): BP systolic 115–127; BP diastolic 75–83; PULSE 65–100; RESP 18–21; TEMP 97.1–97.9; O2SAT 93–100
[2017-11-29] MEDS: HEPARIN SODIUM - SQ 10,000 UNITS/ML VIAL SQ SCH ×4 (01:58→23:14)
[2017-11-29 05:09] LABS: HEMATOCRIT 32.1 % (39.0-51.0); HEMOGLOBIN 10.4 GM/DL (13.0-17.0); MEAN CELL VOLUME 92.8 FL (80.0-100.0); MEAN CORPUSCULAR HEMOGLOBIN 30.1 PG (27.0-34.0); MEAN CORPUSCULAR HGB CONC 32.5 % (32.0-36.0); MEAN PLATELET VOLUME 10.6 FL (7.0-11.0); PLATELET COUNT 122 TH/MM3 (150-450); RED BLOOD COUNT 3.46 MIL/MM3 (4.50-5.90); RED CELL DISTRIBUTION WIDTH 16.1 % (11.6-17.2); WHITE BLOOD COUNT 4.1 TH/MM3 (4.0-11.0)
[2017-11-29 05:20] LABS: BICARBONATE 22.2 MEQ/L (21.0-32.0); CALCIUM 8.3 MG/DL (8.5-10.1); CREATININE 2.04 MG/DL (0.60-1.30); MAGNESIUM 2.3 MG/DL (1.5-2.5)
[2017-11-29] MEDS: SODIUM CHLORIDE 0.9% FLUSH 10 ML FLUSH IV FLUSH SCH ×2 (08:58→20:35)
[2017-11-29] MEDS: AMOXICILLIN/CLAVULANATE K 875 MG TAB PO SCH ×2 (08:58→20:33)
[2017-11-29] MEDS: DOCUSATE SODIUM 50 MG/SENNA 8.6 MG TAB PO SCH ×2 (08:59→20:33)
[2017-11-29] MEDS: POTASSIUM CHLORIDE 10 MEQ CONTROLLED RELEASE TAB PO SCH ×2 (08:59→20:33)
[2017-11-29] MEDS: METOPROLOL TARTRATE 50 MG TAB PO SCH ×2 (08:59→20:33)
--- NOTE | 2017-11-29 10:33 | HHI.NPPN ---
Subjective History of Present Illness 87-year-old male with a past medical history significant for CHF (EF of 20-25%) , COPD, gout and chronic kidney disease presents to the emergency department with increasing shortness of breath. Nephrology consulted for worsening renal indices. Additional Remarks Patient is alert and oriented, no SOB and resting comfortably (Julia Mancuso) Review of Systems Respiratory Respiratory Remarks Denies any SOB (Julia Mancuso) Cardiovascular Cardiac Remarks denies any CP (Julia Mancuso) Gastrointestinal GI Remarks Denies abdominal pain (Julia Mancuso) Genitourinary Remarks Denies any dysuria (Julia Mancuso) Objective Data Data Vital Signs Date Time Temp Pulse Resp B/P (MAP) Pulse Ox O2 Delivery O2 Flow Rate FiO2 11/29/17 09:30 Room Air 11/29/17 08:01 97.7 74 20 126/82 (97) 95 11/29/17 08:00 100 11/29/17 05:28 97.7 70 18 119/76 (90) 93 11/29/17 04:00 65 11/29/17 04:00 Room Air 11/29/17 00:00 Room Air 11/29/17 00:00 68 11/28/17 23:27 97.6 72 18 123/79 (94) 97 11/28/17 20:45 97.5 73 18 125/78 (94) 98 11/28/17 20:00 74 11/28/17 20:00 Room Air 11/28/17 18:00 Room Air 11/28/17 16:11 97.3 72 18 122/78 (93) 97 11/28/17 16:00 69 11/28/17 12:17 97.7 71 18 114/71 (85) 97 11/28/17 12:00 Room Air (Julia Mancuso) -: 11/29/17 0426 11/29/17 0426 Imaging Last Impressions Renal Ultrasound 11/27/17 0000 Signed Impressions: Service Date/Time: Monday, November 27, 2017 14:52 - CONCLUSION: Small echogenic kidneys consistent with medical renal disease. No evidence of hydronephrosis. Alexsander Ramos MD Chest CT 11/25/17 0000 Signed Impressions: Service Date/Time: Saturday, November 25, 2017 21:06 - CONCLUSION: 1. Mild bibasilar consolidation differential including mild pulmonary edema and mild pneumonia. 2. Tiny bilateral pleural effusions. 3. Panchamber enlargement of the heart and coronary artery calcification. Alexsander Chopra MD Chest X-Ray 11/24/17 1318 Signed Impressions: Service Date/Time: Friday, November 24, 2017 13:29 - CONCLUSION: Mild hazy opacity is now noted at the right lung base. The left lung base is obscured. Christoph Weinstein MD (Gellermann,Julia M. LATHE PULLER) Physical Exam General Appearance: Well Developed, Well Nourished, No Acute Distress (Gellermann,Julia M. LATHE PULLER) Eyes Eye Exam: Pupils Equal (GellermannJulia M. LATHE PULLER) Pulmonary Resp Exam: Clear Bilaterally, Breath Sounds Equal, No Distress (Gellermann,Julia M. LATHE PULLER) Cardiology CV Exam: Regular (Gellermann,Julia M. LATHE PULLER) Gastrointestinal/Abdomen GI Exam: Soft, Non-Tender, Bowel Sounds Present (Gellermann,Julia M. LATHE PULLER) Genitourinary Exam: Flank Non-Tender (Gellermann,Julia M. LATHE PULLER) Integumentary Skin Exam: Clear, Warm (Gellermann,Julia M. LATHE PULLER) Extremeties Extremities Exam: No Edema (Gellermann,Julia M. LATHE PULLER) Neurologic Neuro Exam: Alert, Awake, Oriented (Gellermann,Julia M. LATHE PULLER) Psychiatric Psych Exam: Appropriate Responses (GellermannJulia M. LATHE PULLER) Assessment/Plan Assessment Summary: PATRICE/Acute Renal Failure Electrolyte Assessment: Hypocalcemia Problem List: (1) PATRICE (acute kidney injury) ICD Codes: N17.9 - Acute kidney failure, unspecified Status: Acute Plan: Creatinine improving at 2.04 from 2.56 and GFR 38 from 29 Strict I+O Avoid nephrotoxins. Has no Proteinuria. Most likely has chronic kidney disease due to Hypertensive or renovascular disease and now developed PATRICE. Possibly diuretics or cardio renal. Urine out is good Continue to hold Lasix (2) PNA (pneumonia) ICD Codes: J18.9 - Pneumonia, unspecified organism Plan: Continue Augmentin No SOB (3) Acute on chronic systolic CHF (congestive heart failure) ICD Codes: I50.23 - Acute on chronic systolic (congestive) heart failure Status: Acute Plan: No SOB noted. Lasix on hold. No edema noted (4) Hypocalcemia ICD Codes: E83.51 - Hypocalcemia Plan: Protein corrected calcium added (Julia Mancuso) Problem List: (1) PATRICE (acute kidney injury) ICD Codes: N17.9 - Acute kidney failure, unspecified Status: Acute Plan: Creatinine improving at 2.04 from 2.56 and GFR 38 from 29 Strict I+O Avoid nephrotoxins. Has no Proteinuria. Most likely has chronic kidney disease due to Hypertensive or renovascular disease and now developed PATRICE. Possibly diuretics or cardio renal. Urine out is good Continue to hold Lasix On Kcl, and K is normal, Follow the urine out put and BMP. (2) PNA (pneumonia) ICD Codes: J18.9 - Pneumonia, unspecified organism Plan: Continue Augmentin No SOB (3) Acute on chronic systolic CHF (congestive heart failure) ICD Codes: I50.23 - Acute on chronic systolic (congestive) heart failure Status: Acute Plan: No SOB noted. Lasix on hold. No edema noted (4) Hypocalcemia ICD Codes: E83.51 - Hypocalcemia Plan: Protein corrected calcium added (Donovan Kauffman MD) Problem Qualifiers (1) PNA (pneumonia): Qualified Codes: J18.1 - Lobar pneumonia, unspecified organism Julia Mancuso Nov 29, 2017 10:33 Donovan Kauffman MD Nov 29, 2017 21:04
[2017-11-29 12:52] LABS: CALCIUM 8.8 MG/DL (8.5-10.1)
[2017-11-29 12:57] LABS: CALCIUM-PROTEIN CORRECTED 8.7 MG/DL (8.5-10.1); TOTAL PROTEIN 7.4 GM/DL (6.4-8.2)
--- NOTE | 2017-11-29 14:25 | HHI.PR ---
Subjective Remarks resting in bed denied chest anal, stated breathing better Afebrile overnight Objective Vitals Vital Signs Date Time Temp Pulse Resp B/P (MAP) Pulse Ox O2 Delivery O2 Flow Rate FiO2 11/29/17 12:01 97.1 71 21 124/75 (91) 100 11/29/17 09:30 Room Air 11/29/17 08:01 97.7 74 20 126/82 (97) 95 11/29/17 08:00 100 11/29/17 05:28 97.7 70 18 119/76 (90) 93 11/29/17 04:00 65 11/29/17 04:00 Room Air 11/29/17 00:00 Room Air 11/29/17 00:00 68 11/28/17 23:27 97.6 72 18 123/79 (94) 97 11/28/17 20:45 97.5 73 18 125/78 (94) 98 11/28/17 20:00 74 11/28/17 20:00 Room Air 11/28/17 18:00 Room Air 11/28/17 16:11 97.3 72 18 122/78 (93) 97 11/28/17 16:00 69 I/O 11/28/17 11/28/17 11/28/17 11/29/17 11/29/17 11/29/17 07:00 15:00 23:00 07:00 15:00 23:00 Intake Total 950 ml 600 ml 240 ml Output Total 250 ml Balance 950 ml 600 ml -10 ml Intake Oral 950 ml 600 ml 240 ml Output Urine Total 250 ml # Voids 2 3 # Bowel Movements 1 0 0 Result Diagram: 11/29/17 0426 11/29/17 042 Objective Remarks GENERAL: This is a well-nourished, well-developed patient, in no apparent distress. SKIN: No rashes, warm and dry HEAD: Atraumatic. Normocephalic. EYES: Pupils equal round and reactive. Extraocular motions intact. No scleral icterus. ENT: Nose without bleeding, or drainage, Airway patent. NECK: Trachea midline. Supple CARDIOVASCULAR: Regular rate and rhythm without murmurs, gallops, or rubs. RESPIRATORY: Bibasilar crackles right more than left GASTROINTESTINAL: Abdomen soft, non-tender, nondistended. Positive bowel sounds MUSCULOSKELETAL: Extremities without clubbing, cyanosis, or edema. Pedal pulses appreciated NEUROLOGICAL: Awake and alert. Moves all extremity. Normal speech.no focal neurological deficit Procedures None A/P Problem List: (1) PNA (pneumonia) ICD Code: J18.9 - Pneumonia, unspecified organism (2) Acute on chronic systolic CHF (congestive heart failure) ICD Code: I50.23 - Acute on chronic systolic (congestive) heart failure Status: Acute (3) HTN (hypertension) ICD Code: I10 - Essential (primary) hypertension Status: Chronic (4) PATRICE (acute kidney injury) ICD Code: N17.9 - Acute kidney failure, unspecified Status: Acute (5) Gout ICD Code: M10.9 - Gout, unspecified Status: Chronic (6) CKD (chronic kidney disease), stage III ICD Code: N18.3 - Chronic kidney disease, stage 3 (moderate) Assessment and Plan Community-acquired pneumonia Acute on chronic CHF Hypertension PATRICE on CKD Gout DVT prophylaxis with SCD and heparin Plan: Status post iv Zosyn, per previous note (pt is on doxycycline ) however he is practically on Augmentin showing improvement , we will cont for now EF 20-25Assessment On 2-D echo, status post iv Lasix, monitor BMP and STEVIE appreciate nephrology input, mostly diuretic effect versus cardiorenal, avoid nephrotoxin Continue holding diuretic Problem Qualifiers (1) PNA (pneumonia): Qualified Codes: J18.1 - Lobar pneumonia, unspecified organism (2) HTN (hypertension): Qualified Codes: I10 - Essential (primary) hypertension Murali Cason MD Nov 29, 2017 14:25
[2017-11-30] VITALS (8 sets, daily range): BP systolic 106–148; BP diastolic 58–83; PULSE 67–92; RESP 17–21; TEMP 97.4–99.6; O2SAT 93–100
[2017-11-30 08:34] LABS: BICARBONATE 24.5 MEQ/L (21.0-32.0); CALCIUM 8.8 MG/DL (8.5-10.1); CREATININE 2.04 MG/DL (0.60-1.30); MAGNESIUM 2.4 MG/DL (1.5-2.5)
[2017-11-30] MEDS: POTASSIUM CHLORIDE 10 MEQ CONTROLLED RELEASE TAB PO SCH ×2 (08:58→20:40)
[2017-11-30] MEDS: DOCUSATE SODIUM 50 MG/SENNA 8.6 MG TAB PO SCH ×2 (08:58→20:40)
[2017-11-30] MEDS: AMOXICILLIN/CLAVULANATE K 875 MG TAB PO SCH ×2 (08:58→20:40)
[2017-11-30] MEDS: METOPROLOL TARTRATE 50 MG TAB PO SCH ×2 (08:58→20:40)
[2017-11-30] MEDS: HEPARIN SODIUM - SQ 10,000 UNITS/ML VIAL SQ SCH ×2 (08:58→18:42)
[2017-11-30] MEDS: SODIUM CHLORIDE 0.9% FLUSH 10 ML FLUSH IV FLUSH SCH ×2 (08:58→20:41)
--- NOTE | 2017-11-30 12:45 | HHI.PR ---
Subjective Remarks patient reported still having dry cough but no other complaints Diuretics still on hold by renal recommendation Objective Vitals Vital Signs Date Time Temp Pulse Resp B/P (MAP) Pulse Ox O2 Delivery O2 Flow Rate FiO2 11/30/17 09:04 Room Air 2.00 21 11/30/17 08:10 97.4 85 21 106/58 (74) 96 11/30/17 04:00 98.2 74 18 129/83 (98) 100 11/30/17 04:00 67 11/30/17 00:00 71 11/30/17 00:00 97.9 70 18 120/83 (95) 100 11/29/17 20:00 Room Air 11/29/17 20:00 97.7 73 18 127/83 (98) 97 11/29/17 20:00 70 11/29/17 16:01 97.9 70 20 115/76 (89) 98 11/29/17 16:00 71 I/O 11/29/17 11/29/17 11/29/17 11/30/17 11/30/17 11/30/17 06:59 14:59 22:59 06:59 14:59 22:59 Intake Total 240 ml 840 ml 720 ml 480 ml Output Total 250 ml 300 ml 1800 ml 300 ml Balance -10 ml 540 ml -1080 ml 180 ml Intake Oral 240 ml 840 ml 720 ml 480 ml Output Urine Total 250 ml 300 ml 1800 ml 300 ml # Bowel Movements 0 2 1 Result Diagram: 11/29/17 0426 11/30/17 0745 Objective Remarks GENERAL: This is a well-nourished, well-developed patient, in no apparent distress. SKIN: No rashes, warm and dry HEAD: Atraumatic. Normocephalic. EYES: Pupils equal round and reactive. Extraocular motions intact. No scleral icterus. ENT: Nose without bleeding, or drainage, Airway patent. NECK: Trachea midline. Supple CARDIOVASCULAR: Regular rate and rhythm without murmurs, gallops, or rubs. RESPIRATORY: Bibasilar crackles right more than left GASTROINTESTINAL: Abdomen soft, non-tender, nondistended. Positive bowel sounds MUSCULOSKELETAL: Extremities without clubbing, cyanosis, or edema. Pedal pulses appreciated NEUROLOGICAL: Awake and alert. Moves all extremity. Normal speech.no focal neurological deficit Procedures None A/P Problem List: (1) PNA (pneumonia) ICD Code: J18.9 - Pneumonia, unspecified organism (2) Acute on chronic systolic CHF (congestive heart failure) ICD Code: I50.23 - Acute on chronic systolic (congestive) heart failure Status: Acute (3) HTN (hypertension) ICD Code: I10 - Essential (primary) hypertension Status: Chronic (4) PATRICE (acute kidney injury) ICD Code: N17.9 - Acute kidney failure, unspecified Status: Acute (5) Gout ICD Code: M10.9 - Gout, unspecified Status: Chronic (6) CKD (chronic kidney disease), stage III ICD Code: N18.3 - Chronic kidney disease, stage 3 (moderate) Assessment and Plan Community-acquired pneumonia Acute on chronic CHF Hypertension PATRICE on CKD Gout DVT prophylaxis with SCD and heparin Plan: Wean O2, PT OT, we may need to walk test for home O2 if not able to DC oxygen Status post iv Zosyn, now on Augmentin showing improvement EF 20-25percent On 2-D echo, status post iv Lasix, monitor BMP and STEVIE appreciate nephrology input, mostly diuretic effect versus cardiorenal, avoid nephrotoxin Continue holding diuretic Problem Qualifiers (1) PNA (pneumonia): Qualified Codes: J18.1 - Lobar pneumonia, unspecified organism (2) HTN (hypertension): Qualified Codes: I10 - Essential (primary) hypertension Murali Cason MD Nov 30, 2017 12:45
--- NOTE | 2017-11-30 13:11 | HHI.NPPN ---
Subjective History of Present Illness 87-year-old male with a past medical history significant for CHF (EF of 20-25%) , COPD, gout and chronic kidney disease presents to the emergency department with increasing shortness of breath. Nephrology consulted for worsening renal indices. Additional Remarks Patient is alert and oriented, sitting on chair. Review of Systems Respiratory Respiratory Remarks Denies any SOB Cardiovascular Cardiac Remarks denies any CP Gastrointestinal GI Remarks Denies abdominal pain Genitourinary Remarks Denies any dysuria Objective Data Data 11/30/17 12/01/17 19:00 07:00 Intake Total 480 ml Output Total 300 ml Balance 180 ml Intake Oral 480 ml Output Urine Total 300 ml Vital Signs Date Time Temp Pulse Resp B/P (MAP) Pulse Ox O2 Delivery O2 Flow Rate FiO2 11/30/17 09:04 Room Air 2.00 21 11/30/17 08:10 97.4 85 21 106/58 (74) 96 11/30/17 04:00 98.2 74 18 129/83 (98) 100 11/30/17 04:00 67 11/30/17 00:00 71 11/30/17 00:00 97.9 70 18 120/83 (95) 100 11/29/17 20:00 Room Air 11/29/17 20:00 97.7 73 18 127/83 (98) 97 11/29/17 20:00 70 11/29/17 16:01 97.9 70 20 115/76 (89) 98 11/29/17 16:00 71 -: 11/29/17 0426 11/30/17 0745 Physical Exam General Appearance: Well Developed, Well Nourished, No Acute Distress Eyes Eye Exam: Pupils Equal Pulmonary Resp Exam: Clear Bilaterally, Breath Sounds Equal, No Distress Cardiology CV Exam: Regular Gastrointestinal/Abdomen GI Exam: Soft, Non-Tender, Bowel Sounds Present Genitourinary Exam: Flank Non-Tender Integumentary Skin Exam: Clear, Warm Extremeties Extremities Exam: No Edema Neurologic Neuro Exam: Alert, Awake, Oriented Psychiatric Psych Exam: Appropriate Responses Assessment/Plan Assessment Summary: PATRICE/Acute Renal Failure Electrolyte Assessment: Hypocalcemia Problem List: (1) PATRICE (acute kidney injury) ICD Codes: N17.9 - Acute kidney failure, unspecified Status: Acute Plan: Creatinine improving at 2.04 from 2.56 and GFR 38 from 29 Strict I+O Avoid nephrotoxins. Has no Proteinuria. Most likely has chronic kidney disease due to Hypertensive or renovascular disease and now developed PATRICE. Possibly diuretics or cardio renal. Urine out is good Continue to hold Lasix On Kcl, and K is normal, Follow the urine out put and BMP. Creatinine is almost same, 2.0, baseline is close to 1.9. (2) PNA (pneumonia) ICD Codes: J18.9 - Pneumonia, unspecified organism Plan: Continue Augmentin No SOB (3) Acute on chronic systolic CHF (congestive heart failure) ICD Codes: I50.23 - Acute on chronic systolic (congestive) heart failure Status: Acute Plan: No SOB noted. Lasix on hold. No edema noted (4) Hypocalcemia ICD Codes: E83.51 - Hypocalcemia Plan: Protein corrected calcium added Problem Qualifiers (1) PNA (pneumonia): Qualified Codes: J18.1 - Lobar pneumonia, unspecified organism Donovan Kauffman MD Nov 30, 2017 13:11
[2017-12-01] VITALS (7 sets, daily range): BP systolic 112–151; BP diastolic 60–93; PULSE 71–93; RESP 16–18; TEMP 97.6–98.1; O2SAT 98–100
[2017-12-01] MEDS: HEPARIN SODIUM - SQ 10,000 UNITS/ML VIAL SQ SCH ×2 (00:06→08:55)
[2017-12-01] MEDS: AMOXICILLIN/CLAVULANATE K 875 MG TAB PO SCH (08:54)
[2017-12-01] MEDS: POTASSIUM CHLORIDE 10 MEQ CONTROLLED RELEASE TAB PO SCH (08:55)
[2017-12-01] MEDS: DOCUSATE SODIUM 50 MG/SENNA 8.6 MG TAB PO SCH (08:55)
[2017-12-01] MEDS: METOPROLOL TARTRATE 50 MG TAB PO SCH (08:55)
[2017-12-01] MEDS: SODIUM CHLORIDE 0.9% FLUSH 10 ML FLUSH IV FLUSH SCH (08:55)
--- NOTE | 2017-12-01 10:46 | HHI.NPPN ---
Subjective History of Present Illness 87-year-old male with a past medical history significant for CHF (EF of 20-25%) , COPD, gout and chronic kidney disease presents to the emergency department with increasing shortness of breath. Nephrology consulted for worsening renal indices. Additional Remarks Sitting on side of bed. BNP elevated reports mild SOB on exertion. (Julia Mancuso) Review of Systems Respiratory Lungs: SOB Respiratory Remarks Mild SOB on exertion (Julia Mancuso) Cardiovascular Cardiac Remarks denies any CP (Julia Mancuso) Gastrointestinal GI Remarks Denies abdominal pain (Julia Mancuso) Genitourinary Remarks Denies any dysuria (Julia Mancuso) Objective Data Data Vital Signs Date Time Temp Pulse Resp B/P (MAP) Pulse Ox O2 Delivery O2 Flow Rate FiO2 12/01/17 10:23 Nasal Cannula 2.00 12/01/17 08:11 97.9 93 18 141/60 (87) 100 12/01/17 08:00 90 12/01/17 08:00 Nasal Cannula 2.00 12/01/17 04:00 98.0 71 16 151/93 (112) 98 12/01/17 03:42 78 12/01/17 00:00 98.1 81 16 135/85 (102) 100 12/01/17 00:00 Room Air 11/30/17 23:45 75 11/30/17 20:00 99.6 91 17 145/67 (93) 95 11/30/17 19:00 Room Air 11/30/17 16:51 98 Nasal Cannula 2.00 11/30/17 16:09 97.7 92 21 148/72 (97) 93 11/30/17 12:01 98.0 72 21 131/78 (95) 98 (Julia Mancuso) -: 11/29/17 0426 11/30/17 0745 Imaging Last Impressions Renal Ultrasound 11/27/17 0000 Signed Impressions: Service Date/Time: Monday, November 27, 2017 14:52 - CONCLUSION: Small echogenic kidneys consistent with medical renal disease. No evidence of hydronephrosis. Alexsander Ramos MD Chest CT 1/14/18 0000 Signed Impressions: Service Date/Time: Saturday, November 25, 2017 21:06 - CONCLUSION: 1. Mild bibasilar consolidation differential including mild pulmonary edema and mild pneumonia. 2. Tiny bilateral pleural effusions. 3. Panchamber enlargement of the heart and coronary artery calcification. Alexsander Chopra MD Chest X-Ray 11/24/17 1318 Signed Impressions: Service Date/Time: Friday, November 24, 2017 13:29 - CONCLUSION: Mild hazy opacity is now noted at the right lung base. The left lung base is obscured. Christoph Weinstein MD (Gellermann,Julia M. CAMERA TECHNICIAN) Physical Exam General Appearance: Well Developed, Well Nourished, No Acute Distress (Gellermann,Julia M. CAMERA TECHNICIAN) Eyes Eye Exam: Pupils Equal (Gellermann,Julia M. CAMERA TECHNICIAN) Pulmonary Resp Exam: Clear Bilaterally, Breath Sounds Equal, No Distress (Gellermann,Julia M. CAMERA TECHNICIAN) Cardiology CV Exam: Regular (Gellermann,Julia M. CAMERA TECHNICIAN) Gastrointestinal/Abdomen GI Exam: Soft, Non-Tender, Bowel Sounds Present (Gellermann,Julia M. CAMERA TECHNICIAN) Genitourinary Exam: Flank Non-Tender (Gellermann,Julia M. CAMERA TECHNICIAN) Integumentary Skin Exam: Clear, Warm (Gellermann,Julia M. CAMERA TECHNICIAN) Extremeties Extremities Exam: No Edema (Gellermann,Julia M. CAMERA TECHNICIAN) Neurologic Neuro Exam: Alert, Awake, Oriented (Gellermann,Julia M. CAMERA TECHNICIAN) Psychiatric Psych Exam: Appropriate Responses (GellermannJulia M. CAMERA TECHNICIAN) Assessment/Plan Assessment Summary: PATRICE/Acute Renal Failure Electrolyte Assessment: Hypocalcemia Problem List: (1) PATRICE (acute kidney injury) ICD Codes: N17.9 - Acute kidney failure, unspecified Status: Acute Plan: Creatinine has been improving no labs today. Strict I+O Avoid nephrotoxins. Has no Proteinuria. Most likely has chronic kidney disease due to Hypertensive or renovascular disease and now developed PATRICE. Possibly diuretics or cardio renal. Urine out continues to be good Follow the urine out put and BMP. Will give 20 mg po of Lasix this am with mild SOB reported. (2) PNA (pneumonia) ICD Codes: J18.9 - Pneumonia, unspecified organism Plan: Continue Augmentin (3) Acute on chronic systolic CHF (congestive heart failure) ICD Codes: I50.23 - Acute on chronic systolic (congestive) heart failure Status: Acute Plan: Mild SOB noted. Will give lasix 20 mg PO today No edema noted (4) Hypocalcemia ICD Codes: E83.51 - Hypocalcemia Plan: Protein corrected calcium has been normal (Julia Mancuso) Problem List: (1) PATRICE (acute kidney injury) ICD Codes: N17.9 - Acute kidney failure, unspecified Status: Acute Plan: Creatinine has been improving no labs today. Strict I+O Avoid nephrotoxins. Has no Proteinuria. Most likely has chronic kidney disease due to Hypertensive or renovascular disease and now developed PATRICE. Possibly diuretics or cardio renal. Urine out continues to be good Follow the urine out put and BMP. Will give 20 mg po of Lasix this am with mild SOB reported. Continue Lasix 20 mg daily and also on Kcl. Can be discharged from Nephrology and I can follow in 3-4 weeks. (2) PNA (pneumonia) ICD Codes: J18.9 - Pneumonia, unspecified organism Plan: Continue Augmentin (3) Acute on chronic systolic CHF (congestive heart failure) ICD Codes: I50.23 - Acute on chronic systolic (congestive) heart failure Status: Acute Plan: Mild SOB noted. Will give lasix 20 mg PO today No edema noted (4) Hypocalcemia ICD Codes: E83.51 - Hypocalcemia Plan: Protein corrected calcium has been normal (Donovan Kauffman MD) Problem Qualifiers (1) PNA (pneumonia): Qualified Codes: J18.1 - Lobar pneumonia, unspecified organism Julai Mancuso Dec 01, 2017 10:46 Donovan Kauffman MD Dec 01, 2017 12:10
[2017-12-01] MEDS ORDERED: FUROSEMIDE 20 MG TAB PO ONE (11:00)
[2017-12-01] MEDS ORDERED: ZITHTAB PO (15:10)
--- NOTE | 2017-12-01 15:21 | HHI.DS ---
Discharge Summary Admission Date Nov 27, 2017 at 14:06 Discharge Date: Dec 01, 2017 Admitting Diagnosis CHF exacerbation (1) PNA (pneumonia) ICD Code: J18.9 - Pneumonia, unspecified organism (2) Acute on chronic systolic CHF (congestive heart failure) ICD Code: I50.23 - Acute on chronic systolic (congestive) heart failure Status: Acute (3) HTN (hypertension) ICD Code: I10 - Essential (primary) hypertension Status: Chronic (4) PATRICE (acute kidney injury) ICD Code: N17.9 - Acute kidney failure, unspecified Status: Acute (5) Gout ICD Code: M10.9 - Gout, unspecified Status: Chronic (6) CKD (chronic kidney disease), stage III ICD Code: N18.3 - Chronic kidney disease, stage 3 (moderate) Procedures None Brief History - From Admission 87-year-old male with a past medical history significant for CHF (EF of 20-25%) , COPD, gout and chronic kidney disease presents to the emergency department with increasing shortness of breath. The patient reports his symptoms started last night. He endorses paroxysmal nocturnal dyspnea as well as this area on exertion. He states he feels as though he "is struggling to breathe" and that he has "fluid on his lungs." Chest x-ray significant for mild hazy opacity at the right lung base. BNP 1370. Patient denies any productive cough or fever/ chills. He denies congestion. He denies any associated chest pain or nausea/ vomiting. CBC/BMP: 11/29/17 0426 11/30/17 0745 Significant Findings Laboratory Tests Test 11/29/17 04:26 11/30/17 07:45 Red Blood Count 3.46 MIL/MM3 (4.50-5.90) Hemoglobin 10.4 GM/DL (13.0-17.0) Hematocrit 32.1 % (39.0-51.0) Platelet Count 122 TH/MM3 (150-450) Blood Urea Nitrogen 22 MG/DL (7-18) 20 MG/DL (7-18) Creatinine 2.04 MG/DL (0.60-1.30) 2.04 MG/DL (0.60-1.30) Random Glucose 63 MG/DL (74-106) Calcium Level 8.3 MG/DL (8.5-10.1) Chloride Level 108 MEQ/L (98-107) Estimat Glomerular Filtration Rate 38 ML/MIN (>89) 38 ML/MIN (>89) B-Type Natriuretic Peptide 1298 PG/ML (0-100) PE at Discharge GENERAL: This is a well-nourished, well-developed patient, in no apparent distress. SKIN: No rashes, warm and dry HEAD: Atraumatic. Normocephalic. EYES: Pupils equal round and reactive. Extraocular motions intact. No scleral icterus. ENT: Nose without bleeding, or drainage, Airway patent. NECK: Trachea midline. Supple CARDIOVASCULAR: Regular rate and rhythm without murmurs, gallops, or rubs. RESPIRATORY: Bibasilar crackles right more than left GASTROINTESTINAL: Abdomen soft, non-tender, nondistended. Positive bowel sounds MUSCULOSKELETAL: Extremities without clubbing, cyanosis, or edema. Pedal pulses appreciated NEUROLOGICAL: Awake and alert. Moves all extremity. Normal speech.no focal neurological deficit Hospital Course 87 years old male admitted for acute on chronic CHF with acute on chronic kidney disease, hypertension, he was found to have pneumonia showed on chest x- ray, he was complaining of cough, diuretic has been held monitor BMP E placed on Zosyn and then Augmentin, creatinine gradually decreased to baseline, patient cleared by nephrology today to let him back on diuretic, he stable to be discharged for follow-up as an outpatient with nephrology and PCP [id number] encounter performed with the patient on discharge day, as well as physical exam, summary of hospitalization course and postdischarge plan has been D/W the patient. D/W nurse D/W caser up Discharge medications reviewed and printed and signed, post discharge follow up visit with PCP and other specialist as well as Brief hospital course and discharge summary has been placed. Pt Condition on Discharge: Fair Discharge Disposition: Discharge Home Discharge Time: > 30 minutes Discharge Instructions DIET: Follow Instructions for: Heart Healthy Diet, Renal Failure Diet Fluid Restrictions: 1500cc/day Activities you can perform: Weight Bearing as Meaghan Follow up Referrals: Nephrology - 2 Weeks with Donovan Kauffman MD PCP Follow-up - 1 Week New Medications: Azithromycin (Zithromax Z-Chaz) 250 Mg Dspk 250 MG PO DIRECTED for Infection, #1 DSPK 0 Refills 500 MG (2 tabs) day 1, then 1 tab days 2-5. Continued Medications: Febuxostat (Uloric) 80 Mg Tab 1 DAILY Furosemide (Furosemide) 20 Mg Tab 20 MG PO BID for CHF, #60 TAB 0 Refills Metoprolol Tartrate (Lopressor) 50 Mg Tab 50 MG PO Q12HR for CHF, #60 TAB Nitroglycerin SL (Nitroglycerin SL) 0.4 Mg Subl 0.4 MG SL DIRECTED PRN for CHEST PAIN, #100 TAB.SL 0 Refills ONE TABLET UNDER THE TONGUE NEEDED FOR CHEST PAIN, MAY REPEAT EVERY FIVE MINUTES FOR A TOTAL OF 3 DOSES OR CALL 911 IF NO RELIEF Potassium Chloride ER (Potassium Chloride ER) 10 Meq Tab 10 MEQ PO BID for Electrolyte Replacement, #60 TAB 0 Refills Murali Cason MD Dec 01, 2017 15:21
[2017-12-02] MEDS ORDERED: FUROSEMIDE 20 MG TAB PO SCH (09:00)
== END 2017-12-01 16:04 | disposition home or self-care (01) | DRG 291 ==
LOC: NEPE 12:01 → NEDA 15:06 → N04A 17:06 → OBSVTOIN 11-27 14:06
PROVIDERS: ADMIT Hospitalist; ATTEND Hospitalist
DX: I13.0 Hypertensive heart and chronic kidney disease with heart failure and stage 1 through stage 4 chronic kidney disease, or unspecified chronic kidney disease (principal); I50.23 Acute on chronic systolic (congestive) heart failure; N17.9 Acute kidney failure, unspecified; J18.9 Pneumonia, unspecified organism; D69.6 Thrombocytopenia, unspecified; N18.3 Chronic kidney disease, stage 3 (moderate); E83.51 Hypocalcemia; M10.9 Gout, unspecified; M19.90 Unspecified osteoarthritis, unspecified site; H91.90 Unspecified hearing loss, unspecified ear; Z95.810 Presence of automatic (implantable) cardiac defibrillator; Z87.891 Personal history of nicotine dependence
CPT/HCPCS: 71045; 71250; 76775; 80048; 80053; 81001; 82550; 83735; 83880; 84100; 84155; 84484; 85025; 85027; 93005; 96361; 96365; 96372; 96375; 96376; G0378; G8987-GP; G8988-GP; J1644; J1940; J2543; J7030

== ENCOUNTER 2017-12-30 17:47 | Inpatient (IN) | payer OTHER, MEDICARE ==
[~2017-12-30] VITALS: Ht 185.4 cm; Wt 94.9 kg
[~2017-12-30 17:47] MED LIST changes: +ZITHTAB PO
[2017-12-30 17:49] VITALS: BP 177/122; PULSE 106; RESP 22; TEMP 97.8; O2SAT 97
[2017-12-30 18:36] VITALS: RESP 18; O2SAT 98
[2017-12-30 18:41] LABS: AUTOMATED NEUTROPHIL # 2.6 TH/MM3 (1.8-7.7); EOSINOPHIL # 0.1 TH/MM3 (0-0.4); EOSINOPHIL % 2.7 % (0.0-4.0); HEMATOCRIT 32.4 % (39.0-51.0); HEMOGLOBIN 10.5 GM/DL (13.0-17.0); LYMPH % 19.6 % (9.0-44.0); LYMPHOCYTE # 0.9 TH/MM3 (1.0-4.8); MEAN CELL VOLUME 95.7 FL (80.0-100.0); MEAN CORPUSCULAR HGB CONC 32.4 % (32.0-36.0); MEAN PLATELET VOLUME 11.8 FL (7.0-11.0); MONO % 19.7 % (0.0-8.0); MONOCYTE # 0.9 TH/MM3 (0-0.9); PLATELET COUNT 180 TH/MM3 (150-450); RED BLOOD COUNT 3.38 MIL/MM3 (4.50-5.90); RED CELL DISTRIBUTION WIDTH 16.1 % (11.6-17.2); WHITE BLOOD COUNT 4.5 TH/MM3 (4.0-11.0)
--- NOTE | 2017-12-30 18:43 | RADRPT ---
EXAM DATE/TIME: 12/30/2017 18:21 [facility] COMPARISON: No previous studies available for comparison. INDICATIONS : Shortness of breath. MEDICAL HISTORY : Hypertension. Chronic obstructive pulmonary disease. SURGICAL HISTORY : Pacemaker. ENCOUNTER: Initial ACUITY: 1 day PAIN SCORE: 0/10 LOCATION: Bilateral chest FINDINGS: A single view of the chest demonstrates bilateral small pleural effusions as well as consolidation in both lung bases possible atelectasis. Aorta remains quite tortuous. Left subclavian bipolar pacer. N o visible pneumothorax.. The cardiomediastinal contours are unremarkable. Osseous structures are in tact. CONCLUSION: Small bilateral pleural effusions right greater left. Bibasilar consolidations atelectasis versus inf iltrate. Oumar Johnson MD on December 30, 2017 at 18:41 Board Certified Radiologist. This report was verified electronically.
[2017-12-30 18:53] LABS: INTERNATIONAL NORMALIZED RATIO 1.2 RATIO; PROTHROMBIN TIME - PATIENT 11.7 SEC (9.8-11.6)
[2017-12-30 19:05] LABS: BICARBONATE 28.4 MEQ/L (21.0-32.0); BLOOD UREA NITROGEN 23 MG/DL (7-18); CALCIUM 9.1 MG/DL (8.5-10.1); CHLORIDE 108 MEQ/L (98-107); CREATININE 2.26 MG/DL (0.60-1.30); GLOMERULAR FILTRATION RATE 34 ML/MIN (>89); GLUCOSE,RANDOM 100 MG/DL (74-106); SODIUM (NA) 144 MEQ/L (136-145)
[2017-12-30 19:09] LABS: TROPONIN I 0.04 NG/ML (0.02-0.05)
--- NOTE | 2017-12-30 19:21 | PD ---
HPI Chief Complaint: Respiratory Symptoms Time Seen by Provider: 18:07 Travel History International Travel<30 days: No Contact w/Intl Traveler<30days: No Traveled to known affect area: No History of Present Illness HPI 87-year-old male that presents to the ED for evaluation of shortness of breath with exertion and laying down. Per patient ever he lays down or exerts himself he gets very short of breath. He states having some chest discomfort as well but the patient is minimal, 2/10 like a pressure. Mostly the shortness of breath is what concerns him. He has a history of CHF and per family members he comes here at least once a month for similar episodes. He follows with Dr. Sibley. Per patient he is compliant with his medications. He takes no blood thinners. No history of heart disease other than having a pacemaker. No urinary or bowel movement issues. Per patient he has noted some gain weight but what his noted the most distal ever he exerts himself he cannot take more than 10 steps without feeling very short of breath. He also feels the same when he lays down on his back. Symptoms have been worsening for the past 3 days. His been continuing to take his medication with minimal relief. Has not called his doctor. Denies other medical issues. PFSH Past Medical History Arthritis: Yes Blood Disorders: No Heart Rhythm Problems: Yes Cancer: No Cardiovascular Problems: Yes High Cholesterol: No Chemotherapy: No Chest Pain: Yes Congestive Heart Failure: Yes COPD: Yes Diabetes: No Diminished Hearing: Yes ([place]) Endocrine: No Gastrointestinal Disorders: No Gout: Yes Genitourinary: No Hypertension: Yes Immune Disorder: No Implanted Vascular Access Dvce: Yes Musculoskeletal: Yes (lt knee gout) Neurologic: No Psychiatric: No Reproductive: No Respiratory: Yes (CHF) Immunizations Current: Yes Radiation Therapy: No Thyroid Disease: No Past Surgical History Body Medical Devices: pins lt knee Cardiac Surgery: Yes (PACEMAKER) 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) Other Surgery: Yes (Pacer, Left knee) Social History Alcohol Use: Yes (OCC) Tobacco Use: No Substance Use: No Allergies-Medications (Allergen,Severity, Reaction): Coded Allergies: No Known Allergies (Verified Adverse Reaction, Unknown, 11/24/17) Reported Meds & Prescriptions Reported Meds & Active Scripts Active Zithromax Z-Chaz (Azithromycin) 250 Mg Dspk 250 Mg PO DIRECTED 500 MG (2 tabs) day 1, then 1 tab days 2-5. Potassium Chloride ER (Potassium Chloride) 10 Meq Tab 10 Meq PO BID Furosemide 20 Mg Tab 20 Mg PO BID Lopressor (Metoprolol Tartrate) 50 Mg Tab 50 Mg PO Q12HR Reported Nitroglycerin SL (Nitroglycerin) 0.4 Mg Subl 0.4 Mg SL DIRECTED PRN ONE TABLET UNDER THE TONGUE NEEDED FOR CHEST PAIN, MAY REPEAT EVERY FIVE MINUTES FOR A TOTAL OF 3 DOSES OR CALL 911 IF NO RELIEF Uloric (Febuxostat) 80 Mg Tab 1 DAILY Review of Systems Except as stated in HPI: all other systems reviewed are Neg Physical Exam Narrative GENERAL: SKIN: Warm and dry. HEAD: Atraumatic. Normocephalic. EYES: Pupils equal and round. No scleral icterus. No injection or drainage. ENT: No nasal bleeding or discharge. Mucous membranes pink and moist. Tongue is midline. No uvula deviation. NECK: Trachea midline. No JVD. CARDIOVASCULAR: Regular rate and rhythm. No murmurs, S3, S4. RESPIRATORY: No accessory muscle use. Mild rales heard in the lower lung new. Breath sounds equal bilaterally. GASTROINTESTINAL: Abdomen soft, non-tender, nondistended. Hepatic and splenic margins not palpable. MUSCULOSKELETAL: Extremities without clubbing, cyanosis, or edema. No obvious deformities. 2+ pulses bilaterally. Full range of motion of the upper and lower extremities bilaterally. NEUROLOGICAL: Awake and alert. No obvious cranial nerve deficits. Motor grossly within normal limits. Five out of 5 muscle strength in the arms and legs. Normal speech. PSYCHIATRIC: Appropriate mood and affect; insight and judgment normal. Data Data Last Documented VS Vital Signs Date Time Temp Pulse Resp B/P (MAP) Pulse Ox O2 Delivery O2 Flow Rate FiO2 12/30/17 18:38 84 18 98 Room Air 12/30/17 18:36 12/30/17 17:49 97.8 Orders Orders Electrocardiogram (12/30/17 18:09) Basic Metabolic Panel (Bmp) (12/30/17 18:09) B-Type Natriuretic Peptide (12/30/17 18:09) Ckmb (Isoenzyme) Profile (12/30/17 18:09) Complete Blood Count With Diff (12/30/17 18:09) Prothrombin Time / Inr (Pt) (12/30/17 18:09) Act Partial Throm Time (Ptt) (12/30/17 18:09) Troponin I (12/30/17 18:09) Chest, Single Ap (12/30/17 18:09) Ecg Monitoring (12/30/17 18:) Iv Access Insert/Monitor (12/30/17 18:) Oximetry (12/30/17 18:09) Oxygen Administration (12/30/17 18:) CKMB (12/30/17 18:29) CKMB% (12/30/17 18:29) Ct Thorax/ Chest Wo Iv Contras (12/30/17 ) Furosemide Inj (Lasix Inj) (12/30/17 19:30) Admit Order (Ed Use Only) (12/30/17 19:52) Labs Laboratory Tests Test 12/30/17 18:29 White Blood Count 4.5 TH/MM3 Red Blood Count 3.38 MIL/MM3 Hemoglobin 10.5 GM/DL Hematocrit 32.4 % Mean Corpuscular Volume 95.7 FL Mean Corpuscular Hemoglobin 31.0 PG Mean Corpuscular Hemoglobin Concent 32.4 % Red Cell Distribution Width 16.1 % Platelet Count 180 TH/MM3 Mean Platelet Volume 11.8 FL Neutrophils (%) (Auto) 57.0 % Lymphocytes (%) (Auto) 19.6 % Monocytes (%) (Auto) 19.7 % Eosinophils (%) (Auto) 2.7 % Basophils (%) (Auto) 1.0 % Neutrophils # (Auto) 2.6 TH/MM3 Lymphocytes # (Auto) 0.9 TH/MM3 Monocytes # (Auto) 0.9 TH/MM3 Eosinophils # (Auto) 0.1 TH/MM3 Basophils # (Auto) 0.0 TH/MM3 CBC Comment DIFF FINAL Differential Comment Prothrombin Time 11.7 SEC Prothromb Time International Ratio 1.2 RATIO Activated Partial Thromboplast Time 24.8 SEC Blood Urea Nitrogen 23 MG/DL Creatinine 2.26 MG/DL Random Glucose 100 MG/DL Calcium Level 9.1 MG/DL Sodium Level 144 MEQ/L Potassium Level 3.8 MEQ/L Chloride Level 108 MEQ/L Carbon Dioxide Level 28.4 MEQ/L Anion Gap 8 MEQ/L Estimat Glomerular Filtration Rate 34 ML/MIN Total Creatine Kinase 101 U/L Creatine Kinase MB 1.2 NG/ML Troponin I 0.04 NG/ML B-Type Natriuretic Peptide 2543 PG/ML MDM Medical Decision Making Medical Screen Exam Complete: Yes Emergency Medical Condition: Yes Medical Record Reviewed: Yes Interpretation(s) CBC & BMP Diagram 12/30/17 18:29 Calcium Level 9.1 Last Impressions Chest X-Ray 12/30/171808 Signed Impressions: Service Date/Time: Saturday, December 30, 2017 18:21 - CONCLUSION: Small bilateral pleural effusions right greater left. Bibasilar consolidations atelectasis versus infiltrate. Oumar Johnson MD troponin of 0.04 CK WNL BNP in the 2000s Last Impressions Chest X-Ray 12/30/171808 Signed Impressions: Service Date/Time: Saturday, December 30, 2017 18:21 - CONCLUSION: Small bilateral pleural effusions right greater left. Bibasilar consolidations atelectasis versus infiltrate. Oumar Johnson MD Chest CT 12/30/17 0000 Signed Impressions: Service Date/Time: Saturday, December 30, 2017 19:28 - CONCLUSION: 1. Small bilateral pleural effusions and bilateral parenchymal lung changes suggesting pulmonary edema. Given the enlarged cardiac silhouette, a cardiogenic cause should be a consideration. The pleural effusions have increased in volume since the study from one month ago. 2. 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 Alexsander Rey MD Differential Diagnosis CHF exacerbation versus kidney injury versus CHF versus chest pain versus chronic chest pain Narrative Course 87-year-old male that presents to the ED for evaluation of possible CHF exacerbation. Patient was properly examined and was found to have signs and symptoms consistent appears to be CHF exacerbation. Vitals and physical examination appear to be well except is a little bit tachypneic Laying down seems to make his symptoms worsen he has to sit up. Labs and imaging were ordered. Patient was given Lasix IV. Labs and imaging showed CHF exacerbation. Will admit for evaluation and treatment. Given lasix. Patient agrees to proceed. Admitted to Dr Etienne who agrees to admission. Diagnosis Primary Impression: Acute exacerbation of CHF (congestive heart failure) Qualified Codes: I50.9 - Heart failure, unspecified Admitting Information Admitting Physician Requests: Observation Aldo Ordonez Dec 30, 2017 19:21
[2017-12-30] MEDS ORDERED: FUROSEMIDE 40 MG/4 ML VIAL IV PUSH ONE (19:30)
--- NOTE | 2017-12-30 19:47 | RADRPT ---
EXAM DATE/TIME: 12/30/2017 19:28 [facility] COMPARISON: CHEST SINGLE AP, December 30, 2017, 18:21. CT THORAX W/O CONTRAST, November 25, 2017, 21:06. INDICATIONS : Shortness of breath and chest pain. RADIATION DOSE: 10.41 CTDIvol (mGy) MEDICAL HISTORY : Cardiovascular disease. Congestive heart failure. Hypertension. SURGICAL HISTORY : Pacemaker. ENCOUNTER: Initial ACUITY: 1 day PAIN SCALE: 5/10 LOCATION: chest TECHNIQUE: Volumetric scanning of the chest was performed. Using automated exposure control and adjustment of t he mA and/or kV according to patient size, radiation dose was kept as low as reasonably achievable to obtain optimal diagnostic quality images. DICOM format image data is available electronically for r eview and comparison. Follow-up recommendations for detected pulmonary nodules are based at a minimum on nodule size and pa tient risk factors according to Fleischner Society Guidelines. FINDINGS: LUNGS: There is mild groundglass opacity within the lungs bilaterally along with smooth septal thickening an d compressive atelectasis adjacent to the pleural effusions. No pneumothorax is identified. There is mild respiratory motion artifact. PLEURAE: There are small bilateral pleural effusions, larger than present on the prior examination from one mo nth ago. MEDIASTINUM: The heart is enlarged. Left chest wall cardiac pacing device is present with biventricular leads. Asc ending aorta is aneurysmal measuring up to 5 cm and descending thoracic aorta is aneurysmal measuring up to 3.8 cm. Both of these measurements are stable. No lymphadenopathy is seen. The left chest wall pacing device causes beam hardening artifact. AXILLAE: Within normal limits. No lymphadenopathy. MUSCULOSKELETAL: There is degenerative changes of the thoracic spine. No acute osseous abnormality is identified. MISCELLANEOUS: Upper abdominal structures demonstrate no acute finding. There is an incidental 4 mm low-density lesi on within the left lobe of the liver that is too small to characterize. A 9 mm hyperdense lesion at t he left upper pole kidney has Hounsfield measurements of 60. Prior ultrasound demonstrated left cysts . There is a subcutaneous mild hyperdense nodule in the right mid back measuring 2.6 x 1.5 cm, stable from the prior study. There is bilateral gynecomastia. CONCLUSION: 1. Small bilateral pleural effusions and bilateral parenchymal lung changes suggesting pulmonary adela a. Given the enlarged cardiac silhouette, a cardiogenic cause should be a consideration. The pleural effusions have increased in volume since the study from one month ago. 2. 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 Alexsander Rey MD on December 30, 2017 at 19:40 Board Certified Radiologist. This report was verified electronically.
[2017-12-30] MEDS ORDERED: ACETAMINOPHEN 325 MG TAB PO PRN (20:00)
[2017-12-30] MEDS ORDERED: SODIUM CHLORIDE 0.9% FLUSH 10 ML FLUSH IV FLUSH PRN (20:00)
[2017-12-30] MEDS ORDERED: NALOXONE HCL 0.4 MG/ML AMP IV PUSH PRN (20:00)
[2017-12-30] MEDS ORDERED: ONDANSETRON HCL 4 MG/2 ML VIAL IVP PRN (20:00)
[2017-12-30] MEDS ORDERED: LACTULOSE SYRUP 20 GM/30 ML CUP PO PRN (20:00)
[2017-12-30] MEDS ORDERED: BISACODYL 10 MG SUPP RECTAL PRN (20:00)
[2017-12-30 20:19] VITALS: BP 162/102; PULSE 92; RESP 28; O2SAT 98
--- NOTE | 2017-12-30 20:24 | PD ---
Physical Exam Date Seen by Provider: Dec 30, 2017 Narrative This patient presents with a chief complaint of dyspnea. Onset has been several days. Symptoms are exacerbated by lying down. On exam, he has decreased air movement and diffuse expiratory wheezing. Data Data Last Documented VS Vital Signs Date Time Temp Pulse Resp B/P (MAP) Pulse Ox O2 Delivery O2 Flow Rate FiO2 12/30/17 18:38 84 18 98 Room Air 12/30/17 18:36 12/30/17 17:49 97.8 Orders Orders Electrocardiogram (12/30/17 18:09) Basic Metabolic Panel (Bmp) (12/30/17 18:09) B-Type Natriuretic Peptide (12/30/17 18:09) Ckmb (Isoenzyme) Profile (12/30/17 18:) Complete Blood Count With Diff (12/30/17 18:) Prothrombin Time / Inr (Pt) (12/30/17 18:) Act Partial Throm Time (Ptt) (12/30/17 18:) Troponin I (12/30/17 18:) Chest, Single Ap (12/30/17 18:) Ecg Monitoring (12/30/17 18:09) Iv Access Insert/Monitor (12/30/17 18:) Oximetry (12/30/17 18:) Oxygen Administration (12/30/17 18:) CKMB (12/30/17 18:29) CKMB% (12/30/17 18:29) Ct Thorax/ Chest Wo Iv Contras (12/30/17 ) Furosemide Inj (Lasix Inj) (12/30/17 19:30) Admit Order (Ed Use Only) (12/30/17 19:52) Labs Laboratory Tests Test 12/30/17 18:29 White Blood Count 4.5 TH/MM3 Red Blood Count 3.38 MIL/MM3 Hemoglobin 10.5 GM/DL Hematocrit 32.4 % Mean Corpuscular Volume 95.7 FL Mean Corpuscular Hemoglobin 31.0 PG Mean Corpuscular Hemoglobin Concent 32.4 % Red Cell Distribution Width 16.1 % Platelet Count 180 TH/MM3 Mean Platelet Volume 11.8 FL Neutrophils (%) (Auto) 57.0 % Lymphocytes (%) (Auto) 19.6 % Monocytes (%) (Auto) 19.7 % Eosinophils (%) (Auto) 2.7 % Basophils (%) (Auto) 1.0 % Neutrophils # (Auto) 2.6 TH/MM3 Lymphocytes # (Auto) 0.9 TH/MM3 Monocytes # (Auto) 0.9 TH/MM3 Eosinophils # (Auto) 0.1 TH/MM3 Basophils # (Auto) 0.0 TH/MM3 CBC Comment DIFF FINAL Differential Comment Prothrombin Time 11.7 SEC Prothromb Time International Ratio 1.2 RATIO Activated Partial Thromboplast Time 24.8 SEC Blood Urea Nitrogen 23 MG/DL Creatinine 2.26 MG/DL Random Glucose 100 MG/DL Calcium Level 9.1 MG/DL Sodium Level 144 MEQ/L Potassium Level 3.8 MEQ/L Chloride Level 108 MEQ/L Carbon Dioxide Level 28.4 MEQ/L Anion Gap 8 MEQ/L Estimat Glomerular Filtration Rate 34 ML/MIN Total Creatine Kinase 101 U/L Creatine Kinase MB 1.2 NG/ML Troponin I 0.04 NG/ML B-Type Natriuretic Peptide 2543 PG/ML MDM Supervised Visit with WILDER: Yes Narrative Course I, Dr. Sheffield, have reviewed the advance practice practitioner's documentation and am in agreement, met with the patient face to face, made the diagnosis, and the medical decision making was done by me. *My assessment and Findings: Patient is awake and alert. He has decreased air movement with expiratory wheezing. CBC & BMP Diagram 12/30/17 18:29 Calcium Level 9.1 BNP 2543 trop 0.04 Last Impressions Chest X-Ray 12/30/17 1809 Signed Impressions: Service Date/Time: Saturday, December 30, 2017 18:21 - CONCLUSION: Small bilateral pleural effusions right greater left. Bibasilar consolidations atelectasis versus infiltrate. Oumar Johnson MD Chest CT 12/30/17 0000 Signed Impressions: Service Date/Time: Saturday, December 30, 2017 19:28 - CONCLUSION: 1. Small bilateral pleural effusions and bilateral parenchymal lung changes suggesting pulmonary edema. Given the enlarged cardiac silhouette, a cardiogenic cause should be a consideration. The pleural effusions have increased in volume since the study from one month ago. 2. 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 Alexsander Rey MD This patient is being admitted for further evaluation and treatment of congestive heart failure. See JUAQUIN Slaughter-Cs note for lab and radiology results, final diagnosis and disposition Diagnosis Primary Impression: Acute exacerbation of CHF (congestive heart failure) Qualified Codes: I50.9 - Heart failure, unspecified Heike Sheffield MD Dec 30, 2017 20:24
--- NOTE | 2017-12-30 20:35 | HHI.HP ---
HPI Service [facility] Primary [facility] Physician Saud Worrell MD Admission Diagnosis acute CHF exacerbation Diagnoses: Chief Complaint: shortness of breath Travel History International Travel<30 Days: No Contact w/Intl Traveler <30 Da: No Traveled to Known Affected Are: No History of Present Illness 87-year-old male with a history of COPD, CHF with an EF of 20-25%, gout, CKD presented to the ED with increasing shortness of breath for the last 3 days. Patient states he has been compliant with his Lasix at home for the last 3 days increasing shortness of breath and congestion. He states it is hard to take a deep breath. He denies any chest pain, cough, fevers or chills. He states he tries to watch his fluid intake at home but does not completely monitor. Review of Systems Except as stated in HPI: all other systems reviewed are Neg Past Family Social History Past Medical History COPD CHF with an EF of 20 and 25% Gout Chronic kidney disease Past Surgical History AICD placement with replacement in May 2017 Left knee surgery Reported Medications Reported Meds & Active Scripts Active Zithromax Z-Chaz (Azithromycin) 250 Mg Dspk 250 Mg PO DIRECTED 500 MG (2 tabs) day 1, then 1 tab days 2-5. Potassium Chloride ER (Potassium Chloride) 10 Meq Tab 10 Meq PO BID Furosemide 20 Mg Tab 20 Mg PO BID Lopressor (Metoprolol Tartrate) 50 Mg Tab 50 Mg PO Q12HR Reported Nitroglycerin SL (Nitroglycerin) 0.4 Mg Subl 0.4 Mg SL DIRECTED PRN ONE TABLET UNDER THE TONGUE NEEDED FOR CHEST PAIN, MAY REPEAT EVERY FIVE MINUTES FOR A TOTAL OF 3 DOSES OR CALL 911 IF NO RELIEF Uloric (Febuxostat) 80 Mg Tab 1 DAILY Allergies: Coded Allergies: No Known Allergies (Verified Adverse Reaction, Unknown, 11/24/17) Active Ordered Medications Current Medications Medications (Trade) Dose Ordered Sig/Moses Route Start Time Stop Time Status Last Admin (NS Flush) 2 ml UNSCH PRN IV FLUSH 12/30/17 20:00 (NS Flush) 2 ml BID IV FLUSH 12/30/17 21:00 (Tylenol) 650 mg Q4H PRN PO 12/30/17 20:00 (Zofran Inj) 4 mg Q6H PRN IVP 12/30/17 20:00 (Narcan Inj) 0.4 mg UNSCH PRN IV PUSH 12/30/17 20:00 (Dulcolax Supp) 10 mg DAILY PRN RECTAL 12/30/17 20:00 (Lactulose Liq) 30 ml DAILY PRN PO 12/30/17 20:00 (Lasix Inj) 40 mg BID@,18 IV PUSH 12/31/17 09:00 Family History Hypertension in multiple family members Social History Quit smoking approximately 12 years ago. Occasional alcohol. Denies illicit drugs. Physical Exam Vital Signs Vital Signs Date Time Temp Pulse Resp B/P (MAP) Pulse Ox O2 Delivery O2 Flow Rate FiO2 12/30/17 20:19 92 28 162/102 (122) 98 Nasal Cannula 3.00 12/30/17 18:38 84 18 98 Room Air 12/30/17 18:36 98 Room Air 12/30/17 18:36 18 98 Room Air 12/30/17 17:49 97.8 106 22 177/122 (140) 97 Physical Exam GENERAL: This is a well-nourished, well-developed patient, in no apparent distress. SKIN: No rashes, ecchymoses or lesions. Cool and dry. HEAD: Atraumatic. Normocephalic. EYES: Pupils equal round and reactive. ENT: Nose without bleeding, purulent drainage or septal hematoma.Airway patent. NECK: Trachea midline. No JVD or lymphadenopathy. CARDIOVASCULAR: Regular rate and rhythm without murmurs, gallops, or rubs. RESPIRATORY: Diminished bases with scattered crackles GASTROINTESTINAL: Abdomen soft, non-tender, nondistended. MUSCULOSKELETAL: Bilateral lower extremity edema L>R. No joint tenderness, effusion, or edema noted. No calf tenderness. NEUROLOGICAL: Awake and alert. Motor and sensory grossly within normal limits. Normal speech. Laboratory Laboratory Tests Test 12/30/17 18:29 White Blood Count 4.5 Red Blood Count 3.38 Hemoglobin 10.5 Hematocrit 32.4 Mean Corpuscular Volume 95.7 Mean Corpuscular Hemoglobin 31.0 Mean Corpuscular Hemoglobin Concent 32.4 Red Cell Distribution Width 16.1 Platelet Count 180 Mean Platelet Volume 11.8 Neutrophils (%) (Auto) 57.0 Lymphocytes (%) (Auto) 19.6 Monocytes (%) (Auto) 19.7 Eosinophils (%) (Auto) 2.7 Basophils (%) (Auto) 1.0 Neutrophils # (Auto) 2.6 Lymphocytes # (Auto) 0.9 Monocytes # (Auto) 0.9 Eosinophils # (Auto) 0.1 Basophils # (Auto) 0.0 CBC Comment DIFF FINAL Differential Comment Prothrombin Time 11.7 Prothromb Time International Ratio 1.2 Activated Partial Thromboplast Time 24.8 Blood Urea Nitrogen 23 Creatinine 2.26 Random Glucose 100 Calcium Level 9.1 Sodium Level 144 Potassium Level 3.8 Chloride Level 108 Carbon Dioxide Level 28.4 Anion Gap 8 Estimat Glomerular Filtration Rate 34 Total Creatine Kinase 101 Creatine Kinase MB 1.2 Troponin I 0.04 B-Type Natriuretic Peptide 2543 Result Diagram: 12/30/17 1829 12/30/17 1829 Imaging Last Impressions Chest X-Ray 12/30/17 1809 Signed Impressions: Service Date/Time: Saturday, December 30, 2017 18:21 - CONCLUSION: Small bilateral pleural effusions right greater left. Bibasilar consolidations atelectasis versus infiltrate. Oumar Johnson MD Chest CT 12/30/17 0000 Signed Impressions: Service Date/Time: Saturday, December 30, 2017 19:28 - CONCLUSION: 1. Small bilateral pleural effusions and bilateral parenchymal lung changes suggesting pulmonary edema. Given the enlarged cardiac silhouette, a cardiogenic cause should be a consideration. The pleural effusions have increased in volume since the study from one month ago. 2. 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 Alexsander Rey MD Caples[place]i VTE Risk Assessment Caprini VTE Risk Assessment: Mod/High Risk (score >= 2) Caprini Risk Assessment Model Point Value = 1 Point Value = 2 Point Value = 3 Point Value = 5 Age 41-60 Minor surgery BMI > 25 kg/m2 Swollen legs Varicose veins or History of unexplained or recurrent spontaneous Oral contraceptives or hormone replacement Sepsis (< 1 month) Serious lung disease, including pneumonia (< 1 month) Abnormal pulmonary function Acute myocardial infarction Congestive heart failure (< 1 month) History of inflammatory bowel disease Medical patient at bed rest Age 61-74 Arthroscopic surgery Major open surgery (> 45 min) Laparoscopic surgery (> 45 min) Malignancy Confined to bed (> 72 hours) Immobilizing plaster cast Central venous access Age >= 75 History of VTE Family history of VTE Factor V Leiden Prothrombin [id number] Lupus anticoagulant Anticardiolipin antibodies Elevated serum homocysteine Heparin-induced thrombocytopenia Other congenital or acquired thrombophilia Stroke (< 1 month) Elective arthroplasty Hip, pelvis, or leg fracture Acute spinal cord injury (< 1 month) Prophylaxis Regimen Total Risk Factor Score Risk Level Prophylaxis Regimen 0-1 Low Early ambulation 2 Moderate Order ONE of the following: *Sequential Compression Device (SCD) *Heparin 5000 units SQ BID 3-4 Higher Order ONE of the following medications: *Heparin 5000 units SQ TID *Enoxaparin/Lovenox 40 mg SQ daily (WT < 150 kg, CrCl > 30 mL/min) *Enoxaparin/Lovenox 30 mg SQ daily (WT < 150 kg, CrCl > 10-29 mL/min) *Enoxaparin/Lovenox 30 mg SQ BID (WT < 150 kg, CrCl > 30 mL/min) AND/OR *Sequential Compression Device (SCD) 5 or more Highest Order ONE of the following medications: *Heparin 5000 units SQ TID (Preferred with Epidurals) *Enoxaparin/Lovenox 40 mg SQ daily (WT < 150 kg, CrCl > 30 mL/min) *Enoxaparin/Lovenox 30 mg SQ daily (WT < 150 kg, CrCl > 10-29 mL/min) *Enoxaparin/Lovenox 30 mg SQ BID (WT < 150 kg, CrCl > 30 mL/min) AND *Sequential Compression Device (SCD) Assessment and Plan Problem List: (1) Acute exacerbation of CHF (congestive heart failure) ICD Code: I50.9 - Heart failure, unspecified Status: Acute (2) CKD (chronic kidney disease), stage III ICD Code: N18.3 - Chronic kidney disease, stage 3 (moderate) Assessment and Plan 87-year-old male with a history of COPD, CHF with an EF of 20-25%, gout, CKD presented to the ED with increasing shortness of breath for the last 3 days. Acute exacerbation of CHF on chronic CHF, EF 20-25% BNP [address] reviewed and shows bilateral pleural effusions and pulmonary edema -IV Lasix twice a day 40 mg -Fluid restriction CKD, creatinine 2.2, at baseline -Avoid nephrotoxins -Trend creatinine bilateral lower extremity edema -Doppler ultrasound to rule out DVT; Results are negative for DVT -Cont lasix as above DVT prophylaxis: Heparin Discussed Condition With Patient, RN, ED physician Problem Qualifiers (1) Acute exacerbation of CHF (congestive heart failure): Qualified Codes: I50.9 - Heart failure, unspecified Nanette Samuel Dec 30, 2017 20:35
[2017-12-30 20:42] VITALS: BP 171/118; PULSE 101; RESP 18; TEMP 98.1; O2SAT 97
[2017-12-30] MEDS: SODIUM CHLORIDE 0.9% FLUSH 10 ML FLUSH IV FLUSH SCH (21:00)
--- NOTE | 2017-12-30 21:10 | RADRPT ---
EXAM DATE/TIME: 12/30/2017 20:46 [facility] COMPARISON: US LEG LEFT VENOUS DOPPLER, August 08, 2016, 9:29. INDICATIONS : Left leg swelling. MEDICAL HISTORY : Congestive heart failure. Arthritis. Chest pain. Irregular heartbeat. COPD. HTN. GOUT. SURGICAL HISTORY : Pacemaker. Left knee surgery. ENCOUNTER: Initial ACUITY: 1 day PAIN SCORE: 2/10 LOCATION: Left leg. TECHNIQUE: Venous ultrasound of the leg was performed from the inguinal ligament to the proximal calf. Real-otoniel e, color Doppler and spectral tracing, compression and augmentation techniques were used. FINDINGS: There is normal compressibility of the deep venous system from the inguinal region to the proximal ca lf. No echogenic clot is seen in the lumen of the common femoral, femoral, popliteal, and posterior tibial veins. There is a normal response of the venous system to proximal and distal augmentation an d respiration. CONCLUSION: There is no DVT in the left lower extremity. Alexsander Rey MD on December 30, 2017 at 21:08 Board Certified Radiologist. This report was verified electronically.
[2017-12-30] MEDS: HEPARIN SODIUM - SQ 10,000 UNITS/ML VIAL SQ SCH (22:00)
[2017-12-31] VITALS (7 sets, daily range): BP systolic 127–163; BP diastolic 74–108; PULSE 75–94; RESP 18–24; TEMP 97.3–98.5; O2SAT 90–100
[2017-12-31] MEDS: HEPARIN SODIUM - SQ 10,000 UNITS/ML VIAL SQ SCH (05:20)
[2017-12-31 05:46] LABS: BICARBONATE 29.7 MEQ/L (21.0-32.0); CALCIUM 8.9 MG/DL (8.5-10.1); CREATININE 2.26 MG/DL (0.60-1.30)
[2017-12-31 06:54] LABS: BASOPHIL # 0.1 TH/MM3 (0-0.2); BASOPHIL % 1.1 % (0.0-2.0); EOSINOPHIL % 0.4 % (0.0-4.0); HEMATOCRIT 31.4 % (39.0-51.0); HEMOGLOBIN 10.2 GM/DL (13.0-17.0); LYMPH % 21.9 % (9.0-44.0); LYMPHOCYTE # 1.1 TH/MM3 (1.0-4.8); MEAN CORPUSCULAR HEMOGLOBIN 30.7 PG (27.0-34.0); MEAN CORPUSCULAR HGB CONC 32.3 % (32.0-36.0); MEAN PLATELET VOLUME 10.1 FL (7.0-11.0); MONO % 37.4 % (0.0-8.0); MONOCYTE # 1.9 TH/MM3 (0-0.9); NEUT % 39.2 % (16.0-70.0); PLATELET COUNT 90 TH/MM3 (150-450); RED BLOOD COUNT 3.31 MIL/MM3 (4.50-5.90); RED CELL DISTRIBUTION WIDTH 15.9 % (11.6-17.2); WHITE BLOOD COUNT 5.1 TH/MM3 (4.0-11.0)
[2017-12-31 06:59] LABS: LYMPHOCYTES 34 % (9-44); MONOCYTES 23 % (0-8); NEUTROPHIL # MANUAL DIFF 2.2 TH/MM3 (1.8-7.7); POLYS (SEG NEUTROPHILS) 43 % (16-70)
[2017-12-31] MEDS ORDERED: PILL SPLITTER OTHER PRN (08:15)
[2017-12-31] MEDS: SODIUM CHLORIDE 0.9% FLUSH 10 ML FLUSH IV FLUSH SCH ×2 (09:00→21:29)
[2017-12-31] MEDS ORDERED: LISINOPRIL 5 MG TAB PO SCH (09:00)
[2017-12-31] MEDS ORDERED: FAMOTIDINE 20 MG TAB PO SCH (09:00)
[2017-12-31 09:43] LABS: ALBUMIN 3.6 GM/DL (3.4-5.0); DIRECT BILIRUBIN ADULT 0.2 MG/DL (0.0-0.2)
[2017-12-31 10:08] LABS: FOLATE 6.6 NG/ML (3.1-17.5); INDIRECT BILIRUBIN 0.4 MG/DL (0.0-0.8); TOTAL BILIRUBIN ADULT 0.6 MG/DL (0.2-1.0); TOTAL PROTEIN 7.3 GM/DL (6.4-8.2)
[2017-12-31] MEDS: FUROSEMIDE 40 MG/4 ML VIAL IV PUSH SCH ×2 (11:08→19:54)
[2017-12-31] MEDS: METOPROLOL TARTRATE 50 MG TAB PO SCH ×2 (11:09→21:31)
[2017-12-31] MEDS: POTASSIUM CHLORIDE 10 MEQ CONTROLLED RELEASE TAB PO SCH ×2 (11:09→21:30)
--- NOTE | 2017-12-31 12:56 | HHI.PR ---
Subjective Remarks Follow-up on patient with CHF exacerbation. Patient seen and examined. Patient complaining of indigestion. Denies any nausea or vomiting. Denies any abdominal pain. States his breathing is about the same. Denies any chest pain. No fever or chills. He follows with Dr. Sibley as outpatient, last seen November 02. He denies any change in medications. Objective Vitals Vital Signs Date Time Temp Pulse Resp B/P (MAP) Pulse Ox O2 Delivery O2 Flow Rate FiO2 12/31/17 11:29 97.3 94 20 137/88 (104) 99 12/31/17 07:42 97.5 90 18 163/108 (126) 97 12/31/17 06:29 18 12/31/17 05:31 97.8 90 18 151/86 (107) 90 12/30/17 20:42 98.1 101 18 171/118 (135) 97 12/30/17 20:37 12/30/17 20:19 92 28 162/102 (122) 98 Nasal Cannula 3.00 12/30/17 18:38 84 18 98 Room Air 12/30/17 18:36 98 Room Air 12/30/17 18:36 18 98 Room Air 12/30/17 17:49 97.8 106 22 177/122 (140) 97 I/O 12/30/17 12/30/17 12/30/17 12/31/17 12/31/17 12/31/17 07:00 15:00 23:00 07:00 15:00 23:00 Intake Total 200 ml 200 ml Balance 200 ml 200 ml Intake Oral 200 ml 200 ml Result Diagram: 12/31/17 0503 12/31/17 0503 Imaging Last Impressions Chest X-Ray 12/30/17 1809 Signed Impressions: Service Date/Time: Saturday, December 30, 2017 18:21 - CONCLUSION: Small bilateral pleural effusions right greater left. Bibasilar consolidations atelectasis versus infiltrate. Oumar Johnson MD Lower Extremity Ultrasound 12/30/17 0000 Signed Impressions: Service Date/Time: Saturday, December 30, 2017 20:46 - CONCLUSION: There is no DVT in the left lower extremity. Alexsander Rey MD Chest CT 12/30/17 0000 Signed Impressions: Service Date/Time: Saturday, December 30, 2017 19:28 - CONCLUSION: 1. Small bilateral pleural effusions and bilateral parenchymal lung changes suggesting pulmonary edema. Given the enlarged cardiac silhouette, a cardiogenic cause should be a consideration. The pleural effusions have increased in volume since the study from one month ago. 2. 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 Alexsander Rey MD Objective Remarks GENERAL: This is a well-nourished, well-developed elderly male patient, in no apparent distress. Awake alert. Sitting up in bed. SKIN: Cool and dry. HEAD: Atraumatic. Normocephalic. EYES: EOMI. No scleral injection. ENT: Nose without bleeding or purulent drainage. Airway patent. MMM. NECK: Trachea midline. CARDIOVASCULAR: Tachycardic without murmurs, gallops, or rubs. RESPIRATORY: Diminished bases with scattered crackles, mostly in the right lung base. GASTROINTESTINAL: Abdomen soft, non-tender, nondistended. MUSCULOSKELETAL: Bilateral lower extremity edema L>R. No joint tenderness, effusion, or edema noted. No calf tenderness. NEUROLOGICAL: Awake and alert. Motor and sensory grossly within normal limits. No focal neurologic finding. Normal speech. Medications and IVs Current Medications Medications (Trade) Dose Ordered Sig/Moses Route Start Time Stop Time Status Last Admin (NS Flush) 2 ml UNSCH PRN IV FLUSH 12/30/17 20:00 (NS Flush) 2 ml BID IV FLUSH 12/30/17 21:00 12/31/17 09:00 (Tylenol) 650 mg Q4H PRN PO 12/30/17 20:00 12/31/17 05:21 (Zofran Inj) 4 mg Q6H PRN IVP 12/30/17 20:00 (Narcan Inj) 0.4 mg UNSCH PRN IV PUSH 12/30/17 20:00 (Dulcolax Supp) 10 mg DAILY PRN RECTAL 12/30/17 20:00 (Lactulose Liq) 30 ml DAILY PRN PO 12/30/17 20:00 (Lasix Inj) 40 mg BID@,18 IV PUSH 12/31/17 09:00 12/31/17 11:08 (Heparin Inj) 5,000 units Q8HR SQ 12/30/17 22:00 Future Hold 12/31/17 05:20 (Lopressor) 50 mg Q12HR PO 12/31/17 09:00 12/31/17 11:09 (KCl) 10 meq BID PO 12/31/17 09:00 12/31/17 11:09 (Prinivil) 2.5 mg DAILY PO 12/31/17 09:00 12/31/17 11:09 (Pill Splitter) 1 ea UNSCH PRN OTHER 12/31/17 08:15 (Mylicon Chew) 80 mg PCHS PRN CHEW 12/31/17 09:00 (Pepcid) 20 mg BID PO 12/31/17 09:00 12/31/17 11:08 A/P Problem List: (1) Acute exacerbation of CHF (congestive heart failure) ICD Code: I50.9 - Heart failure, unspecified Status: Acute (2) CKD (chronic kidney disease), stage III ICD Code: N18.3 - Chronic kidney disease, stage 3 (moderate) Assessment and Plan 87-year-old male with a history of COPD, CHF with an EF of 20-25%, gout, CKD, known noncompliance, recurrent hospital admissions for CHF exacerbation presented to the ED with increasing shortness of breath for the last 3 days. Acute exacerbation on chronic systolic CHF, EF 20-25% CAD, previous [place] Medication noncompliance BNP [address] reviewed and shows bilateral pleural effusions and pulmonary edema -Continue on IV Lasix twice a day 40 mg. Monitor electrolytes. -Strict I's and O's -Salt and fluid restricted diet -Daily weights -CHF teaching -Continue on beta-bartolome. Add low-dose lisinopril. CKD Creatinine 2.2, near baseline -Avoid nephrotoxins -Trend creatinine Bilateral lower extremity edema Secondary to poorly controlled CHF -Doppler ultrasound to rule out DVT; Results are negative for DVT -Cont lasix as above Anemia, normocytic, normochromic Chronic, stable Suspect secondary to anemia of chronic disease Continue to monitor CBC as indicated Thrombocytopenia Platelet count trending down from 180 to 90 No evidence of active bleeding Hold heparin Continue to monitor platelet count closely, repeat lab in a.m. PT/INR 1.2, LFTs within normal limits Obtain B12 and folate level Thoracic aortic aneurysm Prior echocardiogram 05/28 showing moderate the dilated proximal ascending aorta 4.04 cm Recommend follow-up with vascular surgeon for further evaluation DVT prophylaxis: Heparin on hold Bilateral SCD/MILI ward Problem Qualifiers (1) Acute exacerbation of CHF (congestive heart failure): Qualified Codes: I50.9 - Heart failure, unspecified Crystal Fitzpatrick Dec 31, 2017 12:56
[2017-12-31 13:55] LABS: INTERNATIONAL NORMALIZED RATIO 1.2 RATIO; PROTHROMBIN TIME - PATIENT 11.9 SEC (9.8-11.6)
[2017-12-31] MEDS ORDERED: NEBUKIT5 (14:23)
[2017-12-31] MEDS ORDERED: ALBU0.08 NEB (14:24)
--- NOTE | 2017-12-31 14:26 | HHI.FF ---
Face to Face Verification Diagnosis: (1) Acute exacerbation of CHF (congestive heart failure) Home Health Nursing Order: Medical education Signs/symptoms of disease process CHF education Medication education-adverse effect Nursing assessment with vital signs I have seen patient Dom Abrams on 12/31/17. My clinical findings support the need for the requested home health care services because: Patient has SOB Deconditioned w/ increased weakness Med compliance is questionable Limited ability to care for self I certify that my clinical findings support that this patient is homebound because: Unsteady gait/balance Unsafe to leave home unassisted Unable to use public transportation Poor cardiac reserve Crystal Fitzpatrick Dec 31, 2017 14:26
[2017-12-31] MEDS ORDERED: RESP: ALBUTEROL 2.5 MG/IPRATROPIUM 0.5 MG NEB (SCH) NEB ONE (16:00)
[2017-12-31] MEDS: FAMOTIDINE 20 MG TAB PO SCH (21:30)
--- NOTE | 2017-12-31 23:04 | EKG ---
Date Performed: 12/30/2017 Time Performed: 18:09:48 PTAGE: 87 years EKG: ELECTRONIC VENTRICULAR PACEMAKER ABNORMAL RHYTHM ECG INTERPRETATION BASED ON A DEFAULT AGE OF 40 YEARS PREVIOUS TRACING : 11/24/2017 13.12 DOCTOR: Poonam Roberts Interpretating Date/Time 12/31/2017 22:56:00
[2018-01-01] VITALS (9 sets, daily range): BP systolic 125–153; BP diastolic 68–101; PULSE 69–80; RESP 18; TEMP 98–98.5; O2SAT 91–100
[2018-01-01 03:26] LABS: BACTERIA, URINE OCC /hpf; BILIRUBIN, URINE NEG (NEG); BLOOD, URINE NEG (NEG); GLUCOSE,URINE NEG (NEG); HYALINE CAST, URINE 4 /lpf (RARE); KETONE, URINE NEG (NEG); MUCUS URINE FEW /lpf (OCC); NITRITE,URINE NEG (NEG); SQUAMOUS EPITHELIAL CELL URINE <1 /hpf (0-5); URINE COLOR LIGHT-YELLOW (YELLW/STRAW); URINE LEUKOCYTE ESTERASE NEG (NEG)
--- NOTE | 2018-01-01 06:14 | MB ---
cc: NATA CHAPMAN MD DATE OF CONSULTATION 12/31/2017 REASON FOR CONSULTATION CHF. HISTORY OF PRESENT ILLNESS Mr. Abrams is an 87-year-old patient of mine who has a known nonischemic cardiomyopathy with moderate renal impairment. The patient reports that over the last two days he had progressive shortness of breath that precipitated his emergency room visit. He reports that he has been complaint with his medications as well as his fluid and sodium restrictions. He notes he is doing much better and has urinated two jugs since leaving the emergency room. PAST MEDICAL HISTORY Significant for - 1. CHF with an EF of 20-25%, nonischemic cardiomyopathy with a Biotronik ICD and SVT. 2. Gout. 3. Chronic kidney disease. 4. Hypertension. 5. Hyperlipidemia 6. Mild mitral regurgitation. OUTPATIENT MEDICATIONS 1. Lasix. 2. Potassium. 3. Lopressor. 4. Zithromax. ALLERGIES NO KNOWN DRUG ALLERGIES. FAMILY HISTORY Positive for hypertension. SOCIAL HISTORY The patient is a former smoker. PHYSICAL EXAMINATION VITAL SIGNS: 97.5, 80, 22, 134/85. GENERAL: He is a well-appearing man who is in no apparent distress. NECK: His neck is free from JVD. LUNGS: The lungs are bilaterally clear to auscultation, decreased in the bases. CARDIOVASCULAR EXAMINATION: He has normal S1 and S2. I do not appreciate any murmurs, rubs or gallops. ABDOMEN: Soft. EXTREMITIES: The extremities have trace amount of edema. LAB VALUES Significant for a hemoglobin of 10. His creatinine is 2.26 up from his baseline of 1.9. His BNP is 2543. CHEST X-RAY Small bilateral pleural effusions. IMPRESSION AND RECOMMENDATIONS Acute on chronic systolic heart failure - The patient does have difficulties with heart failure and has had progressive renal impairment which is clearly complicating his situation. He has responded nicely to diuretics. I would continue the same. We will reassess him in the morning and see if we can switch him to p.o. Lasix. OF NOTE, it has been more than six months since his last echo and I will request that. I would obviously keep him on the beta-bartolome. His renal impairment is felt a relative contraindication for his SANNA inhibitor usage. Nata Toñito, M.D. BAB/SSB /5:22 PM /6:04 AM
--- NOTE | 2018-01-01 07:26 | PD.CARD.PN ---
Subjective Subjective Remarks Pt reports some better, but could not lay down to sleep secondary to SHOB Objective Medications Current Medications Medications (Trade) Dose Ordered Sig/Moses Route Start Time Stop Time Status Last Admin (NS Flush) 2 ml UNSCH PRN IV FLUSH 12/30/17 20:00 (NS Flush) 2 ml BID IV FLUSH 12/30/17 21:00 12/31/17 21:29 (Tylenol) 650 mg Q4H PRN PO 12/30/17 20:00 12/31/17 05:21 (Zofran Inj) 4 mg Q6H PRN IVP 12/30/17 20:00 (Narcan Inj) 0.4 mg UNSCH PRN IV PUSH 12/30/17 20:00 (Dulcolax Supp) 10 mg DAILY PRN RECTAL 12/30/17 20:00 (Lactulose Liq) 30 ml DAILY PRN PO 12/30/17 20:00 (Lasix Inj) 40 mg BID@ IV PUSH 12/31/17 09:00 12/31/17 19:54 (Heparin Inj) 5,000 units Q8HR SQ 12/30/17 22:00 Future Hold 12/31/17 05:20 (Lopressor) 50 mg Q12HR PO 12/31/17 09:00 12/31/17 21:31 (KCl) 10 meq BID PO 12/31/17 09:00 12/31/17 21:30 (Prinivil) 2.5 mg DAILY PO 12/31/17 09:00 12/31/17 11:09 (Pill Splitter) 1 ea UNSCH PRN OTHER 12/31/17 08:15 (Mylicon Chew) 80 mg PCHS PRN CHEW 12/31/17 09:00 (Pepcid) 10 mg BID PO 12/31/17 21:00 12/31/17 21:30 Vital Signs / I&O Vital Signs Date Time Temp Pulse Resp B/P (MAP) Pulse Ox O2 Delivery O2 Flow Rate FiO2 01/01/18 05:54 98.0 75 18 153/84 (107) 99 01/01/18 03:59 69 01/01/18 00:34 98.5 75 18 131/68 (89) 100 12/31/17 23:55 75 12/31/17 20:34 98.2 79 18 127/74 (91) 100 12/31/17 16:43 97.5 80 22 134/85 (101) 95 12/31/17 13:17 98.5 80 24 137/98 (111) 100 12/31/17 11:29 97.3 94 20 137/88 (104) 99 12/31/17 07:42 97.5 90 18 163/108 (126) 97 I/O 12/31/17 12/31/17 12/31/17 01/01/18 01/01/18 01/01/18 07:00 15:00 23:00 07:00 15:00 23:00 Intake Total 200 ml 600 ml 240 ml Output Total 4 ml 500 ml Balance 200 ml 596 ml -260 ml Intake Oral 200 ml 600 ml 240 ml Output Urine Total 4 ml 500 ml Stool Total 0 ml Physical Exam GENERAL: Well developed, well nourished. No acute distress. HEENT: Jugular venous pressure is normal. CHEST: Lungs clear to auscultation bilaterally. Unlabored respiratory effort. CARDIAC: Regular rate and rhythm without S3, S4, or murmur. ABDOMEN: Soft, nontender, no hepatosplenomegaly. Bowel sounds present. EXTREMITIES: No clubbing, cyanosis, trace edema. Laboratory Laboratory Tests Test 12/31/17 09:03 12/31/17 13:30 01/01/18 03:00 Magnesium Level 2.3 MG/DL Total Bilirubin 0.6 MG/DL Direct Bilirubin 0.2 MG/DL Indirect Bilirubin 0.4 MG/DL Aspartate Amino Transf (AST/SGOT) 15 U/L Alanine Aminotransferase (ALT/SGPT) 21 U/L Alkaline Phosphatase 58 U/L Total Protein 7.3 GM/DL Albumin 3.6 GM/DL Vitamin B12 Level 680 PG/ML Folate 6.6 NG/ML Prothrombin Time 11.9 SEC Prothromb Time International Ratio 1.2 RATIO Urine Color LIGHT-YELLOW Urine Turbidity CLEAR Urine pH 6.0 Urine Specific [place] 1.009 Urine Protein 30 mg/dL Urine Glucose (UA) NEG mg/dL Urine Ketones NEG mg/dL Urine Occult Blood NEG Urine Nitrite NEG Urine Bilirubin NEG Urine Urobilinogen LESS THAN 2.0 MG/DL Urine Leukocyte Esterase NEG Urine WBC LESS THAN 1 /hpf Urine Squamous Epithelial Cells <1 /hpf Urine Bacteria OCC /hpf Urine Hyaline Casts 4 /lpf Urine Mucus FEW /lpf Microscopic Urinalysis Comment CULT NOT INDICATED Assessment and Plan Problem List: (1) Dyspnea ICD Codes: R06.00 - Dyspnea Status: Acute Plan: Pt with good diuresis and still dyspneic, consider thoracentesis (2) Acute on chronic systolic CHF (congestive heart failure) ICD Codes: I50.23 - Acute on chronic systolic (congestive) heart failure Status: Acute Plan: doing some better change to PO lasix - ECHO pending -on BB, SANNA/ARB relatively contraindicated (3) Chronic kidney disease ICD Codes: N18.9 - Chronic kidney disease, unspecified Status: Acute Plan: unable to get labs (4) HTN (hypertension) ICD Codes: I10 - Essential (primary) hypertension Status: Chronic Edel Sibley MD Jan 01, 2018 07:26
[2018-01-01] MEDS: METOPROLOL TARTRATE 50 MG TAB PO SCH ×2 (08:45→21:30)
[2018-01-01] MEDS: FAMOTIDINE 20 MG TAB PO SCH ×2 (08:45→21:30)
[2018-01-01] MEDS: POTASSIUM CHLORIDE 10 MEQ CONTROLLED RELEASE TAB PO SCH ×2 (08:46→21:30)
[2018-01-01] MEDS: FUROSEMIDE 20 MG TAB PO SCH ×2 (09:24→19:16)
[2018-01-01] MEDS: SODIUM CHLORIDE 0.9% FLUSH 10 ML FLUSH IV FLUSH SCH ×2 (09:25→21:32)
[2018-01-01 10:13] LABS: ALBUMIN 3.8 GM/DL (3.4-5.0); AST (GOT) 19 U/L (15-37); BICARBONATE 24.6 MEQ/L (21.0-32.0); BLOOD UREA NITROGEN 23 MG/DL (7-18); CHLORIDE 104 MEQ/L (98-107); CREATININE 2.21 MG/DL (0.60-1.30); GLOMERULAR FILTRATION RATE 34 ML/MIN (>89); GLUCOSE,RANDOM 82 MG/DL (74-106); SODIUM (NA) 138 MEQ/L (136-145)
[2018-01-01 10:14] LABS: AUTOMATED NEUTROPHIL # 1.9 TH/MM3 (1.8-7.7); BASOPHIL % 0.5 % (0.0-2.0); EOSINOPHIL % 0.5 % (0.0-4.0); HEMATOCRIT 32.9 % (39.0-51.0); HEMOGLOBIN 10.7 GM/DL (13.0-17.0); LYMPH % 26.8 % (9.0-44.0); LYMPHOCYTE # 1.1 TH/MM3 (1.0-4.8); MEAN CORPUSCULAR HEMOGLOBIN 30.9 PG (27.0-34.0); MEAN CORPUSCULAR HGB CONC 32.5 % (32.0-36.0); MEAN PLATELET VOLUME 11.5 FL (7.0-11.0); MONO % 28.3 % (0.0-8.0); MONOCYTE # 1.2 TH/MM3 (0-0.9); NEUT % 43.9 % (16.0-70.0); PLATELET COUNT 92 TH/MM3 (150-450); RED BLOOD COUNT 3.47 MIL/MM3 (4.50-5.90); RED CELL DISTRIBUTION WIDTH 15.7 % (11.6-17.2); WHITE BLOOD COUNT 4.2 TH/MM3 (4.0-11.0)
[2018-01-01 10:18] LABS: ALKALINE PHOSPHATASE 59 U/L (45-117); ALT (GPT) 21 U/L (12-78); TOTAL BILIRUBIN ADULT 0.9 MG/DL (0.2-1.0)
--- NOTE | 2018-01-01 11:20 | HHI.PR ---
Subjective Remarks Follow up for CHF exacerbation. The patient is seen with his daughter at bedside. The patient reports continued shortness of breath, worse with any minimal exertion. Still reporting orthopnea and was unable to sleep well last night. He is on oxygen 2L NC at home. He reports cough, occasionally productive of white sputum. Denies fevers/chills. Denies any chest pain/tightness. He has a difficult time catching his breath throughout conversation. Discussed with the patient and daughter salt and fluid restrictions as well as monitoring daily weight. The patient has no other medical complaints at this time. Objective Vitals Vital Signs Date Time Temp Pulse Resp B/P (MAP) Pulse Ox O2 Delivery O2 Flow Rate FiO2 01/01/18 08:20 98.4 79 18 143/98 (113) 99 01/01/18 05:54 98.0 75 18 153/84 (107) 99 01/01/18 03:59 69 01/01/18 00:34 98.5 75 18 131/68 (89) 100 12/31/17 23:55 75 12/31/17 20:34 98.2 79 18 127/74 (91) 100 12/31/17 16:43 97.5 80 22 134/85 (101) 95 12/31/17 13:17 98.5 80 24 137/98 (111) 100 12/31/17 11:29 97.3 94 20 137/88 (104) 99 I/O 12/31/17 12/31/17 12/31/17 01/01/18 01/01/18 01/01/18 06:59 14:59 22:59 06:59 14:59 22:59 Intake Total 200 ml 600 ml 240 ml Output Total 4 ml 500 ml Balance 200 ml 596 ml -260 ml Intake Oral 200 ml 600 ml 240 ml Output Urine Total 4 ml 500 ml Stool Total 0 ml Result Diagram: 01/01/18 0907 01/01/18 0907 Imaging Last Impressions Chest X-Ray 01/01/18 0000 Signed Impressions: Service Date/Time: Monday, January 01, 2018 14:33 - CONCLUSION: Bilateral pleural effusions and left lower lung consolidation Alex Zamarripa MD Lower Extremity Ultrasound 12/30/17 0000 Signed Impressions: Service Date/Time: Saturday, December 30, 2017 20:46 - CONCLUSION: There is no DVT in the left lower extremity. Alexsander Rey MD Chest CT 12/30/17 0000 Signed Impressions: Service Date/Time: Saturday, December 30, 2017 19:28 - CONCLUSION: 1. Small bilateral pleural effusions and bilateral parenchymal lung changes suggesting pulmonary edema. Given the enlarged cardiac silhouette, a cardiogenic cause should be a consideration. The pleural effusions have increased in volume since the study from one month ago. 2. 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 Alexsander Rey MD Objective Remarks GENERAL: Well-nourished, well-developed pleasant elderly male patient in NAD. Dyspneic throughout conversation. SKIN: Warm and dry. No rash. HEENT: Normocephalic. Atraumatic.Pupils equal and round. Mucous membranes pink and moist. NECK: Supple. Trachea midline. CARDIOVASCULAR: Regular rate and rhythm. S1, S2 noted. No murmur appreciated. RESPIRATORY: No accessory muscle use. Breath sounds diminished at bilateral bases. Breath sounds equal bilaterally. GASTROINTESTINAL: Abdomen soft, non-tender, nondistended. Normoactive bowel sounds x4. MUSCULOSKELETAL: No obvious deformities. Trace RLE edema, 1+ LLE edema. NEUROLOGICAL: Awake and alert. No obvious cranial nerve deficits. Motor grossly within normal limits. Normal speech. PSYCHIATRIC: Appropriate mood and affect; insight and judgment normal. Medications and IVs Current Medications Medications (Trade) Dose Ordered Sig/Moses Route Start Time Stop Time Status Last Admin (NS Flush) 2 ml UNSCH PRN IV FLUSH 12/30/17 20:00 (NS Flush) 2 ml BID IV FLUSH 12/30/17 21:00 01/01/18 09:25 (Tylenol) 650 mg Q4H PRN PO 12/30/17 20:00 12/31/17 05:21 (Zofran Inj) 4 mg Q6H PRN IVP 12/30/17 20:00 (Narcan Inj) 0.4 mg UNSCH PRN IV PUSH 12/30/17 20:00 (Dulcolax Supp) 10 mg DAILY PRN RECTAL 12/30/17 20:00 (Lactulose Liq) 30 ml DAILY PRN PO 12/30/17 20:00 (Heparin Inj) 5,000 units Q8HR SQ 12/30/17 22:00 Future Hold 12/31/17 05:20 (Lopressor) 50 mg Q12HR PO 12/31/17 09:00 01/01/18 08:45 (KCl) 10 meq BID PO 12/31/17 09:00 01/01/18 08:46 (Pill Splitter) 1 ea UNSCH PRN OTHER 12/31/17 08:15 (Mylicon Chew) 80 mg PCHS PRN CHEW 12/31/17 09:00 (Pepcid) 10 mg BID PO 12/31/17 21:00 01/01/18 08:45 (Lasix) 20 mg BID@,18 PO 01/01/18 09:00 01/01/18 09:24 (Duoneb Neb) 1 ampule Q4HR NEB PRN NEB 01/01/18 12:30 01/01/18 13:38 A/P Problem List: (1) Acute exacerbation of CHF (congestive heart failure) ICD Code: I50.9 - Heart failure, unspecified Status: Acute (2) CKD (chronic kidney disease), stage III ICD Code: N18.3 - Chronic kidney disease, stage 3 (moderate) Assessment and Plan 87-year-old male with a history of COPD, CHF with an EF of 20-25%, gout, CKD, known noncompliance, recurrent hospital admissions for CHF exacerbation presented to the ED with increasing shortness of breath for the last 3 days. Acute Exacerbation of Chronic Systolic CHF: Echo 05/21/17 showed EF 20-25%. BNP 2543. Medication and diet restriction noncompliance. -Chest CT reviewed and shows bilateral pleural effusions and pulmonary edema -Given IV lasix 40mg bid, now transitioned to oral lasix 20mg bid -Monitor electrolytes and replace as needed -Monitor Strict I's and O's -Salt and fluid restricted diet, patient and daughter counseled on restrictions and daily weight monitoring -Monitor daily weights -Continue on beta-bartolome. Avoid SANNA/ARB with CKD. -Slab Inspector Dr. Sibley consulted Pleural Effusions: likely secondary to CHF exacerbation. Seen on Chest CT as above -repeat CXR today 01/01 shows continued pleural effusions -patient without much clinical improvement with diuresis -check bilateral chest U/S, and will plan for IR consult for thoracentesis if possible CKD: Creatinine 2.2, near baseline -Avoid nephrotoxins -Caution with diuresis -Trend creatinine, appears stable Bilateral lower extremity edema: Secondary to poorly controlled CHF -Doppler ultrasound to rule out DVT; Results are negative for DVT -Continue lasix as above Anemia, normocytic, normochromic: Chronic, stable. Suspect secondary to anemia of chronic disease -Continue to monitor CBC as indicated Thrombocytopenia: Platelet count trending down from 180 to 90. No evidence of active bleeding. -Hold heparin -PT/INR 1.2, LFTs within normal limits -B12 and folate level wnl -Continue to monitor platelet count closely, repeat stable at 92K Thoracic aortic aneurysm: Prior echocardiogram 05/28 showing moderate the dilated proximal ascending aorta 4.04 cm -Recommend follow-up with vascular surgeon for further evaluation DVT prophylaxis: Bilateral SCD/MILI hose. Heparin on hold Discharge Planning Discharge pending further clinical improvement and cardiology clearance. Problem Qualifiers (1) Acute exacerbation of CHF (congestive heart failure): Qualified Codes: I50.9 - Heart failure, unspecified Jolene Sánchez PA-C Jan 01, 2018 11:20 am
[2018-01-01] MEDS: RESP: ALBUTEROL 2.5 MG/IPRATROPIUM 0.5 MG NEB (PRN) NEB ×2 (13:38→20:09)
--- NOTE | 2018-01-01 15:03 | RADRPT ---
EXAM DATE/TIME: 01/01/2018 14:33 [facility] COMPARISON: CHEST SINGLE AP, December 30, 2017, 18:21. CT THORAX W/O CONTRAST, December 30, 2017, 19:28. INDICATIONS : Evaluate for pleural effusion. MEDICAL HISTORY : Hypertension. Chronic obstructive pulmonary disease. SURGICAL HISTORY : Pacemaker. ENCOUNTER: Subsequent ACUITY: 2 days PAIN SCORE: 0/10 LOCATION: Bilateral chest FINDINGS: Hazy areas of opacity in the lower lungs with blunting of the costophrenic angles characteristic of b ilateral pleural effusions and consolidation in the left lower lung with loss of delineation left hem idiaphragm. There is mild indistinctness of the bronchopulmonary markings the mid and upper lungs wi thout focal infiltrates. The heart is mildly enlarged, stable from prior. Cardiac leads stable. CONCLUSION: Bilateral pleural effusions and left lower lung consolidation Alex Zamarripa MD on January 01, 2018 at 14:40 Board Certified Radiologist. This report was verified electronically.
--- NOTE | 2018-01-01 17:01 | RADRPT ---
EXAM DATE/TIME: 01/01/2018 16:07 [facility] COMPARISON: No previous studies available for comparison. INDICATIONS : Shortness of breath. MEDICAL HISTORY : Congestive heart failure. Arthritis. Chest pain. Irregular heartbeat. COPD. HTN. GOUT. SURGICAL HISTORY : Pacemaker. Left knee surgery. ENCOUNTER: Initial ACUITY: 1 day PAIN SCORE: 2/10 LOCATION: Right chest MEASUREMENTS: SKIN TO PARIETAL PLEURA: 2.1 cm SKIN TO MAX SAFE DEPTH: 2.8 cm ESTIMATED FLUID VOLUME: 134.67 cc FLUID COMPOSITION: simple FINDINGS: Pleural effusion as above. CONCLUSION: Minimal right pleural fluid, volume insufficient for safe bedside thoracentesis Alexsander Ramos MD on January 01, 2018 at 16:52 Board Certified Radiologist. This report was verified electronically.
--- NOTE | 2018-01-01 17:44 | RADRPT ---
EXAM DATE/TIME: 01/01/2018 16:07 [facility] COMPARISON: No previous studies available for comparison. INDICATIONS : Shortness of breath. MEDICAL HISTORY : Congestive heart failure. Arthritis. Chest pain. Irregular heartbeat. COPD. HTN. GOUT. SURGICAL HISTORY : Pacemaker. Left knee surgery. ENCOUNTER: Initial ACUITY: 1 day PAIN SCORE: 2/10 LOCATION: Left chest MEASUREMENTS: SKIN TO PARIETAL PLEURA: 1.8 cm SKIN TO MAX SAFE DEPTH: 3.3 cm ESTIMATED FLUID VOLUME: 153.73 cc FLUID COMPOSITION: simple FINDINGS: Pleural effusion as above. CONCLUSION: Relatively small left pleural effusion, volume not optimally suited to bedside thoracentesis. Alexsander Ramos MD on January 01, 2018 at 17:42 Board Certified Radiologist. This report was verified electronically.
--- NOTE | 2018-01-01 20:04 | ECHRPT ---
Indication: HEART FAILURE CONCLUSIONS Technically difficult study The left ventricular systolic function is severely reduced with an estimated ejection fraction less than 20%. Mildly dilated left ventricle. There is global left ventricular dysfunction. A pacemaker wire is noted in the RV. Trace mitral valve regurgitation. Trace aortic valve regurgitation. There is mild tricuspid valve regurgitation. BP: 153 / 84 HR: 75 Rhythm: MEASUREMENTS (Male / Female) Normal Values Technical Quality:Technically difficult study 2D ECHO LV Diastolic Diameter PLAX 6.7 cm 4.2 - 5.9 / 3.9 - 5.3 cm LV Systolic Diameter PLAX 6.3 cm IVS Diastolic Thickness 1.0 cm 0.6 - 1.0 / 0.6 - 0.9 cm LVPW Diastolic Thickness 1.0 cm 0.6 - 1.0 / 0.6 - 0.9 cm LV Relative Wall Thickness 0.3 RV Internal Dim ED PLAX 3.0 cm LVOT Diameter 2.1 cm LA Systolic Diameter LX 4.0 cm 3.0 - 4.0 / 2.7 - 3.8 cm LV Ejection Fraction MOD 4C 18.9 % LV Cardiac Index MOD 4C 1173.9 cm/minm LV Ejection Fraction 4C AL 22.6 % LV Cardiac Index 4C AL 1482.5 cm/minm M-MODE Aortic Root Diameter MM 3.4 cm LA Systolic Diameter MM 4.0 cm LA Ao Ratio MM 1.2 AV Cusp Separation MM 1.8 cm DOPPLER TR Peak Velocity 353.0 cm/s TR Peak Gradient 49.8 mmHg Right Atrial Pressure 10.0 mmHg Pulmonary Artery Systolic Pressu 59.8 mmHg Right Ventricular Systolic Press 59.8 mmHg FINDINGS LEFT VENTRICLE The left ventricular systolic function is severely reduced with an estimated ejection fraction less than 20%. Mildly dilated left ventricle. Wall thickness is normal. There is global left ventricular dysfunction. RIGHT VENTRICLE The right ventricle is moderately dilated. A pacemaker wire is noted in the RV. LEFT ATRIUM The left atrial size is mildly dilated. RIGHT ATRIUM The right atrial size is mildly dilated. ATRIAL SEPTUM Normal atrial septal thickness AORTA The aortic root and proximal ascending aorta are normal in size on limited imaging. MITRAL VALVE Mild thickening of the mitral valve leaflets. No mitral valve stenosis. Trace mitral valve regurgitation. AORTIC VALVE Grossly normal No aortic valve stenosis. Trace aortic valve regurgitation. TRICUSPID VALVE Structurally normal tricuspid valve. There is mild tricuspid valve regurgitation. The estimated pulmonary arterial pressure is 59.8 mmHg. Pacemaker wire is present within the right ventricular cavity. PULMONARY VALVE No pulmonary valve regurgitation or stenosis. VESSELS The inferior vena cava is normal in size. PERICARDIUM No pericardial effusion. Demetrio Marin DO (Electronically Signed) Final Date:01 January 2018 20:03
[2018-01-02] VITALS (11 sets, daily range): BP systolic 126–145; BP diastolic 81–98; PULSE 72–82; RESP 16–20; TEMP 97.4–98.2; O2SAT 97–100
[2018-01-02 08:50] LABS: AUTOMATED NEUTROPHIL # 1.5 TH/MM3 (1.8-7.7); BASOPHIL % 0.5 % (0.0-2.0); EOSINOPHIL % 0.3 % (0.0-4.0); HEMATOCRIT 31.7 % (39.0-51.0); HEMOGLOBIN 10.4 GM/DL (13.0-17.0); LYMPH % 27.7 % (9.0-44.0); MEAN CELL VOLUME 94.3 FL (80.0-100.0); MEAN CORPUSCULAR HGB CONC 32.9 % (32.0-36.0); MEAN PLATELET VOLUME 10.9 FL (7.0-11.0); MONO % 30.1 % (0.0-8.0); MONOCYTE # 1.1 TH/MM3 (0-0.9); NEUT % 41.4 % (16.0-70.0); PLATELET COUNT 89 TH/MM3 (150-450); RED BLOOD COUNT 3.36 MIL/MM3 (4.50-5.90); RED CELL DISTRIBUTION WIDTH 15.9 % (11.6-17.2); WHITE BLOOD COUNT 3.7 TH/MM3 (4.0-11.0)
[2018-01-02] MEDS: FAMOTIDINE 20 MG TAB PO SCH ×2 (08:50→21:32)
[2018-01-02] MEDS: POTASSIUM CHLORIDE 10 MEQ CONTROLLED RELEASE TAB PO SCH ×2 (08:50→21:33)
[2018-01-02] MEDS: METOPROLOL TARTRATE 50 MG TAB PO SCH ×2 (08:50→21:33)
[2018-01-02] MEDS: FUROSEMIDE 20 MG TAB PO SCH ×2 (08:51→17:28)
[2018-01-02] MEDS: SODIUM CHLORIDE 0.9% FLUSH 10 ML FLUSH IV FLUSH SCH ×2 (08:51→21:32)
[2018-01-02 09:02] LABS: BICARBONATE 24.6 MEQ/L (21.0-32.0); CREATININE 2.54 MG/DL (0.60-1.30); MAGNESIUM 2.5 MG/DL (1.5-2.5)
--- NOTE | 2018-01-02 09:56 | HHI.PR ---
Subjective Remarks Follow up for CHF exacerbation. The patient is seen lying in bed. He reports feeling a bit better today. He was able to get better sleep last night. Shortness of breath improving however does still feel dyspneic, especially with exertion. He has not yet attempted ambulation today. He reports continued cough , occasionally productive of clear sputum. Denies fevers/chills. Denies chest pain. Lower extremity edema improving. O2 sat 100% on 2L NC. Patient wears oxygen at home. Objective Vitals Vital Signs Date Time Temp Pulse Resp B/P (MAP) Pulse Ox O2 Delivery O2 Flow Rate FiO2 01/02/18 08:40 97.4 74 18 131/83 (99) 97 01/02/18 03:39 98.2 82 18 126/89 (101) 100 01/02/18 03:30 74 01/02/18 00:00 74 01/01/18 23:51 98.1 74 18 125/83 (97) 91 01/01/18 23:26 76 145/101 (116) 01/01/18 21:18 98.0 80 18 139/94 (109) 99 01/01/18 20:30 77 01/01/18 20:12 98 Nasal Cannula 2.00 I/O 01/01/18 01/01/18 01/01/18 01/02/18 01/02/18 01/02/18 07:00 15:00 23:00 07:00 15:00 23:00 Intake Total 420 ml 480 ml Output Total 500 ml 175 ml Balance -80 ml 305 ml Intake Oral 420 ml 480 ml Output Urine Total 500 ml 175 ml Result Diagram: 01/02/1881801/02/18 0819 Imaging Last Impressions Chest X-Ray 01/01/18 0000 Signed Impressions: Service Date/Time: Monday, January 01, 2018 14:33 - CONCLUSION: Bilateral pleural effusions and left lower lung consolidation Alex Zamarripa MD Chest Ultrasound 01/01/18 0000 Signed Impressions: Service Date/Time: Monday, January 01, 2018 16:07 - CONCLUSION: Minimal right pleural fluid, volume insufficient for safe bedside thoracentesis Alexsander Ramos MD Lower Extremity Ultrasound 12/30/17 0000 Signed Impressions: Service Date/Time: Saturday, December 30, 2017 20:46 - CONCLUSION: There is no DVT in the left lower extremity. Alexsander Rey MD Chest CT 12/30/17 0000 Signed Impressions: Service Date/Time: Saturday, December 30, 2017 19:28 - CONCLUSION: 1. Small bilateral pleural effusions and bilateral parenchymal lung changes suggesting pulmonary edema. Given the enlarged cardiac silhouette, a cardiogenic cause should be a consideration. The pleural effusions have increased in volume since the study from one month ago. 2. 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 Alexsander Rey MD Objective Remarks GENERAL: Well-nourished, well-developed pleasant elderly male patient in [facility]. SKIN: Warm and dry. No rash. HEENT: Normocephalic. Atraumatic.Pupils equal and round. Mucous membranes pink and moist. CARDIOVASCULAR: Regular rate and rhythm. S1, S2 noted. No murmur appreciated. RESPIRATORY: No accessory muscle use. Breath sounds diminished at bilateral bases, however improved compared to yesterday. Breath sounds equal bilaterally. GASTROINTESTINAL: Abdomen soft, non-tender, nondistended. Normoactive bowel sounds x4. MUSCULOSKELETAL: No obvious deformities. Trace bilateral lower extremity edema. . NEUROLOGICAL: Awake and alert. No obvious cranial nerve deficits. Motor grossly within normal limits. Normal speech. PSYCHIATRIC: Appropriate mood and affect; insight and judgment normal. Medications and IVs Current Medications Medications (Trade) Dose Ordered Sig/Moses Route Start Time Stop Time Status Last Admin (NS Flush) 2 ml UNSCH PRN IV FLUSH 12/30/17 20:00 (NS Flush) 2 ml BID IV FLUSH 12/30/17 21:00 01/02/18 08:51 (Tylenol) 650 mg Q4H PRN PO 12/30/17 20:00 12/31/17 05:21 (Zofran Inj) 4 mg Q6H PRN IVP 12/30/17 20:00 (Narcan Inj) 0.4 mg UNSCH PRN IV PUSH 12/30/17 20:00 (Dulcolax Supp) 10 mg DAILY PRN RECTAL 12/30/17 20:00 (Lactulose Liq) 30 ml DAILY PRN PO 12/30/17 20:00 (Heparin Inj) 5,000 units Q8HR SQ 12/30/17 22:00 Future Hold 12/31/17 05:20 (Lopressor) 50 mg Q12HR PO 12/31/17 09:00 01/02/18 08:50 (KCl) 10 meq BID PO 12/31/17 09:00 01/02/18 08:50 (Pill Splitter) 1 ea UNSCH PRN OTHER 12/31/17 08:15 (Mylicon Chew) 80 mg PCHS PRN CHEW 12/31/17 09:00 01/02/18 12:20 (Pepcid) 10 mg BID PO 12/31/17 21:00 01/02/18 08:50 (Lasix) 20 mg BID@,18 PO 01/01/18 09:00 01/02/18 08:51 (Duoneb Neb) 1 ampule Q4HR NEB PRN NEB 01/01/18 12:30 01/02/18 12:35 A/P Problem List: (1) Acute exacerbation of CHF (congestive heart failure) ICD Code: I50.9 - Heart failure, unspecified Status: Acute (2) CKD (chronic kidney disease), stage III ICD Code: N18.3 - Chronic kidney disease, stage 3 (moderate) Assessment and Plan 87-year-old male with a history of COPD, CHF with an EF of 20-25%, gout, CKD, known noncompliance, recurrent hospital admissions for CHF exacerbation presented to the ED with increasing shortness of breath for the last 3 days. Acute Exacerbation of Chronic Systolic CHF: Echo 05/21/17 showed EF 20-25%. BNP 2543. Medication and diet restriction noncompliance. -Chest CT reviewed and shows bilateral pleural effusions and pulmonary edema -Given IV lasix 40mg bid initially, now transitioned to oral lasix 20mg bid -Monitor electrolytes and replace as needed -Monitor Strict I's and O's -Salt and fluid restricted diet, patient and daughter counseled on restrictions and daily weight monitoring -Monitor daily weights -Continue on beta-bartolome. Avoid SANNA/ARB with CKD. -Target Worker Dr. Sibley consulted, appreciate recommendations -Repeat Echo 01/01 showed EF less than 20%, trace MR, trace AR, mild TR -Await further recommendations from oxygen therapist Pleural Effusions: likely secondary to CHF exacerbation. Seen on Chest CT as above -repeat CXR 01/01 shows continued pleural effusions -bilateral chest U/S done, shows minimal right pleural fluid, and small left pleural effusion; volumes insufficient for safe thoracentesis -continue diuresis as above CKD: Creatinine 2.2, near baseline -Avoid nephrotoxins -Caution with diuresis, decreased lasix dosing on 01/01 -Trend creatinine Bilateral lower extremity edema: Secondary to poorly controlled CHF -Doppler ultrasound to rule out DVT; Results are negative for DVT -Continue lasix as above Anemia, normocytic, normochromic: Chronic, stable. Suspect secondary to anemia of chronic disease -Continue to monitor CBC as indicated Thrombocytopenia: Platelet count trending down from 180K to 90K. No evidence of active bleeding. -Hold heparin -PT/INR 1.2, LFTs within normal limits -B12 and folate level wnl -Continue to monitor platelet count closely Thoracic aortic aneurysm: Prior echocardiogram 05/28 showing moderate the dilated proximal ascending aorta 4.04 cm -Recommend follow-up with vascular surgeon for further evaluation DVT prophylaxis: Bilateral SCD/MILI hose. Heparin on hold Discharge Planning Discharge pending further clinical improvement and cardiology clearance. Hopefully discharge later today or tomorrow. 1630hrs: Discussed extensively with Dr. Sibley, and evaluated patient again together to discuss palliative care vs hospice. Patient agrees to discuss options with palliative care and would like his daughter to be present for discussion. Consulted palliative care. Also, I was contacted by [facility] earlier today , patient meets inpatient criteria, will admit to inpatient with no set plans for discharge at this time. Problem Qualifiers (1) Acute exacerbation of CHF (congestive heart failure): Qualified Codes: I50.9 - Heart failure, unspecified Jolene Sánchez PA-C Jan 02, 2018 09:55
[2018-01-02] MEDS: SIMETHICONE 80 MG CHEWABLE TAB CHEW PRN (12:20)
[2018-01-02] MEDS: RESP: ALBUTEROL 2.5 MG/IPRATROPIUM 0.5 MG NEB (PRN) NEB ×2 (12:35→21:46)
--- NOTE | 2018-01-02 16:20 | PD.CARD.PN ---
Subjective Subjective Remarks Pt reports some better, still some hesitation about if he is ready to go home Objective Medications Current Medications Medications (Trade) Dose Ordered Sig/Moses Route Start Time Stop Time Status Last Admin (NS Flush) 2 ml UNSCH PRN IV FLUSH 12/30/17 20:00 (NS Flush) 2 ml BID IV FLUSH 12/30/17 21:00 01/02/18 08:51 (Tylenol) 650 mg Q4H PRN PO 12/30/17 20:00 12/31/17 05:21 (Zofran Inj) 4 mg Q6H PRN IVP 12/30/17 20:00 01/02/18 14:33 (Narcan Inj) 0.4 mg UNSCH PRN IV PUSH 12/30/17 20:00 (Dulcolax Supp) 10 mg DAILY PRN RECTAL 12/30/17 20:00 (Lactulose Liq) 30 ml DAILY PRN PO 12/30/17 20:00 (Heparin Inj) 5,000 units Q8HR SQ 12/30/17 22:00 Future Hold 12/31/17 05:20 (Lopressor) 50 mg Q12HR PO 12/31/17 09:00 01/02/18 08:50 (KCl) 10 meq BID PO 12/31/17 09:00 01/02/18 08:50 (Pill Splitter) 1 ea UNSCH PRN OTHER 12/31/17 08:15 (Mylicon Chew) 80 mg PCHS PRN CHEW 12/31/17 09:00 01/02/18 12:20 (Pepcid) 10 mg BID PO 12/31/17 21:00 01/02/18 08:50 (Lasix) 20 mg BID@18 PO 01/01/18 09:00 01/02/18 08:51 (Duoneb Neb) 1 ampule Q4HR NEB PRN NEB 01/01/18 12:30 01/02/18 12:35 Vital Signs / I&O Vital Signs Date Time Temp Pulse Resp B/P (MAP) Pulse Ox O2 Delivery O2 Flow Rate FiO2 01/02/18 16:03 97.4 76 20 127/81 (96) 100 01/02/18 12:54 72 01/02/18 11:25 97.5 74 18 145/98 (114) 100 01/02/18 08:40 97.4 74 18 131/83 (99) 97 01/02/18 08:00 77 01/02/18 03:39 98.2 82 18 126/89 (101) 100 01/02/18 03:30 74 01/02/18 00:00 74 01/01/18 23:51 98.1 74 18 125/83 (97) 91 01/01/18 23:26 76 145/101 (116) 01/01/18 21:18 98.0 80 18 139/94 (109) 99 01/01/18 20:30 77 01/01/18 20:12 98 Nasal Cannula 2.00 I/O 01/01/18 01/01/18 01/01/18 01/02/18 01/02/18 01/02/18 07:00 15:00 23:00 07:00 15:00 23:00 Intake Total 420 ml 480 ml Output Total 500 ml 175 ml Balance -80 ml 305 ml Intake Oral 420 ml 480 ml Output Urine Total 500 ml 175 ml Physical Exam GENERAL: Well developed, well nourished. No acute distress. HEENT: Jugular venous pressure is normal. CHEST: Lungs decreased clear to auscultation bilaterally. Unlabored respiratory effort. CARDIAC: Regular rate and rhythm without S3, S4, or murmur. ABDOMEN: Soft, nontender, no hepatosplenomegaly. Bowel sounds present. EXTREMITIES: No clubbing, cyanosis, trace edema. Laboratory Laboratory Tests Test 01/02/18 08:19 White Blood Count 3.7 TH/MM3 Red Blood Count 3.36 MIL/MM3 Hemoglobin 10.4 GM/DL Hematocrit 31.7 % Mean Corpuscular Volume 94.3 FL Mean Corpuscular Hemoglobin 31.0 PG Mean Corpuscular Hemoglobin Concent 32.9 % Red Cell Distribution Width 15.9 % Platelet Count 89 TH/MM3 Mean Platelet Volume 10.9 FL Neutrophils (%) (Auto) 41.4 % Lymphocytes (%) (Auto) 27.7 % Monocytes (%) (Auto) 30.1 % Eosinophils (%) (Auto) 0.3 % Basophils (%) (Auto) 0.5 % Neutrophils # (Auto) 1.5 TH/MM3 Lymphocytes # (Auto) 1.0 TH/MM3 Monocytes # (Auto) 1.1 TH/MM3 Eosinophils # (Auto) 0.0 TH/MM3 Basophils # (Auto) 0.0 TH/MM3 CBC Comment AUTO DIFF Differential Comment AUTO DIFF CONFIRMED Platelet Estimate LOW Platelet Morphology Comment ENLARGED Blood Urea Nitrogen 29 MG/DL Creatinine 2.54 MG/DL Random Glucose 92 MG/DL Calcium Level 9.0 MG/DL Magnesium Level 2.5 MG/DL Sodium Level 137 MEQ/L Potassium Level 4.3 MEQ/L Chloride Level 102 MEQ/L Carbon Dioxide Level 24.6 MEQ/L Anion Gap 10 MEQ/L Estimat Glomerular Filtration Rate 29 ML/MIN Imaging Last 72 hours Impressions Chest X-Ray 01/01/18 0000 Signed Impressions: Service Date/Time: Monday, January 01, 2018 14:33 - CONCLUSION: Bilateral pleural effusions and left lower lung consolidation Alex Zamarripa MD Chest Ultrasound 01/01/18 0000 Signed Impressions: Service Date/Time: Monday, January 01, 2018 16:07 - CONCLUSION: Minimal right pleural fluid, volume insufficient for safe bedside thoracentesis Alexsander Ramos MD Chest Ultrasound 01/01/18 0000 Signed Impressions: Service Date/Time: Monday, January 01, 2018 16:07 - CONCLUSION: Relatively small left pleural effusion, volume not optimally suited to bedside thoracentesis. Alexsander Ramos MD Chest X-Ray 12/30/17 1809 Signed Impressions: Service Date/Time: Saturday, December 30, 2017 18:21 - CONCLUSION: Small bilateral pleural effusions right greater left. Bibasilar consolidations atelectasis versus infiltrate. Oumar Johnson MD Assessment and Plan Problem List: (1) Dyspnea ICD Codes: R06.00 - Dyspnea Status: Acute Plan: Pt still dyspneic, COPD optimized per primary team CHF- optimized Anemia- consider Epogen => consider hospice (2) Acute on chronic systolic CHF (congestive heart failure) ICD Codes: I50.23 - Acute on chronic systolic (congestive) heart failure Status: Acute Plan: doing some better change to PO lasix - ECHO EF <20 -on BB, SANNA/ARB relatively contraindicated - Cr is increasing and so I do not think there is more fluid to remove - US shows effusions too small for tap (3) Chronic kidney disease ICD Codes: N18.9 - Chronic kidney disease, unspecified Status: Acute (4) HTN (hypertension) ICD Codes: I10 - Essential (primary) hypertension Status: Chronic Edel Sibley MD Jan 02, 2018 16:20
[2018-01-03] VITALS (8 sets, daily range): BP systolic 123–147; BP diastolic 76–105; PULSE 71–74; RESP 18–20; TEMP 97.4–98; O2SAT 96–100
[2018-01-03 07:09] LABS: AUTOMATED NEUTROPHIL # 2.2 TH/MM3 (1.8-7.7); BASOPHIL % 0.5 % (0.0-2.0); EOSINOPHIL % 0.3 % (0.0-4.0); HEMOGLOBIN 10.4 GM/DL (13.0-17.0); LYMPH % 23.3 % (9.0-44.0); LYMPHOCYTE # 1.1 TH/MM3 (1.0-4.8); MEAN CELL VOLUME 94.5 FL (80.0-100.0); MEAN CORPUSCULAR HEMOGLOBIN 30.9 PG (27.0-34.0); MEAN CORPUSCULAR HGB CONC 32.7 % (32.0-36.0); MONO % 31.8 % (0.0-8.0); MONOCYTE # 1.6 TH/MM3 (0-0.9); NEUT % 44.1 % (16.0-70.0); PLATELET COUNT 84 TH/MM3 (150-450); RED BLOOD COUNT 3.38 MIL/MM3 (4.50-5.90); RED CELL DISTRIBUTION WIDTH 16.5 % (11.6-17.2); WHITE BLOOD COUNT 4.9 TH/MM3 (4.0-11.0)
--- NOTE | 2018-01-03 07:19 | PD.CARD.PN ---
Subjective Subjective Remarks no new complaints Objective Medications Current Medications Medications (Trade) Dose Ordered Sig/Moses Route Start Time Stop Time Status Last Admin (NS Flush) 2 ml UNSCH PRN IV FLUSH 12/30/17 20:00 (NS Flush) 2 ml BID IV FLUSH 12/30/17 21:00 01/02/18 21:32 (Tylenol) 650 mg Q4H PRN PO 12/30/17 20:00 12/31/17 05:21 (Zofran Inj) 4 mg Q6H PRN IVP 12/30/17 20:00 01/02/18 14:33 (Narcan Inj) 0.4 mg UNSCH PRN IV PUSH 12/30/17 20:00 (Dulcolax Supp) 10 mg DAILY PRN RECTAL 12/30/17 20:00 (Lactulose Liq) 30 ml DAILY PRN PO 12/30/17 20:00 (Heparin Inj) 5,000 units Q8HR SQ 12/30/17 22:00 Future Hold 12/31/17 05:20 (Lopressor) 50 mg Q12HR PO 12/31/17 09:00 01/02/18 21:33 (KCl) 10 meq BID PO 12/31/17 09:00 01/02/18 21:33 (Pill Splitter) 1 ea UNSCH PRN OTHER 12/31/17 08:15 (Mylicon Chew) 80 mg PCHS PRN CHEW 12/31/17 09:00 01/02/18 12:20 (Pepcid) 10 mg BID PO 12/31/17 21:00 01/02/18 21:32 (Lasix) 20 mg BID@ PO 01/01/18 09:00 01/02/18 17:28 (Duoneb Neb) 1 ampule Q4HR NEB PRN NEB 01/01/18 12:30 01/02/18 21:46 Vital Signs / I&O Vital Signs Date Time Temp Pulse Resp B/P (MAP) Pulse Ox O2 Delivery O2 Flow Rate FiO2 01/03/18 03:57 72 01/03/18 03:17 98.0 74 18 135/76 (95) 96 01/03/18 00:12 97.8 73 18 123/78 (93) 99 01/03/18 00:00 73 01/02/18 21:47 97 Nasal Cannula 2.00 01/02/18 21:24 97.8 78 16 129/92 (104) 97 01/02/18 19:59 74 01/02/18 16:03 97.4 76 20 127/81 (96) 100 01/02/18 12:54 72 01/02/18 11:25 97.5 74 18 145/98 (114) 100 01/02/18 08:40 97.4 74 18 131/83 (99) 97 01/02/18 08:00 77 I/O 01/02/18 01/02/18 01/02/18 01/03/18 01/03/18 01/03/18 07:00 15:00 23:00 07:00 15:00 23:00 Intake Total 480 ml 800 ml Output Total 175 ml 1000 ml 100 ml Balance 305 ml -200 ml -100 ml Intake Oral 480 ml 800 ml Output Urine Total 175 ml 1000 ml 100 ml # Voids 1 Physical Exam GENERAL: Well developed, well nourished. No acute distress. HEENT: Jugular venous pressure is normal. CHEST: Lungs decreased clear to auscultation bilaterally. Unlabored respiratory effort. CARDIAC: Regular rate and rhythm without S3, S4, or murmur. ABDOMEN: Soft, nontender, no hepatosplenomegaly. Bowel sounds present. EXTREMITIES: No clubbing, cyanosis, trace edema. Laboratory Laboratory Tests Test 01/02/18 08:19 01/03/18 06:15 White Blood Count 3.7 TH/MM3 Red Blood Count 3.36 MIL/MM3 Hemoglobin 10.4 GM/DL Hematocrit 31.7 % Mean Corpuscular Volume 94.3 FL Mean Corpuscular Hemoglobin 31.0 PG Mean Corpuscular Hemoglobin Concent 32.9 % Red Cell Distribution Width 15.9 % Platelet Count 89 TH/MM3 Mean Platelet Volume 10.9 FL Neutrophils (%) (Auto) 41.4 % Lymphocytes (%) (Auto) 27.7 % Monocytes (%) (Auto) 30.1 % Eosinophils (%) (Auto) 0.3 % Basophils (%) (Auto) 0.5 % Neutrophils # (Auto) 1.5 TH/MM3 Lymphocytes # (Auto) 1.0 TH/MM3 Monocytes # (Auto) 1.1 TH/MM3 Eosinophils # (Auto) 0.0 TH/MM3 Basophils # (Auto) 0.0 TH/MM3 CBC Comment AUTO DIFF Differential Comment AUTO DIFF CONFIRMED Platelet Estimate LOW Platelet Morphology Comment ENLARGED Blood Urea Nitrogen 29 MG/DL Creatinine 2.54 MG/DL Random Glucose 92 MG/DL Calcium Level 9.0 MG/DL Magnesium Level 2.5 MG/DL Sodium Level 137 MEQ/L Potassium Level 4.3 MEQ/L Chloride Level 102 MEQ/L Carbon Dioxide Level 24.6 MEQ/L Anion Gap 10 MEQ/L Estimat Glomerular Filtration Rate 29 ML/MIN Assessment and Plan Problem List: (1) Dyspnea ICD Codes: R06.00 - Dyspnea Status: Acute Plan: Pt still dyspneic, COPD optimized per primary team CHF- optimized Anemia- (2) Acute on chronic systolic CHF (congestive heart failure) ICD Codes: I50.23 - Acute on chronic systolic (congestive) heart failure Status: Acute Plan: - ECHO EF <20 -on BB, SANNA/ARB relatively contraindicated -end stage CHF- pt agrees with hospice -metolazone 2.5mg Q day PRN weight gain (for at home) (3) Chronic kidney disease ICD Codes: N18.9 - Chronic kidney disease, unspecified Status: Acute (4) HTN (hypertension) ICD Codes: I10 - Essential (primary) hypertension Status: Chronic Edel Sibley MD Jan 03, 2018 07:19
[2018-01-03] MEDS ORDERED: METOLAZONE 2.5 MG TAB PO PRN (07:30)
[2018-01-03 07:36] LABS: % SATURATION IRON PROFILE 23.2 % (20-50); BICARBONATE 26.8 MEQ/L (21.0-32.0); BLOOD UREA NITROGEN 34 MG/DL (7-18); CALCIUM 8.7 MG/DL (8.5-10.1); CHLORIDE 103 MEQ/L (98-107); CREATININE 2.75 MG/DL (0.60-1.30); FERRITIN 827 NG/ML (26-388); GLOMERULAR FILTRATION RATE 27 ML/MIN (>89); GLUCOSE,RANDOM 64 MG/DL (74-106); IRON (FE) 60 MCG/DL (65-175); MAGNESIUM 2.5 MG/DL (1.5-2.5); SODIUM (NA) 137 MEQ/L (136-145); TOTAL IRON BINDING CAPACITY 259 MCG/DL (250-450)
[2018-01-03] MEDS: POTASSIUM CHLORIDE 10 MEQ CONTROLLED RELEASE TAB PO SCH (09:00)
[2018-01-03] MEDS: SODIUM CHLORIDE 0.9% FLUSH 10 ML FLUSH IV FLUSH SCH (09:23)
[2018-01-03] MEDS: SIMETHICONE 80 MG CHEWABLE TAB CHEW PRN (09:23)
[2018-01-03] MEDS: FAMOTIDINE 20 MG TAB PO SCH (09:24)
[2018-01-03] MEDS: FUROSEMIDE 20 MG TAB PO SCH (09:24)
[2018-01-03] MEDS: METOPROLOL TARTRATE 50 MG TAB PO SCH (09:24)
--- NOTE | 2018-01-03 11:57 | PD.CONS ---
Consult Service Palliative Care Consult Requested By JUAQUIN Renae Primary Care Physician Saud Worrell MD Reason for Consultation a. To assist with evaluation and management of symptoms including: Dyspnea, orthopnea, edema b. To assist medical decision maker(s) with: better understanding of current medical conditions; weighing benefits/burdens of medical treatment options; making medical treatment decisions. HPI History of Present Illness This is an 87-year-old -Northern [place] male who presents to the emergency room 12/30 with a complaint of dyspnea, orthopnea and edema. This is his second ER visit in November for the same complaint. He has had 9 ER visits in the last 12 months for the same cause. 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 2D echocardiogram done 01/01/18 confirms a severely reduced ejection fraction of less than 20% with a mildly dilated left ventricle, global left ventricular dysfunction, trace mitral and aortic valve regurgitation, mild tricuspid valve regurgitation. Estimated pulmonary artery pressure is 59.8 mmHg. ED course: * Laboratory: WBC 4.5, Hgb 10.5, HCT 32.4, PLT 180, sodium 144, potassium 3.8, BUN 23 creatinine 2.26, troponin 0 0.04, B natriuretic peptide 2543. UA is negative. * Radiology: Chest x-ray shows small bilateral pleural effusions right greater than left, bibasilar consolidations, atelectasis versus infiltrate. CT of the chest shows small bilateral pleural effusions with bilateral parenchymal lung changes suggesting pulmonary edema. Given the enlarged cardiac silhouette, a cardiogenic cause should be a consideration. Pleural effusions have increased in volume since the study from 1 month ago. 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 He complains of significant dyspnea with minimal activity, to include ambulating more than 10 feet within his home. He is essentially homebound at this time due to his significant dyspnea. He generally sleeps in a recliner due to his orthopnea and in fact is too restless to actually get much sleep due to the combined dyspnea and orthopnea. He states he moves "from chair to chair " most nights. He is seen to frequently reposition himself in the hospital bed and is dyspneic at rest or with minimal speech. He also notes that his train of thought is more difficult to maintain and that his "thinking is not as clear ". Progressively worsening renal function precludes the use of SANNA/ARB, which also precludes the use of Entresto. He was evaluated by his medicaid billing specialist, Dr. Sibley who opines that this is end stage CHF and has discussed hospice with the patient. Palliative care has been consulted to establish goals of care and assist in symptom management. . Function/Cognitive Trajectory The patient himself has noticed a decrease in the clarity of his thinking and more difficulty with decision-making. He states he had previously been able to do "everything" to include fishing and golf. He is now nearly unable to leave his home and requires significant assistance. He is dyspneic with minimal ambulation in the home. He is having difficulty maintaining hygiene as showers take so much energy even though he does have a shower chair to sit in. . Review of Systems Constitutional: COMPLAINS OF: Fatigue, Generalized weakness, Sleep problems Endocrine: DENIES: Heat/cold intolerance, Polydipsia, Polyuria, Polyphagia Eyes: DENIES: Blurred vision, Diplopia, Eye inflammation, Eye pain, Vision loss , Photosensitivity, Double Vision, Blind spots Ears, nose, mouth, throat: DENIES: Tinnitus, Hearing loss, Vertigo, Nasal discharge, Oral lesions, Throat pain, Hoarseness, Ear Pain, Running Nose, Epistaxis, Sinus Pain, Toothache, Odynophagia Respiratory: COMPLAINS OF: Shortness of breath Cardiovascular: COMPLAINS OF: Dyspnea on Exertion, Lower Extremity Edema, Orthopnea Gastrointestinal: DENIES: Abdominal pain, Black stools, Bloody stools, Constipation, Diarrhea, Nausea, Vomiting, Difficulty Swallowing, Anorexia, Dyspepsia or heartburn, Excessive gas, Bloating, Vomiting blood Genitourinary: DENIES: Sexual dysfunction, Urinary frequency, Urinary incontinence, Urgency, Hematuria, Dysuria, Nocturia, Penile Discharge, Testicular Pain, Testicular Swelling, Hesitancy, Dribbling, Decreased stream Musculoskeletal: DENIES: Joint pain, Muscle aches, Stiffness, Joint Swelling, Back pain, Neck pain, Decreased range of motion Integumentary: DENIES: Abnormal pigmentation, Nail changes, Pruritus, Rash, Nodules, Tumors, Excessive dryness, Non-healing sores Hematologic/Lymphatics: DENIES: Bruising, Lymphadenopathy, Prolonged bleed w/ proced, History of transfusions Immunologic/Allergic: DENIES: Eczema, Urticaria Neurologic: DENIES: Abnormal gait, Headache, Localized weakness, Paresthesias, Seizures, Speech Problems, Tremor, Poor Balance, Change in smell or taste Psychiatric: DENIES: Anxiety, Confusion, Mood changes, Depression, Hallucinations, Agitation, Suicidal Ideation, Homicidal Ideation, Delusions, Anhedonia Past Family Social History Coded Allergies: No Known Allergies (Verified Adverse Reaction, Unknown, 11/24/17) Past Medical History COPD CHF with an EF of <20% Gout Chronic kidney disease Anemia of chronic disease Dilated nonischemic cardiomyopathy Hyperlipidemia Right elbow olecranon bursitis Osteoarthritis . Past Surgical History AICD placement on 03/01/12 with generator replacement in May 2017 Left knee surgery . Reported Medications Reported Meds & Active Scripts Active Albuterol Neb (Albuterol Sulfate) 2.5 Mg/3 Ml Neb 2.5 Mg NEB Q4HR NEB PRN Nebulizer Kit/Tubing/Mout (N/A) 1 Kit Kit Kit .XX DIRECTED Zithromax Z-Chaz (Azithromycin) 250 Mg Dspk 250 Mg PO DIRECTED 500 MG (2 tabs) day 1, then 1 tab days 2-5. Potassium Chloride ER (Potassium Chloride) 10 Meq Tab 10 Meq PO BID Furosemide 20 Mg Tab 20 Mg PO BID Lopressor (Metoprolol Tartrate) 50 Mg Tab 50 Mg PO Q12HR Reported Nitroglycerin SL (Nitroglycerin) 0.4 Mg Subl 0.4 Mg SL DIRECTED PRN ONE TABLET UNDER THE TONGUE NEEDED FOR CHEST PAIN, MAY REPEAT EVERY FIVE MINUTES FOR A TOTAL OF 3 DOSES OR CALL 911 IF NO RELIEF Uloric (Febuxostat) 80 Mg Tab 1 DAILY . Current Medications Medications (Trade) Dose Ordered Sig/Moses Route Start Time Stop Time Status Last Admin (NS Flush) 2 ml UNSCH PRN IV FLUSH 12/30/17 20:00 (NS Flush) 2 ml BID IV FLUSH 12/30/17 21:00 01/03/18 09:23 (Tylenol) 650 mg Q4H PRN PO 12/30/17 20:00 12/31/17 05:21 (Zofran Inj) 4 mg Q6H PRN IVP 12/30/17 20:00 01/02/18 14:33 (Narcan Inj) 0.4 mg UNSCH PRN IV PUSH 12/30/17 20:00 (Dulcolax Supp) 10 mg DAILY PRN RECTAL 12/30/17 20:00 (Lactulose Liq) 30 ml DAILY PRN PO 12/30/17 20:00 (Heparin Inj) 5,000 units Q8HR SQ 12/30/17 22:00 Future Hold 12/31/17 05:20 (Lopressor) 50 mg Q12HR PO 12/31/17 09:00 01/03/18 09:24 (KCl) 10 meq BID PO 12/31/17 09:00 01/02/18 21:33 (Pill Splitter) 1 ea UNSCH PRN OTHER 12/31/17 08:15 (Mylicon Chew) 80 mg PCHS PRN CHEW 12/31/17 09:00 01/03/18 09:23 (Pepcid) 10 mg BID PO 12/31/17 21:00 01/03/18 09:24 (Lasix) 20 mg BID@18 PO 01/01/18 09:00 01/03/18 09:24 (Duoneb Neb) 1 ampule Q4HR NEB PRN NEB 01/01/18 12:30 01/02/18 21:46 (Zaroxolyn) 2.5 mg DAILY PRN PO 01/03/18 07:30 01/03/18 09:36 . Family History Mother at age 78 of liver disease, father's history is unknown. . Substance Use Tobacco: Smoked less than 1 pack per day for most of his life, quit approximately 5 years ago. Alcohol: States that he drank heavily "anything except wine" which he also quit approximately 5 years ago. Prescription med abuse: No history. Illicits: Denies. . Psychosocial History He was born in [place] and moved to this area in 1950. He finished high school in [place] and went to a and [email or web address] for physical education for a short time. 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 He has 3 children, Bowen who lives in [place], Dom Ferraro lives in [place] and Gisella who lives in [place]. Spiritual/Cultural Factors He does attend [employer] locally and would welcome clergy visits. . Living Will: Never completed Health Care Surrogate: Copy in medical record Durable Power of Scrum Product Owner: Never completed Date completed: 01/03/2018 . Health Care Surrogate(s): Dom AbramsJunior , . Alternate-Gisella Gibbons . Documented care wishes: Patient states he wishes to be comfortable. . Today's verbally stated goals: He would like to stay in his home as long as possible and is accepting of hospice services. . Family/friends goals: Spoke with daughter at length and she is also in agreement with hospice services. . Ethical and Legal Issues None noted. . Physical Exam Vital Signs Date Time Temp Pulse Resp B/P (MAP) Pulse Ox O2 Delivery O2 Flow Rate FiO2 01/03/18 07:54 97.6 74 20 131/78 (95) 98 01/03/18 03:57 72 01/03/18 03:17 98.0 74 18 135/76 (95) 96 01/03/18 00:12 97.8 73 18 123/78 (93) 99 01/03/18 00:00 73 01/02/18 21:47 97 Nasal Cannula 2.00 01/02/18 21:24 97.8 78 16 129/92 (104) 97 01/02/18 19:59 74 01/02/18 16:03 97.4 76 20 127/81 (96) 100 01/02/18 12:54 72 01/02/18 11:25 97.5 74 18 145/98 (114) 100 01/03/18 01/04/18 19:00 07:00 # Voids 1 Exam CONSTITUTIONAL/GENERAL: This is an adequately nourished patient, in no apparent distress. TUBES/LINES/DRAINS:Left hand PIV SKIN: No jaundice, rashes, or lesions. No wounds seen anteriorly. Skin temperature appropriate. Not diaphoretic. HEAD: Atraumatic. Normocephalic. EYES: Pupils equal and round and reactive. Extraocular motions intact. No scleral icterus. No injection or drainage. Fundi not examined. ENT: Hearing grossly normal. Nose without bleeding or purulent drainage. Throat without visible erythema, exudates, masses, or lesions. NECK: Trachea midline. Supple, nontender. No palpable thyroid enlargement or nodularity. CARDIOVASCULAR: Regular rate and rhythm without murmurs, gallops, or rubs. No JVD. Peripheral pulses symmetric. RESPIRATORY/CHEST: Symmetric, unlabored respirations. Clear to auscultation. Breath sounds equal, diminished bilaterally. No wheezes, rales, or rhonchi. GASTROINTESTINAL: Abdomen soft, non-tender, nondistended. No hepato-splenomegaly , or palpable masses. No guarding. Bowel sounds present. GENITOURINARY: Without palpable bladder distension. MUSCULOSKELETAL: Extremities without clubbing or cyanosis. Trace dependent edema. No joint tenderness or effusion noted. No calf tenderness. No mottling or clubbing. LYMPHATICS: No palpable cervical or supraclavicular adenopathy. NEUROLOGICAL: Awake and alert. Motor and sensory grossly within normal limits. Follows commands. Speech somewhat difficult to understand. Moves all extremities. PSYCHIATRIC: No obvious anxiety/depression. no apparent hallucinations or other psychotic thought process. Diagnostic Tests Laboratory Laboratory Tests Test 12/31/17 13:30 01/01/18 03:00 01/01/18 09:07 01/02/18 08:19 Prothrombin Time 11.9 SEC (9.8-11.6) Prothromb Time International Ratio 1.2 RATIO Urine Color LIGHT-YELLOW (YELLW/STRAW) Urine Turbidity CLEAR (CLEAR) Urine pH 6.0 (5.0-8.5) Urine Specific [place]ney 1.009 (1.002-1.035) Urine Protein 30 mg/dL (NEG-TRACE) Urine Glucose (UA) NEG mg/dL (NEG) Urine Ketones NEG mg/dL (NEG) Urine Occult Blood NEG (NEG) Urine Nitrite NEG (NEG) Urine Bilirubin NEG (NEG) Urine Urobilinogen LESS THAN 2.0 MG/DL (LESS Urine Leukocyte Esterase NEG (NEG) Urine WBC LESS THAN 1 /hpf (0-5) Urine Squamous Epithelial Cells <1 /hpf (0-5) Urine Bacteria OCC /hpf (NONE) Urine Hyaline Casts 4 /lpf (RARE) Urine Mucus FEW /lpf (OCC) Microscopic Urinalysis Comment CULT NOT INDICATED White Blood Count 4.2 TH/MM3 (4.0-11.0) 3.7 TH/MM3 (4.0-11.0) Red Blood Count 3.47 MIL/MM3 (4.50-5.90) 3.36 MIL/MM3 (4.50-5.90) Hemoglobin 10.7 GM/DL (13.0-17.0) 10.4 GM/DL (13.0-17.0) Hematocrit 32.9 % (39.0-51.0) 31.7 % (39.0-51.0) Mean Corpuscular Volume 95.0 FL (80.0-100.0) 94.3 FL (80.0-100.0) Mean Corpuscular Hemoglobin 30.9 PG (27.0-34.0) 31.0 PG (27.0-34.0) Mean Corpuscular Hemoglobin Concent 32.5 % (32.0-36.0) 32.9 % (32.0-36.0) Red Cell Distribution Width 15.7 % (11.6-17.2) 15.9 % (11.6-17.2) Platelet Count 92 TH/MM3 (150-450) 89 TH/MM3 (150-450) Mean Platelet Volume 11.5 FL (7.0-11.0) 10.9 FL (7.0-11.0) Neutrophils (%) (Auto) 43.9 % (16.0-70.0) 41.4 % (16.0-70.0) Lymphocytes (%) (Auto) 26.8 % (9.0-44.0) 27.7 % (9.0-44.0) Monocytes (%) (Auto) 28.3 % (0.0-8.0) 30.1 % (0.0-8.0) Eosinophils (%) (Auto) 0.5 % (0.0-4.0) 0.3 % (0.0-4.0) Basophils (%) (Auto) 0.5 % (0.0-2.0) 0.5 % (0.0-2.0) Neutrophils # (Auto) 1.9 TH/MM3 (1.8-7.7) 1.5 TH/MM3 (1.8-7.7) Lymphocytes # (Auto) 1.1 TH/MM3 (1.0-4.8) 1.0 TH/MM3 (1.0-4.8) Monocytes # (Auto) 1.2 TH/MM3 (0-0.9) 1.1 TH/MM3 (0-0.9) Eosinophils # (Auto) 0.0 TH/MM3 (0-0.4) 0.0 TH/MM3 (0-0.4) Basophils # (Auto) 0.0 TH/MM3 (0-0.2) 0.0 TH/MM3 (0-0.2) CBC Comment AUTO DIFF AUTO DIFF Differential Comment AUTO DIFF CONFIRMED AUTO DIFF CONFIRMED Platelet Estimate LOW (NORMAL) LOW (NORMAL) Platelet Morphology Comment ENLARGED (NORMAL) ENLARGED (NORMAL) Blood Urea Nitrogen 23 MG/DL (7-18) 29 MG/DL (7-18) Creatinine 2.21 MG/DL (0.60-1.30) 2.54 MG/DL (0.60-1.30) Random Glucose 82 MG/DL (74-106) 92 MG/DL (74-106) Total Protein 8.0 GM/DL (6.4-8.2) Albumin 3.8 GM/DL (3.4-5.0) Calcium Level 9.0 MG/DL (8.5-10.1) 9.0 MG/DL (8.5-10.1) Alkaline Phosphatase 59 U/L (45-117) Aspartate Amino Transf (AST/SGOT) 19 U/L (15-37) Alanine Aminotransferase (ALT/SGPT) 21 U/L (12-78) Total Bilirubin 0.9 MG/DL (0.2-1.0) Sodium Level 138 MEQ/L (136-145) 137 MEQ/L (136-145) Potassium Level 3.8 MEQ/L (3.5-5.1) 4.3 MEQ/L (3.5-5.1) Chloride Level 104 MEQ/L (98-107) 102 MEQ/L (98-107) Carbon Dioxide Level 24.6 MEQ/L (21.0-32.0) 24.6 MEQ/L (21.0-32.0) Anion Gap 9 MEQ/L (5-15) 10 MEQ/L (5-15) Estimat Glomerular Filtration Rate 34 ML/MIN (>89) 29 ML/MIN (>89) Magnesium Level 2.5 MG/DL (1.5-2.5) Test 01/03/18 06:15 White Blood Count 4.9 TH/MM3 (4.0-11.0) Red Blood Count 3.38 MIL/MM3 (4.50-5.90) Hemoglobin 10.4 GM/DL (13.0-17.0) Hematocrit 32.0 % (39.0-51.0) Mean Corpuscular Volume 94.5 FL (80.0-100.0) Mean Corpuscular Hemoglobin 30.9 PG (27.0-34.0) Mean Corpuscular Hemoglobin Concent 32.7 % (32.0-36.0) Red Cell Distribution Width 16.5 % (11.6-17.2) Platelet Count 84 TH/MM3 (150-450) Mean Platelet Volume 11.0 FL (7.0-11.0) Neutrophils (%) (Auto) 44.1 % (16.0-70.0) Lymphocytes (%) (Auto) 23.3 % (9.0-44.0) Monocytes (%) (Auto) 31.8 % (0.0-8.0) Eosinophils (%) (Auto) 0.3 % (0.0-4.0) Basophils (%) (Auto) 0.5 % (0.0-2.0) Neutrophils # (Auto) 2.2 TH/MM3 (1.8-7.7) Lymphocytes # (Auto) 1.1 TH/MM3 (1.0-4.8) Monocytes # (Auto) 1.6 TH/MM3 (0-0.9) Eosinophils # (Auto) 0.0 TH/MM3 (0-0.4) Basophils # (Auto) 0.0 TH/MM3 (0-0.2) CBC Comment AUTO DIFF Differential Comment AUTO DIFF CONFIRMED Platelet Estimate LOW (NORMAL) Platelet Morphology Comment ENLARGED (NORMAL) Blood Urea Nitrogen 34 MG/DL (7-18) Creatinine 2.75 MG/DL (0.60-1.30) Random Glucose 64 MG/DL (74-106) Calcium Level 8.7 MG/DL (8.5-10.1) Magnesium Level 2.5 MG/DL (1.5-2.5) Sodium Level 137 MEQ/L (136-145) Potassium Level 5.2 MEQ/L (3.5-5.1) Chloride Level 103 MEQ/L (98-107) Carbon Dioxide Level 26.8 MEQ/L (21.0-32.0) Anion Gap 7 MEQ/L (5-15) Estimat Glomerular Filtration Rate 27 ML/MIN (>89) Iron Level 60 MCG/DL (65-175) Total Iron Binding Capacity 259 MCG/DL (250-450) Percent Iron Saturation 23.2 % (20-50) Ferritin 827 NG/ML (26-388) . Result Diagram: 01/03/1815 01/03/1815 Imaging Last Impressions Chest X-Ray 01/01/18 0000 Signed Impressions: Service Date/Time: Monday, January 01, 2018 14:33 - CONCLUSION: Bilateral pleural effusions and left lower lung consolidation Alex Zamarripa MD Chest Ultrasound 01/01/18 0000 Signed Impressions: Service Date/Time: Monday, January 01, 2018 16:07 - CONCLUSION: Minimal right pleural fluid, volume insufficient for safe bedside thoracentesis Alexsander Ramos MD Lower Extremity Ultrasound 12/30/17 0000 Signed Impressions: Service Date/Time: Saturday, December 30, 2017 20:46 - CONCLUSION: There is no DVT in the left lower extremity. Alexsander Rey MD Chest CT 12/30/17 0000 Signed Impressions: Service Date/Time: Saturday, December 30, 2017 19:28 - CONCLUSION: 1. Small bilateral pleural effusions and bilateral parenchymal lung changes suggesting pulmonary edema. Given the enlarged cardiac silhouette, a cardiogenic cause should be a consideration. The pleural effusions have increased in volume since the study from one month ago. 2. 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 Alexsander Rey MD Patient/Family Conference Present at Family Conference: Spoke with daughter Gisella and patient, discussed palliative care purpose and focus, clinical findings, lead sales consultant recommendations and goals of care. Patient at this time is accepting of hospice with hospice care center admission for management of severe dyspnea and orthopnea. Consult placed. . Family Conference Time (mins): 50 Family Conference Location: Bedside Issues Discussed: * Palliative care role, purpose, approach * Additional medical, psychosocial, and spiritual history * Patients general health, functional status, and cognitive changes in the months leading up to the current hospitalization * Patient/family understanding of the current medical problems * Patient/family understanding of prognosis * Patients goals of care as best understood from advance directives and/or conversations and/or values * Current medical treatment options and benefits/burdens of those options * Likely scenarios comparing ongoing aggressive care with a transition to comfort measures only * Questions answered to the best of my ability * Palliative care contact information provided Assessment and Plan Disease Oriented Problem List: (1) Renal insufficiency (2) Congestive heart failure (3) Gout Symptom Scale: (1) Edema 0-10 Scale: 2 (2) Orthopnea 0-10 Scale: 10 (Two-pillow) (3) Dyspnea 0-10 Scale: 10 (Dyspneic at rest.) Pertinent Non-Medical Issues Psychosocial:He was born in [place] and moved to this area in 1950. He finished high school in [place] and went to [employer] for physical education for a short time. 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 He has 3 children, Bowen who lives in [place], Dom Ferraro lives in [place] and Gisella who lives in [place]. . Spiritual: He attends a [employer] locally and would except axle inspector visits. . Legal: He has designated healthcare surrogates as his son, Dom Ferraro as primary and his daughter, Gisella as alternate. . Ethical issues impacting care: None identified. . Important Contacts Son: Dom Abrams Junior , . Daughter: Gisella Gibbons Son: Bowen Abrams . Prognosis His prognosis is very poor. In addition to advanced age he now has end-stage heart failure and stage III chronic kidney disease which has been impacted by his heart failure, now causing cardiorenal syndrome. He has failed all medical and mechanical therapy for his heart failure and now has an ejection fraction of less than 20% in spite of cardiac resynchronization therapy with a biventricular ICD and optimal medical support. He is dyspneic at rest and unable to walk more than 10 feet without stopping for significant rest. He has elevated pulmonary artery pressures indicative of pulmonary hypertension as well as COPD, essentially forming a triad of multisystem organ failure in heart lungs and kidneys. He is at significant risk for continued complications and decline. . Code Status: No Code Plan PLAN: Legal decision maker: Patient is showing mildly decreased insight but is able to participate in decision-making. His children are assisting and cooperating together. All are agreeing on goals at this time. Goals: Comfort oriented at this time. CODE STATUS: DNR SYMPTOMS: * Dyspnea: Patient is dyspneic at rest, worsening with minimal activity. He has been given diuretics which have helped him however are now impacting his kidneys. He has been prescribed metolazone as needed for dyspnea by Dr. Sibley and is diuresing well. As he is converting to comfort oriented goals, diuretics will be used to maximize comfort with breathing. * Orthopnea: Current plan is for patient to be enrolled in hospice and transition to the [facility] for symptom management. If he is able to return home he will require a hospital bed to allow him better rest, as he is now experiencing disturbed rest even sitting up in a chair. * Edema: Edema is essentially trace at this time after significant diuresis. Leg elevation and a hospital bed at home will likely assist in the management of this. SUMMARY This is an 87-year-old -[place] male with end-stage heart disease and now, cardiorenal syndrome. He is significantly dyspneic even at rest with orthopnea that is disturbing his ability to rest. Hospice consultation has been placed after discussion with patient and family and is pending. Patient will likely need admission to [facility] for symptom management and family would prefer [place] due to geographic proximity. Palliative care will continue to follow the patient during hospital course as condition evolves, to assist patient/decision-maker with understanding of their medical conditions, weighing benefits/burdens of treatment options, for clarification of goals of treatment. Additionally will assist with any symptoms of palliative concern. . Time Spent Time Periods: 10: 30-12: 05 Total Floor Time (mins): 95 Face to Face Time (mins): 50 >50% Counseling/Coord of Care: Yes Thank you for the opportunity to participate in the care of Mr. Abrams. Attestation To help prompt me to consider important information that might be impacting today's encounter and assessment, information from prior notes written by myself or my colleagues may have been "brought forward" into today's note. My signature on this note, however, is an attestation that I personally performed the exam, history, and/or decision-making noted today, and, unless otherwise indicated, the interactions with patient, family, and staff as well as the review of records all occurred today. I also attest that the listed assessment and stated plan reflect my best clinical judgment today based on the combination of historical information, prior notes, and today's exam/ interactions. When time spent is documented, it refers only to time spent today by the signer, or if indicated, combined time spent today by collaborating physician/nurse practitioner. . Cary Escobar Jan 03, 2018 11:57
--- NOTE | 2018-01-03 13:17 | HHI.PR ---
Subjective Remarks Follow up with acute on chronic CHF/resp failure 01/03/18-patient seen and examined; +SOB, [id number] for Hospice Objective Vitals Vital Signs Date Time Temp Pulse Resp B/P (MAP) Pulse Ox O2 Delivery O2 Flow Rate FiO2 01/03/18 11:45 97.4 73 20 127/83 (98) 100 01/03/18 07:54 97.6 74 20 131/78 (95) 98 01/03/18 07:45 72 01/03/18 03:57 72 01/03/18 03:17 98.0 74 18 135/76 (95) 96 01/03/18 00:12 97.8 73 18 123/78 (93) 99 01/03/18 00:00 73 01/02/18 21:47 97 Nasal Cannula 2.00 01/02/18 21:24 97.8 78 16 129/92 (104) 97 01/02/18 19:59 74 01/02/18 16:03 97.4 76 20 127/81 (96) 100 I/O 01/02/18 01/02/18 01/02/18 01/03/18 01/03/18 01/03/18 07:00 15:00 23:00 07:00 15:00 23:00 Intake Total 480 ml 800 ml Output Total 175 ml 1000 ml 100 ml Balance 305 ml -200 ml -100 ml Intake Oral 480 ml 800 ml Output Urine Total 175 ml 1000 ml 100 ml # Voids 1 Result Diagram: 01/03/18 0615 01/03/18 0615 Imaging Last Impressions Chest X-Ray 01/01/18 0000 Signed Impressions: Service Date/Time: Monday, January 01, 2018 14:33 - CONCLUSION: Bilateral pleural effusions and left lower lung consolidation Alex Zamarripa MD Chest Ultrasound 01/01/18 0000 Signed Impressions: Service Date/Time: Monday, January 01, 2018 16:07 - CONCLUSION: Minimal right pleural fluid, volume insufficient for safe bedside thoracentesis Alexsander Ramos MD Lower Extremity Ultrasound 12/30/17 0000 Signed Impressions: Service Date/Time: Saturday, December 30, 2017 20:46 - CONCLUSION: There is no DVT in the left lower extremity. Alexsander Rey MD Chest CT 12/30/17 0000 Signed Impressions: Service Date/Time: Saturday, December 30, 2017 19:28 - CONCLUSION: 1. Small bilateral pleural effusions and bilateral parenchymal lung changes suggesting pulmonary edema. Given the enlarged cardiac silhouette, a cardiogenic cause should be a consideration. The pleural effusions have increased in volume since the study from one month ago. 2. 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 Alexsander Rey MD Objective Remarks GENERAL: NAD and lethargic SKIN: Warm and dry. HEAD: Normocephalic. EYES: No scleral icterus. No injection or drainage. NECK: Supple, trachea midline. No JVD or lymphadenopathy. CARDIOVASCULAR: Regular rate and rhythm without murmurs, gallops, or rubs. RESPIRATORY: Breath sounds decrease bilaterally. No accessory muscle use. GASTROINTESTINAL: Abdomen soft, non-tender, nondistended. MUSCULOSKELETAL: No cyanosis, or edema. BACK: Nontender without obvious deformity. No CVA tenderness. Procedures none A/P Problem List: (1) Acute exacerbation of CHF (congestive heart failure) ICD Code: I50.9 - Heart failure, unspecified Status: Acute (2) CKD (chronic kidney disease), stage III ICD Code: N18.3 - Chronic kidney disease, stage 3 (moderate) Assessment and Plan Acute Exacerbation of Chronic Systolic CHF: Echo 05/21/17 showed EF 20-25%. BNP 2543. Medication and diet restriction noncompliance. - oral Lasix 20mg bid -Monitor electrolytes and replace as needed -Salt and fluid restricted diet, patient and daughter counseled on restrictions and daily weight monitoring -Continue on beta-bartolome. Avoid SANNA/ARB with CKD. -Rn House Supervisor Dr. Sibley consulted, appreciate recommendations -Repeat Echo 01/01 showed EF less than 20%, trace MR, trace AR, mild TR -Hospice consult pending Pleural Effusions: likely secondary to CHF exacerbation. Seen on Chest CT as above -repeat CXR 01/01 shows continued pleural effusions -bilateral chest U/S done, shows minimal right pleural fluid, and small left pleural effusion; volumes insufficient for safe thoracentesis -continue diuresis as above CKD: Creatinine 2.2, near baseline -Avoid nephrotoxins -Caution with diuresis, decreased lasix dosing on 01/01 Bilateral lower extremity edema: Secondary to poorly controlled CHF -Doppler ultrasound to rule out DVT; Results are negative for DVT -Continue Lasix as above Anemia, normocytic, normochromic: Chronic, stable. Suspect secondary to anemia of chronic disease -Continue to monitor CBC as indicated Thrombocytopenia: Platelet count trending down from 180K to 90K. No evidence of active bleeding. -Hold heparin -PT/INR 1.2, LFTs within normal limits -B12 and folate level wnl -Continue to monitor platelet count closely Thoracic aortic aneurysm: Prior echocardiogram 05/28 showing moderate the dilated proximal ascending aorta 4.04 cm -Recommend follow-up with vascular surgeon for further evaluation DVT prophylaxis: Bilateral SCD/MILI hose. Heparin on hold Problem Qualifiers (1) Acute exacerbation of CHF (congestive heart failure): Qualified Codes: I50.9 - Heart failure, unspecified Brooks Staley MD Jan 03, 2018 13:17
--- NOTE | 2018-01-03 14:47 | HHI.DS ---
Discharge Summary Admission Date Jan 02, 2018 at 16:31 Discharge Date: Jan 03, 2018 Admitting Diagnosis acute CHF exacerbation (1) Acute exacerbation of CHF (congestive heart failure) ICD Code: I50.9 - Heart failure, unspecified Status: Acute (2) CKD (chronic kidney disease), stage III ICD Code: N18.3 - Chronic kidney disease, stage 3 (moderate) Procedures none Brief History - From Admission 87-year-old male with a history of COPD, CHF with an EF of 20-25%, gout, CKD presented to the ED with increasing shortness of breath for the last 3 days. Patient states he has been compliant with his Lasix at home for the last 3 days increasing shortness of breath and congestion. He states it is hard to take a deep breath. He denies any chest pain, cough, fevers or chills. He states he tries to watch his fluid intake at home but does not completely monitor. CBC/BMP: 01/03/18 0615 01/03/18 0615 Significant Findings Laboratory Tests Test 01/01/18 03:00 01/01/18 09:07 01/02/18 08:19 01/03/18 06:15 Urine Protein 30 mg/dL (NEG-TRACE) Urine Bacteria OCC /hpf (NONE) Urine Mucus FEW /lpf (OCC) Red Blood Count 3.47 MIL/MM3 (4.50-5.90) 3.36 MIL/MM3 (4.50-5.90) 3.38 MIL/MM3 (4.50-5.90) Hemoglobin 10.7 GM/DL (13.0-17.0) 10.4 GM/DL (13.0-17.0) 10.4 GM/DL (13.0-17.0) Hematocrit 32.9 % (39.0-51.0) 31.7 % (39.0-51.0) 32.0 % (39.0-51.0) Platelet Count 92 TH/MM3 (150-450) 89 TH/MM3 (150-450) 84 TH/MM3 (150-450) Mean Platelet Volume 11.5 FL (7.0-11.0) Monocytes (%) (Auto) 28.3 % (0.0-8.0) 30.1 % (0.0-8.0) 31.8 % (0.0-8.0) Monocytes # (Auto) 1.2 TH/MM3 (0-0.9) 1.1 TH/MM3 (0-0.9) 1.6 TH/MM3 (0-0.9) Platelet Estimate LOW (NORMAL) LOW (NORMAL) LOW (NORMAL) Platelet Morphology Comment ENLARGED (NORMAL) ENLARGED (NORMAL) ENLARGED (NORMAL) Blood Urea Nitrogen 23 MG/DL (7-18) 29 MG/DL (7-18) 34 MG/DL (7-18) Creatinine 2.21 MG/DL (0.60-1.30) 2.54 MG/DL (0.60-1.30) 2.75 MG/DL (0.60-1.30) Estimat Glomerular Filtration Rate 34 ML/MIN (>89) 29 ML/MIN (>89) 27 ML/MIN (>89) White Blood Count 3.7 TH/MM3 (4.0-11.0) Neutrophils # (Auto) 1.5 TH/MM3 (1.8-7.7) Random Glucose 64 MG/DL (74-106) Potassium Level 5.2 MEQ/L (3.5-5.1) Iron Level 60 MCG/DL (65-175) Ferritin 827 NG/ML (26-388) Imaging Last Impressions Chest X-Ray 01/01/18 0000 Signed Impressions: Service Date/Time: Monday, January 01, 2018 14:33 - CONCLUSION: Bilateral pleural effusions and left lower lung consolidation Alex Zamarripa MD Chest Ultrasound 01/01/18 0000 Signed Impressions: Service Date/Time: Monday, January 01, 2018 16:07 - CONCLUSION: Minimal right pleural fluid, volume insufficient for safe bedside thoracentesis Alexsander Ramos MD Lower Extremity Ultrasound 12/30/17 0000 Signed Impressions: Service Date/Time: Saturday, December 30, 2017 20:46 - CONCLUSION: There is no DVT in the left lower extremity. Alexsander Rey MD Chest CT 12/30/17 0000 Signed Impressions: Service Date/Time: Saturday, December 30, 2017 19:28 - CONCLUSION: 1. Small bilateral pleural effusions and bilateral parenchymal lung changes suggesting pulmonary edema. Given the enlarged cardiac silhouette, a cardiogenic cause should be a consideration. The pleural effusions have increased in volume since the study from one month ago. 2. 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 Alexsander Rey MD PE at Discharge GENERAL: NAD and lethargic SKIN: Warm and dry. HEAD: Normocephalic. EYES: No scleral icterus. No injection or drainage. NECK: Supple, trachea midline. No JVD or lymphadenopathy. CARDIOVASCULAR: Regular rate and rhythm without murmurs, gallops, or rubs. RESPIRATORY: Breath sounds decrease bilaterally. No accessory muscle use. GASTROINTESTINAL: Abdomen soft, non-tender, nondistended. MUSCULOSKELETAL: No cyanosis, or edema. BACK: Nontender without obvious deformity. No CVA tenderness. Hospital Course Prior to discharge to Hospice, patient was treated for: Acute Exacerbation of Chronic Systolic CHF: Echo 05/21/17 showed EF 20-25%. BNP 2543. Medication and diet restriction noncompliance. - oral Lasix 20mg bid -Monitor electrolytes and replace as needed -Salt and fluid restricted diet, patient and daughter counseled on restrictions and daily weight monitoring -Continue on beta-bartolome. Avoid SANNA/ARB with CKD. -[employer]hes[employer]ing [employer] Operator Dr. Sibley consulted, appreciate recommendations -Repeat Echo 01/01 showed EF less than 20%, trace MR, trace AR, mild TR -Hospice consult pending Pleural Effusions: likely secondary to CHF exacerbation. Seen on Chest CT as above -repeat CXR 01/01 shows continued pleural effusions -bilateral chest U/S done, shows minimal right pleural fluid, and small left pleural effusion; volumes insufficient for safe thoracentesis -continue diuresis as above CKD: Creatinine 2.2, near baseline -Avoid nephrotoxins -Caution with diuresis, decreased lasix dosing on 01/01 Bilateral lower extremity edema: Secondary to poorly controlled CHF -Doppler ultrasound to rule out DVT; Results are negative for DVT -Continue Lasix as above Anemia, normocytic, normochromic: Chronic, stable. Suspect secondary to anemia of chronic disease -Continue to monitor CBC as indicated Thrombocytopenia: Platelet count trending down from 180K to 90K. No evidence of active bleeding. -Hold heparin -PT/INR 1.2, LFTs within normal limits -B12 and folate level wnl -Continue to monitor platelet count closely Thoracic aortic aneurysm: Prior echocardiogram 05/28 showing moderate the dilated proximal ascending aorta 4.04 cm -Recommend follow-up with vascular surgeon for further evaluation DVT prophylaxis: Bilateral SCD/MILI hose. Heparin on hold Pt Condition on Discharge: Guarded Discharge Disposition: Hospice/Med Facility Discharge Time: > 30 minutes Discharge Instructions DIET: Follow Instructions for: Heart Healthy Diet Activities you can perform: Regular-No Restrictions New Medications: Albuterol Neb (Albuterol Neb) 2.5 Mg/3 Ml Neb 2.5 MG NEB Q4HR NEB PRN for SHORTNESS OF BREATH, #60 NEBULE 0 Refills Nebulizer Kit/Tubing/Mout (Nebulizer Kit/Tubing/Mout) 1 Kit Kit KIT .XX DIRECTED for Breathing Treatment, #1 0 Refills Continued Medications: Febuxostat (Uloric) 80 Mg Tab 1 DAILY Furosemide (Furosemide) 20 Mg Tab 20 MG PO BID for CHF, #60 TAB 0 Refills Metoprolol Tartrate (Lopressor) 50 Mg Tab 50 MG PO Q12HR for CHF, #60 TAB Nitroglycerin SL (Nitroglycerin SL) 0.4 Mg Subl 0.4 MG SL DIRECTED PRN for CHEST PAIN, #100 TAB.SL 0 Refills ONE TABLET UNDER THE TONGUE NEEDED FOR CHEST PAIN, MAY REPEAT EVERY FIVE MINUTES FOR A TOTAL OF 3 DOSES OR CALL 911 IF NO RELIEF Potassium Chloride ER (Potassium Chloride ER) 10 Meq Tab 10 MEQ PO BID for Electrolyte Replacement, #60 TAB 0 Refills Discontinued Medications: Azithromycin (Zithromax Z-Chaz) 250 Mg Dspk 250 MG PO DIRECTED for Infection, #1 DSPK 0 Refills 500 MG (2 tabs) day 1, then 1 tab days 2-5. Brooks Staley MD Jan 03, 2018 14:47
== END 2018-01-03 18:39 | disposition hospice, home (50) | DRG 292 ==
LOC: NEPE 17:47 → NEDA 19:53 → NEPHCDU 20:35 → OBSVTOIN 01-02 16:31
PROVIDERS: ADMIT Hospitalist; ATTEND Hospitalist
DX: I50.23 Acute on chronic systolic (congestive) heart failure (principal); I42.0 Dilated cardiomyopathy; D69.6 Thrombocytopenia, unspecified; I71.2 Thoracic aortic aneurysm, without rupture; N18.3 Chronic kidney disease, stage 3 (moderate); J44.9 Chronic obstructive pulmonary disease, unspecified; Z99.81 Dependence on supplemental oxygen; I13.0 Hypertensive heart and chronic kidney disease with heart failure and stage 1 through stage 4 chronic kidney disease, or unspecified chronic kidney disease; I47.1 Supraventricular tachycardia; M19.90 Unspecified osteoarthritis, unspecified site; R07.9 Chest pain, unspecified; H91.90 Unspecified hearing loss, unspecified ear; M10.9 Gout, unspecified; R06.82 Tachypnea, not elsewhere classified; I34.0 Nonrheumatic mitral (valve) insufficiency; E78.5 Hyperlipidemia, unspecified; D63.8 Anemia in other chronic diseases classified elsewhere; M70.21 Olecranon bursitis, right elbow; Z51.5 Encounter for palliative care; Z66 Do not resuscitate; R60.0 Localized edema; I25.10 Atherosclerotic heart disease of native coronary artery without angina pectoris; Z95.810 Presence of automatic (implantable) cardiac defibrillator; Z91.14 Patient's other noncompliance with medication regimen; I25.2 Old myocardial infarction; Z87.891 Personal history of nicotine dependence; Z91.19 Patient's noncompliance with other medical treatment and regimen
CPT/HCPCS: 71045; 71046; 71250; 76604; 80048; 80053; 80076; 81001; 82550; 82552; 82607; 82728; 82746; 82948; 83540; 83550; 83735; 83880; 84484; 85007; 85025; 85027; 85610; 85730; 93005; 93306; 93971; 94640; 94664; 96372; 96374; 96376; G0378; G8987-GP; G8988-GP; J1644; J1940; J2405